=== PATIENT | female | born 1955 | race African-American/Black ===

== ENCOUNTER → 2016-09-01 | Outpatient (CLI) | payer MEDICARE, OTHER ==
[~2016-09-01] MED LIST: CARV6.25 PO; CEFD300C2 PO; CYANOCOBALAMIN (B-12) 1000 MCG/1 ML VIAL IM ONE; CYANOCOBALAMIN (B-12) 1000 MCG/1 ML VIAL ONE; DIG0125T PO; HYDR200T PO; HYDR200T36 PO; MAGN400C2 PO; NOR5T PO; OMEP20CA5 PO; POTA-167; RIVA20TA PO; TORS1TAB10 PO
[2016-09-01 12:05] VITALS: BP 116/70
[2016-09-01 16:52] LABS: Basophils # (auto) 0 uL; Basophils % (auto) 0.3 % (0.0-2.0); DEFINITIVE VIEW TRANSMISSION; Eosinophils # (auto) 0.1 uL; Eosinophils % (auto) 1.8 % (0.0-7.0); Hematocrit 25.8 % (36.0-46.0); Hemoglobin 8.1 g/dL (12.2-16.2); Lymphocytes # (auto) 0.6 uL; Lymphocytes % (auto) 17.7 % (10.0-50.0); Mean Corpuscular Hemoglobin 28.3 pg (28.0-32.0); Mean Corpuscular Hgb Conc. 31.3 g/dL (32.0-36.0); Mean Corpuscular Volume 90.5 fL (80.0-100.0); Mean Platelet Volume 8.9 fL (7.4-10.4); Monocytes # (auto) 0.5 uL; Monocytes % (auto) 16.2 % (0.0-12.0); Platelet Count (auto) 152 10^3/uL (140-450); Red Cell Distribution Width 16.3 % (11.6-16.0); White Blood Cell 3.1 10^3/uL (4.4-10.8)
[2016-09-01 17:08] LABS: Albumin 2.9 g/dL (3.4-5.0); BUN/Creatinine Ratio 27.5; Bilirubin, Total 0.2 mg/dL (0.2-1.0); Calcium 8.8 mg/dL (8.5-10.1); Magnesium 2.2 mg/dL (1.6-2.6); Potassium 4.1 mmol/L (3.5-5.1); Total Protein 7.6 g/dL (6.4-8.2)
== END | disposition home or self-care (01) ==
LOC: CHF HDHVI 11:12
PROVIDERS: ATTEND Internal Medicine Cardiovascular Disease
DX: E83.52 Hypercalcemia (principal); E78.00 Pure hypercholesterolemia, unspecified; I10 Essential (primary) hypertension; E83.40 Disorders of magnesium metabolism, unspecified
CPT/HCPCS: 36415; 80053; 80061; 83735; 83970; 84480; 85025; 96372; 96374; G0463; J1642

== ENCOUNTER → 2016-09-10 | Outpatient (CLI) | payer MEDICARE, OTHER ==
[~2016-09-10] MED LIST changes: -CYANOCOBALAMIN (B-12) 1000 MCG/1 ML VIAL IM ONE; -CYANOCOBALAMIN (B-12) 1000 MCG/1 ML VIAL ONE
== END | disposition home or self-care (01) ==
LOC: Rad HDHVI 09:05
PROVIDERS: ATTEND Internal Medicine Cardiovascular Disease
DX: I25.5 Ischemic cardiomyopathy (principal); I42.0 Dilated cardiomyopathy
CPT/HCPCS: 93306

== ENCOUNTER → 2016-09-15 | Outpatient (CLI) | payer MEDICARE, OTHER ==
[~2016-09-15] VITALS: Ht 30.5 cm; Wt 59.0 kg
[~2016-09-15] MED LIST changes: +CHOLESTYRAMINE 4 GM POWDER GT ONE; +CHOLESTYRAMINE 4 GM POWDER ONE
[2016-09-15 10:40] VITALS: BP 122/70
[2016-09-15 11:20] VITALS: BP 126/72
== END | disposition home or self-care (01) ==
LOC: Rad HDHVI 10:26
PROVIDERS: ATTEND Internal Medicine Cardiovascular Disease
DX: R00.2 Palpitations (principal); I11.0 Hypertensive heart disease with heart failure; I50.9 Heart failure, unspecified; I42.0 Dilated cardiomyopathy; I25.5 Ischemic cardiomyopathy; I25.10 Atherosclerotic heart disease of native coronary artery without angina pectoris; D64.9 Anemia, unspecified; E78.00 Pure hypercholesterolemia, unspecified
CPT/HCPCS: 71020; J1642; 93005; G0463

== ENCOUNTER 2016-09-17 08:19 | Day surgery (SDC) | payer MEDICARE, OTHER ==
[~2016-09-17] VITALS: Ht 30.5 cm; Wt 0.5 kg
[2016-09-17] VITALS (9 sets, daily range): BP systolic 124–146; BP diastolic 84–97
[~2016-09-17 08:19] MED LIST changes: -CHOLESTYRAMINE 4 GM POWDER GT ONE; -CHOLESTYRAMINE 4 GM POWDER ONE
[2016-09-17] MEDS ORDERED: FUROSEMIDE 40 MG/4 ML VIAL IV ONE (10:30)
[2016-09-17] MEDS ORDERED: FUROSEMIDE 40 MG/4 ML VIAL ONE (13:20)
== END 2016-09-17 14:36 | disposition home or self-care (01) ==
LOC: CATH 08:19
PROVIDERS: ATTEND Internal Medicine Cardiovascular Disease
DX: D64.9 Anemia, unspecified (principal); I27.2 Other secondary pulmonary hypertension; I50.9 Heart failure, unspecified; R06.01 Orthopnea; Q24.9 Congenital malformation of heart, unspecified
CPT/HCPCS: 86850; 86900; 86901; 86920; J1642

== ENCOUNTER → 2016-09-23 | Outpatient (CLI) | payer MEDICARE, OTHER ==
[2016-09-23 09:59] LABS: Basophils # (auto) 0 uL; Basophils % (auto) 0.3 % (0.0-2.0); Eosinophils # (auto) 0 uL; Eosinophils % (auto) 0.9 % (0.0-7.0); Hematocrit 34.1 % (36.0-46.0); Hemoglobin 10.5 g/dL (12.2-16.2); Lymphocytes # (auto) 0.5 uL; Lymphocytes % (auto) 15.5 % (10.0-50.0); Mean Corpuscular Hemoglobin 27.6 pg (28.0-32.0); Mean Corpuscular Hgb Conc. 30.8 g/dL (32.0-36.0); Mean Corpuscular Volume 89.6 fL (80.0-100.0); Mean Platelet Volume 8.7 fL (7.4-10.4); Monocytes # (auto) 0.4 uL; Monocytes % (auto) 10.4 % (0.0-12.0); Neutrophils # (auto) 2.6 uL; Neutrophils % (auto) 72.9 % (37.0-80.0); Platelet Count (auto) 126 10^3/uL (140-450); Red Cell Distribution Width 16.1 % (11.6-16.0); SUSPECT VIEW TRANSMISSION; White Blood Cell 3.5 10^3/uL (4.4-10.8)
== END | disposition home or self-care (01) ==
LOC: LAB 08:55
PROVIDERS: ATTEND Internal Medicine
DX: D61.818 Other pancytopenia (principal); C50.412 Malignant neoplasm of upper-outer quadrant of left female breast
CPT/HCPCS: 36415; 85025

== ENCOUNTER → 2016-09-29 | Outpatient (CLI) | payer MEDICARE, OTHER ==
[~2016-09-29] MED LIST changes: +CYANOCOBALAMIN (B-12) 1000 MCG/1 ML VIAL IM ONE; +CYANOCOBALAMIN (B-12) 1000 MCG/1 ML VIAL ONE; +FUROSEMIDE 20 MG/2 ML VIAL IV ONE; +FUROSEMIDE 20 MG/2 ML VIAL ONE; +FUROSEMIDE 40 MG/4 ML VIAL ONE; +POTASSIUM CHL 10 Meq TABLET PO ONE; +POTASSIUM CHL 20 Meq TABLET PO ONE
[2016-09-29 12:45] VITALS: BP 123/84
[2016-09-29 17:27] LABS: Basophils # (auto) 0 uL; Basophils % (auto) 0.4 % (0.0-2.0); Eosinophils # (auto) 0 uL; Eosinophils % (auto) 1.6 % (0.0-7.0); Hematocrit 32.6 % (36.0-46.0); Hemoglobin 10.1 g/dL (12.2-16.2); Lymphocytes # (auto) 0.5 uL; Lymphocytes % (auto) 15.3 % (10.0-50.0); Mean Corpuscular Hemoglobin 27.8 pg (28.0-32.0); Mean Corpuscular Hgb Conc. 31.1 g/dL (32.0-36.0); Mean Corpuscular Volume 89.3 fL (80.0-100.0); Mean Platelet Volume 9.2 fL (7.4-10.4); Monocytes # (auto) 0.4 uL; Monocytes % (auto) 11.9 % (0.0-12.0); Neutrophils # (auto) 2.1 uL; Neutrophils % (auto) 70.8 % (37.0-80.0); Platelet Count (auto) 148 10^3/uL (140-450); Red Cell Distribution Width 15.8 % (11.6-16.0)
[2016-09-29 17:31] LABS: Calcium 8.1 mg/dL (8.5-10.1); Potassium 3.7 mmol/L (3.5-5.1)
== END | disposition home or self-care (01) ==
LOC: CHF HDHVI 11:29
PROVIDERS: ATTEND Internal Medicine Cardiovascular Disease
DX: E11.9 Type 2 diabetes mellitus without complications (principal); I10 Essential (primary) hypertension; D64.9 Anemia, unspecified
CPT/HCPCS: 36415; 80048; 83036; 85025; 96367; 96372; G0463; J1642

== ENCOUNTER → 2016-10-02 | Outpatient (CLI) | payer MEDICARE, OTHER ==
[~2016-10-02] MED LIST changes: -CYANOCOBALAMIN (B-12) 1000 MCG/1 ML VIAL IM ONE; -CYANOCOBALAMIN (B-12) 1000 MCG/1 ML VIAL ONE; -FUROSEMIDE 20 MG/2 ML VIAL IV ONE; -FUROSEMIDE 20 MG/2 ML VIAL ONE; -FUROSEMIDE 40 MG/4 ML VIAL ONE; -POTASSIUM CHL 10 Meq TABLET PO ONE; -POTASSIUM CHL 20 Meq TABLET PO ONE
[2016-10-02 12:54] VITALS: BP 122/79
== END | disposition home or self-care (01) ==
LOC: CHF HDHVI 11:55
PROVIDERS: ATTEND Internal Medicine Cardiovascular Disease
DX: I50.30 Unspecified diastolic (congestive) heart failure (principal)
CPT/HCPCS: G0463

== ENCOUNTER → 2016-10-06 | Outpatient (CLI) | payer MEDICARE, OTHER ==
[~2016-10-06] MED LIST changes: +ALBUTEROL SULF 2.5 MG/0.5ML(0.5%) NEB SOLN NEB ONE; +ALBUTEROL SULF 2.5 MG/0.5ML(0.5%) NEB SOLN ONE; +CYANOCOBALAMIN (B-12) 1000 MCG/1 ML VIAL IM ONE; +CYANOCOBALAMIN (B-12) 1000 MCG/1 ML VIAL ONE
== END | disposition home or self-care (01) ==
LOC: CHF HDHVI 10:12
PROVIDERS: ATTEND Internal Medicine Cardiovascular Disease
DX: Z11.4 Encounter for screening for human immunodeficiency virus [HIV] (principal); K76.9 Liver disease, unspecified; R82.90 Unspecified abnormal findings in urine; Z94.1 Heart transplant status; D75.9 Disease of blood and blood-forming organs, unspecified
CPT/HCPCS: 36415; 86703; 86704; 86706; 86708; 86803; 86900; 86901; 87340; 94640; 96372; 96374; G0463; J1642

== ENCOUNTER → 2016-10-26 | Outpatient (CLI) | payer MEDICARE, OTHER ==
[~2016-10-26] MED LIST changes: -ALBUTEROL SULF 2.5 MG/0.5ML(0.5%) NEB SOLN NEB ONE; -ALBUTEROL SULF 2.5 MG/0.5ML(0.5%) NEB SOLN ONE; +FUROSEMIDE 100 MG/10ML VIAL IV ONE; +FUROSEMIDE 40 MG/4 ML VIAL ONE; +POTASSIUM CHL 20 Meq TABLET PO ONE
[2016-10-26 16:18] LABS: Basophils # (auto) 0 uL; Eosinophils # (auto) 0 uL; Eosinophils % (auto) 0.6 % (0.0-7.0); Hematocrit 32.2 % (36.0-46.0); Hemoglobin 10.5 g/dL (12.2-16.2); Lymphocytes # (auto) 0.5 uL; Lymphocytes % (auto) 17.3 % (10.0-50.0); Mean Corpuscular Hemoglobin 29.5 pg (28.0-32.0); Mean Corpuscular Hgb Conc. 32.5 g/dL (32.0-36.0); Mean Corpuscular Volume 90.5 fL (80.0-100.0); Mean Platelet Volume 9.6 fL (7.4-10.4); Monocytes # (auto) 0.3 uL; Monocytes % (auto) 13.4 % (0.0-12.0); Neutrophils # (auto) 1.8 uL; Neutrophils % (auto) 68.7 % (37.0-80.0); Platelet Count (auto) 122 10^3/uL (140-450); Red Cell Distribution Width 18.1 % (11.6-16.0); White Blood Cell 2.6 10^3/uL (4.4-10.8)
[2016-10-26 16:28] LABS: BUN/Creatinine Ratio 37.8; Calcium 8.3 mg/dL (8.5-10.1); Magnesium 1.7 mg/dL (1.6-2.6); Potassium 3.7 mmol/L (3.5-5.1)
[2016-10-26 17:56] LABS: B-Type Natriuretic Peptide 3902.93 pg/mL (0-100)
== END | disposition home or self-care (01) ==
LOC: CHF HDHVI 13:15
PROVIDERS: ATTEND Internal Medicine Cardiovascular Disease
DX: I10 Essential (primary) hypertension (principal); I50.9 Heart failure, unspecified; E83.40 Disorders of magnesium metabolism, unspecified; D64.9 Anemia, unspecified
CPT/HCPCS: 36415; 80048; 83735; 83880; 85025; 96372; 96374; G0463; J1642

== ENCOUNTER → 2016-10-27 | Outpatient (CLI) | payer MEDICARE, OTHER ==
[~2016-10-27] MED LIST changes: -CYANOCOBALAMIN (B-12) 1000 MCG/1 ML VIAL IM ONE; -CYANOCOBALAMIN (B-12) 1000 MCG/1 ML VIAL ONE; +DOBUTamine 1000MCG/ML 250 ML IV ONE; -FUROSEMIDE 100 MG/10ML VIAL IV ONE; -FUROSEMIDE 40 MG/4 ML VIAL ONE; -POTASSIUM CHL 20 Meq TABLET PO ONE
[2016-10-27 13:30] VITALS: BP 134/87
[2016-10-27 13:45] VITALS: BP 125/86
[2016-10-27 14:00] VITALS: BP 126/84
[2016-10-27 14:15] VITALS: BP 122/83
== END | disposition home or self-care (01) ==
LOC: CHF HDHVI 13:05
PROVIDERS: ATTEND Internal Medicine Cardiovascular Disease
DX: I11.0 Hypertensive heart disease with heart failure (principal); I50.9 Heart failure, unspecified; I25.5 Ischemic cardiomyopathy; D64.9 Anemia, unspecified; K76.9 Liver disease, unspecified
CPT/HCPCS: 96365; G0463; J1250; J1642

== ENCOUNTER → 2016-10-28 | Outpatient (CLI) | payer MEDICARE, OTHER ==
[~2016-10-28] VITALS: Ht 30.5 cm; Wt 66.3 kg
[2016-10-28] VITALS (9 sets, daily range): BP systolic 122–146; BP diastolic 72–88
[~2016-10-28] MED LIST changes: +FUROSEMIDE 40 MG/4 ML VIAL ONE; +POTASSIUM CHL 20 Meq TABLET PO ONE
== END | disposition home or self-care (01) ==
LOC: CHF HDHVI 11:56
PROVIDERS: ATTEND Internal Medicine Cardiovascular Disease
DX: I50.9 Heart failure, unspecified (principal); I11.0 Hypertensive heart disease with heart failure; I25.10 Atherosclerotic heart disease of native coronary artery without angina pectoris; E78.00 Pure hypercholesterolemia, unspecified; D64.9 Anemia, unspecified
CPT/HCPCS: 96365; 96366; 96375; G0463; J1250; J1642; J1940

== ENCOUNTER → 2016-10-30 | Outpatient (CLI) | payer MEDICARE, OTHER ==
[~2016-10-30] MED LIST changes: +BUMETANIDE (0.25MG/ML) 4 ML VIAL IV ONE; +BUMETANIDE (0.25MG/ML) 4 ML VIAL ONE; +CYANOCOBALAMIN (B-12) 1000 MCG/1 ML VIAL IM ONE; +CYANOCOBALAMIN (B-12) 1000 MCG/1 ML VIAL ONE; -FUROSEMIDE 40 MG/4 ML VIAL ONE; +POTASSIUM CHL 10 Meq TABLET PO ONE; -POTASSIUM CHL 20 Meq TABLET PO ONE
[2016-10-30 12:15] VITALS: BP 130/86
[2016-10-30 12:30] VITALS: BP 131/87
[2016-10-30 15:54] VITALS: BP 128/91
[2016-10-30 16:28] LABS: Potassium 3.6 mmol/L (3.5-5.1)
[2016-10-30 17:19] LABS: B-Type Natriuretic Peptide 3229.55 pg/mL (0-100); Temperature: 22.9 C (20.0-25.0)
== END | disposition home or self-care (01) ==
LOC: CHF HDHVI 11:52
PROVIDERS: ATTEND Internal Medicine Cardiovascular Disease
DX: I50.9 Heart failure, unspecified (principal); Z79.899 Other long term (current) drug therapy
CPT/HCPCS: 36415; 82565; 83880; 84132; 84520; 96365; 96366; 96372; 96375; G0463; J1642

== ENCOUNTER → 2016-11-02 | Outpatient (CLI) | payer MEDICARE, OTHER ==
[2016-11-02] VITALS (11 sets, daily range): BP systolic 110–127; BP diastolic 69–89
[~2016-11-02] MED LIST changes: +ALBUTEROL SULF 2.5 MG/0.5ML(0.5%) NEB SOLN NEB ONE; +ALBUTEROL SULF 2.5 MG/0.5ML(0.5%) NEB SOLN ONE; -BUMETANIDE (0.25MG/ML) 4 ML VIAL IV ONE; -BUMETANIDE (0.25MG/ML) 4 ML VIAL ONE; -CYANOCOBALAMIN (B-12) 1000 MCG/1 ML VIAL IM ONE; -CYANOCOBALAMIN (B-12) 1000 MCG/1 ML VIAL ONE; +FUROSEMIDE 40 MG/4 ML VIAL IV ONE; +FUROSEMIDE 40 MG/4 ML VIAL ONE; -POTASSIUM CHL 10 Meq TABLET PO ONE; +POTASSIUM CHL 20 Meq TABLET PO ONE
[2016-11-02 17:03] LABS: BUN/Creatinine Ratio 47.3; Calcium 8.2 mg/dL (8.5-10.1); Potassium 3.3 mmol/L (3.5-5.1)
[2016-11-02 17:05] LABS: Basophils # (auto) 0 uL; Basophils % (auto) 0.2 % (0.0-2.0); DEFINITIVE VIEW TRANSMISSION; Eosinophils # (auto) 0 uL; Lymphocytes # (auto) 0.3 uL; Lymphocytes % (auto) 9.9 % (10.0-50.0); Mean Corpuscular Hemoglobin 29.1 pg (28.0-32.0); Mean Corpuscular Hgb Conc. 32.2 g/dL (32.0-36.0); Mean Corpuscular Volume 90.5 fL (80.0-100.0); Mean Platelet Volume 9.3 fL (7.4-10.4); Monocytes # (auto) 0.3 uL; Neutrophils # (auto) 2.4 uL; Neutrophils % (auto) 78.9 % (37.0-80.0); Nucleated Red Blood Cells % 2.3 %; Platelet Count (auto) 128 10^3/uL (140-450); White Blood Cell 3.1 10^3/uL (4.4-10.8)
[2016-11-02 17:17] LABS: Red Cell Distribution Width 20.2 % (11.6-16.0)
[2016-11-02 19:11] LABS: Ovalocytes FEW; Tear Drop Cells FEW
[2016-11-02 19:12] LABS: Anisocytosis Slight; Platelet Estimate Decreased
== END | disposition home or self-care (01) ==
LOC: CHF HDHVI 11:50
PROVIDERS: ATTEND Internal Medicine Cardiovascular Disease
DX: I10 Essential (primary) hypertension (principal); D64.9 Anemia, unspecified
CPT/HCPCS: 36415; 80048; 85025; 94640; 96365; 96366; 96374; G0463; J1642

== ENCOUNTER → 2016-11-09 | Outpatient (CLI) | payer MEDICARE, OTHER ==
[2016-11-09] VITALS (9 sets, daily range): BP systolic 118–137; BP diastolic 70–88
[~2016-11-09] MED LIST changes: -ALBUTEROL SULF 2.5 MG/0.5ML(0.5%) NEB SOLN NEB ONE; -ALBUTEROL SULF 2.5 MG/0.5ML(0.5%) NEB SOLN ONE; +CYANOCOBALAMIN (B-12) 1000 MCG/1 ML VIAL IM ONE; +CYANOCOBALAMIN (B-12) 1000 MCG/1 ML VIAL ONE
== END | disposition home or self-care (01) ==
LOC: CHF HDHVI 12:26
PROVIDERS: ATTEND Internal Medicine Cardiovascular Disease
DX: I11.0 Hypertensive heart disease with heart failure (principal); I50.9 Heart failure, unspecified; I25.10 Atherosclerotic heart disease of native coronary artery without angina pectoris; D64.9 Anemia, unspecified; E78.00 Pure hypercholesterolemia, unspecified
CPT/HCPCS: 96365; 96366; 96372; 96375; G0463; J1250; J1642; J1940; J3420

== ENCOUNTER → 2016-11-11 | Outpatient (CLI) | payer MEDICARE, OTHER ==
[~2016-11-11] MED LIST changes: -CYANOCOBALAMIN (B-12) 1000 MCG/1 ML VIAL IM ONE; -CYANOCOBALAMIN (B-12) 1000 MCG/1 ML VIAL ONE; -FUROSEMIDE 40 MG/4 ML VIAL IV ONE
[2016-11-11 12:36] LABS: Basophils # (auto) 0 uL; Eosinophils # (auto) 0 uL; Eosinophils % (auto) 0.2 % (0.0-7.0); Hematocrit 31.4 % (36.0-46.0); Hemoglobin 10.2 g/dL (12.2-16.2); Lymphocytes # (auto) 0.5 uL; Lymphocytes % (auto) 16.4 % (10.0-50.0); Mean Corpuscular Hgb Conc. 32.4 g/dL (32.0-36.0); Mean Corpuscular Volume 89.4 fL (80.0-100.0); Mean Platelet Volume 9.9 fL (7.4-10.4); Monocytes # (auto) 0.4 uL; Monocytes % (auto) 13.9 % (0.0-12.0); Neutrophils # (auto) 2.2 uL; Neutrophils % (auto) 69.5 % (37.0-80.0); Platelet Count (auto) 122 10^3/uL (140-450); Red Cell Distribution Width 18.8 % (11.6-16.0); SUSPECT VIEW TRANSMISSION; White Blood Cell 3.2 10^3/uL (4.4-10.8)
[2016-11-11 13:59] LABS: B-Type Natriuretic Peptide 3661.34 pg/mL (0-100); Temperature: 22.5 C (20.0-25.0)
[2016-11-11 15:15] LABS: BUN/Creatinine Ratio 35.6; Calcium 8.5 mg/dL (8.5-10.1); Magnesium 1.7 mg/dL (1.6-2.6); Potassium 3.5 mmol/L (3.5-5.1)
== END | disposition home or self-care (01) ==
LOC: CHF HDHVI 10:48
PROVIDERS: ATTEND Internal Medicine Cardiovascular Disease
DX: I10 Essential (primary) hypertension (principal); I50.9 Heart failure, unspecified; E83.42 Hypomagnesemia; D64.9 Anemia, unspecified
CPT/HCPCS: 36415; 80048; 83735; 83880; 85025; J1642

== ENCOUNTER → 2016-11-13 | Outpatient (CLI) | payer MEDICARE, OTHER ==
[2016-11-13] VITALS (8 sets, daily range): BP systolic 116–141; BP diastolic 74–86
[~2016-11-13] MED LIST changes: +FUROSEMIDE 40 MG/4 ML VIAL IV ONE; +POTASSIUM CHL 10 Meq TABLET PO ONE
== END | disposition home or self-care (01) ==
LOC: CHF HDHVI 12:13
PROVIDERS: ATTEND Internal Medicine Cardiovascular Disease
DX: I11.0 Hypertensive heart disease with heart failure (principal); I50.9 Heart failure, unspecified; I25.10 Atherosclerotic heart disease of native coronary artery without angina pectoris; E78.00 Pure hypercholesterolemia, unspecified; D64.9 Anemia, unspecified; Z94.1 Heart transplant status
CPT/HCPCS: 96365; 96366; 96375; G0463; J1250; J1642; J1940; 96374

== ENCOUNTER → 2016-11-25 | Outpatient (CLI) | payer MEDICARE, OTHER ==
[2016-11-25] VITALS (9 sets, daily range): BP systolic 110–125; BP diastolic 64–76
[~2016-11-25] VITALS: Ht 165.1 cm; Wt 57.7 kg
[~2016-11-25] MED LIST changes: -CEFD300C2 PO; +CYANOCOBALAMIN (B-12) 1000 MCG/1 ML VIAL IM ONE; +CYANOCOBALAMIN (B-12) 1000 MCG/1 ML VIAL ONE; -DIG0125T PO; -FUROSEMIDE 40 MG/4 ML VIAL IV ONE; -FUROSEMIDE 40 MG/4 ML VIAL ONE; -HYDR200T PO; -MAGN400C2 PO; -POTASSIUM CHL 10 Meq TABLET PO ONE; -POTASSIUM CHL 20 Meq TABLET PO ONE
[2016-11-25 16:00] LABS: Basophils # (auto) 0 uL; DEFINITIVE VIEW TRANSMISSION; Eosinophils # (auto) 0 uL; Eosinophils % (auto) 0.1 % (0.0-7.0); Hematocrit 32.9 % (36.0-46.0); Hemoglobin 10.6 g/dL (12.2-16.2); Lymphocytes # (auto) 0.4 uL; Lymphocytes % (auto) 11.7 % (10.0-50.0); Mean Corpuscular Hemoglobin 29.1 pg (28.0-32.0); Mean Corpuscular Hgb Conc. 32.2 g/dL (32.0-36.0); Mean Corpuscular Volume 90.5 fL (80.0-100.0); Mean Platelet Volume 9.9 fL (7.4-10.4); Monocytes # (auto) 0.6 uL; Monocytes % (auto) 15.5 % (0.0-12.0); Neutrophils # (auto) 2.7 uL; Neutrophils % (auto) 72.7 % (37.0-80.0); Platelet Count (auto) 144 10^3/uL (140-450); Red Cell Distribution Width 19.3 % (11.6-16.0); White Blood Cell 3.8 10^3/uL (4.4-10.8)
[2016-11-25 16:30] LABS: BUN/Creatinine Ratio 32.7; Calcium 8.7 mg/dL (8.5-10.1); Magnesium 1.8 mg/dL (1.6-2.6); Potassium 3.8 mmol/L (3.5-5.1)
[2016-11-25 17:11] LABS: Temperature: 23.4 C (20.0-25.0)
== END | disposition home or self-care (01) ==
LOC: CHF HDHVI 11:24
PROVIDERS: ATTEND Internal Medicine Cardiovascular Disease
DX: I10 Essential (primary) hypertension (principal); I50.9 Heart failure, unspecified; E83.42 Hypomagnesemia; D64.9 Anemia, unspecified
CPT/HCPCS: 36415; 80048; 83735; 83880; 85025; 96365; 96366; 96372; G0463; J1642

== ENCOUNTER → 2016-11-27 | Outpatient (CLI) | payer MEDICARE, OTHER ==
[2016-11-27] VITALS (9 sets, daily range): BP systolic 112–131; BP diastolic 65–84
[~2016-11-27] MED LIST changes: -CYANOCOBALAMIN (B-12) 1000 MCG/1 ML VIAL IM ONE; -CYANOCOBALAMIN (B-12) 1000 MCG/1 ML VIAL ONE
== END | disposition home or self-care (01) ==
LOC: CHF HDHVI 11:36
PROVIDERS: ATTEND Internal Medicine Cardiovascular Disease
DX: I11.0 Hypertensive heart disease with heart failure (principal); I50.9 Heart failure, unspecified; I25.10 Atherosclerotic heart disease of native coronary artery without angina pectoris; D64.9 Anemia, unspecified; E78.00 Pure hypercholesterolemia, unspecified
CPT/HCPCS: 96365; 96366; G0463; J1250; J1642

== ENCOUNTER → 2016-11-30 | Outpatient (CLI) | payer MEDICARE, OTHER ==
[~2016-11-30] VITALS: Ht 30.5 cm; Wt 58.1 kg
[2016-11-30] VITALS (8 sets, daily range): BP systolic 116–137; BP diastolic 71–78
[~2016-11-30] MED LIST changes: +CYANOCOBALAMIN (B-12) 1000 MCG/1 ML VIAL IM ONE; +CYANOCOBALAMIN (B-12) 1000 MCG/1 ML VIAL ONE
== END ==
LOC: CHF HDHVI 11:49
PROVIDERS: ATTEND Internal Medicine Cardiovascular Disease
DX: I11.0 Hypertensive heart disease with heart failure (principal); I50.9 Heart failure, unspecified; I25.10 Atherosclerotic heart disease of native coronary artery without angina pectoris; D64.9 Anemia, unspecified; J44.9 Chronic obstructive pulmonary disease, unspecified; E78.00 Pure hypercholesterolemia, unspecified
CPT/HCPCS: 96365; 96366; 96372; G0463; J1250; J1642; J3420

== ENCOUNTER → 2016-12-04 | Outpatient (CLI) | payer MEDICARE, OTHER ==
[2016-12-04] VITALS (7 sets, daily range): BP systolic 116–126; BP diastolic 75–83
[~2016-12-04] MED LIST changes: -CYANOCOBALAMIN (B-12) 1000 MCG/1 ML VIAL IM ONE; -CYANOCOBALAMIN (B-12) 1000 MCG/1 ML VIAL ONE
[2016-12-04 16:24] LABS: Basophils # (auto) 0 uL; Eosinophils # (auto) 0 uL; Hematocrit 31.4 % (36.0-46.0); Lymphocytes # (auto) 0.5 uL; Lymphocytes % (auto) 15.3 % (10.0-50.0); Mean Corpuscular Hemoglobin 28.6 pg (28.0-32.0); Mean Corpuscular Hgb Conc. 31.8 g/dL (32.0-36.0); Mean Corpuscular Volume 89.9 fL (80.0-100.0); Mean Platelet Volume 13.9 fL (7.4-10.4); Monocytes # (auto) 0.5 uL; Monocytes % (auto) 16.5 % (0.0-12.0); Neutrophils # (auto) 2.2 uL; Neutrophils % (auto) 68.2 % (37.0-80.0); Platelet Count (auto) 174 10^3/uL (140-450); Red Cell Distribution Width 18.9 % (11.6-16.0); SUSPECT VIEW TRANSMISSION; White Blood Cell 3.3 10^3/uL (4.4-10.8)
[2016-12-04 16:39] LABS: BUN/Creatinine Ratio 39.9; Calcium 7.9 mg/dL (8.5-10.1); Magnesium 1.2 mg/dL (1.6-2.6); Potassium 3.9 mmol/L (3.5-5.1)
[2016-12-04 16:43] LABS: B-Type Natriuretic Peptide 1615.49 pg/mL (0-100); Temperature: 23.4 C (20.0-25.0)
== END | disposition home or self-care (01) ==
LOC: CHF HDHVI 11:59
PROVIDERS: ATTEND Internal Medicine Cardiovascular Disease
DX: I10 Essential (primary) hypertension (principal); I50.9 Heart failure, unspecified; D64.9 Anemia, unspecified; E83.42 Hypomagnesemia
CPT/HCPCS: 36415; 80048; 83735; 83880; 85025; 96365; 96366; G0463; J1642

== ENCOUNTER → 2016-12-09 | Outpatient (CLI) | payer MEDICARE, OTHER ==
[2016-12-09] VITALS (7 sets, daily range): BP systolic 112–125; BP diastolic 63–85
[~2016-12-09] MED LIST changes: +CYANOCOBALAMIN (B-12) 1000 MCG/1 ML VIAL IM ONE; +CYANOCOBALAMIN (B-12) 1000 MCG/1 ML VIAL ONE
[2016-12-09 16:38] LABS: BUN/Creatinine Ratio 44.8; Calcium 8.9 mg/dL (8.5-10.1); Magnesium 1.5 mg/dL (1.6-2.6); Potassium 3.8 mmol/L (3.5-5.1)
[2016-12-09 16:42] LABS: B-Type Natriuretic Peptide 1583.92 pg/mL (0-100); Temperature: 23.4 C (20.0-25.0)
== END | disposition home or self-care (01) ==
LOC: CHF HDHVI 11:31
PROVIDERS: ATTEND Internal Medicine Cardiovascular Disease
DX: I10 Essential (primary) hypertension (principal); I50.9 Heart failure, unspecified; E83.42 Hypomagnesemia
CPT/HCPCS: 36415; 80048; 83735; 83880; 96365; 96366; 96372; G0463; J1642

== ENCOUNTER → 2016-12-11 | Outpatient (CLI) | payer MEDICARE, OTHER ==
[2016-12-11] VITALS (8 sets, daily range): BP systolic 104–136; BP diastolic 65–85
[~2016-12-11] VITALS: Ht 30.5 cm; Wt 58.7 kg
[~2016-12-11] MED LIST changes: -CYANOCOBALAMIN (B-12) 1000 MCG/1 ML VIAL IM ONE; -CYANOCOBALAMIN (B-12) 1000 MCG/1 ML VIAL ONE
== END | disposition home or self-care (01) ==
LOC: CHF HDHVI 11:17
PROVIDERS: ATTEND Internal Medicine Cardiovascular Disease
DX: I11.0 Hypertensive heart disease with heart failure (principal); I50.9 Heart failure, unspecified; I25.10 Atherosclerotic heart disease of native coronary artery without angina pectoris; D64.9 Anemia, unspecified; E78.00 Pure hypercholesterolemia, unspecified
CPT/HCPCS: 96365; 96366; G0463; J1250; J1642; 96374

== ENCOUNTER → 2016-12-16 | Outpatient (CLI) | payer MEDICARE, OTHER ==
[2016-12-16] VITALS (8 sets, daily range): BP systolic 114–137; BP diastolic 77–91
[~2016-12-16] VITALS: Ht 30.5 cm; Wt 60.4 kg
[~2016-12-16] MED LIST changes: +CYANOCOBALAMIN (B-12) 1000 MCG/1 ML VIAL IM ONE; +CYANOCOBALAMIN (B-12) 1000 MCG/1 ML VIAL ONE
[2016-12-16 16:36] LABS: Calcium 8.1 mg/dL (8.5-10.1); Magnesium 1.5 mg/dL (1.6-2.6); Potassium 4.1 mmol/L (3.5-5.1)
[2016-12-16 16:59] LABS: B-Type Natriuretic Peptide 3241.58 pg/mL (0-100)
[2016-12-16 17:00] LABS: Temperature: 23.1 C (20.0-25.0)
[2016-12-16 17:19] LABS: DEFINITIVE VIEW TRANSMISSION; Hematocrit 29.6 % (36.0-46.0); Hemoglobin 9.5 g/dL (12.2-16.2); Mean Corpuscular Hemoglobin 29.3 pg (28.0-32.0); Mean Corpuscular Volume 91.4 fL (80.0-100.0); Mean Platelet Volume 14.1 fL (7.4-10.4); Platelet Count (auto) 136 10^3/uL (140-450); Red Cell Distribution Width 18.3 % (11.6-16.0); SUSPECT VIEW TRANSMISSION; White Blood Cell 2.9 10^3/uL (4.4-10.8)
[2016-12-16 17:44] LABS: Metamyelocytes % 0; Myelocytes % 0; Promyelocytes % 0; Reactive Lymphocytes 0
[2016-12-16 19:07] LABS: Platelet Estimate Decreased
[2016-12-16 19:08] LABS: Anisocytosis Slight
[2016-12-16 19:09] LABS: Ovalocytes OCCASIONAL; Tear Drop Cells OCCASIONAL
[2016-12-16 19:10] LABS: Giant Platelets Few
== END | disposition home or self-care (01) ==
LOC: CHF HDHVI 11:56
PROVIDERS: ATTEND Internal Medicine Cardiovascular Disease
DX: I10 Essential (primary) hypertension (principal); I50.9 Heart failure, unspecified; E83.42 Hypomagnesemia; D64.9 Anemia, unspecified
CPT/HCPCS: 36415; 80048; 83735; 83880; 85007; 85027; 96365; 96366; 96372; G0463; J1642

== ENCOUNTER → 2016-12-23 | Outpatient (CLI) | payer MEDICARE, OTHER ==
[2016-12-23] VITALS (9 sets, daily range): BP systolic 110–139; BP diastolic 55–93
[~2016-12-23] MED LIST changes: +FUROSEMIDE 40 MG/4 ML VIAL IV ONE; +FUROSEMIDE 40 MG/4 ML VIAL ONE; +MAGNESIUM OXIDE 400 MG TAB ONE; +MAGNESIUM OXIDE 400 MG TAB PO ONE; +POTASSIUM CHL 10 Meq TABLET PO ONE; +POTASSIUM CHL 20 Meq TABLET PO ONE
[2016-12-23 16:45] LABS: Basophils # (auto) 0 uL; Basophils % (auto) 0.7 % (0.0-2.0); DEFINITIVE VIEW TRANSMISSION; Eosinophils # (auto) 0 uL; Eosinophils % (auto) 0.4 % (0.0-7.0); Hematocrit 29.7 % (36.0-46.0); Hemoglobin 9.5 g/dL (12.2-16.2); Lymphocytes # (auto) 0.5 uL; Lymphocytes % (auto) 17.3 % (10.0-50.0); Mean Corpuscular Hemoglobin 29.2 pg (28.0-32.0); Mean Corpuscular Hgb Conc. 32.1 g/dL (32.0-36.0); Mean Corpuscular Volume 91.1 fL (80.0-100.0); Mean Platelet Volume 13.6 fL (7.4-10.4); Monocytes # (auto) 0.4 uL; Neutrophils % (auto) 67.6 % (37.0-80.0); Platelet Count (auto) 129 10^3/uL (140-450); Red Cell Distribution Width 19.4 % (11.6-16.0); SUSPECT VIEW TRANSMISSION
[2016-12-23 17:02] LABS: BUN/Creatinine Ratio 33.1; Calcium 8.2 mg/dL (8.5-10.1); Magnesium 1.3 mg/dL (1.6-2.6); Potassium 3.6 mmol/L (3.5-5.1)
[2016-12-23 17:18] LABS: B-Type Natriuretic Peptide 3364.32 pg/mL (0-100); Temperature: 23.4 C (20.0-25.0)
[2016-12-23 17:42] LABS: Anisocytosis Moderate; Macrocytosis Slight; Platelet Estimate Decreased
[2016-12-23 17:43] LABS: Ovalocytes FEW
== END | disposition home or self-care (01) ==
LOC: CHF HDHVI 10:56
PROVIDERS: ATTEND Internal Medicine Cardiovascular Disease
DX: I10 Essential (primary) hypertension (principal); I50.9 Heart failure, unspecified; E83.42 Hypomagnesemia; D64.9 Anemia, unspecified
CPT/HCPCS: 36415; 80048; 83735; 83880; 85025; 96365; 96366; 96372; 96375; G0463; J1642

== ENCOUNTER → 2016-12-25 | Outpatient (CLI) | payer MEDICARE, OTHER ==
[2016-12-25] VITALS (7 sets, daily range): BP systolic 115–136; BP diastolic 62–86
[~2016-12-25] MED LIST changes: +CHOLESTYRAMINE 4 GM POWDER GT ONE; +CHOLESTYRAMINE 4 GM POWDER ONE; -CYANOCOBALAMIN (B-12) 1000 MCG/1 ML VIAL IM ONE; -CYANOCOBALAMIN (B-12) 1000 MCG/1 ML VIAL ONE; +METOLAZONE 5 MG TAB ONE; +METOLAZONE 5 MG TAB PO ONE
== END | disposition home or self-care (01) ==
LOC: CHF HDHVI 12:25
PROVIDERS: ATTEND Internal Medicine Cardiovascular Disease
DX: I11.0 Hypertensive heart disease with heart failure (principal); I50.9 Heart failure, unspecified; I25.10 Atherosclerotic heart disease of native coronary artery without angina pectoris; D64.9 Anemia, unspecified; E78.00 Pure hypercholesterolemia, unspecified; Z94.1 Heart transplant status
CPT/HCPCS: 96365; 96366; 96375; G0463; J1250; J1642; J1940; 96374

== ENCOUNTER → 2016-12-28 | Outpatient (CLI) | payer MEDICARE, OTHER ==
[2016-12-28] VITALS (9 sets, daily range): BP systolic 109–127; BP diastolic 59–87
[~2016-12-28] MED LIST changes: -CHOLESTYRAMINE 4 GM POWDER GT ONE; -CHOLESTYRAMINE 4 GM POWDER ONE; -FUROSEMIDE 40 MG/4 ML VIAL IV ONE; -FUROSEMIDE 40 MG/4 ML VIAL ONE; -MAGNESIUM OXIDE 400 MG TAB ONE; -MAGNESIUM OXIDE 400 MG TAB PO ONE; -METOLAZONE 5 MG TAB ONE; -METOLAZONE 5 MG TAB PO ONE; -POTASSIUM CHL 10 Meq TABLET PO ONE; -POTASSIUM CHL 20 Meq TABLET PO ONE
[2016-12-28 16:33] LABS: Basophils # (auto) 0 uL; DEFINITIVE VIEW TRANSMISSION; Eosinophils # (auto) 0 uL; Eosinophils % (auto) 0.7 % (0.0-7.0); Hematocrit 33.4 % (36.0-46.0); Hemoglobin 10.6 g/dL (12.2-16.2); Lymphocytes # (auto) 0.6 uL; Mean Corpuscular Hemoglobin 29.6 pg (28.0-32.0); Mean Corpuscular Hgb Conc. 31.8 g/dL (32.0-36.0); Mean Corpuscular Volume 93.1 fL (80.0-100.0); Mean Platelet Volume 12.6 fL (7.4-10.4); Monocytes # (auto) 0.5 uL; Monocytes % (auto) 16.4 % (0.0-12.0); Neutrophils # (auto) 2.2 uL; Neutrophils % (auto) 65.9 % (37.0-80.0); Platelet Count (auto) 154 10^3/uL (140-450); SUSPECT VIEW TRANSMISSION; White Blood Cell 3.3 10^3/uL (4.4-10.8)
[2016-12-28 16:54] LABS: BUN/Creatinine Ratio 43.4; Calcium 8.9 mg/dL (8.5-10.1); Magnesium 1.7 mg/dL (1.6-2.6); Potassium 3.4 mmol/L (3.5-5.1)
[2016-12-28 17:00] LABS: B-Type Natriuretic Peptide 1761.98 pg/mL (0-100)
[2016-12-28 17:01] LABS: Temperature: 23.5 C (20.0-25.0)
== END | disposition home or self-care (01) ==
LOC: CHF HDHVI 11:31
PROVIDERS: ATTEND Internal Medicine Cardiovascular Disease
DX: I10 Essential (primary) hypertension (principal); I50.9 Heart failure, unspecified; E83.42 Hypomagnesemia; D64.9 Anemia, unspecified
CPT/HCPCS: 36415; 80048; 83735; 83880; 85025; J1642

== ENCOUNTER → 2016-12-30 | Outpatient (CLI) | payer MEDICARE, OTHER ==
[2016-12-30] VITALS (10 sets, daily range): BP systolic 107–131; BP diastolic 58–74
[~2016-12-30] MED LIST changes: +CYANOCOBALAMIN (B-12) 1000 MCG/1 ML VIAL IM ONE; +CYANOCOBALAMIN (B-12) 1000 MCG/1 ML VIAL ONE
== END | disposition home or self-care (01) ==
LOC: CHF HDHVI 11:51
PROVIDERS: ATTEND Internal Medicine Cardiovascular Disease
DX: I50.9 Heart failure, unspecified (principal); D64.9 Anemia, unspecified
CPT/HCPCS: 96365; 96366; 96372; G0463; J1250; J1642; J3420

== ENCOUNTER → 2017-01-01 | Outpatient (CLI) | payer MEDICARE, OTHER ==
[2017-01-01] VITALS (7 sets, daily range): BP systolic 106–133; BP diastolic 60–76
[~2017-01-01] MED LIST changes: -CYANOCOBALAMIN (B-12) 1000 MCG/1 ML VIAL IM ONE; -CYANOCOBALAMIN (B-12) 1000 MCG/1 ML VIAL ONE
== END | disposition home or self-care (01) ==
LOC: CHF HDHVI 11:00
PROVIDERS: ATTEND Internal Medicine Cardiovascular Disease
DX: I50.9 Heart failure, unspecified (principal)
CPT/HCPCS: 96365; 96366; G0463; J1250; J1642

== ENCOUNTER → 2017-01-04 | Outpatient (CLI) | payer MEDICARE, OTHER ==
[~2017-01-04] MED LIST changes: +CYANOCOBALAMIN (B-12) 1000 MCG/1 ML VIAL IM ONE; +CYANOCOBALAMIN (B-12) 1000 MCG/1 ML VIAL ONE; +HEPARIN 1,000 UNITS/ml 1ML VIAL IV ONE
[2017-01-04 12:00] VITALS: BP 125/77
[2017-01-04 12:15] VITALS: BP 126/86
[2017-01-04 12:30] VITALS: BP 137/83
[2017-01-04 12:45] VITALS: BP 136/83
[2017-01-04 16:47] LABS: Basophils # (auto) 0 uL; Basophils % (auto) 0.9 % (0.0-2.0); Eosinophils # (auto) 0 uL; Eosinophils % (auto) 0.4 % (0.0-7.0); Hematocrit 32.1 % (36.0-46.0); Hemoglobin 10.4 g/dL (12.2-16.2); Lymphocytes # (auto) 0.5 uL; Lymphocytes % (auto) 13.1 % (10.0-50.0); Mean Corpuscular Hemoglobin 30.5 pg (28.0-32.0); Mean Corpuscular Hgb Conc. 32.4 g/dL (32.0-36.0); Mean Platelet Volume 10.8 fL (7.4-10.4); Monocytes # (auto) 0.6 uL; Monocytes % (auto) 16.2 % (0.0-12.0); Neutrophils # (auto) 2.4 uL; Neutrophils % (auto) 69.4 % (37.0-80.0); Nucleated Red Blood Cells % 3.6 %; Platelet Count (auto) 161 10^3/uL (140-450); Red Cell Distribution Width 18.5 % (11.6-16.0); SUSPECT VIEW TRANSMISSION; White Blood Cell 3.5 10^3/uL (4.4-10.8)
[2017-01-04 16:48] LABS: BUN/Creatinine Ratio 38.4; Potassium 4.3 mmol/L (3.5-5.1)
[2017-01-04 16:50] LABS: Calcium 8.7 mg/dL (8.5-10.1)
[2017-01-04 17:05] LABS: B-Type Natriuretic Peptide 1176.3 pg/mL (0-100)
[2017-01-04 17:06] LABS: Temperature: 22.3 C (20.0-25.0)
== END | disposition home or self-care (01) ==
LOC: CHF HDHVI 11:53
PROVIDERS: ATTEND Internal Medicine Cardiovascular Disease
DX: I10 Essential (primary) hypertension (principal); I50.9 Heart failure, unspecified; D64.9 Anemia, unspecified
CPT/HCPCS: 36415; 80048; 83880; 85025; 96365; 96366; 96372; G0463; J1642

== ENCOUNTER → 2017-01-06 | Outpatient (CLI) | payer MEDICARE, OTHER ==
[2017-01-06] VITALS (7 sets, daily range): BP systolic 106–128; BP diastolic 59–74
[~2017-01-06] MED LIST changes: -CYANOCOBALAMIN (B-12) 1000 MCG/1 ML VIAL IM ONE; -CYANOCOBALAMIN (B-12) 1000 MCG/1 ML VIAL ONE; -HEPARIN 1,000 UNITS/ml 1ML VIAL IV ONE
[2017-01-06] MEDS: DOBUTamine 1000MCG/ML 250 ML IV SCH (12:00)
== END | disposition home or self-care (01) ==
LOC: CHF HDHVI 11:45
PROVIDERS: ATTEND Internal Medicine Cardiovascular Disease
DX: I50.9 Heart failure, unspecified (principal); I42.0 Dilated cardiomyopathy
CPT/HCPCS: 96365; 96366; G0463; J1250; J1642

== ENCOUNTER → 2017-01-11 | Outpatient (CLI) | payer MEDICARE, OTHER ==
[2017-01-11] VITALS (7 sets, daily range): BP systolic 100–130; BP diastolic 51–78
[~2017-01-11] MED LIST changes: +CYANOCOBALAMIN (B-12) 1000 MCG/1 ML VIAL IM ONE; +CYANOCOBALAMIN (B-12) 1000 MCG/1 ML VIAL ONE
[2017-01-11 16:29] LABS: Basophils # (auto) 0.1 uL; Basophils % (auto) 2.5 % (0.0-2.0); Eosinophils # (auto) 0 uL; Eosinophils % (auto) 1.1 % (0.0-7.0); Hematocrit 31.4 % (36.0-46.0); Hemoglobin 10.1 g/dL (12.2-16.2); Lymphocytes # (auto) 0.6 uL; Lymphocytes % (auto) 20.7 % (10.0-50.0); Mean Corpuscular Hemoglobin 30.4 pg (28.0-32.0); Mean Corpuscular Hgb Conc. 32.3 g/dL (32.0-36.0); Mean Corpuscular Volume 93.8 fL (80.0-100.0); Mean Platelet Volume 10.8 fL (7.4-10.4); Monocytes # (auto) 0.5 uL; Neutrophils # (auto) 1.8 uL; Neutrophils % (auto) 59.7 % (37.0-80.0); Platelet Count (auto) 178 10^3/uL (140-450); Red Cell Distribution Width 16.6 % (11.6-16.0); White Blood Cell 3.1 10^3/uL (4.4-10.8)
[2017-01-11 17:05] LABS: Potassium 3.9 mmol/L (3.5-5.1)
[2017-01-11 17:11] LABS: B-Type Natriuretic Peptide 1581.46 pg/mL (0-100); Temperature: 23.9 C (20.0-25.0)
== END | disposition home or self-care (01) ==
LOC: CHF HDHVI 11:23
PROVIDERS: ATTEND Internal Medicine Cardiovascular Disease
DX: R94.4 Abnormal results of kidney function studies (principal); I50.9 Heart failure, unspecified; D64.9 Anemia, unspecified
CPT/HCPCS: 36415; 82565; 83880; 84132; 84520; 85025; 96365; 96366; 96372; G0463; J1642

== ENCOUNTER → 2017-01-13 | Outpatient (CLI) | payer MEDICARE, OTHER ==
[~2017-01-13] VITALS: Ht 30.5 cm; Wt 59.2 kg
[~2017-01-13] MED LIST changes: -CYANOCOBALAMIN (B-12) 1000 MCG/1 ML VIAL IM ONE; -CYANOCOBALAMIN (B-12) 1000 MCG/1 ML VIAL ONE
[2017-01-13 13:50] VITALS: BP 135/75
[2017-01-13 14:00] VITALS: BP 117/75
== END | disposition home or self-care (01) ==
LOC: CHF HDHVI 13:29
PROVIDERS: ATTEND Internal Medicine Cardiovascular Disease
DX: I50.9 Heart failure, unspecified (principal); J44.9 Chronic obstructive pulmonary disease, unspecified
CPT/HCPCS: 96365; 96366; G0463; J1250; J1642

== ENCOUNTER → 2017-01-15 | Outpatient (CLI) | payer MEDICARE, OTHER ==
[2017-01-15 11:30] VITALS: BP 126/81
[2017-01-15 11:45] VITALS: BP 132/76
[2017-01-15 12:00] VITALS: BP 127/68
[2017-01-15 12:30] VITALS: BP 114/64
[2017-01-15 13:00] VITALS: BP 112/64
[2017-01-15 14:00] VITALS: BP 125/74
== END | disposition home or self-care (01) ==
LOC: CHF HDHVI 11:35
PROVIDERS: ATTEND Internal Medicine Cardiovascular Disease
DX: I50.9 Heart failure, unspecified (principal); D64.9 Anemia, unspecified; R53.83 Other fatigue; R52 Pain, unspecified
CPT/HCPCS: 96365; 96366; G0463; J1250; J1642

== ENCOUNTER → 2017-01-20 | Outpatient (CLI) | payer MEDICARE, OTHER ==
[~2017-01-20] VITALS: Ht 30.5 cm; Wt 58.1 kg
[2017-01-20] VITALS (8 sets, daily range): BP systolic 110–145; BP diastolic 65–82
[~2017-01-20] MED LIST changes: +CYANOCOBALAMIN (B-12) 1000 MCG/1 ML VIAL IM ONE; +CYANOCOBALAMIN (B-12) 1000 MCG/1 ML VIAL ONE
[2017-01-20 17:11] LABS: Basophils # (auto) 0 uL; Basophils % (auto) 0.1 % (0.0-2.0); Eosinophils # (auto) 0 uL; Hematocrit 31.2 % (36.0-46.0); Lymphocytes # (auto) 0.7 uL; Lymphocytes % (auto) 23.5 % (10.0-50.0); Mean Corpuscular Hemoglobin 30.2 pg (28.0-32.0); Mean Corpuscular Hgb Conc. 32.1 g/dL (32.0-36.0); Mean Corpuscular Volume 94.1 fL (80.0-100.0); Mean Platelet Volume 12.3 fL (7.4-10.4); Monocytes # (auto) 0.4 uL; Monocytes % (auto) 14.5 % (0.0-12.0); Neutrophils # (auto) 1.9 uL; Neutrophils % (auto) 60.9 % (37.0-80.0); Platelet Count (auto) 180 10^3/uL (140-450); SUSPECT VIEW TRANSMISSION; White Blood Cell 3.1 10^3/uL (4.4-10.8)
[2017-01-20 17:31] LABS: Calcium 8.6 mg/dL (8.5-10.1); Magnesium 1.5 mg/dL (1.6-2.6); Potassium 4.2 mmol/L (3.5-5.1)
[2017-01-20 17:34] LABS: BUN/Creatinine Ratio 25.7
== END | disposition home or self-care (01) ==
LOC: CHF HDHVI 11:28
PROVIDERS: ATTEND Internal Medicine Cardiovascular Disease
DX: I10 Essential (primary) hypertension (principal); E83.42 Hypomagnesemia; D64.9 Anemia, unspecified
CPT/HCPCS: 36415; 80048; 83735; 85025; 96365; 96367; 96372; G0463; J1642

== ENCOUNTER → 2017-01-22 | Outpatient (CLI) | payer MEDICARE, OTHER ==
[~2017-01-22] MED LIST changes: -CYANOCOBALAMIN (B-12) 1000 MCG/1 ML VIAL IM ONE; -CYANOCOBALAMIN (B-12) 1000 MCG/1 ML VIAL ONE; +HYDR-4663 PO; -NOR5T PO; -OMEP20CA5 PO; +OMEP20CA74 PO
[2017-01-22 11:15] VITALS: BP 124/82
[2017-01-22 11:30] VITALS: BP 132/83
[2017-01-22 11:45] VITALS: BP 133/86
[2017-01-22 12:00] VITALS: BP 133/84
[2017-01-22 12:30] VITALS: BP 133/85
[2017-01-22 13:00] VITALS: BP 126/86
== END | disposition home or self-care (01) ==
LOC: CHF HDHVI 10:42
PROVIDERS: ATTEND Internal Medicine Cardiovascular Disease
DX: I50.20 Unspecified systolic (congestive) heart failure (principal); I42.0 Dilated cardiomyopathy; E87.70 Fluid overload, unspecified
CPT/HCPCS: 96365; 96366; G0463; J1250; J1642

== ENCOUNTER → 2017-01-25 | Outpatient (CLI) | payer MEDICARE, OTHER ==
[~2017-01-25] VITALS: Ht 30.5 cm; Wt 58.5 kg
[~2017-01-25] MED LIST changes: +CYANOCOBALAMIN (B-12) 1000 MCG/1 ML VIAL IM ONE; +CYANOCOBALAMIN (B-12) 1000 MCG/1 ML VIAL ONE
[2017-01-25 14:20] VITALS: BP 118/83
[2017-01-25 16:31] LABS: Basophils # (auto) 0 uL; Basophils % (auto) 0.1 % (0.0-2.0); Eosinophils # (auto) 0 uL; Eosinophils % (auto) 1.1 % (0.0-7.0); Hematocrit 31.6 % (36.0-46.0); Hemoglobin 10.1 g/dL (12.2-16.2); Lymphocytes # (auto) 0.5 uL; Lymphocytes % (auto) 18.8 % (10.0-50.0); Mean Corpuscular Hgb Conc. 32.1 g/dL (32.0-36.0); Mean Corpuscular Volume 93.7 fL (80.0-100.0); Mean Platelet Volume 11.3 fL (7.4-10.4); Monocytes # (auto) 0.4 uL; Monocytes % (auto) 15.3 % (0.0-12.0); Neutrophils # (auto) 1.8 uL; Neutrophils % (auto) 64.7 % (37.0-80.0); Platelet Count (auto) 153 10^3/uL (140-450); Red Cell Distribution Width 16.4 % (11.6-16.0); SUSPECT VIEW TRANSMISSION; White Blood Cell 2.7 10^3/uL (4.4-10.8)
[2017-01-25 16:41] LABS: Potassium 3.7 mmol/L (3.5-5.1)
[2017-01-25 16:49] LABS: B-Type Natriuretic Peptide 2335.5 pg/mL (0-100); Temperature: 23.9 C (20.0-25.0)
== END | disposition home or self-care (01) ==
LOC: CHF HDHVI 11:04
PROVIDERS: ATTEND Internal Medicine Cardiovascular Disease
DX: E87.6 Hypokalemia (principal); I50.9 Heart failure, unspecified; D64.9 Anemia, unspecified; R94.4 Abnormal results of kidney function studies
CPT/HCPCS: 36415; 82565; 83880; 84132; 84520; 85025; 96365; 96366; 96372; G0463; J1642

== ENCOUNTER → 2017-01-29 | Outpatient (CLI) | payer MEDICARE, OTHER ==
[~2017-01-29] VITALS: Ht 30.5 cm; Wt 59.0 kg
[2017-01-29] VITALS (8 sets, daily range): BP systolic 120–140; BP diastolic 73–81
[~2017-01-29] MED LIST changes: -CYANOCOBALAMIN (B-12) 1000 MCG/1 ML VIAL IM ONE; -CYANOCOBALAMIN (B-12) 1000 MCG/1 ML VIAL ONE
== END | disposition home or self-care (01) ==
LOC: CHF HDHVI 12:03
PROVIDERS: ATTEND Internal Medicine Cardiovascular Disease
DX: I11.0 Hypertensive heart disease with heart failure (principal); I50.9 Heart failure, unspecified; I42.0 Dilated cardiomyopathy; R53.83 Other fatigue
CPT/HCPCS: 96365; 96366; G0463; J1250; J1642

== ENCOUNTER → 2017-02-01 | Outpatient (CLI) | payer MEDICARE, OTHER ==
[~2017-02-01] MED LIST changes: +CYANOCOBALAMIN (B-12) 1000 MCG/1 ML VIAL IM ONE; +CYANOCOBALAMIN (B-12) 1000 MCG/1 ML VIAL ONE
[2017-02-01 12:30] VITALS: BP 118/69
[2017-02-01 12:45] VITALS: BP 121/65
[2017-02-01 13:00] VITALS: BP 121/66
[2017-02-01 15:00] VITALS: BP 131/73
[2017-02-01 17:11] LABS: Basophils # (auto) 0 uL; Basophils % (auto) 0.9 % (0.0-2.0); Eosinophils # (auto) 0 uL; Hematocrit 31.8 % (36.0-46.0); Hemoglobin 10.3 g/dL (12.2-16.2); Lymphocytes # (auto) 0.5 uL; Lymphocytes % (auto) 18.3 % (10.0-50.0); Mean Corpuscular Hemoglobin 30.4 pg (28.0-32.0); Mean Corpuscular Hgb Conc. 32.4 g/dL (32.0-36.0); Mean Platelet Volume 12.3 fL (7.4-10.4); Monocytes # (auto) 0.5 uL; Monocytes % (auto) 17.8 % (0.0-12.0); Neutrophils # (auto) 1.6 uL; Nucleated Red Blood Cells % 2.2 %; Platelet Count (auto) 141 10^3/uL (140-450); Red Cell Distribution Width 15.9 % (11.6-16.0); SUSPECT VIEW TRANSMISSION; White Blood Cell 2.5 10^3/uL (4.4-10.8)
[2017-02-01 17:53] LABS: BUN/Creatinine Ratio 32.5; Bilirubin, Total 0.3 mg/dL (0.2-1.0); Calcium 8.3 mg/dL (8.5-10.1); Potassium 3.6 mmol/L (3.5-5.1); Total Protein 8.2 g/dL (6.4-8.2)
== END | disposition home or self-care (01) ==
LOC: CHF HDHVI 12:15
PROVIDERS: ATTEND Internal Medicine Cardiovascular Disease
DX: I10 Essential (primary) hypertension (principal); D64.9 Anemia, unspecified
CPT/HCPCS: 36415; 80053; 83615; 85025; 96365; 96366; 96372; G0463; J1642

== ENCOUNTER → 2017-02-08 | Outpatient (CLI) | payer MEDICARE, OTHER ==
[2017-02-08] VITALS (7 sets, daily range): BP systolic 127–143; BP diastolic 79–90
[2017-02-08 16:19] LABS: Basophils # (auto) 0 uL; Basophils % (auto) 0.1 % (0.0-2.0); CONDITION Y; Eosinophils # (auto) 0 uL; Eosinophils % (auto) 0.3 % (0.0-7.0); Hematocrit 30.4 % (36.0-46.0); Hemoglobin 9.8 g/dL (12.2-16.2); Lymphocytes # (auto) 0.6 uL; Lymphocytes % (auto) 18.5 % (10.0-50.0); Mean Corpuscular Hemoglobin 30.4 pg (28.0-32.0); Mean Corpuscular Hgb Conc. 32.3 g/dL (32.0-36.0); Mean Corpuscular Volume 94.1 fL (80.0-100.0); Mean Platelet Volume 12.1 fL (7.4-10.4); Monocytes # (auto) 0.4 uL; Monocytes % (auto) 13.9 % (0.0-12.0); Neutrophils % (auto) 67.2 % (37.0-80.0); Platelet Count (auto) 133 10^3/uL (140-450); Red Cell Distribution Width 16.6 % (11.6-16.0); SUSPECT SEE PRINTOUT
[2017-02-08 16:42] LABS: BUN/Creatinine Ratio 32.5; Calcium 8.1 mg/dL (8.5-10.1); Potassium 3.5 mmol/L (3.5-5.1)
[2017-02-08 16:47] LABS: B-Type Natriuretic Peptide 2765.64 pg/mL (0-100)
[2017-02-08 17:04] LABS: Temperature: 23.1 C (20.0-25.0)
== END | disposition home or self-care (01) ==
LOC: CHF HDHVI 11:48
PROVIDERS: ATTEND Internal Medicine Cardiovascular Disease
DX: I10 Essential (primary) hypertension (principal); I50.9 Heart failure, unspecified; D64.9 Anemia, unspecified
CPT/HCPCS: 36415; 80048; 83880; 85025; 96365; 96366; 96372; G0463; J1642

== ENCOUNTER → 2017-02-12 | Outpatient (CLI) | payer MEDICARE, OTHER ==
[2017-02-12] VITALS (7 sets, daily range): BP systolic 110–128; BP diastolic 65–83
[~2017-02-12] VITALS: Ht 1 cm; Wt 60.8 kg
[~2017-02-12] MED LIST changes: -CYANOCOBALAMIN (B-12) 1000 MCG/1 ML VIAL IM ONE; -CYANOCOBALAMIN (B-12) 1000 MCG/1 ML VIAL ONE; +FUROSEMIDE 40 MG/4 ML VIAL IV ONE; +FUROSEMIDE 40 MG/4 ML VIAL ONE; +POTASSIUM CHL 10 Meq TABLET PO ONE; +POTASSIUM CHL 20 Meq TABLET PO ONE
== END | disposition home or self-care (01) ==
LOC: CHF HDHVI 12:46
PROVIDERS: ATTEND Internal Medicine Cardiovascular Disease
DX: I50.9 Heart failure, unspecified (principal); D64.9 Anemia, unspecified; R53.83 Other fatigue; R05 Cough
CPT/HCPCS: 96365; 96366; 96375; G0463; J1250; J1642; J1940

== ENCOUNTER → 2017-02-15 | Outpatient (CLI) | payer MEDICARE, OTHER ==
[2017-02-15] VITALS (8 sets, daily range): BP systolic 115–131; BP diastolic 61–76
[~2017-02-15] MED LIST changes: +CYANOCOBALAMIN (B-12) 1000 MCG/1 ML VIAL IM ONE; +CYANOCOBALAMIN (B-12) 1000 MCG/1 ML VIAL ONE; -FUROSEMIDE 40 MG/4 ML VIAL IV ONE; -FUROSEMIDE 40 MG/4 ML VIAL ONE; -POTASSIUM CHL 10 Meq TABLET PO ONE; -POTASSIUM CHL 20 Meq TABLET PO ONE
[2017-02-15 16:41] LABS: Albumin 2.9 g/dL (3.4-5.0); BUN/Creatinine Ratio 34.1; Bilirubin, Total 0.4 mg/dL (0.2-1.0); Calcium 7.8 mg/dL (8.5-10.1); Potassium 3.3 mmol/L (3.5-5.1); Total Protein 8.2 g/dL (6.4-8.2)
[2017-02-15 17:32] LABS: Basophils # (auto) 0 uL; Basophils % (auto) 0.5 % (0.0-2.0); CONDITION Y; Eosinophils # (auto) 0 uL; Eosinophils % (auto) 0.1 % (0.0-7.0); Hematocrit 31.7 % (36.0-46.0); Hemoglobin 10.5 g/dL (12.2-16.2); Lymphocytes # (auto) 0.5 uL; Lymphocytes % (auto) 21.8 % (10.0-50.0); Mean Corpuscular Hemoglobin 31.4 pg (28.0-32.0); Mean Corpuscular Hgb Conc. 33.2 g/dL (32.0-36.0); Mean Corpuscular Volume 94.4 fL (80.0-100.0); Mean Platelet Volume 11.6 fL (7.4-10.4); Monocytes # (auto) 0.4 uL; Monocytes % (auto) 15.4 % (0.0-12.0); Neutrophils # (auto) 1.5 uL; Neutrophils % (auto) 62.2 % (37.0-80.0); Platelet Count (auto) 132 10^3/uL (140-450); SUSPECT SEE PRINTOUT; White Blood Cell 2.5 10^3/uL (4.4-10.8)
[2017-02-15 18:32] LABS: Giant Platelets Few; Platelet Estimate Decreased
== END | disposition home or self-care (01) ==
LOC: CHF HDHVI 12:42
PROVIDERS: ATTEND Internal Medicine Cardiovascular Disease
DX: I11.0 Hypertensive heart disease with heart failure (principal); I50.9 Heart failure, unspecified; D64.9 Anemia, unspecified; J44.9 Chronic obstructive pulmonary disease, unspecified
CPT/HCPCS: 36415; 80053; 83615; 85025; 96365; 96366; 96372; G0463; J1250; J1642; J3420

== ENCOUNTER → 2017-02-17 | Outpatient (CLI) | payer MEDICARE, OTHER ==
[~2017-02-17] MED LIST changes: -CYANOCOBALAMIN (B-12) 1000 MCG/1 ML VIAL IM ONE; -CYANOCOBALAMIN (B-12) 1000 MCG/1 ML VIAL ONE
[2017-02-17 15:24] VITALS: BP 126/79
== END | disposition home or self-care (01) ==
LOC: CHF HDHVI 13:27
PROVIDERS: ATTEND Internal Medicine Cardiovascular Disease
DX: I50.9 Heart failure, unspecified (principal); I42.0 Dilated cardiomyopathy; R53.83 Other fatigue
CPT/HCPCS: 96365; 96366; G0463; J1250; J1642

== ENCOUNTER → 2017-02-19 | Outpatient (CLI) | payer MEDICARE, OTHER ==
[2017-02-19] VITALS (8 sets, daily range): BP systolic 115–130; BP diastolic 70–80
[~2017-02-19] VITALS: Ht 30.5 cm; Wt 60.8 kg
[2017-02-19 16:51] LABS: Potassium 3.8 mmol/L (3.5-5.1)
== END | disposition home or self-care (01) ==
LOC: CHF HDHVI 11:44
PROVIDERS: ATTEND Internal Medicine Cardiovascular Disease
DX: E87.6 Hypokalemia (principal); R94.4 Abnormal results of kidney function studies
CPT/HCPCS: 36415; 82565; 84132; 84520; 96365; 96366; G0463; J1250; J1642

== ENCOUNTER → 2017-02-22 | Outpatient (CLI) | payer MEDICARE, OTHER ==
[2017-02-22] VITALS (9 sets, daily range): BP systolic 113–127; BP diastolic 70–85
[~2017-02-22] MED LIST changes: +CYANOCOBALAMIN (B-12) 1000 MCG/1 ML VIAL IM ONE; +CYANOCOBALAMIN (B-12) 1000 MCG/1 ML VIAL ONE; +POTASSIUM CHL 20 Meq TABLET PO ONE
[2017-02-22 17:12] LABS: BUN/Creatinine Ratio 40.5; Calcium 7.9 mg/dL (8.5-10.1); Potassium 3.4 mmol/L (3.5-5.1)
[2017-02-22 17:18] LABS: B-Type Natriuretic Peptide 2773.95 pg/mL (0-100)
[2017-02-22 17:21] LABS: Temperature: 22.3 C (20.0-25.0)
[2017-02-22 17:24] LABS: Basophils # (auto) 0 uL; Basophils % (auto) 0.1 % (0.0-2.0); CONDITION Y; Eosinophils # (auto) 0 uL; Eosinophils % (auto) 0.7 % (0.0-7.0); Hematocrit 31.2 % (36.0-46.0); Hemoglobin 10.2 g/dL (12.2-16.2); Lymphocytes # (auto) 0.4 uL; Lymphocytes % (auto) 14.6 % (10.0-50.0); Mean Corpuscular Hemoglobin 30.9 pg (28.0-32.0); Mean Corpuscular Hgb Conc. 32.7 g/dL (32.0-36.0); Mean Corpuscular Volume 94.6 fL (80.0-100.0); Mean Platelet Volume 10.6 fL (7.4-10.4); Monocytes # (auto) 0.4 uL; Monocytes % (auto) 13.3 % (0.0-12.0); Neutrophils % (auto) 71.3 % (37.0-80.0); Platelet Count (auto) 148 10^3/uL (140-450); Red Cell Distribution Width 16.7 % (11.6-16.0); SUSPECT SEE PRINTOUT; White Blood Cell 2.8 10^3/uL (4.4-10.8)
== END | disposition home or self-care (01) ==
LOC: CHF HDHVI 12:45
PROVIDERS: ATTEND Internal Medicine Cardiovascular Disease
DX: I11.0 Hypertensive heart disease with heart failure (principal); D64.9 Anemia, unspecified; I50.9 Heart failure, unspecified
CPT/HCPCS: 36415; 80048; 83880; 85025; 96365; 96366; 96372; G0463; J1250; J1642; J3420

== ENCOUNTER → 2017-02-24 | Outpatient (CLI) | payer MEDICARE, OTHER ==
[2017-02-24] VITALS (7 sets, daily range): BP systolic 110–121; BP diastolic 66–73
[~2017-02-24] MED LIST changes: -CYANOCOBALAMIN (B-12) 1000 MCG/1 ML VIAL IM ONE; -CYANOCOBALAMIN (B-12) 1000 MCG/1 ML VIAL ONE; -POTASSIUM CHL 20 Meq TABLET PO ONE
== END | disposition home or self-care (01) ==
LOC: CHF HDHVI 12:47
PROVIDERS: ATTEND Internal Medicine Cardiovascular Disease
DX: E87.6 Hypokalemia (principal); R94.4 Abnormal results of kidney function studies; I50.9 Heart failure, unspecified; E83.42 Hypomagnesemia
CPT/HCPCS: 96365; 96366; G0463; J1250; J1642

== ENCOUNTER → 2017-03-01 | Outpatient (CLI) | payer MEDICARE, OTHER ==
[2017-03-01] VITALS (8 sets, daily range): BP systolic 110–138; BP diastolic 60–80
[~2017-03-01] MED LIST changes: +CYANOCOBALAMIN (B-12) 1000 MCG/1 ML VIAL IM ONE; +CYANOCOBALAMIN (B-12) 1000 MCG/1 ML VIAL ONE
[2017-03-01 16:17] LABS: CONDITION Y; Hemoglobin 10.8 g/dL (12.2-16.2); Mean Corpuscular Hemoglobin 30.8 pg (28.0-32.0); Mean Corpuscular Hgb Conc. 32.5 g/dL (32.0-36.0); Mean Corpuscular Volume 94.6 fL (80.0-100.0); Mean Platelet Volume 10.6 fL (7.4-10.4); Platelet Count (auto) 145 10^3/uL (140-450); White Blood Cell 2.5 10^3/uL (4.4-10.8)
[2017-03-01 16:29] LABS: BUN/Creatinine Ratio 48.7; Calcium 8.5 mg/dL (8.5-10.1); Phosphorus 3.5 mg/dL (2.5-4.90); Potassium 3.6 mmol/L (3.5-5.1); Uric Acid 5.9 mg/dL (2.6-6.0)
[2017-03-01 16:30] LABS: Metamyelocytes % 0; Myelocytes % 0; Promyelocytes % 0; Reactive Lymphocytes 0
[2017-03-01 20:39] LABS: Ovalocytes FEW; Platelet Estimate Adequate
[2017-03-02 14:10] LABS: Urine Bilirubin Negative (Negative); Urine Blood Negative /uL (Negative); Urine Color Yellow (Yellow); Urine Glucose Normal (Normal); Urine Ketone Negative (Negative); Urine Nitrite Negative (Negative); Urine RBC <1 /hpf (0 - 4); Urine Urobilinogen Normal (Negative); Urine pH 6.5 (5.0-8.0)
== END | disposition home or self-care (01) ==
LOC: CHF HDHVI 12:49
PROVIDERS: ATTEND Internal Medicine Cardiovascular Disease
DX: I10 Essential (primary) hypertension (principal); I27.2 Other secondary pulmonary hypertension; D64.9 Anemia, unspecified
CPT/HCPCS: 36415; 80048; 80069; 81001; 82306; 82570; 83970; 84156; 84550; 85007; 85027; 96365; 96366; 96372; G0463; J1250; J1642; J3420

== ENCOUNTER → 2017-03-03 | Outpatient (CLI) | payer MEDICARE, OTHER ==
[~2017-03-03] VITALS: Ht 30.5 cm; Wt 58.5 kg
[~2017-03-03] MED LIST changes: -CYANOCOBALAMIN (B-12) 1000 MCG/1 ML VIAL IM ONE; -CYANOCOBALAMIN (B-12) 1000 MCG/1 ML VIAL ONE
[2017-03-03 12:30] VITALS: BP 123/70
[2017-03-03 12:45] VITALS: BP 128/70
[2017-03-03 13:00] VITALS: BP 129/71
[2017-03-03 13:30] VITALS: BP 114/59
[2017-03-03 14:00] VITALS: BP 119/59
[2017-03-03 15:46] VITALS: BP 120/69
== END | disposition home or self-care (01) ==
LOC: CHF HDHVI 12:19
PROVIDERS: ATTEND Internal Medicine Cardiovascular Disease
DX: I50.9 Heart failure, unspecified (principal)
CPT/HCPCS: 96365; 96366; G0463; J1250; J1642

== ENCOUNTER → 2017-03-08 | Outpatient (CLI) | payer MEDICARE, OTHER ==
[2017-03-08] VITALS (8 sets, daily range): BP systolic 100–119; BP diastolic 53–70
[~2017-03-08] MED LIST changes: +CYANOCOBALAMIN (B-12) 1000 MCG/1 ML VIAL IM ONE; +CYANOCOBALAMIN (B-12) 1000 MCG/1 ML VIAL ONE
[2017-03-08 16:19] LABS: CONDITION Y; Hematocrit 33.3 % (36.0-46.0); Hemoglobin 10.9 g/dL (12.2-16.2); Mean Corpuscular Hemoglobin 30.7 pg (28.0-32.0); Mean Corpuscular Hgb Conc. 32.8 g/dL (32.0-36.0); Mean Corpuscular Volume 93.4 fL (80.0-100.0); Mean Platelet Volume 11.5 fL (7.4-10.4); Platelet Count (auto) 139 10^3/uL (140-450); Red Cell Distribution Width 16.2 % (11.6-16.0); SUSPECT SEE PRINTOUT; White Blood Cell 2.5 10^3/uL (4.4-10.8)
[2017-03-08 16:25] LABS: Metamyelocytes % 0; Myelocytes % 0; Promyelocytes % 0; Reactive Lymphocytes 0
[2017-03-08 16:47] LABS: B-Type Natriuretic Peptide 622.64 pg/mL (0-100)
[2017-03-08 16:51] LABS: BUN/Creatinine Ratio 36.9; Calcium 8.8 mg/dL (8.5-10.1); Potassium 3.4 mmol/L (3.5-5.1); Temperature: 22.7 C (20.0-25.0)
[2017-03-08 17:29] LABS: Platelet Estimate Decreased
[2017-03-08 17:30] LABS: Large Platelets FEW
== END | disposition home or self-care (01) ==
LOC: CHF HDHVI 12:55
PROVIDERS: ATTEND Internal Medicine Cardiovascular Disease
DX: I11.0 Hypertensive heart disease with heart failure (principal); I50.9 Heart failure, unspecified; D64.9 Anemia, unspecified
CPT/HCPCS: 36415; 80048; 82306; 83880; 85007; 85027; 96365; 96366; 96372; G0463; J1250; J1642; J3420

== ENCOUNTER → 2017-03-10 | Outpatient (CLI) | payer MEDICARE, OTHER ==
[~2017-03-10] MED LIST changes: -CYANOCOBALAMIN (B-12) 1000 MCG/1 ML VIAL IM ONE; -CYANOCOBALAMIN (B-12) 1000 MCG/1 ML VIAL ONE
[2017-03-10 12:00] VITALS: BP 127/77
[2017-03-10 12:15] VITALS: BP 129/75
[2017-03-10 13:20] VITALS: BP 101/56
== END | disposition home or self-care (01) ==
LOC: CHF HDHVI 11:35
PROVIDERS: ATTEND Internal Medicine Cardiovascular Disease
DX: I50.9 Heart failure, unspecified (principal); N28.9 Disorder of kidney and ureter, unspecified; E87.70 Fluid overload, unspecified; I42.0 Dilated cardiomyopathy; D64.9 Anemia, unspecified; R53.83 Other fatigue
CPT/HCPCS: 96365; G0463; J1250; J1642

== ENCOUNTER → 2017-03-12 | Outpatient (CLI) | payer MEDICARE, OTHER ==
[2017-03-12] VITALS (9 sets, daily range): BP systolic 104–116; BP diastolic 53–66
== END | disposition home or self-care (01) ==
LOC: CHF HDHVI 13:06
PROVIDERS: ATTEND Internal Medicine Cardiovascular Disease
DX: I50.9 Heart failure, unspecified (principal); I25.10 Atherosclerotic heart disease of native coronary artery without angina pectoris; D64.9 Anemia, unspecified; R53.83 Other fatigue
CPT/HCPCS: 96365; 96366; G0463; J1250; J1642

== ENCOUNTER → 2017-03-15 | Outpatient (CLI) | payer MEDICARE, OTHER ==
[2017-03-15] VITALS (9 sets, daily range): BP systolic 110–142; BP diastolic 64–79
[~2017-03-15] MED LIST changes: +CYANOCOBALAMIN (B-12) 1000 MCG/1 ML VIAL IM ONE; +CYANOCOBALAMIN (B-12) 1000 MCG/1 ML VIAL ONE
[2017-03-15 17:19] LABS: Potassium 4.1 mmol/L (3.5-5.1)
== END | disposition home or self-care (01) ==
LOC: CHF HDHVI 12:11
PROVIDERS: ATTEND Internal Medicine Cardiovascular Disease
DX: E87.6 Hypokalemia (principal); R94.4 Abnormal results of kidney function studies
CPT/HCPCS: 36415; 82565; 84132; 84520; 96365; 96366; 96372; G0463; J1250; J1642; J3420

== ENCOUNTER → 2017-03-22 | Outpatient (CLI) | payer MEDICARE, OTHER ==
[2017-03-22 13:30] VITALS: BP 129/77
[2017-03-22 13:45] VITALS: BP 143/81
[2017-03-22 14:00] VITALS: BP 127/65
[2017-03-22 14:15] VITALS: BP 132/63
[2017-03-22 14:55] VITALS: BP 109/60
[2017-03-22 15:06] LABS: CONDITION Y; Hematocrit 32.5 % (36.0-46.0); Hemoglobin 10.8 g/dL (12.2-16.2); Mean Corpuscular Hemoglobin 31.5 pg (28.0-32.0); Mean Corpuscular Hgb Conc. 33.2 g/dL (32.0-36.0); Mean Corpuscular Volume 94.9 fL (80.0-100.0); Mean Platelet Volume 10.5 fL (7.4-10.4); Red Cell Distribution Width 15.6 % (11.6-16.0); SUSPECT SEE PRINTOUT; White Blood Cell 2.7 10^3/uL (4.4-10.8)
[2017-03-22 15:21] LABS: BUN/Creatinine Ratio 35.4; Calcium 8.1 mg/dL (8.5-10.1); Magnesium 1.2 mg/dL (1.6-2.6); Potassium 3.6 mmol/L (3.5-5.1)
[2017-03-22 15:25] LABS: B-Type Natriuretic Peptide 1138.87 pg/mL (0-100)
[2017-03-22 15:39] LABS: Platelet Count (auto) 127 10^3/uL (140-450)
[2017-03-22 15:40] LABS: Metamyelocytes % 0; Myelocytes % 0; Promyelocytes % 0; Reactive Lymphocytes 0
[2017-03-22 15:59] LABS: Temperature: 23.9 C (20.0-25.0)
[2017-03-22 17:51] LABS: Platelet Estimate Decreased
== END | disposition home or self-care (01) ==
LOC: CHF HDHVI 13:11
PROVIDERS: ATTEND Internal Medicine Cardiovascular Disease
DX: I10 Essential (primary) hypertension (principal); D64.9 Anemia, unspecified; I50.9 Heart failure, unspecified; E83.42 Hypomagnesemia
CPT/HCPCS: 36415; 80048; 83735; 83880; 85007; 85027; 96365; 96366; 96372; G0463; J1250; J1642; J3420

== ENCOUNTER → 2017-03-24 | Outpatient (CLI) | payer MEDICARE, OTHER ==
[~2017-03-24] MED LIST changes: -CYANOCOBALAMIN (B-12) 1000 MCG/1 ML VIAL IM ONE; -CYANOCOBALAMIN (B-12) 1000 MCG/1 ML VIAL ONE; +MAGNESIUM SULF SDV 50% 4MEQ/ML-2 ML VIAL IV ONE; +MAGNESIUM SULFATE 1GM/100ML 100 ML IV SCH
[2017-03-24 13:00] VITALS: BP 124/76
[2017-03-24 13:15] VITALS: BP 137/79
[2017-03-24 13:45] VITALS: BP 141/82
[2017-03-24 16:30] VITALS: BP 132/83
== END | disposition home or self-care (01) ==
LOC: CHF HDHVI 12:37
PROVIDERS: ATTEND Internal Medicine Cardiovascular Disease
DX: I50.9 Heart failure, unspecified (principal); D64.9 Anemia, unspecified; E83.42 Hypomagnesemia; R53.83 Other fatigue
CPT/HCPCS: 96365; 96366; 96368; G0463; J1250; J1642; J3475; 96367

== ENCOUNTER → 2017-03-26 | Outpatient (CLI) | payer MEDICARE, OTHER ==
[~2017-03-26] VITALS: Ht 30.5 cm; Wt 60.7 kg
[2017-03-26] VITALS (9 sets, daily range): BP systolic 112–131; BP diastolic 63–80
[~2017-03-26] MED LIST changes: -MAGNESIUM SULF SDV 50% 4MEQ/ML-2 ML VIAL IV ONE; -MAGNESIUM SULFATE 1GM/100ML 100 ML IV SCH
== END | disposition home or self-care (01) ==
LOC: CHF HDHVI 13:21
PROVIDERS: ATTEND Internal Medicine Cardiovascular Disease
DX: I11.0 Hypertensive heart disease with heart failure (principal); I50.9 Heart failure, unspecified; D64.9 Anemia, unspecified
CPT/HCPCS: 96365; 96366; G0463; J1250; J1642

== ENCOUNTER → 2017-03-29 | Outpatient (CLI) | payer MEDICARE, OTHER ==
[~2017-03-29] MED LIST changes: +CYANOCOBALAMIN (B-12) 1000 MCG/1 ML VIAL IM ONE; +CYANOCOBALAMIN (B-12) 1000 MCG/1 ML VIAL ONE
[2017-03-29 14:00] VITALS: BP 136/77
[2017-03-29 14:15] VITALS: BP 135/77
[2017-03-29 14:45] VITALS: BP 135/85
[2017-03-29 15:55] VITALS: BP 117/71
[2017-03-29 17:18] LABS: BUN/Creatinine Ratio 32.8; Calcium 7.9 mg/dL (8.5-10.1); Magnesium 1.5 mg/dL (1.6-2.6); Potassium 3.4 mmol/L (3.5-5.1)
== END | disposition home or self-care (01) ==
LOC: CHF HDHVI 13:09
PROVIDERS: ATTEND Internal Medicine Cardiovascular Disease
DX: I10 Essential (primary) hypertension (principal); E83.42 Hypomagnesemia; D51.9 Vitamin B12 deficiency anemia, unspecified
CPT/HCPCS: 36415; 80048; 82607; 83735; 96365; 96366; 96372; G0463; J1250; J1642; J3420

== ENCOUNTER → 2017-03-31 | Outpatient (CLI) | payer MEDICARE, OTHER ==
[~2017-03-31] VITALS: Ht 30.5 cm; Wt 59.0 kg
[2017-03-31] VITALS (8 sets, daily range): BP systolic 105–130; BP diastolic 53–74
[~2017-03-31] MED LIST changes: -CYANOCOBALAMIN (B-12) 1000 MCG/1 ML VIAL IM ONE; -CYANOCOBALAMIN (B-12) 1000 MCG/1 ML VIAL ONE; +MAGNESIUM SULF SDV 50% 4MEQ/ML-2 ML VIAL IV ONE; +MAGNESIUM SULFATE 1 GM/100 ML IV SCH
[2017-03-31] MEDS: SODIUM CHLORIDE 0.9% 250 ML IV SCH ×4 (12:00→15:15)
== END | disposition home or self-care (01) ==
LOC: CHF HDHVI 12:00
PROVIDERS: ATTEND Internal Medicine Cardiovascular Disease
DX: I50.9 Heart failure, unspecified (principal); D64.9 Anemia, unspecified; R53.83 Other fatigue; E83.42 Hypomagnesemia; E87.70 Fluid overload, unspecified
CPT/HCPCS: 96365; 96366; 96368; G0463; J1250; J1642; J3475; 96367

== ENCOUNTER → 2017-04-02 | Outpatient (CLI) | payer MEDICARE, OTHER ==
[2017-04-02] VITALS (9 sets, daily range): BP systolic 119–131; BP diastolic 68–79
[~2017-04-02] MED LIST changes: -MAGNESIUM SULFATE 1 GM/100 ML IV SCH
[2017-04-02] MEDS: MAGNESIUM SULFATE 1GM/100ML 100 ML IV SCH ×3 (11:35→13:00)
== END | disposition home or self-care (01) ==
LOC: CHF HDHVI 11:08
PROVIDERS: ATTEND Internal Medicine Cardiovascular Disease
DX: I50.9 Heart failure, unspecified (principal); E87.70 Fluid overload, unspecified; E83.42 Hypomagnesemia; D70.9 Neutropenia, unspecified
CPT/HCPCS: 96365; 96366; 96367; G0463; J1250; J1642; J3475

== ENCOUNTER → 2017-04-05 | Outpatient (CLI) | payer MEDICARE, OTHER ==
[~2017-04-05] VITALS: Ht 30.5 cm; Wt 59.0 kg
[2017-04-05] VITALS (9 sets, daily range): BP systolic 101–130; BP diastolic 50–79
[~2017-04-05] MED LIST changes: +CYANOCOBALAMIN (B-12) 1000 MCG/1 ML VIAL IM ONE; -MAGNESIUM SULF SDV 50% 4MEQ/ML-2 ML VIAL IV ONE
[2017-04-05 16:46] LABS: Basophils # (auto) 0 uL; Basophils % (auto) 0.2 % (0.0-2.0); CONDITION Y; Eosinophils # (auto) 0.1 uL; Eosinophils % (auto) 1.7 % (0.0-7.0); Hemoglobin 10.6 g/dL (12.2-16.2); Lymphocytes # (auto) 0.5 uL; Lymphocytes % (auto) 14.7 % (10.0-50.0); Mean Corpuscular Hgb Conc. 32.2 g/dL (32.0-36.0); Mean Corpuscular Volume 96.2 fL (80.0-100.0); Mean Platelet Volume 10.3 fL (7.4-10.4); Monocytes # (auto) 0.5 uL; Monocytes % (auto) 16.1 % (0.0-12.0); Neutrophils # (auto) 2.1 uL; Neutrophils % (auto) 67.3 % (37.0-80.0); Platelet Count (auto) 146 10^3/uL (140-450); Red Cell Distribution Width 15.8 % (11.6-16.0); White Blood Cell 3.1 10^3/uL (4.4-10.8)
[2017-04-05 17:05] LABS: B-Type Natriuretic Peptide 3339.04 pg/mL (0-100)
[2017-04-05 17:17] LABS: Temperature: 22.7 C (20.0-25.0)
[2017-04-05 17:31] LABS: Albumin 3.1 g/dL (3.4-5.0); BUN/Creatinine Ratio 32.3; Calcium 8.3 mg/dL (8.5-10.1); Potassium 3.8 mmol/L (3.5-5.1)
[2017-04-05 17:33] LABS: Bilirubin, Total 0.4 mg/dL (0.2-1.0); Total Protein 8.6 g/dL (6.4-8.2)
== END | disposition home or self-care (01) ==
LOC: CHF HDHVI 11:26
PROVIDERS: ATTEND Internal Medicine Cardiovascular Disease
DX: I11.0 Hypertensive heart disease with heart failure (principal); I50.9 Heart failure, unspecified; E83.42 Hypomagnesemia; D64.9 Anemia, unspecified
CPT/HCPCS: 36415; 80053; 82565; 83735; 83880; 85025; 96365; 96366; G0463; J1250; J1642

== ENCOUNTER → 2017-04-07 | Outpatient (CLI) | payer MEDICARE, OTHER ==
[~2017-04-07] VITALS: Ht 30.5 cm; Wt 58.7 kg
[2017-04-07] VITALS (9 sets, daily range): BP systolic 111–137; BP diastolic 71–82
[~2017-04-07] MED LIST changes: -CYANOCOBALAMIN (B-12) 1000 MCG/1 ML VIAL IM ONE; +CYANOCOBALAMIN (B-12) 1000 MCG/1 ML VIAL ONE; +FUROSEMIDE 40 MG/4 ML VIAL IV ONE; +FUROSEMIDE 40 MG/4 ML VIAL ONE; +POTASSIUM CHL 20 Meq TABLET PO ONE
== END | disposition home or self-care (01) ==
LOC: CHF HDHVI 14:22
PROVIDERS: ATTEND Internal Medicine Cardiovascular Disease
DX: I50.9 Heart failure, unspecified (principal); D64.9 Anemia, unspecified; I42.9 Cardiomyopathy, unspecified
CPT/HCPCS: 96365; 96366; 96375; G0463; J1250; J1642; J1940

== ENCOUNTER → 2017-04-09 | Outpatient (CLI) | payer MEDICARE, OTHER ==
[2017-04-09] VITALS (10 sets, daily range): BP systolic 101–118; BP diastolic 54–70
[~2017-04-09] MED LIST changes: -CYANOCOBALAMIN (B-12) 1000 MCG/1 ML VIAL ONE
== END | disposition home or self-care (01) ==
LOC: CHF HDHVI 11:28
PROVIDERS: ATTEND Internal Medicine Cardiovascular Disease
DX: I50.9 Heart failure, unspecified (principal); I42.9 Cardiomyopathy, unspecified; D64.9 Anemia, unspecified; R60.9 Edema, unspecified
CPT/HCPCS: 96365; 96366; 96375; G0463; J1250; J1642; J1940

== ENCOUNTER → 2017-04-12 | Outpatient (CLI) | payer MEDICARE, OTHER ==
[2017-04-12] VITALS (8 sets, daily range): BP systolic 114–128; BP diastolic 72–79
[~2017-04-12] MED LIST changes: +BACITRACIN TOP OINT 1 UD PKG TOP ONE; +FUROSEMIDE 20 MG/2 ML VIAL IV ONE; +FUROSEMIDE 20 MG/2 ML VIAL IV SCH; +FUROSEMIDE 20 MG/2 ML VIAL ONE; -FUROSEMIDE 40 MG/4 ML VIAL IV ONE; +POTASSIUM CHL 10 Meq TABLET PO ONE; -POTASSIUM CHL 20 Meq TABLET PO ONE
[2017-04-12 16:23] LABS: Magnesium 1.3 mg/dL (1.6-2.6); Potassium 3.9 mmol/L (3.5-5.1)
[2017-04-12 16:42] LABS: B-Type Natriuretic Peptide 1569.68 pg/mL (0-100)
[2017-04-12 16:46] LABS: Temperature: 23.5 C (20.0-25.0)
== END | disposition home or self-care (01) ==
LOC: CHF HDHVI 12:30
PROVIDERS: ATTEND Internal Medicine Cardiovascular Disease
DX: R94.4 Abnormal results of kidney function studies (principal); E87.6 Hypokalemia; I50.9 Heart failure, unspecified; E83.42 Hypomagnesemia
CPT/HCPCS: 36415; 82565; 83735; 83880; 84132; 84520; 93701; 94620; 96365; 96366; 96375; G0463; J1250; J1642; J1940

== ENCOUNTER → 2017-04-16 | Outpatient (CLI) | payer MEDICARE, OTHER ==
[~2017-04-16] MED LIST changes: -BACITRACIN TOP OINT 1 UD PKG TOP ONE; -FUROSEMIDE 20 MG/2 ML VIAL IV ONE; -FUROSEMIDE 20 MG/2 ML VIAL IV SCH; -FUROSEMIDE 20 MG/2 ML VIAL ONE; -FUROSEMIDE 40 MG/4 ML VIAL ONE; -POTASSIUM CHL 10 Meq TABLET PO ONE
[2017-04-16 15:30] VITALS: BP 117/73
[2017-04-16 17:24] LABS: Potassium 3.6 mmol/L (3.5-5.1)
== END | disposition home or self-care (01) ==
LOC: CHF HDHVI 11:58
PROVIDERS: ATTEND Internal Medicine Cardiovascular Disease
DX: E87.6 Hypokalemia (principal); R94.4 Abnormal results of kidney function studies
CPT/HCPCS: 36415; 82565; 84132; 84520; J1250; J1642

== ENCOUNTER → 2017-04-21 | Outpatient (CLI) | payer MEDICARE, OTHER ==
[2017-04-21] VITALS (7 sets, daily range): BP systolic 107–135; BP diastolic 55–78
[2017-04-21 16:30] LABS: Calcium 9.1 mg/dL (8.5-10.1); Magnesium 1.8 mg/dL (1.6-2.6)
[2017-04-21 16:35] LABS: CONDITION Y; Hematocrit 33.7 % (36.0-46.0); Hemoglobin 10.9 g/dL (12.2-16.2); Mean Corpuscular Hemoglobin 30.9 pg (28.0-32.0); Mean Corpuscular Hgb Conc. 32.3 g/dL (32.0-36.0); Mean Corpuscular Volume 95.5 fL (80.0-100.0); Mean Platelet Volume 11.4 fL (7.4-10.4); Platelet Count (auto) 156 10^3/uL (140-450); Red Cell Distribution Width 15.4 % (11.6-16.0); SUSPECT SEE PRINTOUT; White Blood Cell 3.1 10^3/uL (4.4-10.8)
[2017-04-21 16:41] LABS: Metamyelocytes % 0; Myelocytes % 0; Promyelocytes % 0; Reactive Lymphocytes 0
[2017-04-21 16:47] LABS: B-Type Natriuretic Peptide 1192.78 pg/mL (0-100)
[2017-04-21 16:58] LABS: Temperature: 23.3 C (20.0-25.0)
[2017-04-21 18:15] LABS: Anisocytosis Moderate; Platelet Estimate Adequate
== END | disposition home or self-care (01) ==
LOC: CHF HDHVI 11:49
PROVIDERS: ATTEND Internal Medicine Cardiovascular Disease
DX: I11.0 Hypertensive heart disease with heart failure (principal); I50.9 Heart failure, unspecified; E83.42 Hypomagnesemia; D64.9 Anemia, unspecified
CPT/HCPCS: 36415; 80048; 83735; 83880; 85007; 85027; 96365; 96366; G0463; J1250; J1642

== ENCOUNTER → 2017-04-23 | Outpatient (CLI) | payer MEDICARE, OTHER ==
[2017-04-23] VITALS (7 sets, daily range): BP systolic 106–137; BP diastolic 66–83
== END | disposition home or self-care (01) ==
LOC: CHF HDHVI 10:23
PROVIDERS: ATTEND Internal Medicine Cardiovascular Disease
DX: I50.9 Heart failure, unspecified (principal); D64.9 Anemia, unspecified; F41.9 Anxiety disorder, unspecified
CPT/HCPCS: 96365; 96366; G0463; J1250; J1642

== ENCOUNTER → 2017-04-28 | Outpatient (CLI) | payer MEDICARE, OTHER ==
[2017-04-28] VITALS (7 sets, daily range): BP systolic 106–118; BP diastolic 55–69
[2017-04-28 16:21] LABS: Basophils # (auto) 0 uL; Basophils % (auto) 0.1 % (0.0-2.0); CONDITION Y; Eosinophils # (auto) 0.1 uL; Eosinophils % (auto) 2.5 % (0.0-7.0); Hematocrit 33.7 % (36.0-46.0); Hemoglobin 10.7 g/dL (12.2-16.2); Lymphocytes # (auto) 0.4 uL; Lymphocytes % (auto) 12.3 % (10.0-50.0); Mean Corpuscular Hemoglobin 30.5 pg (28.0-32.0); Mean Corpuscular Hgb Conc. 31.8 g/dL (32.0-36.0); Mean Corpuscular Volume 95.8 fL (80.0-100.0); Mean Platelet Volume 11.5 fL (7.4-10.4); Monocytes # (auto) 0.4 uL; Monocytes % (auto) 13.5 % (0.0-12.0); Neutrophils # (auto) 2.1 uL; Neutrophils % (auto) 71.6 % (37.0-80.0); Platelet Count (auto) 142 10^3/uL (140-450); Red Cell Distribution Width 14.8 % (11.6-16.0); SUSPECT SEE PRINTOUT; White Blood Cell 2.9 10^3/uL (4.4-10.8)
[2017-04-28 16:32] LABS: BUN/Creatinine Ratio 38.8; Calcium 8.7 mg/dL (8.5-10.1); Magnesium 1.7 mg/dL (1.6-2.6)
[2017-04-28 16:47] LABS: B-Type Natriuretic Peptide 1567.98 pg/mL (0-100)
[2017-04-28 17:04] LABS: Temperature: 22.2 C (20.0-25.0)
== END | disposition home or self-care (01) ==
LOC: CHF HDHVI 11:17
PROVIDERS: ATTEND Internal Medicine Cardiovascular Disease
DX: I11.0 Hypertensive heart disease with heart failure (principal); I50.9 Heart failure, unspecified; D64.9 Anemia, unspecified; E83.42 Hypomagnesemia
CPT/HCPCS: 36415; 80048; 83735; 83880; 85025; 96365; 96366; G0463; J1250; J1642

== ENCOUNTER → 2017-04-30 | Outpatient (CLI) | payer MEDICARE, OTHER ==
[2017-04-30] VITALS (8 sets, daily range): BP systolic 114–146; BP diastolic 68–84
[~2017-04-30] VITALS: Ht 30.5 cm; Wt 57.6 kg
== END | disposition home or self-care (01) ==
LOC: CHF HDHVI 12:58
PROVIDERS: ATTEND Internal Medicine Cardiovascular Disease
DX: I50.9 Heart failure, unspecified (principal); E87.70 Fluid overload, unspecified
CPT/HCPCS: 96365; 96366; G0463; J1250; J1642

== ENCOUNTER → 2017-05-03 | Outpatient (CLI) | payer MEDICARE, OTHER ==
[2017-05-03] VITALS (7 sets, daily range): BP systolic 108–129; BP diastolic 64–77
[~2017-05-03] MED LIST changes: +KETOROLAC TROMETH 60MG/2ML VIAL IM ONE
[2017-05-03 16:39] LABS: BUN/Creatinine Ratio 28.8; Calcium 8.8 mg/dL (8.5-10.1); Potassium 3.7 mmol/L (3.5-5.1)
[2017-05-03 16:48] LABS: B-Type Natriuretic Peptide 892.89 pg/mL (0-100)
[2017-05-03 16:49] LABS: Temperature: 23.3 C (20.0-25.0)
== END | disposition home or self-care (01) ==
LOC: CHF HDHVI 11:44
PROVIDERS: ATTEND Internal Medicine Cardiovascular Disease
DX: I11.0 Hypertensive heart disease with heart failure (principal); I50.9 Heart failure, unspecified
CPT/HCPCS: 36415; 80048; 83880; 96365; 96366; 96372; G0463; J1250; J1642; J1885

== ENCOUNTER → 2017-05-07 | Outpatient (CLI) | payer MEDICARE, OTHER ==
[~2017-05-07] VITALS: Ht 30.5 cm; Wt 0.5 kg
[2017-05-07] VITALS (7 sets, daily range): BP systolic 128–146; BP diastolic 73–85
[~2017-05-07] MED LIST changes: -KETOROLAC TROMETH 60MG/2ML VIAL IM ONE
== END | disposition home or self-care (01) ==
LOC: CHF HDHVI 10:09
PROVIDERS: ATTEND Internal Medicine Cardiovascular Disease
DX: I50.9 Heart failure, unspecified (principal); D64.9 Anemia, unspecified; D70.9 Neutropenia, unspecified; I42.9 Cardiomyopathy, unspecified
CPT/HCPCS: 96365; 96366; G0463; J1250; J1642

== ENCOUNTER → 2017-05-10 | Outpatient (CLI) | payer MEDICARE, OTHER ==
[~2017-05-10] VITALS: Ht 30.5 cm; Wt 56.7 kg
[2017-05-10] VITALS (8 sets, daily range): BP systolic 108–129; BP diastolic 58–71
[2017-05-10 16:39] LABS: Hematocrit 31.8 % (36.0-46.0); Hemoglobin 10.5 g/dL (12.2-16.2); Mean Corpuscular Hemoglobin 31.8 pg (28.0-32.0); Mean Corpuscular Hgb Conc. 33.1 g/dL (32.0-36.0); Mean Corpuscular Volume 96.1 fL (80.0-100.0); Mean Platelet Volume 10.8 fL (6.9-10.8); Platelet Count (auto) 124 10^3/uL (140-450); Red Cell Distribution Width 14.7 % (11.8-14.3); White Blood Cell 2.8 10^3/uL (4.4-10.8)
[2017-05-10 16:42] LABS: Magnesium 1.4 mg/dL (1.6-2.6); Potassium 3.7 mmol/L (3.5-5.1)
[2017-05-10 16:43] LABS: Metamyelocytes % 0; Myelocytes % 0; Promyelocytes % 0; Reactive Lymphocytes 0
[2017-05-10 17:24] LABS: B-Type Natriuretic Peptide 803.97 pg/mL (0-100)
[2017-05-10 17:33] LABS: Temperature: 22.2 C (20.0-25.0)
[2017-05-10 19:26] LABS: Platelet Estimate Decreased
[2017-05-10 19:27] LABS: Ovalocytes FEW
== END | disposition home or self-care (01) ==
LOC: CHF HDHVI 11:11
PROVIDERS: ATTEND Internal Medicine Cardiovascular Disease
DX: E87.6 Hypokalemia (principal); R94.4 Abnormal results of kidney function studies; I50.9 Heart failure, unspecified; E83.42 Hypomagnesemia; D64.9 Anemia, unspecified; E55.9 Vitamin D deficiency, unspecified
CPT/HCPCS: 36415; 82306; 82565; 83735; 83880; 84132; 84520; 85007; 85027; 96365; 96366; G0463; J1250; J1642; 96374

== ENCOUNTER → 2017-05-12 | Outpatient (CLI) | payer MEDICARE, OTHER ==
[~2017-05-12] VITALS: Ht 160 cm; Wt 56.2 kg
[~2017-05-12] MED LIST changes: +MAGNESIUM OXIDE 400 MG TAB ONE; +MAGNESIUM OXIDE 400 MG TAB PO ONE; +MAGNESIUM SULF SDV 50% 4MEQ/ML-2 ML VIAL IV ONE
[2017-05-12] MEDS: MAGNESIUM SULFATE 1GM/100ML 100 ML IV SCH ×2 (12:00→13:00)
[2017-05-12 14:40] VITALS: BP 101/62
== END | disposition home or self-care (01) ==
LOC: CHF HDHVI 10:58
PROVIDERS: ATTEND Internal Medicine Cardiovascular Disease
DX: I13.10 Hypertensive heart and chronic kidney disease without heart failure, with stage 1 through stage 4 chronic kidney disease, or unspecified chronic kidney disease (principal); I50.9 Heart failure, unspecified; E78.5 Hyperlipidemia, unspecified; N18.9 Chronic kidney disease, unspecified; D64.9 Anemia, unspecified
CPT/HCPCS: 96365; 96366; 96367; G0463; J1250; J1642; J3475

== ENCOUNTER → 2017-05-17 | Outpatient (CLI) | payer MEDICARE, OTHER ==
[2017-05-17] VITALS (8 sets, daily range): BP systolic 108–137; BP diastolic 57–81
[~2017-05-17] MED LIST changes: -MAGNESIUM OXIDE 400 MG TAB ONE; -MAGNESIUM OXIDE 400 MG TAB PO ONE; -MAGNESIUM SULF SDV 50% 4MEQ/ML-2 ML VIAL IV ONE
[2017-05-17 16:53] LABS: Basophils # (auto) 0 uL; Eosinophils # (auto) 0.1 uL; Eosinophils % (auto) 4.1 % (0.0-7.0); Hematocrit 34.6 % (36.0-46.0); Hemoglobin 11.1 g/dL (12.2-16.2); Lymphocytes # (auto) 0.4 uL; Lymphocytes % (auto) 12.1 % (10.0-50.0); Mean Corpuscular Hemoglobin 30.9 pg (28.0-32.0); Mean Corpuscular Hgb Conc. 32.2 g/dL (32.0-36.0); Mean Corpuscular Volume 96.1 fL (80.0-100.0); Mean Platelet Volume 9.1 fL (6.9-10.8); Monocytes # (auto) 0.5 uL; Monocytes % (auto) 15.8 % (0.0-12.0); Neutrophils # (auto) 2.2 uL; Nucleated Red Blood Cells % 0.5 %; Platelet Count (auto) 128 10^3/uL (140-450); Red Cell Distribution Width 14.5 % (11.8-14.3); White Blood Cell 3.2 10^3/uL (4.4-10.8)
[2017-05-17 17:04] LABS: BUN/Creatinine Ratio 43.5; Potassium 3.7 mmol/L (3.5-5.1)
[2017-05-17 17:17] LABS: B-Type Natriuretic Peptide 900.47 pg/mL (0-100)
[2017-05-17 17:43] LABS: Temperature: 23.5 C (20.0-25.0)
== END | disposition home or self-care (01) ==
LOC: CHF HDHVI 11:38
PROVIDERS: ATTEND Internal Medicine Cardiovascular Disease
DX: I11.0 Hypertensive heart disease with heart failure (principal); I50.9 Heart failure, unspecified; D64.9 Anemia, unspecified
CPT/HCPCS: 36415; 80048; 83880; 85025; 96365; 96366; G0463; J1250; J1642

== ENCOUNTER → 2017-05-31 | Outpatient (CLI) | payer MEDICARE, OTHER ==
[~2017-05-31] VITALS: Ht 30.5 cm; Wt 58.1 kg
[~2017-05-31] MED LIST changes: -HYDR-4663 PO; +HYDR-4683 PO
[2017-05-31 16:48] LABS: Basophils # (auto) 0 uL; Basophils % (auto) 1.2 % (0.0-2.0); Eosinophils # (auto) 0.1 uL; Eosinophils % (auto) 4.9 % (0.0-7.0); Hematocrit 31.6 % (36.0-46.0); Hemoglobin 10.5 g/dL (12.2-16.2); Lymphocytes # (auto) 0.6 uL; Lymphocytes % (auto) 19.5 % (10.0-50.0); Mean Corpuscular Hemoglobin 32.1 pg (28.0-32.0); Mean Corpuscular Hgb Conc. 33.4 g/dL (32.0-36.0); Mean Corpuscular Volume 96.2 fL (80.0-100.0); Monocytes # (auto) 0.5 uL; Monocytes % (auto) 16.9 % (0.0-12.0); Neutrophils # (auto) 1.7 uL; Neutrophils % (auto) 57.5 % (37.0-80.0); Nucleated Red Blood Cells % 0.2 %; Platelet Count (auto) 101 10^3/uL (140-450); Red Cell Distribution Width 14.1 % (11.8-14.3)
[2017-05-31 16:57] LABS: Calcium 8.1 mg/dL (8.5-10.1); Potassium 3.9 mmol/L (3.5-5.1)
[2017-05-31 17:02] LABS: Urine Bilirubin Negative (Negative); Urine Blood Negative /uL (Negative); Urine Color Yellow (Yellow); Urine Glucose Normal (Normal); Urine Ketone Negative (Negative); Urine Nitrite Negative (Negative); Urine Urobilinogen Normal (Negative)
[2017-05-31 17:25] VITALS: BP 108/68
== END | disposition home or self-care (01) ==
LOC: CHF HDHVI 14:50
PROVIDERS: ATTEND Internal Medicine Cardiovascular Disease
DX: N18.3 Chronic kidney disease, stage 3 (moderate) (principal); D63.1 Anemia in chronic kidney disease; E21.3 Hyperparathyroidism, unspecified; R80.9 Proteinuria, unspecified; M10.9 Gout, unspecified; E55.9 Vitamin D deficiency, unspecified; E78.5 Hyperlipidemia, unspecified
CPT/HCPCS: 36415; 80048; 80069; 81003; 82306; 82570; 83970; 84156; 84550; 85025; 96365; 96366; G0463; J1250; J1642

== ENCOUNTER → 2017-06-07 | Outpatient (CLI) | payer MEDICARE, OTHER ==
[~2017-06-07] VITALS: Ht 1 cm; Wt 0.5 kg
[~2017-06-07] MED LIST changes: +CYANOCOBALAMIN (B-12) 1000 MCG/1 ML VIAL IM ONE; +CYANOCOBALAMIN (B-12) 1000 MCG/1 ML VIAL ONE
[2017-06-07 16:15] VITALS: BP 117/64
[2017-06-07 17:11] LABS: BUN/Creatinine Ratio 25.7; Basophils # (auto) 0 uL; Basophils % (auto) 1.1 % (0.0-2.0); Calcium 8.5 mg/dL (8.5-10.1); Eosinophils # (auto) 0.1 uL; Eosinophils % (auto) 3.3 % (0.0-7.0); Hematocrit 31.5 % (36.0-46.0); Hemoglobin 10.1 g/dL (12.2-16.2); Lymphocytes # (auto) 0.5 uL; Lymphocytes % (auto) 13.6 % (10.0-50.0); Mean Corpuscular Hgb Conc. 32.1 g/dL (32.0-36.0); Mean Corpuscular Volume 96.6 fL (80.0-100.0); Mean Platelet Volume 9.7 fL (6.9-10.8); Monocytes # (auto) 0.6 uL; Monocytes % (auto) 16.5 % (0.0-12.0); Neutrophils # (auto) 2.3 uL; Neutrophils % (auto) 65.5 % (37.0-80.0); Nucleated Red Blood Cells % 0.2 %; Platelet Count (auto) 110 10^3/uL (140-450); Potassium 3.8 mmol/L (3.5-5.1); Red Cell Distribution Width 14.2 % (11.8-14.3); White Blood Cell 3.6 10^3/uL (4.4-10.8)
[2017-06-07 17:19] LABS: B-Type Natriuretic Peptide 2368.93 pg/mL (0-100)
[2017-06-07 17:21] LABS: Temperature: 23.9 C (20.0-25.0)
== END | disposition home or self-care (01) ==
LOC: CHF HDHVI 12:46
PROVIDERS: ATTEND Internal Medicine Cardiovascular Disease
DX: I11.0 Hypertensive heart disease with heart failure (principal); I50.9 Heart failure, unspecified; D64.9 Anemia, unspecified
CPT/HCPCS: 36415; 80048; 83880; 85025; 96365; 96366; 96372; G0463; J1250; J1642; J3420

== ENCOUNTER → 2017-06-14 | Outpatient (CLI) | payer MEDICARE, OTHER ==
[~2017-06-14] MED LIST changes: -CYANOCOBALAMIN (B-12) 1000 MCG/1 ML VIAL IM ONE; -CYANOCOBALAMIN (B-12) 1000 MCG/1 ML VIAL ONE; +METOPROLOL TARTRATE 25 MG TAB ONE
[2017-06-14 15:45] VITALS: BP 119/65
[2017-06-14 16:49] LABS: Basophils # (auto) 0 uL; Basophils % (auto) 1.1 % (0.0-2.0); Eosinophils # (auto) 0.1 uL; Eosinophils % (auto) 3.3 % (0.0-7.0); Hematocrit 30.8 % (36.0-46.0); Hemoglobin 9.9 g/dL (12.2-16.2); Lymphocytes # (auto) 0.5 uL; Lymphocytes % (auto) 17.1 % (10.0-50.0); Mean Corpuscular Hemoglobin 31.6 pg (28.0-32.0); Mean Corpuscular Hgb Conc. 32.3 g/dL (32.0-36.0); Mean Corpuscular Volume 97.8 fL (80.0-100.0); Mean Platelet Volume 9.8 fL (6.9-10.8); Monocytes # (auto) 0.6 uL; Monocytes % (auto) 17.9 % (0.0-12.0); Neutrophils # (auto) 1.9 uL; Neutrophils % (auto) 60.6 % (37.0-80.0); Nucleated Red Blood Cells % 0.3 %; Platelet Count (auto) 119 10^3/uL (140-450); Red Cell Distribution Width 14.3 % (11.8-14.3); White Blood Cell 3.1 10^3/uL (4.4-10.8)
[2017-06-14 17:00] LABS: BUN/Creatinine Ratio 28.8; Magnesium 1.4 mg/dL (1.6-2.6); Potassium 3.9 mmol/L (3.5-5.1)
[2017-06-14 17:15] LABS: B-Type Natriuretic Peptide 1671.48 pg/mL (0-100)
== END | disposition home or self-care (01) ==
LOC: CHF HDHVI 12:21
PROVIDERS: ATTEND Internal Medicine Cardiovascular Disease
DX: I11.0 Hypertensive heart disease with heart failure (principal); I50.9 Heart failure, unspecified; D64.9 Anemia, unspecified; E83.42 Hypomagnesemia
CPT/HCPCS: 36415; 80048; 83735; 83880; 85025; 96365; 96366; G0463; J1250; J1642

== ENCOUNTER → 2017-06-28 | Outpatient (CLI) | payer MEDICARE, OTHER ==
[~2017-06-28] VITALS: Ht 30.5 cm; Wt 59.5 kg
[~2017-06-28] MED LIST changes: +CYANOCOBALAMIN (B-12) 1000 MCG/1 ML VIAL IM ONE; +CYANOCOBALAMIN (B-12) 1000 MCG/1 ML VIAL ONE; -METOPROLOL TARTRATE 25 MG TAB ONE
[2017-06-28 12:30] VITALS: BP 123/73
[2017-06-28 15:15] VITALS: BP 139/81
[2017-06-28 16:28] LABS: Basophils # (auto) 0.1 uL; Basophils % (auto) 1.9 % (0.0-2.0); Eosinophils # (auto) 0.2 uL; Eosinophils % (auto) 5.1 % (0.0-7.0); Hematocrit 30.4 % (36.0-46.0); Lymphocytes # (auto) 0.5 uL; Lymphocytes % (auto) 18.2 % (10.0-50.0); Mean Corpuscular Hemoglobin 31.9 pg (28.0-32.0); Mean Corpuscular Hgb Conc. 32.8 g/dL (32.0-36.0); Mean Corpuscular Volume 97.2 fL (80.0-100.0); Mean Platelet Volume 10.4 fL (6.9-10.8); Monocytes # (auto) 0.5 uL; Monocytes % (auto) 17.1 % (0.0-12.0); Neutrophils # (auto) 1.7 uL; Neutrophils % (auto) 57.7 % (37.0-80.0); Nucleated Red Blood Cells % 0.2 %; Platelet Count (auto) 121 10^3/uL (140-450); Red Cell Distribution Width 14.3 % (11.8-14.3)
[2017-06-28 16:40] LABS: BUN/Creatinine Ratio 24.6; Bilirubin, Total 0.3 mg/dL (0.2-1.0); Calcium 8.7 mg/dL (8.5-10.1); Magnesium 1.6 mg/dL (1.6-2.6); Total Protein 8.9 g/dL (6.4-8.2)
== END | disposition home or self-care (01) ==
LOC: CHF HDHVI 11:59
PROVIDERS: ATTEND Internal Medicine Cardiovascular Disease
DX: K29.00 Acute gastritis without bleeding (principal); E86.0 Dehydration; I10 Essential (primary) hypertension; R11.2 Nausea with vomiting, unspecified; C50.919 Malignant neoplasm of unspecified site of unspecified female breast; E83.42 Hypomagnesemia; D64.9 Anemia, unspecified
CPT/HCPCS: 36415; 80053; 83615; 83735; 85025; 96365; 96366; 96372; G0463; J1250; J1642; J3420

== ENCOUNTER → 2017-07-05 | Outpatient (CLI) | payer MEDICARE, OTHER ==
[~2017-07-05] VITALS: Ht 30.5 cm; Wt 0.5 kg
[~2017-07-05] MED LIST changes: -CYANOCOBALAMIN (B-12) 1000 MCG/1 ML VIAL IM ONE; -CYANOCOBALAMIN (B-12) 1000 MCG/1 ML VIAL ONE; +MAGNESIUM SULF SDV 50% 4MEQ/ML-2 ML VIAL IV ONE; +MAGNESIUM SULFATE 1GM/100ML 100 ML IV SCH
[2017-07-05] MEDS: SODIUM CHLORIDE 0.9% 100 ML IV SCH (13:15)
[2017-07-05 13:30] VITALS: BP 147/82
[2017-07-05 13:45] VITALS: BP 126/66
[2017-07-05 14:30] VITALS: BP 123/67
[2017-07-05 15:00] VITALS: BP 101/61
[2017-07-05 16:20] LABS: Basophils # (auto) 0.1 uL; Basophils % (auto) 1.7 % (0.0-2.0); Eosinophils # (auto) 0.1 uL; Eosinophils % (auto) 3.5 % (0.0-7.0); Hematocrit 32.1 % (36.0-46.0); Hemoglobin 10.4 g/dL (12.2-16.2); Lymphocytes # (auto) 0.6 uL; Lymphocytes % (auto) 19.6 % (10.0-50.0); Mean Corpuscular Hemoglobin 31.2 pg (28.0-32.0); Mean Corpuscular Hgb Conc. 32.3 g/dL (32.0-36.0); Mean Corpuscular Volume 96.5 fL (80.0-100.0); Mean Platelet Volume 9.7 fL (6.9-10.8); Monocytes # (auto) 0.5 uL; Monocytes % (auto) 16.6 % (0.0-12.0); Neutrophils # (auto) 1.9 uL; Neutrophils % (auto) 58.6 % (37.0-80.0); Nucleated Red Blood Cells % 0.5 %; Platelet Count (auto) 109 10^3/uL (140-450); Red Cell Distribution Width 14.3 % (11.8-14.3); White Blood Cell 3.3 10^3/uL (4.4-10.8)
[2017-07-05 16:30] VITALS: BP 119/65
[2017-07-05 16:36] LABS: BUN/Creatinine Ratio 24.8; Calcium 8.3 mg/dL (8.5-10.1); Magnesium 1.4 mg/dL (1.6-2.6); Potassium 3.8 mmol/L (3.5-5.1)
[2017-07-05 16:43] LABS: B-Type Natriuretic Peptide 1486.39 pg/mL (0-100)
[2017-07-05 17:16] LABS: Temperature: 22.7 C (20.0-25.0)
== END | disposition home or self-care (01) ==
LOC: CHF HDHVI 12:42
PROVIDERS: ATTEND Internal Medicine Cardiovascular Disease
DX: I11.0 Hypertensive heart disease with heart failure (principal); I50.9 Heart failure, unspecified; E83.42 Hypomagnesemia; D64.9 Anemia, unspecified; R53.83 Other fatigue
CPT/HCPCS: 36415; 80048; 83735; 83880; 85025; 96365; 96366; 96368; G0463; J1250; J1642; J3475; 96367

== ENCOUNTER → 2017-07-23 | Outpatient (CLI) | payer MEDICARE, OTHER ==
[~2017-07-23] MED LIST changes: +CYANOCOBALAMIN (B-12) 1000 MCG/1 ML VIAL IM ONE; +CYANOCOBALAMIN (B-12) 1000 MCG/1 ML VIAL ONE; -DOBUTamine 1000MCG/ML 250 ML IV ONE; +FUROSEMIDE 40 MG/4 ML VIAL IV ONE; +FUROSEMIDE 40 MG/4 ML VIAL ONE; -MAGNESIUM SULF SDV 50% 4MEQ/ML-2 ML VIAL IV ONE; -MAGNESIUM SULFATE 1GM/100ML 100 ML IV SCH
[2017-07-23 13:30] VITALS: BP 127/83
[2017-07-23 15:54] LABS: BUN/Creatinine Ratio 29.9; Calcium 8.4 mg/dL (8.5-10.1); Magnesium 1.5 mg/dL (1.6-2.6); Potassium 3.7 mmol/L (3.5-5.1)
[2017-07-23 16:06] LABS: Basophils # (auto) 0 uL; Basophils % (auto) 1.3 % (0.0-2.0); Eosinophils # (auto) 0 uL; Eosinophils % (auto) 1.8 % (0.0-7.0); Lymphocytes # (auto) 0.5 uL; Mean Corpuscular Hemoglobin 30.9 pg (28.0-32.0); Mean Corpuscular Hgb Conc. 31.1 g/dL (32.0-36.0); Mean Corpuscular Volume 99.4 fL (80.0-100.0); Mean Platelet Volume 9.5 fL (6.9-10.8); Monocytes # (auto) 0.4 uL; Neutrophils # (auto) 1.7 uL; Neutrophils % (auto) 62.9 % (37.0-80.0); Nucleated Red Blood Cells % 0.1 %; Platelet Count (auto) 96 10^3/uL (140-450); Red Cell Distribution Width 15.2 % (11.8-14.3); White Blood Cell 2.6 10^3/uL (4.4-10.8)
[2017-07-23 16:12] VITALS: BP 115/77
[2017-07-23 16:27] LABS: B-Type Natriuretic Peptide 2984.89 pg/mL (0-100)
[2017-07-23 16:29] LABS: Temperature: 23.5 C (20.0-25.0)
== END | disposition home or self-care (01) ==
LOC: CHF HDHVI 13:35
PROVIDERS: ATTEND Internal Medicine Cardiovascular Disease
DX: I11.0 Hypertensive heart disease with heart failure (principal); I50.9 Heart failure, unspecified; E83.42 Hypomagnesemia; D64.9 Anemia, unspecified; D51.9 Vitamin B12 deficiency anemia, unspecified
CPT/HCPCS: 36415; 80048; 82607; 83735; 83880; 85025; 96372; 96374; G0463; J1642; J1940; J3420

== ENCOUNTER → 2017-08-05 | Outpatient (CLI) | payer MEDICARE, OTHER ==
[~2017-08-05] VITALS: Ht 1 cm; Wt 62.6 kg
[~2017-08-05] MED LIST changes: -CYANOCOBALAMIN (B-12) 1000 MCG/1 ML VIAL IM ONE; -CYANOCOBALAMIN (B-12) 1000 MCG/1 ML VIAL ONE; +DOBUTamine 1000MCG/ML 250 ML IV ONE; -FUROSEMIDE 40 MG/4 ML VIAL IV ONE; +FUROSEMIDE INJECTION 100 MG in SODIUM CHL 0.9% 100 ML IV SCH; +MAGNESIUM SULF SDV 50% 4MEQ/ML-2 ML VIAL IV ONE; +MAGNESIUM SULFATE 1GM/100ML 100 ML IV SCH; +POTASSIUM CHL 10 Meq TABLET PO ONE; +POTASSIUM CHL 20 Meq TABLET PO ONE
[2017-08-05 16:30] LABS: BUN/Creatinine Ratio 27.4; Calcium 8.4 mg/dL (8.5-10.1); Magnesium 1.6 mg/dL (1.6-2.6); Potassium 3.8 mmol/L (3.5-5.1)
[2017-08-05 16:59] LABS: Hematocrit 29.1 % (36.0-46.0); Hemoglobin 9.5 g/dL (12.2-16.2); Mean Corpuscular Hemoglobin 31.8 pg (28.0-32.0); Mean Corpuscular Hgb Conc. 32.6 g/dL (32.0-36.0); Mean Corpuscular Volume 97.6 fL (80.0-100.0); Platelet Count (auto) 93 10^3/uL (140-450); Red Blood Cells 2.98 10^6/uL (4.0-5.20); Red Cell Distribution Width 15.1 % (11.8-14.3)
[2017-08-05 17:12] LABS: Band Neutrophils % (manual) 0; Basophils % (manual) 0 (0.0-2.0); Blast Cells 0; Metamyelocytes % 0; Myelocytes % 0; Promyelocytes % 0; Reactive Lymphocytes 0
[2017-08-05 19:14] LABS: Eosinophils % (manual) 1 (0-7); Lymphocytes % (manual) 25 (10.0-50.0); Monocytes % (manual) 15 (0-12)
[2017-08-06 12:48] VITALS: BP 124/62
== END | disposition home or self-care (01) ==
LOC: CHF HDHVI 13:22
PROVIDERS: ATTEND Internal Medicine Cardiovascular Disease
DX: I50.9 Heart failure, unspecified (principal); I10 Essential (primary) hypertension; D64.9 Anemia, unspecified; E83.42 Hypomagnesemia
CPT/HCPCS: 36415; 80048; 83735; 83880; 85007; 85027; 96365; 96366; 96375; G0463; J1250; J1642; J1940; J3475; 96368

== ENCOUNTER 2017-08-18 18:10 | Emergency (ER) | payer MEDICARE, OTHER ==
[~2017-08-18] VITALS: Ht 162.6 cm; Wt 61.7 kg
[~2017-08-18 18:10] MED LIST changes: -DOBUTamine 1000MCG/ML 250 ML IV ONE; -FUROSEMIDE 40 MG/4 ML VIAL ONE; -FUROSEMIDE INJECTION 100 MG in SODIUM CHL 0.9% 100 ML IV SCH; -MAGNESIUM SULF SDV 50% 4MEQ/ML-2 ML VIAL IV ONE; -MAGNESIUM SULFATE 1GM/100ML 100 ML IV SCH; -POTASSIUM CHL 10 Meq TABLET PO ONE; -POTASSIUM CHL 20 Meq TABLET PO ONE
[2017-08-18 22:05] LABS: Basophils # (auto) 0 uL; Basophils % (auto) 0.9 % (0.0-2.0); Eosinophils # (auto) 0.1 uL; Eosinophils % (auto) 2.8 % (0.0-7.0); Hematocrit 29.3 % (36.0-46.0); Hemoglobin 9.5 g/dL (12.2-16.2); Lymphocytes # (auto) 0.4 uL; Lymphocytes % (auto) 14.8 % (10.0-50.0); Mean Corpuscular Hemoglobin 31.2 pg (28.0-32.0); Mean Corpuscular Hgb Conc. 32.5 g/dL (32.0-36.0); Monocytes # (auto) 0.5 uL; Monocytes % (auto) 16.5 % (0.0-12.0); Neutrophils # (auto) 1.9 uL; Nucleated Red Blood Cells % 0.7 %; Platelet Count (auto) 108 10^3/uL (140-450); Red Blood Cells 3.05 10^6/uL (4.0-5.20); Red Cell Distribution Width 14.5 % (11.8-14.3)
[2017-08-18 22:17] LABS: Albumin 2.9 g/dL (3.4-5.0); BUN/Creatinine Ratio 31.4; Calcium 7.9 mg/dL (8.5-10.1); Potassium 3.6 mmol/L (3.5-5.1)
[2017-08-18 22:25] LABS: INR 1.24 (0.9-1.15); Partial Thromboplastin Time 30.8 sec (22.64-33.71); Prothrombin Time 13.6 sec (9.37-12.3)
[2017-08-18 22:34] LABS: Bilirubin, Total 0.2 mg/dL (0.2-1.0)
[2017-08-20 14:45] VITALS: BP 123/65
[2017-08-20 15:00] VITALS: BP 119/65
== END 2017-08-19 02:35 | disposition left against medical advice (07) ==
LOC: ER 18:10
DX: R04.0 Epistaxis (principal); Z53.21 Procedure and treatment not carried out due to patient leaving prior to being seen by health care provider
CPT/HCPCS: 36415; 80053; 85025; 85610; 85730

== ENCOUNTER → 2017-08-20 | Outpatient (CLI) | payer MEDICARE, OTHER ==
[~2017-08-20] MED LIST changes: +CYANOCOBALAMIN (B-12) 1000 MCG/1 ML VIAL IM ONE; +CYANOCOBALAMIN (B-12) 1000 MCG/1 ML VIAL ONE; +DOBUTamine 1000MCG/ML 250 ML IV ONE; +FUROSEMIDE 40 MG/4 ML VIAL IV ONE; +FUROSEMIDE 40 MG/4 ML VIAL ONE; +MAGNESIUM OXIDE 400 MG TAB ONE; +MAGNESIUM OXIDE 400 MG TAB PO ONE; +POTASSIUM CHL 20 Meq TABLET PO ONE
[2017-08-20 15:56] VITALS: BP 140/72
== END | disposition home or self-care (01) ==
LOC: CHF HDHVI 14:12
PROVIDERS: ATTEND Internal Medicine Cardiovascular Disease
DX: I50.9 Heart failure, unspecified (principal); D64.9 Anemia, unspecified; R53.83 Other fatigue
CPT/HCPCS: 94640; 96365; 96372; 96375; G0463; J1250; J1642; J1940; J3420

== ENCOUNTER → 2017-08-27 | Outpatient (CLI) | payer MEDICARE, OTHER ==
[~2017-08-27] MED LIST changes: -CYANOCOBALAMIN (B-12) 1000 MCG/1 ML VIAL IM ONE; -CYANOCOBALAMIN (B-12) 1000 MCG/1 ML VIAL ONE; -DOBUTamine 1000MCG/ML 250 ML IV ONE; -FUROSEMIDE 40 MG/4 ML VIAL IV ONE; -MAGNESIUM OXIDE 400 MG TAB PO ONE
[2017-08-27 14:00] VITALS: BP 139/78
[2017-08-27 16:12] LABS: Hematocrit 26.2 % (36.0-46.0); Hemoglobin 8.6 g/dL (12.2-16.2); Mean Corpuscular Hemoglobin 31.9 pg (28.0-32.0); Mean Corpuscular Hgb Conc. 32.7 g/dL (32.0-36.0); Mean Corpuscular Volume 97.7 fL (80.0-100.0); Platelet Count (auto) 107 10^3/uL (140-450); Red Blood Cells 2.68 10^6/uL (4.0-5.20); Red Cell Distribution Width 15.5 % (11.8-14.3); White Blood Cell 2.5 10^3/uL (4.4-10.8)
[2017-08-27 16:19] LABS: Urine Blood Negative /uL (Negative); Urine Specific Gravity 1.011 (1.001-1.035)
[2017-08-27 16:23] LABS: BUN/Creatinine Ratio 31.5; Bilirubin, Total 0.4 mg/dL (0.2-1.0); Calcium 7.9 mg/dL (8.5-10.1); Phosphorus 3.7 mg/dL (2.5-4.90); Potassium 3.8 mmol/L (3.5-5.1); Uric Acid 10.1 mg/dL (2.6-6.0)
[2017-08-27 16:25] LABS: Band Neutrophils % (manual) 0; Basophils % (manual) 0 (0.0-2.0); Blast Cells 0; Metamyelocytes % 0; Myelocytes % 0; Promyelocytes % 0; Reactive Lymphocytes 0
[2017-08-27 16:33] LABS: Creatinine, Urine 54 mg/dL (30.0-125.0); Protein, Urine 20.4 mg/dL (0.0-11.9)
[2017-08-27 17:05] LABS: Eosinophils % (manual) 1 (0-7); Lymphocytes % (manual) 30 (10.0-50.0); Monocytes % (manual) 12 (0-12)
== END | disposition home or self-care (01) ==
LOC: CHF HDHVI 13:03
PROVIDERS: ATTEND Internal Medicine Cardiovascular Disease
DX: I11.0 Hypertensive heart disease with heart failure (principal); I50.9 Heart failure, unspecified; D64.9 Anemia, unspecified; M10.9 Gout, unspecified; N39.0 Urinary tract infection, site not specified; C85.90 Non-Hodgkin lymphoma, unspecified, unspecified site; R53.83 Other fatigue; E55.9 Vitamin D deficiency, unspecified
CPT/HCPCS: 36415; 80053; 80069; 81003; 82306; 82570; 83615; 83970; 84156; 84550; 85007; 85027; 96374; G0463; J1642; J1940

== ENCOUNTER → 2017-08-30 | Outpatient (CLI) | payer MEDICARE, OTHER ==
[~2017-08-30] VITALS: Ht 1 cm; Wt 62.6 kg
[~2017-08-30] MED LIST changes: +DOBUTamine 1000MCG/ML 250 ML IV ONE; -FUROSEMIDE 40 MG/4 ML VIAL ONE; -MAGNESIUM OXIDE 400 MG TAB ONE; +MAGNESIUM SULF SDV 50% 4MEQ/ML-2 ML VIAL IV ONE; +MAGNESIUM SULFATE 1GM/100ML 100 ML IV SCH; -POTASSIUM CHL 20 Meq TABLET PO ONE
[2017-08-30 12:40] VITALS: BP 116/60
[2017-08-30 13:15] VITALS: BP 122/50
[2017-08-30 13:30] VITALS: BP 123/58
[2017-08-30 14:00] VITALS: BP 115/55
[2017-08-30 16:10] VITALS: BP 126/67
[2017-08-30 16:37] LABS: Magnesium 1.4 mg/dL (1.6-2.6); Potassium 3.2 mmol/L (3.5-5.1)
[2017-08-30 17:16] VITALS: BP 126/67
== END | disposition home or self-care (01) ==
LOC: CHF HDHVI 12:11
PROVIDERS: ATTEND Internal Medicine Cardiovascular Disease
DX: I50.9 Heart failure, unspecified (principal); E87.5 Hyperkalemia; R94.4 Abnormal results of kidney function studies; E83.42 Hypomagnesemia; D64.9 Anemia, unspecified
CPT/HCPCS: 36415; 82565; 83735; 83880; 84132; 84520; 85014; 96365; 96366; 96367; G0463; J1250; J1642; J3475

== ENCOUNTER → 2017-09-03 | Outpatient (CLI) | payer MEDICARE, OTHER ==
[~2017-09-03] MED LIST changes: -MAGNESIUM SULF SDV 50% 4MEQ/ML-2 ML VIAL IV ONE; -MAGNESIUM SULFATE 1GM/100ML 100 ML IV SCH; +MAGNESIUM SULFATE 1GM/100ML 200 ML IV ONE; +POTASSIUM CHL 10 Meq TABLET PO ONE; +POTASSIUM CHL 20 Meq TABLET PO ONE
[2017-09-03 12:30] VITALS: BP 123/70
[2017-09-03] MEDS: MAGNESIUM SULFATE 1GM/100ML 100 ML IV SCH ×2 (12:50→13:30)
[2017-09-03 13:00] VITALS: BP 137/74
[2017-09-03 13:15] VITALS: BP 130/75
[2017-09-03 13:30] VITALS: BP 134/65
[2017-09-03 14:00] VITALS: BP 124/72
[2017-09-03 15:20] VITALS: BP 124/75
[2017-09-03 16:29] LABS: Magnesium 1.8 mg/dL (1.6-2.6); Potassium 3.6 mmol/L (3.5-5.1)
== END | disposition home or self-care (01) ==
LOC: CHF HDHVI 11:57
PROVIDERS: ATTEND Internal Medicine Cardiovascular Disease
DX: E83.42 Hypomagnesemia (principal); E87.5 Hyperkalemia
CPT/HCPCS: 36415; 83735; 84132; 96365; 96366; 96367; G0463; J1250; J1642; J3475; 96368

== ENCOUNTER → 2017-09-08 | Outpatient (CLI) | payer MEDICARE, OTHER ==
[~2017-09-08] MED LIST changes: +CYANOCOBALAMIN (B-12) 1000 MCG/1 ML VIAL ONE; +MAGNESIUM SULF SDV 50% 4MEQ/ML-2 ML VIAL IV ONE; -MAGNESIUM SULFATE 1GM/100ML 200 ML IV ONE; -POTASSIUM CHL 10 Meq TABLET PO ONE; -POTASSIUM CHL 20 Meq TABLET PO ONE
[2017-09-08 16:45] LABS: BUN/Creatinine Ratio 32.1; Calcium 8.2 mg/dL (8.5-10.1); Magnesium 1.7 mg/dL (1.6-2.6); Potassium 3.5 mmol/L (3.5-5.1)
[2017-09-08 16:52] LABS: Basophils # (auto) 0 uL; Basophils % (auto) 1.9 % (0.0-2.0); Eosinophils # (auto) 0.1 uL; Eosinophils % (auto) 2.8 % (0.0-7.0); Hematocrit 28.6 % (36.0-46.0); Hemoglobin 9.2 g/dL (12.2-16.2); Lymphocytes # (auto) 0.3 uL; Lymphocytes % (auto) 11.1 % (10.0-50.0); Mean Corpuscular Hemoglobin 31.5 pg (28.0-32.0); Mean Corpuscular Volume 98.4 fL (80.0-100.0); Monocytes # (auto) 0.4 uL; Monocytes % (auto) 17.7 % (0.0-12.0); Neutrophils # (auto) 1.6 uL; Neutrophils % (auto) 66.5 % (37.0-80.0); Nucleated Red Blood Cells % 0.5 %; Platelet Count (auto) 147 10^3/uL (140-450); Red Blood Cells 2.91 10^6/uL (4.0-5.20); Red Cell Distribution Width 15.3 % (11.8-14.3); White Blood Cell 2.4 10^3/uL (4.4-10.8)
[2017-09-08 17:55] LABS: % Iron Saturation 28.2 % (15-50)
[2017-09-09 09:46] VITALS: BP 113/63
== END | disposition home or self-care (01) ==
LOC: CHF HDHVI 11:08
PROVIDERS: ATTEND Internal Medicine Cardiovascular Disease
DX: I11.0 Hypertensive heart disease with heart failure (principal); I50.9 Heart failure, unspecified; E83.42 Hypomagnesemia; D64.9 Anemia, unspecified; I27.21 Secondary pulmonary arterial hypertension; R53.83 Other fatigue
CPT/HCPCS: 36415; 80048; 83540; 83550; 83735; 83880; 85025; 96365; 96366; 96367; 96372; G0463; J1250; J1642; J3420; J3475

== ENCOUNTER → 2017-09-24 | Outpatient (CLI) | payer MEDICARE, OTHER ==
[~2017-09-24] MED LIST changes: +CYANOCOBALAMIN (B-12) 1000 MCG/1 ML VIAL IM ONE; -DOBUTamine 1000MCG/ML 250 ML IV ONE; +FUROSEMIDE 40 MG/4 ML VIAL IV ONE; +FUROSEMIDE 40 MG/4 ML VIAL ONE; -MAGNESIUM SULF SDV 50% 4MEQ/ML-2 ML VIAL IV ONE; +POTASSIUM CHL 10 Meq TABLET PO ONE; +POTASSIUM CHL 20 Meq TABLET PO ONE
[2017-09-24 15:15] VITALS: BP 127/80
[2017-09-24 17:09] LABS: BUN/Creatinine Ratio 35.5; Calcium 8.2 mg/dL (8.5-10.1); Magnesium 1.4 mg/dL (1.6-2.6); Potassium 3.5 mmol/L (3.5-5.1)
[2017-09-25 06:33] LABS: Basophils # (auto) 0 uL; Basophils % (auto) 0.8 % (0.0-2.0); Eosinophils # (auto) 0.1 uL; Eosinophils % (auto) 2.8 % (0.0-7.0); Hemoglobin 11.4 g/dL (12.2-16.2); Lymphocytes # (auto) 0.5 uL; Lymphocytes % (auto) 16.9 % (10.0-50.0); Monocytes # (auto) 0.4 uL; Monocytes % (auto) 13.6 % (0.0-12.0); Neutrophils # (auto) 1.8 uL; Neutrophils % (auto) 65.9 % (37.0-80.0); Red Blood Cells 3.69 10^6/uL (4.0-5.20); White Blood Cell 2.7 10^3/uL (4.4-10.8)
[2017-09-25 06:34] LABS: Hematocrit 36.7 % (36.0-46.0); Mean Corpuscular Hemoglobin 30.9 pg (28.0-32.0); Mean Corpuscular Hgb Conc. 31.1 g/dL (32.0-36.0); Mean Corpuscular Volume 99.4 fL (80.0-100.0); Platelet Count (auto) 139 10^3/uL (140-450); Red Cell Distribution Width 17.3 % (11.8-14.3)
== END | disposition home or self-care (01) ==
LOC: CHF HDHVI 13:04
PROVIDERS: ATTEND Internal Medicine Cardiovascular Disease
DX: I11.0 Hypertensive heart disease with heart failure (principal); I50.9 Heart failure, unspecified; E83.42 Hypomagnesemia; D64.9 Anemia, unspecified; I25.10 Atherosclerotic heart disease of native coronary artery without angina pectoris
CPT/HCPCS: 36415; 80048; 83735; 83880; 85025; 96372; 96374; G0463; J1642; J1940; J3420; 96375

== ENCOUNTER → 2017-09-27 | Outpatient (CLI) | payer MEDICARE, OTHER ==
[~2017-09-27] MED LIST changes: -CYANOCOBALAMIN (B-12) 1000 MCG/1 ML VIAL IM ONE; -CYANOCOBALAMIN (B-12) 1000 MCG/1 ML VIAL ONE; +DOBUTamine 1000MCG/ML 250 ML IV ONE; -FUROSEMIDE 40 MG/4 ML VIAL IV ONE; -FUROSEMIDE 40 MG/4 ML VIAL ONE; +MAGNESIUM SULF SDV 50% 4MEQ/ML-2 ML VIAL IV ONE; -POTASSIUM CHL 10 Meq TABLET PO ONE; -POTASSIUM CHL 20 Meq TABLET PO ONE
[2017-09-27 14:00] VITALS: BP 116/64
[2017-09-27 14:15] VITALS: BP 126/70
[2017-09-27 14:30] VITALS: BP 120/70
[2017-09-27 15:00] VITALS: BP 125/73
[2017-09-27 16:50] VITALS: BP 121/71
== END | disposition home or self-care (01) ==
LOC: CHF HDHVI 13:53
PROVIDERS: ATTEND Internal Medicine Cardiovascular Disease
DX: I50.9 Heart failure, unspecified (principal); D64.9 Anemia, unspecified
CPT/HCPCS: 96365; 96366; G0463; J1250; J1642

== ENCOUNTER → 2017-09-29 | Outpatient (CLI) | payer MEDICARE, OTHER ==
[~2017-09-29] MED LIST changes: +MAGNESIUM SULFATE 1 GM/100 ML IV SCH; +POTASSIUM CHL 10 Meq TABLET PO ONE; +POTASSIUM CHL 20 Meq TABLET PO SCH
[2017-09-29 11:30] VITALS: BP 109/63
[2017-09-29 11:45] VITALS: BP 115/70
[2017-09-29 12:00] VITALS: BP 123/72
[2017-09-29 12:40] LABS: BUN/Creatinine Ratio 35.7; Calcium 8.7 mg/dL (8.5-10.1); Magnesium 1.4 mg/dL (1.6-2.6); Potassium 3.4 mmol/L (3.5-5.1)
[2017-09-29 13:00] VITALS: BP 116/71
[2017-09-29 13:30] VITALS: BP 116/70
[2017-09-29 14:00] VITALS: BP 117/78
== END | disposition home or self-care (01) ==
LOC: CHF HDHVI 10:58
PROVIDERS: ATTEND Internal Medicine Cardiovascular Disease
DX: I50.9 Heart failure, unspecified (principal); E83.42 Hypomagnesemia; I10 Essential (primary) hypertension
CPT/HCPCS: 36415; 80048; 83735; 83880; 96365; 96366; 96368; G0463; J1250; J1642; J3475; 96367

== ENCOUNTER → 2017-10-01 | Outpatient (CLI) | payer MEDICARE, OTHER ==
[~2017-10-01] MED LIST changes: -MAGNESIUM SULF SDV 50% 4MEQ/ML-2 ML VIAL IV ONE; -MAGNESIUM SULFATE 1 GM/100 ML IV SCH; +MAGNESIUM SULFATE 1GM/100ML 100 ML IV ONE; -POTASSIUM CHL 10 Meq TABLET PO ONE; -POTASSIUM CHL 20 Meq TABLET PO SCH
[2017-10-01 14:40] VITALS: BP 128/72
== END | disposition home or self-care (01) ==
LOC: CHF HDHVI 11:27
PROVIDERS: ATTEND Internal Medicine Cardiovascular Disease
DX: I50.9 Heart failure, unspecified (principal); E83.42 Hypomagnesemia; D64.9 Anemia, unspecified; R53.1 Weakness
CPT/HCPCS: 96365; 96366; 96368; G0463; J1250; J1642; J3475; 96367

== ENCOUNTER → 2017-10-06 | Outpatient (CLI) | payer MEDICARE, OTHER ==
[2017-10-06] VITALS (7 sets, daily range): BP systolic 119–137; BP diastolic 66–78
[~2017-10-06] VITALS: Ht 30.5 cm; Wt 60.0 kg
[~2017-10-06] MED LIST changes: -MAGNESIUM SULFATE 1GM/100ML 100 ML IV ONE
[2017-10-06 17:17] LABS: Albumin 2.9 g/dL (3.4-5.0); BUN/Creatinine Ratio 35.3; Bilirubin, Total 0.4 mg/dL (0.2-1.0); Calcium 8.9 mg/dL (8.5-10.1); Potassium 3.7 mmol/L (3.5-5.1); Total Protein 8.5 g/dL (6.4-8.2)
[2017-10-06 17:40] LABS: Basophils # (auto) 0 uL; Basophils % (auto) 1.3 % (0.0-2.0); Eosinophils # (auto) 0 uL; Eosinophils % (auto) 1.7 % (0.0-7.0); Hematocrit 32.7 % (36.0-46.0); Hemoglobin 10.4 g/dL (12.2-16.2); Lymphocytes # (auto) 0.4 uL; Lymphocytes % (auto) 17.3 % (10.0-50.0); Mean Corpuscular Hemoglobin 31.1 pg (28.0-32.0); Mean Corpuscular Hgb Conc. 31.7 g/dL (32.0-36.0); Mean Corpuscular Volume 98.1 fL (80.0-100.0); Monocytes # (auto) 0.4 uL; Monocytes % (auto) 16.2 % (0.0-12.0); Neutrophils # (auto) 1.5 uL; Neutrophils % (auto) 63.5 % (37.0-80.0); Nucleated Red Blood Cells % 0.4 %; Platelet Count (auto) 122 10^3/uL (140-450); Red Blood Cells 3.34 10^6/uL (4.0-5.20); White Blood Cell 2.3 10^3/uL (4.4-10.8)
== END | disposition home or self-care (01) ==
LOC: CHF HDHVI 12:52
PROVIDERS: ATTEND Internal Medicine Cardiovascular Disease
DX: I11.0 Hypertensive heart disease with heart failure (principal); I50.9 Heart failure, unspecified; R74.0 Nonspecific elevation of levels of transaminase and lactic acid dehydrogenase [LDH]; D64.9 Anemia, unspecified; E87.70 Fluid overload, unspecified
CPT/HCPCS: 36415; 80053; 83615; 85025; 96365; 96366; G0463; J1250; J1642

== ENCOUNTER → 2017-10-12 | Outpatient (CLI) | payer MEDICARE, OTHER ==
[2017-10-12] VITALS (8 sets, daily range): BP systolic 115–155; BP diastolic 61–87
[~2017-10-12] VITALS: Ht 30.5 cm; Wt 60.0 kg
[~2017-10-12] MED LIST changes: +MAGNESIUM SULF SDV 50% 4MEQ/ML-2 ML VIAL IV ONE; +MAGNESIUM SULFATE 1GM/100ML 100 ML IV ONE
[2017-10-12 16:33] LABS: Basophils # (auto) 0.1 uL; Basophils % (auto) 3.8 % (0.0-2.0); Eosinophils # (auto) 0 uL; Hematocrit 32.2 % (36.0-46.0); Hemoglobin 10.1 g/dL (12.2-16.2); Lymphocytes # (auto) 0.3 uL; Lymphocytes % (auto) 13.6 % (10.0-50.0); Mean Corpuscular Hemoglobin 30.6 pg (28.0-32.0); Mean Corpuscular Hgb Conc. 31.2 g/dL (32.0-36.0); Mean Corpuscular Volume 98.1 fL (80.0-100.0); Monocytes # (auto) 0.3 uL; Monocytes % (auto) 14.1 % (0.0-12.0); Neutrophils # (auto) 1.5 uL; Neutrophils % (auto) 66.5 % (37.0-80.0); Nucleated Red Blood Cells % 0.1 %; Platelet Count (auto) 121 10^3/uL (140-450); Red Blood Cells 3.28 10^6/uL (4.0-5.20); Red Cell Distribution Width 16.3 % (11.8-14.3); White Blood Cell 2.2 10^3/uL (4.4-10.8)
[2017-10-12 16:36] LABS: BUN/Creatinine Ratio 35.6; Calcium 8.4 mg/dL (8.5-10.1); Magnesium 1.4 mg/dL (1.6-2.6); Potassium 3.5 mmol/L (3.5-5.1)
== END | disposition home or self-care (01) ==
LOC: CHF HDHVI 12:35
PROVIDERS: ATTEND Internal Medicine Cardiovascular Disease
DX: I50.9 Heart failure, unspecified (principal); E83.40 Disorders of magnesium metabolism, unspecified; D64.9 Anemia, unspecified; I10 Essential (primary) hypertension
CPT/HCPCS: 36415; 80048; 83735; 83880; 85025; 96365; 96366; 96368; G0463; J1250; J1642; J3475

== ENCOUNTER → 2017-10-14 | Outpatient (CLI) | payer MEDICARE, OTHER ==
[~2017-10-14] VITALS: Ht 30.5 cm; Wt 61.8 kg
[~2017-10-14] MED LIST changes: +MAGNESIUM SULFATE 1GM/100ML 100 ML IV SCH
[2017-10-14 16:00] VITALS: BP 140/80
== END | disposition home or self-care (01) ==
LOC: CHF HDHVI 11:55
PROVIDERS: ATTEND Internal Medicine Cardiovascular Disease
DX: E83.42 Hypomagnesemia (principal); I50.9 Heart failure, unspecified; I27.21 Secondary pulmonary arterial hypertension; R53.83 Other fatigue; D64.9 Anemia, unspecified
CPT/HCPCS: 36415; 83735; 93701; 94618; 96365; 96366; 96367; G0463; J1250; J1642; J3475; 96368

== ENCOUNTER → 2017-10-15 | Outpatient (CLI) | payer MEDICARE, OTHER ==
[~2017-10-15] MED LIST changes: +CYANOCOBALAMIN (B-12) 1000 MCG/1 ML VIAL IM ONE; +CYANOCOBALAMIN (B-12) 1000 MCG/1 ML VIAL ONE; -DOBUTamine 1000MCG/ML 250 ML IV ONE; +FUROSEMIDE 40 MG/4 ML VIAL IV ONE; +FUROSEMIDE 40 MG/4 ML VIAL ONE; -MAGNESIUM SULF SDV 50% 4MEQ/ML-2 ML VIAL IV ONE; -MAGNESIUM SULFATE 1GM/100ML 100 ML IV ONE; -MAGNESIUM SULFATE 1GM/100ML 100 ML IV SCH; +POTASSIUM CHL 20 Meq TABLET PO ONE
[2017-10-15 11:40] VITALS: BP 138/85
[2017-10-15] MEDS: POTASSIUM CHL 20 Meq TABLET PO SCH ×2 (12:15→12:25)
[2017-10-15 12:57] VITALS: BP 128/69
== END | disposition home or self-care (01) ==
LOC: CHF HDHVI 12:42
PROVIDERS: ATTEND Internal Medicine Cardiovascular Disease
DX: I50.9 Heart failure, unspecified (principal); D64.9 Anemia, unspecified; R53.83 Other fatigue; R60.0 Localized edema
CPT/HCPCS: 96372; 96374; G0463; J1642; J1940; J3420

== ENCOUNTER → 2017-10-18 | Outpatient (CLI) | payer MEDICARE, OTHER ==
[~2017-10-18] MED LIST changes: -CYANOCOBALAMIN (B-12) 1000 MCG/1 ML VIAL IM ONE; -CYANOCOBALAMIN (B-12) 1000 MCG/1 ML VIAL ONE; +DOBUTamine 1000MCG/ML 250 ML IV ONE; -FUROSEMIDE 40 MG/4 ML VIAL IV ONE; +FUROSEMIDE 40 MG/4 ML VIAL IV SCH
[2017-10-18 12:45] VITALS: BP 113/62
[2017-10-18 13:30] VITALS: BP 107/64
[2017-10-18 14:00] VITALS: BP 107/68
[2017-10-18 14:30] VITALS: BP 117/71
[2017-10-18 15:00] VITALS: BP 126/57
[2017-10-18 15:40] VITALS: BP 120/56
[2017-10-18 16:29] LABS: Basophils # (auto) 0 uL; Basophils % (auto) 1.2 % (0.0-2.0); Eosinophils # (auto) 0.1 uL; Eosinophils % (auto) 2.8 % (0.0-7.0); Hematocrit 32.6 % (36.0-46.0); Hemoglobin 10.7 g/dL (12.2-16.2); Lymphocytes # (auto) 0.4 uL; Lymphocytes % (auto) 19.4 % (10.0-50.0); Mean Corpuscular Hemoglobin 31.5 pg (28.0-32.0); Mean Corpuscular Hgb Conc. 32.8 g/dL (32.0-36.0); Mean Corpuscular Volume 96.3 fL (80.0-100.0); Monocytes # (auto) 0.4 uL; Neutrophils # (auto) 1.3 uL; Neutrophils % (auto) 58.3 % (37.0-80.0); Nucleated Red Blood Cells % 1.5 %; Platelet Count (auto) 143 10^3/uL (140-450); Red Blood Cells 3.39 10^6/uL (4.0-5.20); Red Cell Distribution Width 16.1 % (11.8-14.3); White Blood Cell 2.2 10^3/uL (4.4-10.8)
[2017-10-18 16:32] LABS: BUN/Creatinine Ratio 36.4; Calcium 8.6 mg/dL (8.5-10.1); Magnesium 1.6 mg/dL (1.6-2.6); Monocytes % (auto) 18.3 % (0.0-12.0); Potassium 3.4 mmol/L (3.5-5.1)
== END | disposition home or self-care (01) ==
LOC: CHF HDHVI 12:11
PROVIDERS: ATTEND Internal Medicine Cardiovascular Disease
DX: I11.0 Hypertensive heart disease with heart failure (principal); I50.9 Heart failure, unspecified; D64.9 Anemia, unspecified; E83.40 Disorders of magnesium metabolism, unspecified; E87.70 Fluid overload, unspecified; M79.89 Other specified soft tissue disorders
CPT/HCPCS: 36415; 80048; 83735; 83880; 85025; 96365; 96366; 96375; G0463; J1250; J1642; J1940

== ENCOUNTER → 2017-10-20 | Outpatient (CLI) | payer MEDICARE, OTHER ==
[~2017-10-20] VITALS: Ht 30.5 cm; Wt 59.4 kg
[~2017-10-20] MED LIST changes: +CYANOCOBALAMIN (B-12) 1000 MCG/1 ML VIAL IM ONE; +CYANOCOBALAMIN (B-12) 1000 MCG/1 ML VIAL ONE; -FUROSEMIDE 40 MG/4 ML VIAL IV SCH; -FUROSEMIDE 40 MG/4 ML VIAL ONE; +MAGNESIUM SULF SDV 50% 4MEQ/ML-2 ML VIAL IV ONE; +MAGNESIUM SULFATE 1GM/100ML 100 ML IV ONE; +MAGNESIUM SULFATE 1GM/100ML 100 ML IV SCH
[2017-10-20 16:05] VITALS: BP 98/62
== END | disposition home or self-care (01) ==
LOC: CHF HDHVI 13:05
PROVIDERS: ATTEND Internal Medicine Cardiovascular Disease
DX: I11.0 Hypertensive heart disease with heart failure (principal); I50.23 Acute on chronic systolic (congestive) heart failure; E87.70 Fluid overload, unspecified; D64.9 Anemia, unspecified; R53.83 Other fatigue; D70.9 Neutropenia, unspecified
CPT/HCPCS: 82962; 96365; 96366; 96372; G0463; J1250; J1642; J3420; J3475

== ENCOUNTER → 2017-10-22 | Outpatient (CLI) | payer MEDICARE, OTHER ==
[~2017-10-22] MED LIST changes: -CYANOCOBALAMIN (B-12) 1000 MCG/1 ML VIAL IM ONE; -CYANOCOBALAMIN (B-12) 1000 MCG/1 ML VIAL ONE; -DOBUTamine 1000MCG/ML 250 ML IV ONE; +FUROSEMIDE 40 MG/4 ML VIAL IV ONE; +FUROSEMIDE 40 MG/4 ML VIAL ONE; -MAGNESIUM SULF SDV 50% 4MEQ/ML-2 ML VIAL IV ONE; -MAGNESIUM SULFATE 1GM/100ML 100 ML IV ONE; -MAGNESIUM SULFATE 1GM/100ML 100 ML IV SCH
[2017-10-22 11:40] VITALS: BP 127/83
[2017-10-22 13:00] VITALS: BP 126/79
== END | disposition home or self-care (01) ==
LOC: CHF HDHVI 09:53
PROVIDERS: ATTEND Internal Medicine Cardiovascular Disease
DX: D64.9 Anemia, unspecified (principal); I25.10 Atherosclerotic heart disease of native coronary artery without angina pectoris; R53.83 Other fatigue; E87.70 Fluid overload, unspecified; F32.9 Major depressive disorder, single episode, unspecified
CPT/HCPCS: 96374; G0463; J1642; J1940

== ENCOUNTER → 2017-10-25 | Outpatient (CLI) | payer MEDICARE, OTHER ==
[~2017-10-25] MED LIST changes: +DOBUTamine 1000MCG/ML 250 ML IV ONE; -FUROSEMIDE 40 MG/4 ML VIAL IV ONE; -FUROSEMIDE 40 MG/4 ML VIAL ONE; +FUROSEMIDE INJECTION 10 ML ONE; +MAGNESIUM SULF SDV 50% 4MEQ/ML-2 ML VIAL IV ONE; +MAGNESIUM SULFATE 1GM/100ML 100 ML IV ONE; +MAGNESIUM SULFATE 1GM/100ML 100 ML IV SCH
[2017-10-25 16:13] LABS: Basophils # (auto) 0 uL; Basophils % (auto) 1.8 % (0.0-2.0); Eosinophils # (auto) 0 uL; Eosinophils % (auto) 1.2 % (0.0-7.0); Hematocrit 32.9 % (36.0-46.0); Hemoglobin 10.4 g/dL (12.2-16.2); Lymphocytes # (auto) 0.4 uL; Mean Corpuscular Hemoglobin 30.4 pg (28.0-32.0); Mean Corpuscular Hgb Conc. 31.6 g/dL (32.0-36.0); Mean Corpuscular Volume 96.2 fL (80.0-100.0); Monocytes # (auto) 0.3 uL; Monocytes % (auto) 12.5 % (0.0-12.0); Neutrophils # (auto) 1.4 uL; Neutrophils % (auto) 66.5 % (37.0-80.0); Nucleated Red Blood Cells % 0.7 %; Red Blood Cells 3.42 10^6/uL (4.0-5.20); Red Cell Distribution Width 16.2 % (11.8-14.3); White Blood Cell 2.1 10^3/uL (4.4-10.8)
[2017-10-25 16:30] VITALS: BP 125/75
[2017-10-25 16:42] LABS: Albumin 3.1 g/dL (3.4-5.0); BUN/Creatinine Ratio 37.1; Bilirubin, Total 0.4 mg/dL (0.2-1.0); Magnesium 1.9 mg/dL (1.6-2.6); Potassium 3.6 mmol/L (3.5-5.1); Total Protein 8.9 g/dL (6.4-8.2)
[2017-10-25 17:02] LABS: Platelet Count (auto) 112 10^3/uL (140-450)
== END | disposition home or self-care (01) ==
LOC: CHF HDHVI 12:44
PROVIDERS: ATTEND Internal Medicine Cardiovascular Disease
DX: I11.0 Hypertensive heart disease with heart failure (principal); I50.9 Heart failure, unspecified; D64.9 Anemia, unspecified; I25.10 Atherosclerotic heart disease of native coronary artery without angina pectoris; E83.42 Hypomagnesemia
CPT/HCPCS: 36415; 80053; 83735; 83880; 85025; 96365; 96366; 96367; G0463; J1250; J1642; J1940; J3475; 96368

== ENCOUNTER → 2017-10-28 | Outpatient (CLI) | payer MEDICARE, OTHER ==
[~2017-10-28] MED LIST changes: -FUROSEMIDE INJECTION 10 ML ONE; -MAGNESIUM SULF SDV 50% 4MEQ/ML-2 ML VIAL IV ONE; -MAGNESIUM SULFATE 1GM/100ML 100 ML IV ONE; -MAGNESIUM SULFATE 1GM/100ML 100 ML IV SCH
[2017-10-28 16:15] LABS: BUN/Creatinine Ratio 34.8; Calcium 8.4 mg/dL (8.5-10.1); Potassium 3.4 mmol/L (3.5-5.1)
[2017-10-28 16:19] LABS: Basophils # (auto) 0.1 uL; Basophils % (auto) 2.5 % (0.0-2.0); Eosinophils # (auto) 0 uL; Eosinophils % (auto) 2.1 % (0.0-7.0); Hematocrit 31.7 % (36.0-46.0); Hemoglobin 10.3 g/dL (12.2-16.2); Lymphocytes # (auto) 0.4 uL; Mean Corpuscular Hemoglobin 31.2 pg (28.0-32.0); Mean Corpuscular Hgb Conc. 32.6 g/dL (32.0-36.0); Mean Corpuscular Volume 95.8 fL (80.0-100.0); Monocytes # (auto) 0.3 uL; Neutrophils # (auto) 1.4 uL; Neutrophils % (auto) 62.4 % (37.0-80.0); Nucleated Red Blood Cells % 0.8 %; Platelet Count (auto) 106 10^3/uL (140-450); Red Blood Cells 3.31 10^6/uL (4.0-5.20); Red Cell Distribution Width 16.1 % (11.8-14.3); White Blood Cell 2.2 10^3/uL (4.4-10.8)
[2017-10-28 16:40] VITALS: BP 106/71
== END | disposition home or self-care (01) ==
LOC: CHF HDHVI 13:08
PROVIDERS: ATTEND Internal Medicine Cardiovascular Disease
DX: I11.0 Hypertensive heart disease with heart failure (principal); I50.9 Heart failure, unspecified; R89.9 Unspecified abnormal finding in specimens from other organs, systems and tissues; D64.9 Anemia, unspecified; R70.0 Elevated erythrocyte sedimentation rate; I25.10 Atherosclerotic heart disease of native coronary artery without angina pectoris; E87.6 Hypokalemia
CPT/HCPCS: 36415; 80048; 82962; 83880; 85025; 85652; 87205; 96365; 96366; G0463; J1250; J1642

== ENCOUNTER → 2017-11-01 | Outpatient (CLI) | payer MEDICARE, OTHER ==
[2017-11-01 11:15] VITALS: BP 114/67
[2017-11-01 11:30] VITALS: BP 112/72
[2017-11-01 13:00] VITALS: BP 112/72
[2017-11-01 13:30] VITALS: BP 117/70
[2017-11-01 15:00] VITALS: BP 111/65
[2017-11-01 16:12] LABS: Potassium 3.7 mmol/L (3.5-5.1)
[2017-11-01 16:13] LABS: BUN/Creatinine Ratio 31.3; Calcium 8.3 mg/dL (8.5-10.1); Magnesium 1.6 mg/dL (1.6-2.6); Uric Acid 10.4 mg/dL (2.6-6.0)
[2017-11-01 16:15] VITALS: BP 105/62
[2017-11-01 16:30] LABS: Basophils # (auto) 0 uL; Basophils % (auto) 1.1 % (0.0-2.0); Eosinophils # (auto) 0 uL; Eosinophils % (auto) 1.7 % (0.0-7.0); Hematocrit 33.5 % (36.0-46.0); Hemoglobin 10.7 g/dL (12.2-16.2); Lymphocytes # (auto) 0.4 uL; Lymphocytes % (auto) 17.7 % (10.0-50.0); Mean Corpuscular Hemoglobin 30.7 pg (28.0-32.0); Mean Corpuscular Volume 95.9 fL (80.0-100.0); Monocytes # (auto) 0.4 uL; Monocytes % (auto) 15.8 % (0.0-12.0); Neutrophils # (auto) 1.4 uL; Neutrophils % (auto) 63.7 % (37.0-80.0); Platelet Count (auto) 113 10^3/uL (140-450); Red Blood Cells 3.49 10^6/uL (4.0-5.20); Red Cell Distribution Width 16.4 % (11.8-14.3); White Blood Cell 2.3 10^3/uL (4.4-10.8)
== END | disposition home or self-care (01) ==
LOC: CHF HDHVI 12:54
PROVIDERS: ATTEND Internal Medicine Cardiovascular Disease
DX: I11.0 Hypertensive heart disease with heart failure (principal); I50.9 Heart failure, unspecified; E83.40 Disorders of magnesium metabolism, unspecified; M10.9 Gout, unspecified; R70.0 Elevated erythrocyte sedimentation rate; D64.9 Anemia, unspecified
CPT/HCPCS: 36415; 80048; 83735; 83880; 84550; 85025; 85652; 96365; 96366; G0463; J1250; J1642

== ENCOUNTER → 2017-11-04 | Outpatient (CLI) | payer MEDICARE, OTHER ==
[~2017-11-04] MED LIST changes: +BACITRACIN TOP OINT 1 UD PKG TOP ONE; +MAGNESIUM SULF SDV 50% 4MEQ/ML-2 ML VIAL IV ONE; +MAGNESIUM SULFATE 1GM/100ML 100 ML IV SCH; -POTASSIUM CHL 20 Meq TABLET PO ONE
[2017-11-04 13:15] VITALS: BP 128/82
[2017-11-04 13:30] VITALS: BP 129/73
[2017-11-04 13:45] VITALS: BP 123/67
[2017-11-04 16:15] VITALS: BP 135/85
== END | disposition home or self-care (01) ==
LOC: CHF HDHVI 12:30
PROVIDERS: ATTEND Internal Medicine Cardiovascular Disease
DX: I11.0 Hypertensive heart disease with heart failure (principal); I50.23 Acute on chronic systolic (congestive) heart failure; E83.42 Hypomagnesemia; R53.83 Other fatigue; F32.9 Major depressive disorder, single episode, unspecified
CPT/HCPCS: 96365; 96366; 96367; G0463; J1250; J1642; J3475; 96368

== ENCOUNTER → 2017-11-08 | Outpatient (CLI) | payer MEDICARE, OTHER ==
[~2017-11-08] MED LIST changes: -BACITRACIN TOP OINT 1 UD PKG TOP ONE; +MAGNESIUM SULFATE 1GM/100ML 100 ML IV ONE
[2017-11-08 13:20] VITALS: BP 109/57
[2017-11-08 13:35] VITALS: BP 106/56
[2017-11-08 14:00] VITALS: BP 107/60
[2017-11-08 14:30] VITALS: BP 118/62
[2017-11-08 15:00] VITALS: BP 122/64
[2017-11-08 16:00] VITALS: BP 127/74
[2017-11-08 16:19] LABS: Basophils # (auto) 0 uL; Basophils % (auto) 2.3 % (0.0-2.0); Eosinophils # (auto) 0 uL; Eosinophils % (auto) 1.1 % (0.0-7.0); Hematocrit 32.5 % (36.0-46.0); Hemoglobin 10.5 g/dL (12.2-16.2); Lymphocytes # (auto) 0.4 uL; Lymphocytes % (auto) 19.9 % (10.0-50.0); Mean Corpuscular Hemoglobin 30.7 pg (28.0-32.0); Mean Corpuscular Hgb Conc. 32.3 g/dL (32.0-36.0); Mean Corpuscular Volume 95.1 fL (80.0-100.0); Monocytes # (auto) 0.4 uL; Neutrophils # (auto) 1.2 uL; Neutrophils % (auto) 58.5 % (37.0-80.0); Nucleated Red Blood Cells % 0.3 %; Platelet Count (auto) 122 10^3/uL (140-450); Red Blood Cells 3.42 10^6/uL (4.0-5.20); Red Cell Distribution Width 15.8 % (11.8-14.3)
[2017-11-08 16:34] LABS: BUN/Creatinine Ratio 38.2; Calcium 8.8 mg/dL (8.5-10.1); Magnesium 2.1 mg/dL (1.6-2.6); Monocytes % (auto) 18.2 % (0.0-12.0); Potassium 3.9 mmol/L (3.5-5.1)
== END | disposition home or self-care (01) ==
LOC: CHF HDHVI 12:49
PROVIDERS: ATTEND Internal Medicine Cardiovascular Disease
DX: I50.9 Heart failure, unspecified (principal); I10 Essential (primary) hypertension; D64.9 Anemia, unspecified; E83.40 Disorders of magnesium metabolism, unspecified
CPT/HCPCS: 36415; 80048; 83735; 83880; 85025; 96365; 96366; 96367; G0463; J1250; J1642; J3475; 96368

== ENCOUNTER → 2017-11-10 | Outpatient (CLI) | payer MEDICARE, OTHER ==
[~2017-11-10] VITALS: Ht 165.1 cm; Wt 58.8 kg
[~2017-11-10] MED LIST changes: -MAGNESIUM SULF SDV 50% 4MEQ/ML-2 ML VIAL IV ONE; -MAGNESIUM SULFATE 1GM/100ML 100 ML IV ONE; -MAGNESIUM SULFATE 1GM/100ML 100 ML IV SCH
[2017-11-10 13:45] VITALS: BP 118/79
[2017-11-10 14:00] VITALS: BP 106/68
[2017-11-10 14:15] VITALS: BP 113/65
[2017-11-10 15:00] VITALS: BP 121/80
[2017-11-10 15:30] VITALS: BP 119/80
[2017-11-10 16:46] VITALS: BP 114/73
== END | disposition home or self-care (01) ==
LOC: CHF HDHVI 13:21
PROVIDERS: ATTEND Internal Medicine Cardiovascular Disease
DX: I50.9 Heart failure, unspecified (principal); D70.9 Neutropenia, unspecified; D64.9 Anemia, unspecified
CPT/HCPCS: 96365; 96366; G0463; J1250; J1642

== ENCOUNTER → 2017-11-16 | Outpatient (CLI) | payer MEDICARE, OTHER ==
[2017-11-16] VITALS (7 sets, daily range): BP systolic 114–121; BP diastolic 63–74
[~2017-11-16] MED LIST changes: +DOBUTamine 1000MCG/ML 0 ML IV ONE; +MAGNESIUM SULF SDV 50% 4MEQ/ML-2 ML VIAL IV ONE; +MAGNESIUM SULFATE 1GM/100ML 100 ML IV ONE; +MAGNESIUM SULFATE 1GM/100ML 100 ML IV SCH
[2017-11-16 16:08] LABS: BUN/Creatinine Ratio 33.6; Calcium 8.4 mg/dL (8.5-10.1); Magnesium 1.4 mg/dL (1.6-2.6); Potassium 3.8 mmol/L (3.5-5.1)
[2017-11-16 16:46] LABS: Hematocrit 33.6 % (36.0-46.0); Hemoglobin 10.6 g/dL (12.2-16.2); Mean Corpuscular Hemoglobin 30.4 pg (28.0-32.0); Mean Corpuscular Hgb Conc. 31.5 g/dL (32.0-36.0); Mean Corpuscular Volume 96.4 fL (80.0-100.0); Platelet Count (auto) 103 10^3/uL (140-450); Red Blood Cells 3.48 10^6/uL (4.0-5.20); Red Cell Distribution Width 16.3 % (11.8-14.3); White Blood Cell 2.3 10^3/uL (4.4-10.8)
[2017-11-16 17:34] LABS: Band Neutrophils % (manual) 0; Basophils % (manual) 0 (0.0-2.0); Blast Cells 0; Eosinophils % (manual) 0 (0-7); Metamyelocytes % 0; Myelocytes % 0; Promyelocytes % 0; Reactive Lymphocytes 0
[2017-11-16 20:35] LABS: Lymphocytes % (manual) 20 (10.0-50.0); Monocytes % (manual) 10 (0-12)
== END | disposition home or self-care (01) ==
LOC: CHF HDHVI 13:05
PROVIDERS: ATTEND Internal Medicine Cardiovascular Disease
DX: I11.0 Hypertensive heart disease with heart failure (principal); I50.23 Acute on chronic systolic (congestive) heart failure; D64.9 Anemia, unspecified; I27.20 Pulmonary hypertension, unspecified; E78.5 Hyperlipidemia, unspecified; F32.9 Major depressive disorder, single episode, unspecified; I25.10 Atherosclerotic heart disease of native coronary artery without angina pectoris; D70.9 Neutropenia, unspecified; Z85.3 Personal history of malignant neoplasm of breast
CPT/HCPCS: 36415; 80048; 83735; 83880; 85007; 85027; 93701; 96365; 96366; 96368; G0463; J1250; J1642; J3475; 96367

== ENCOUNTER → 2017-11-18 | Outpatient (CLI) | payer MEDICARE, OTHER ==
[~2017-11-18] MED LIST changes: +CYANOCOBALAMIN (B-12) 1000 MCG/1 ML VIAL IM ONE; +CYANOCOBALAMIN (B-12) 1000 MCG/1 ML VIAL ONE; -DOBUTamine 1000MCG/ML 0 ML IV ONE; +POTASSIUM CHL 20 Meq TABLET PO ONE
[2017-11-18 10:30] VITALS: BP 132/61
[2017-11-18 10:45] VITALS: BP 136/67
[2017-11-18 11:15] VITALS: BP 132/70
[2017-11-18 12:15] VITALS: BP 135/78
[2017-11-18 12:30] VITALS: BP 112/62
[2017-11-18 14:11] VITALS: BP 115/67
== END | disposition home or self-care (01) ==
LOC: CHF HDHVI 10:10
PROVIDERS: ATTEND Internal Medicine Cardiovascular Disease
DX: I11.0 Hypertensive heart disease with heart failure (principal); I50.23 Acute on chronic systolic (congestive) heart failure; E87.70 Fluid overload, unspecified; E83.42 Hypomagnesemia; R53.83 Other fatigue; D64.9 Anemia, unspecified; E78.5 Hyperlipidemia, unspecified; F32.9 Major depressive disorder, single episode, unspecified; I25.10 Atherosclerotic heart disease of native coronary artery without angina pectoris; Z85.3 Personal history of malignant neoplasm of breast
CPT/HCPCS: 96365; 96366; 96368; 96372; G0463; J1250; J1642; J3420; J3475; 96367

== ENCOUNTER → 2017-11-23 | Outpatient (CLI) | payer MEDICARE, OTHER ==
[2017-11-23] VITALS (8 sets, daily range): BP systolic 117–142; BP diastolic 70–83
[~2017-11-23] VITALS: Ht 30.5 cm; Wt 59.9 kg
[~2017-11-23] MED LIST changes: -CYANOCOBALAMIN (B-12) 1000 MCG/1 ML VIAL IM ONE; -CYANOCOBALAMIN (B-12) 1000 MCG/1 ML VIAL ONE; -POTASSIUM CHL 20 Meq TABLET PO ONE
[2017-11-23 12:08] LABS: Basophils # (auto) 0 uL; Basophils % (auto) 1.7 % (0.0-2.0); Eosinophils # (auto) 0 uL; Eosinophils % (auto) 0.6 % (0.0-7.0); Hematocrit 32.6 % (36.0-46.0); Hemoglobin 10.4 g/dL (12.2-16.2); Lymphocytes # (auto) 0.4 uL; Lymphocytes % (auto) 20.8 % (10.0-50.0); Mean Corpuscular Hemoglobin 30.1 pg (28.0-32.0); Mean Corpuscular Hgb Conc. 31.9 g/dL (32.0-36.0); Mean Corpuscular Volume 94.5 fL (80.0-100.0); Monocytes # (auto) 0.3 uL; Monocytes % (auto) 15.4 % (0.0-12.0); Neutrophils # (auto) 1.2 uL; Neutrophils % (auto) 61.5 % (37.0-80.0); Nucleated Red Blood Cells % 0.2 %; Platelet Count (auto) 98 10^3/uL (140-450); Red Blood Cells 3.44 10^6/uL (4.0-5.20); Red Cell Distribution Width 16.3 % (11.8-14.3)
[2017-11-23 12:18] LABS: BUN/Creatinine Ratio 28.8; Calcium 8.5 mg/dL (8.5-10.1); Magnesium 1.6 mg/dL (1.6-2.6); Potassium 4.1 mmol/L (3.5-5.1)
== END | disposition home or self-care (01) ==
LOC: CHF HDHVI 09:51
PROVIDERS: ATTEND Internal Medicine Cardiovascular Disease
DX: I50.23 Acute on chronic systolic (congestive) heart failure (principal); D64.9 Anemia, unspecified; N28.9 Disorder of kidney and ureter, unspecified
CPT/HCPCS: 36415; 80048; 83735; 83880; 85025; 96365; 96366; 96367; G0463; J1250; J1642; J3475; 96368

== ENCOUNTER → 2017-11-25 | Outpatient (CLI) | payer MEDICARE, OTHER ==
[2017-11-25] VITALS (7 sets, daily range): BP systolic 121–151; BP diastolic 70–93
[~2017-11-25] MED LIST changes: -MAGNESIUM SULFATE 1GM/100ML 100 ML IV SCH
[2017-11-25] MEDS: MAGNESIUM SULFATE 1GM/100ML 100 ML IV SCH ×2 (13:55→14:55)
== END | disposition home or self-care (01) ==
LOC: CHF HDHVI 13:44
PROVIDERS: ATTEND Internal Medicine Cardiovascular Disease
DX: D64.9 Anemia, unspecified (principal); N28.9 Disorder of kidney and ureter, unspecified; E83.42 Hypomagnesemia; F32.9 Major depressive disorder, single episode, unspecified; R53.83 Other fatigue; I11.0 Hypertensive heart disease with heart failure; I50.23 Acute on chronic systolic (congestive) heart failure; I25.10 Atherosclerotic heart disease of native coronary artery without angina pectoris; D70.9 Neutropenia, unspecified; Z85.3 Personal history of malignant neoplasm of breast
CPT/HCPCS: 96365; 96366; 96368; G0463; J1250; J1642; J3475; 96367

== ENCOUNTER → 2017-11-29 | Outpatient (CLI) | payer MEDICARE, OTHER ==
[~2017-11-29] MED LIST changes: -MAGNESIUM SULF SDV 50% 4MEQ/ML-2 ML VIAL IV ONE; -MAGNESIUM SULFATE 1GM/100ML 100 ML IV ONE
[2017-11-29 13:00] VITALS: BP 133/76
[2017-11-29 13:15] VITALS: BP 125/63
[2017-11-29 13:30] VITALS: BP 122/68
[2017-11-29 13:45] VITALS: BP 117/70
[2017-11-29 14:15] VITALS: BP 118/69
[2017-11-29 16:11] VITALS: BP 116/70
[2017-11-29 16:20] LABS: BUN/Creatinine Ratio 35.6; Calcium 8.1 mg/dL (8.5-10.1); Magnesium 1.6 mg/dL (1.6-2.6); Potassium 3.2 mmol/L (3.5-5.1); Uric Acid 6.7 mg/dL (2.6-6.0)
[2017-11-29 16:30] LABS: Basophils # (auto) 0.1 uL; Basophils % (auto) 3.8 % (0.0-2.0); Eosinophils # (auto) 0 uL; Eosinophils % (auto) 0.4 % (0.0-7.0); Hematocrit 33.1 % (36.0-46.0); Hemoglobin 10.7 g/dL (12.2-16.2); Lymphocytes # (auto) 0.3 uL; Lymphocytes % (auto) 13.2 % (10.0-50.0); Mean Corpuscular Hemoglobin 30.3 pg (28.0-32.0); Mean Corpuscular Hgb Conc. 32.4 g/dL (32.0-36.0); Mean Corpuscular Volume 93.4 fL (80.0-100.0); Monocytes # (auto) 0.4 uL; Monocytes % (auto) 16.8 % (0.0-12.0); Neutrophils # (auto) 1.7 uL; Neutrophils % (auto) 65.8 % (37.0-80.0); Nucleated Red Blood Cells % 0.2 %; Platelet Count (auto) 112 10^3/uL (140-450); Red Blood Cells 3.55 10^6/uL (4.0-5.20); Red Cell Distribution Width 16.1 % (11.8-14.3); White Blood Cell 2.6 10^3/uL (4.4-10.8)
== END | disposition home or self-care (01) ==
LOC: CHF HDHVI 12:32
PROVIDERS: ATTEND Internal Medicine Cardiovascular Disease
DX: I50.23 Acute on chronic systolic (congestive) heart failure (principal); D64.9 Anemia, unspecified; M10.9 Gout, unspecified; I25.10 Atherosclerotic heart disease of native coronary artery without angina pectoris; I11.0 Hypertensive heart disease with heart failure
CPT/HCPCS: 36415; 80048; 83735; 83880; 84550; 85025; 96365; 96366; G0463; J1250; J1642

== ENCOUNTER → 2017-12-01 | Outpatient (CLI) | payer MEDICARE, OTHER ==
[~2017-12-01] VITALS: Ht 30.5 cm; Wt 0.5 kg
[~2017-12-01] MED LIST changes: +MAGNESIUM SULFATE 1GM/100ML 100 ML IV ONE; +MAGNESIUM SULFATE 1GM/100ML 100 ML IV SCH; +POTASSIUM CHL 10 Meq TABLET PO ONE; +POTASSIUM CHL 20 Meq TABLET PO ONE
[2017-12-01 13:45] VITALS: BP 113/62
[2017-12-01 14:00] VITALS: BP 111/60
[2017-12-01 14:15] VITALS: BP 115/65
[2017-12-01 16:32] VITALS: BP 123/77
== END | disposition home or self-care (01) ==
LOC: CHF HDHVI 13:33
PROVIDERS: ATTEND Internal Medicine Cardiovascular Disease
DX: I11.0 Hypertensive heart disease with heart failure (principal); I50.23 Acute on chronic systolic (congestive) heart failure; D70.9 Neutropenia, unspecified; I25.10 Atherosclerotic heart disease of native coronary artery without angina pectoris; E83.42 Hypomagnesemia
CPT/HCPCS: 96365; 96366; 96368; G0463; J1250; J1642; J3475; 96367

== ENCOUNTER → 2017-12-07 | Outpatient (CLI) | payer MEDICARE, OTHER ==
[~2017-12-07] MED LIST changes: +CYANOCOBALAMIN (B-12) 1000 MCG/1 ML VIAL IM ONE; +CYANOCOBALAMIN (B-12) 1000 MCG/1 ML VIAL ONE; -DOBUTamine 1000MCG/ML 250 ML IV ONE; +FUROSEMIDE 40 MG/4 ML VIAL IV ONE; +FUROSEMIDE 40 MG/4 ML VIAL ONE; +KETOROLAC TROMETH 60MG/2ML VIAL IM ONE; -MAGNESIUM SULFATE 1GM/100ML 100 ML IV ONE; -MAGNESIUM SULFATE 1GM/100ML 100 ML IV SCH; -POTASSIUM CHL 10 Meq TABLET PO ONE
[2017-12-07 13:55] VITALS: BP 134/73
[2017-12-07 15:30] VITALS: BP 114/75
[2017-12-07 15:56] LABS: Basophils # (auto) 0 uL; Basophils % (auto) 0.6 % (0.0-2.0); Eosinophils # (auto) 0 uL; Eosinophils % (auto) 0.4 % (0.0-7.0); Hematocrit 31.5 % (36.0-46.0); Hemoglobin 10.1 g/dL (12.2-16.2); Lymphocytes # (auto) 0.3 uL; Lymphocytes % (auto) 12.1 % (10.0-50.0); Mean Corpuscular Hemoglobin 30.3 pg (28.0-32.0); Mean Corpuscular Hgb Conc. 32.1 g/dL (32.0-36.0); Mean Corpuscular Volume 94.5 fL (80.0-100.0); Monocytes # (auto) 0.5 uL; Monocytes % (auto) 17.9 % (0.0-12.0); Neutrophils # (auto) 1.7 uL; Nucleated Red Blood Cells % 0.3 %; Platelet Count (auto) 107 10^3/uL (140-450); Red Blood Cells 3.34 10^6/uL (4.0-5.20); Red Cell Distribution Width 16.1 % (11.8-14.3); White Blood Cell 2.5 10^3/uL (4.4-10.8)
[2017-12-07 16:01] LABS: BUN/Creatinine Ratio 49.2; Calcium 8.7 mg/dL (8.5-10.1); Magnesium 1.5 mg/dL (1.6-2.6); Potassium 3.6 mmol/L (3.5-5.1)
== END | disposition home or self-care (01) ==
LOC: CHF HDHVI 14:06
PROVIDERS: ATTEND Internal Medicine Cardiovascular Disease
DX: I11.0 Hypertensive heart disease with heart failure (principal); I50.23 Acute on chronic systolic (congestive) heart failure; D64.9 Anemia, unspecified; R53.83 Other fatigue; F32.9 Major depressive disorder, single episode, unspecified; M25.542 Pain in joints of left hand; M62.838 Other muscle spasm
CPT/HCPCS: 36415; 80048; 83735; 83880; 85025; 96372; 96374; G0463; J1642; J1885; J1940; J3420

== ENCOUNTER → 2017-12-10 | Outpatient (CLI) | payer MEDICARE, OTHER ==
[~2017-12-10] MED LIST changes: -CYANOCOBALAMIN (B-12) 1000 MCG/1 ML VIAL IM ONE; -CYANOCOBALAMIN (B-12) 1000 MCG/1 ML VIAL ONE; +DOBUTamine 1000MCG/ML 250 ML IV ONE; -FUROSEMIDE 40 MG/4 ML VIAL IV ONE; -FUROSEMIDE 40 MG/4 ML VIAL ONE; -KETOROLAC TROMETH 60MG/2ML VIAL IM ONE; +MAGNESIUM SULF SDV 50% 4MEQ/ML-2 ML VIAL IV ONE; +ONDANSETRON HCL 4 MG/2 ML VIAL IV ONE; +ONDANSETRON HCL 4 MG/2 ML VIAL ONE
[2017-12-10 10:20] VITALS: BP 144/85
[2017-12-10] MEDS: MAGNESIUM SULFATE 1GM/100ML 100 ML IV SCH ×4 (10:20→12:30)
[2017-12-10 10:50] VITALS: BP 149/84
[2017-12-10 12:00] VITALS: BP 104/80
[2017-12-10 12:06] LABS: Hematocrit 30.9 % (36.0-46.0); Hemoglobin 9.7 g/dL (12.2-16.2); Mean Corpuscular Hemoglobin 29.7 pg (28.0-32.0); Mean Corpuscular Hgb Conc. 31.5 g/dL (32.0-36.0); Mean Corpuscular Volume 94.1 fL (80.0-100.0); Platelet Count (auto) 108 10^3/uL (140-450); Red Blood Cells 3.28 10^6/uL (4.0-5.20); Red Cell Distribution Width 16.7 % (11.8-14.3); White Blood Cell 2.1 10^3/uL (4.4-10.8)
[2017-12-10 12:11] LABS: Band Neutrophils % (manual) 0; Basophils % (manual) 0 (0.0-2.0); Blast Cells 0; Eosinophils % (manual) 0 (0-7); Metamyelocytes % 0; Myelocytes % 0; Promyelocytes % 0; Reactive Lymphocytes 0
[2017-12-10 12:31] LABS: BUN/Creatinine Ratio 37.3; Calcium 8.6 mg/dL (8.5-10.1); Magnesium 1.6 mg/dL (1.6-2.6); Potassium 3.6 mmol/L (3.5-5.1)
[2017-12-10 13:00] VITALS: BP 113/70
[2017-12-10 13:12] LABS: Lymphocytes % (manual) 20 (10.0-50.0); Monocytes % (manual) 18 (0-12)
[2017-12-10 13:30] VITALS: BP 121/74
[2017-12-10 13:35] VITALS: BP 128/80
== END | disposition home or self-care (01) ==
LOC: CHF HDHVI 09:49
PROVIDERS: ATTEND Internal Medicine Cardiovascular Disease
DX: I13.0 Hypertensive heart and chronic kidney disease with heart failure and stage 1 through stage 4 chronic kidney disease, or unspecified chronic kidney disease (principal); E11.22 Type 2 diabetes mellitus with diabetic chronic kidney disease; N18.3 Chronic kidney disease, stage 3 (moderate); I50.23 Acute on chronic systolic (congestive) heart failure; D63.1 Anemia in chronic kidney disease; D64.9 Anemia, unspecified; E83.42 Hypomagnesemia; I25.10 Atherosclerotic heart disease of native coronary artery without angina pectoris; J44.9 Chronic obstructive pulmonary disease, unspecified; E78.5 Hyperlipidemia, unspecified; F32.9 Major depressive disorder, single episode, unspecified; D69.6 Thrombocytopenia, unspecified; F41.9 Anxiety disorder, unspecified; R11.0 Nausea; R53.1 Weakness; Z94.1 Heart transplant status; Z79.01 Long term (current) use of anticoagulants; Z79.899 Other long term (current) drug therapy; Z85.3 Personal history of malignant neoplasm of breast
CPT/HCPCS: 36415; 80048; 83735; 83880; 85007; 85027; 96365; 96366; 96368; 96375; G0463; J1250; J1642; J2405; J3475; 96367

== ENCOUNTER → 2017-12-16 | Outpatient (CLI) | payer MEDICARE, OTHER ==
[2017-12-16] VITALS (8 sets, daily range): BP systolic 111–142; BP diastolic 64–78
[~2017-12-16] MED LIST changes: -MAGNESIUM SULF SDV 50% 4MEQ/ML-2 ML VIAL IV ONE; +MAGNESIUM SULFATE 1GM/100ML 300 ML IV ONE; -ONDANSETRON HCL 4 MG/2 ML VIAL IV ONE; -ONDANSETRON HCL 4 MG/2 ML VIAL ONE; -POTASSIUM CHL 20 Meq TABLET PO ONE
[2017-12-16] MEDS: MAGNESIUM SULFATE 1GM/100ML 100 ML IV SCH ×3 (10:45→12:30)
== END | disposition home or self-care (01) ==
LOC: CHF HDHVI 10:39
PROVIDERS: ATTEND Internal Medicine Cardiovascular Disease
DX: I11.0 Hypertensive heart disease with heart failure (principal); I50.23 Acute on chronic systolic (congestive) heart failure; I25.10 Atherosclerotic heart disease of native coronary artery without angina pectoris; J44.9 Chronic obstructive pulmonary disease, unspecified; D64.9 Anemia, unspecified; E78.5 Hyperlipidemia, unspecified; F32.9 Major depressive disorder, single episode, unspecified; D70.9 Neutropenia, unspecified; Z85.3 Personal history of malignant neoplasm of breast
CPT/HCPCS: 96365; 96366; 96368; G0463; J1250; J1642; J3475; 96367

== ENCOUNTER → 2017-12-20 | Outpatient (CLI) | payer MEDICARE, OTHER ==
[~2017-12-20] VITALS: Ht 30.5 cm; Wt 0.5 kg
[~2017-12-20] MED LIST changes: -DOBUTamine 1000MCG/ML 250 ML IV ONE; +MAGNESIUM SULFATE 1GM/100ML 0 ML IV ONE
[2017-12-20] MEDS: MAGNESIUM SULFATE 1GM/100ML 100 ML IV SCH ×3 (10:25→12:30)
[2017-12-20 12:13] LABS: Urine Blood Negative /uL (Negative); Urine Specific Gravity 1.014 (1.001-1.035)
[2017-12-20 12:22] LABS: Creatinine, Urine 119 mg/dL (30.0-125.0); Protein, Urine 54.4 mg/dL (0.0-11.9)
[2017-12-20 12:24] LABS: Hematocrit 31.6 % (36.0-46.0); Hemoglobin 10.1 g/dL (12.2-16.2); Mean Corpuscular Volume 93.9 fL (80.0-100.0); Platelet Count (auto) 106 10^3/uL (140-450); Red Blood Cells 3.37 10^6/uL (4.0-5.20); Red Cell Distribution Width 16.3 % (11.8-14.3); White Blood Cell 2.3 10^3/uL (4.4-10.8)
[2017-12-20 12:32] LABS: Albumin 3.1 g/dL (3.4-5.0); BUN/Creatinine Ratio 25.6; Band Neutrophils % (manual) 0; Basophils % (manual) 0 (0.0-2.0); Bilirubin, Direct 0.2 mg/dL (0-0.2); Bilirubin, Total 0.5 mg/dL (0.2-1.0); Blast Cells 0; Calcium 8.7 mg/dL (8.5-10.1); Metamyelocytes % 0; Myelocytes % 0; Phosphorus 3.6 mg/dL (2.5-4.90); Potassium 3.8 mmol/L (3.5-5.1); Promyelocytes % 0; Reactive Lymphocytes 0; Total Protein 8.8 g/dL (6.4-8.2)
[2017-12-20 13:45] VITALS: BP 127/72
[2017-12-20 15:06] LABS: Eosinophils % (manual) 1 (0-7); Lymphocytes % (manual) 19 (10.0-50.0); Monocytes % (manual) 18 (0-12)
== END | disposition home or self-care (01) ==
LOC: CHF HDHVI 10:00
PROVIDERS: ATTEND Internal Medicine Cardiovascular Disease
DX: I13.0 Hypertensive heart and chronic kidney disease with heart failure and stage 1 through stage 4 chronic kidney disease, or unspecified chronic kidney disease (principal); I50.23 Acute on chronic systolic (congestive) heart failure; N18.3 Chronic kidney disease, stage 3 (moderate); E78.5 Hyperlipidemia, unspecified; M10.9 Gout, unspecified; N39.0 Urinary tract infection, site not specified; E21.4 Other specified disorders of parathyroid gland; J44.9 Chronic obstructive pulmonary disease, unspecified; F32.9 Major depressive disorder, single episode, unspecified; E55.9 Vitamin D deficiency, unspecified; D70.9 Neutropenia, unspecified; Z85.3 Personal history of malignant neoplasm of breast
CPT/HCPCS: 36415; 80048; 80061; 80069; 80076; 81003; 82306; 82570; 83880; 83970; 84156; 84550; 85007; 85027; 96365; 96366; 96368; G0463; J1642; J3475; 96367

== ENCOUNTER → 2017-12-22 | Outpatient (CLI) | payer MEDICARE, OTHER ==
[~2017-12-22] MED LIST changes: -MAGNESIUM SULFATE 1GM/100ML 0 ML IV ONE; +MAGNESIUM SULFATE 1GM/100ML 200 ML IV ONE; -MAGNESIUM SULFATE 1GM/100ML 300 ML IV ONE
[2017-12-22] MEDS: MAGNESIUM SULFATE 1GM/100ML 100 ML IV SCH ×3 (11:20→13:10)
[2017-12-22 14:45] VITALS: BP 133/71
== END | disposition home or self-care (01) ==
LOC: CHF HDHVI 10:41
PROVIDERS: ATTEND Internal Medicine Cardiovascular Disease
DX: I11.0 Hypertensive heart disease with heart failure (principal); I50.23 Acute on chronic systolic (congestive) heart failure; J44.9 Chronic obstructive pulmonary disease, unspecified; I25.10 Atherosclerotic heart disease of native coronary artery without angina pectoris; D64.9 Anemia, unspecified; E83.42 Hypomagnesemia; E78.5 Hyperlipidemia, unspecified; F32.9 Major depressive disorder, single episode, unspecified; D70.9 Neutropenia, unspecified
CPT/HCPCS: 96365; 96366; 96368; G0463; J1642; J3475; 96367

== ENCOUNTER → 2017-12-27 | Outpatient (CLI) | payer MEDICARE, OTHER ==
[2017-12-27] VITALS (7 sets, daily range): BP systolic 114–168; BP diastolic 65–81
[~2017-12-27] MED LIST changes: -MAGNESIUM SULFATE 1GM/100ML 200 ML IV ONE; +MAGNESIUM SULFATE 1GM/100ML 300 ML IV ONE
[2017-12-27] MEDS: MAGNESIUM SULFATE 1GM/100ML 100 ML IV SCH ×3 (10:54→13:00)
[2017-12-27 15:59] LABS: Hematocrit 31.6 % (36.0-46.0); Hemoglobin 10.1 g/dL (12.2-16.2); Mean Corpuscular Hemoglobin 29.9 pg (28.0-32.0); Mean Corpuscular Hgb Conc. 31.9 g/dL (32.0-36.0); Mean Corpuscular Volume 93.9 fL (80.0-100.0); Platelet Count (auto) 130 10^3/uL (140-450); Red Blood Cells 3.36 10^6/uL (4.0-5.20); Red Cell Distribution Width 16.5 % (11.8-14.3); White Blood Cell 2.5 10^3/uL (4.4-10.8)
[2017-12-27 16:13] LABS: Albumin 2.9 g/dL (3.4-5.0); BUN/Creatinine Ratio 33.3; Bilirubin, Total 0.4 mg/dL (0.2-1.0); Calcium 8.5 mg/dL (8.5-10.1); Potassium 3.3 mmol/L (3.5-5.1); Total Protein 8.7 g/dL (6.4-8.2)
[2017-12-27 16:19] LABS: Band Neutrophils % (manual) 0; Basophils % (manual) 0 (0.0-2.0); Blast Cells 0; Metamyelocytes % 0; Myelocytes % 0; Promyelocytes % 0; Reactive Lymphocytes 0
[2017-12-27 17:00] LABS: Eosinophils % (manual) 1 (0-7); Lymphocytes % (manual) 24 (10.0-50.0); Monocytes % (manual) 11 (0-12)
== END | disposition home or self-care (01) ==
LOC: CHF HDHVI 11:02
PROVIDERS: ATTEND Internal Medicine Cardiovascular Disease
DX: I11.0 Hypertensive heart disease with heart failure (principal); I50.23 Acute on chronic systolic (congestive) heart failure; F32.9 Major depressive disorder, single episode, unspecified; D64.9 Anemia, unspecified; R53.83 Other fatigue; I25.10 Atherosclerotic heart disease of native coronary artery without angina pectoris; J44.9 Chronic obstructive pulmonary disease, unspecified; E78.5 Hyperlipidemia, unspecified; D70.9 Neutropenia, unspecified; Z85.3 Personal history of malignant neoplasm of breast
CPT/HCPCS: 36415; 80053; 83615; 85007; 85027; 86300; 96365; 96366; 96368; G0463; J3475; 96367

== ENCOUNTER → 2017-12-30 | Outpatient (CLI) | payer MEDICARE, OTHER ==
[~2017-12-30] VITALS: Ht 30.5 cm; Wt 58.7 kg
[~2017-12-30] MED LIST changes: +DOBUTamine 1000MCG/ML 250 ML IV ONE; +MAGNESIUM SULFATE 1GM/100ML 100 ML IV ONE; +MAGNESIUM SULFATE 1GM/100ML 100 ML IV SCH; -MAGNESIUM SULFATE 1GM/100ML 300 ML IV ONE; +POTASSIUM CHL 10 Meq TABLET PO ONE; +POTASSIUM CHL 20 Meq TABLET PO ONE
[2017-12-30 14:20] VITALS: BP 110/68
== END | disposition home or self-care (01) ==
LOC: CHF HDHVI 11:17
PROVIDERS: ATTEND Internal Medicine Cardiovascular Disease
DX: I13.0 Hypertensive heart and chronic kidney disease with heart failure and stage 1 through stage 4 chronic kidney disease, or unspecified chronic kidney disease (principal); E11.22 Type 2 diabetes mellitus with diabetic chronic kidney disease; N18.3 Chronic kidney disease, stage 3 (moderate); I50.23 Acute on chronic systolic (congestive) heart failure; I25.10 Atherosclerotic heart disease of native coronary artery without angina pectoris; E83.42 Hypomagnesemia; D63.1 Anemia in chronic kidney disease; J44.9 Chronic obstructive pulmonary disease, unspecified; E78.5 Hyperlipidemia, unspecified; D69.6 Thrombocytopenia, unspecified; F32.9 Major depressive disorder, single episode, unspecified; I48.91 Unspecified atrial fibrillation; Z79.01 Long term (current) use of anticoagulants; Z79.899 Other long term (current) drug therapy; Z85.3 Personal history of malignant neoplasm of breast; Z85.72 Personal history of non-Hodgkin lymphomas; Z95.810 Presence of automatic (implantable) cardiac defibrillator; Z94.1 Heart transplant status
CPT/HCPCS: 96365; 96366; 96368; G0463; J1642; J3475; 96367

== ENCOUNTER → 2018-01-03 | Outpatient (CLI) | payer MEDICARE, OTHER ==
[2018-01-03] VITALS (9 sets, daily range): BP systolic 102–148; BP diastolic 54–96
[~2018-01-03] MED LIST changes: -MAGNESIUM SULFATE 1GM/100ML 100 ML IV ONE; +MAGNESIUM SULFATE 1GM/100ML 300 ML IV ONE; +ONDANSETRON HCL 4 MG/2 ML VIAL IV ONE; +ONDANSETRON HCL 4 MG/2 ML VIAL ONE; -POTASSIUM CHL 10 Meq TABLET PO ONE; -POTASSIUM CHL 20 Meq TABLET PO ONE
[2018-01-03 16:03] LABS: BUN/Creatinine Ratio 35.4; Calcium 8.8 mg/dL (8.5-10.1); Magnesium 2.1 mg/dL (1.6-2.6); Potassium 3.9 mmol/L (3.5-5.1)
[2018-01-03 16:30] LABS: Hematocrit 30.1 % (36.0-46.0); Hemoglobin 9.6 g/dL (12.2-16.2); Mean Corpuscular Hemoglobin 29.9 pg (28.0-32.0); Mean Corpuscular Hgb Conc. 31.8 g/dL (32.0-36.0); Mean Corpuscular Volume 93.9 fL (80.0-100.0); Platelet Count (auto) 116 10^3/uL (140-450); Red Blood Cells 3.21 10^6/uL (4.0-5.20); Red Cell Distribution Width 16.9 % (11.8-14.3)
[2018-01-03 16:42] LABS: Band Neutrophils % (manual) 0; Basophils % (manual) 0 (0.0-2.0); Blast Cells 0; Eosinophils % (manual) 0 (0-7); Metamyelocytes % 0; Myelocytes % 0; Promyelocytes % 0; Reactive Lymphocytes 0
[2018-01-03 17:13] LABS: Lymphocytes % (manual) 27 (10.0-50.0); Monocytes % (manual) 9 (0-12)
== END | disposition home or self-care (01) ==
LOC: CHF HDHVI 12:56
PROVIDERS: ATTEND Internal Medicine Cardiovascular Disease
DX: I13.0 Hypertensive heart and chronic kidney disease with heart failure and stage 1 through stage 4 chronic kidney disease, or unspecified chronic kidney disease (principal); E11.22 Type 2 diabetes mellitus with diabetic chronic kidney disease; N18.3 Chronic kidney disease, stage 3 (moderate); I50.23 Acute on chronic systolic (congestive) heart failure; D63.1 Anemia in chronic kidney disease; R11.0 Nausea; J44.9 Chronic obstructive pulmonary disease, unspecified; E78.5 Hyperlipidemia, unspecified; E03.9 Hypothyroidism, unspecified; E83.42 Hypomagnesemia; F32.9 Major depressive disorder, single episode, unspecified; I48.91 Unspecified atrial fibrillation; I25.10 Atherosclerotic heart disease of native coronary artery without angina pectoris; Z79.01 Long term (current) use of anticoagulants; Z79.899 Other long term (current) drug therapy; Z85.3 Personal history of malignant neoplasm of breast; Z95.810 Presence of automatic (implantable) cardiac defibrillator
CPT/HCPCS: 36415; 80048; 83735; 83880; 85007; 85027; 96365; 96366; 96368; 96375; G0463; J1642; J2405; J3475; 96367

== ENCOUNTER → 2018-01-05 | Outpatient (CLI) | payer MEDICARE, OTHER ==
[~2018-01-05] MED LIST changes: -DOBUTamine 1000MCG/ML 250 ML IV ONE; -MAGNESIUM SULFATE 1GM/100ML 100 ML IV SCH; -ONDANSETRON HCL 4 MG/2 ML VIAL IV ONE; -ONDANSETRON HCL 4 MG/2 ML VIAL ONE; +POTASSIUM CHL 10 Meq TABLET PO ONE; +POTASSIUM CHL 20 Meq TABLET PO SCH
[2018-01-05] MEDS: MAGNESIUM SULFATE 1GM/100ML 100 ML IV SCH ×2 (10:30→12:00)
[2018-01-05 13:46] VITALS: BP 134/73
== END | disposition home or self-care (01) ==
LOC: CHF HDHVI 10:09
PROVIDERS: ATTEND Internal Medicine Cardiovascular Disease
DX: I13.0 Hypertensive heart and chronic kidney disease with heart failure and stage 1 through stage 4 chronic kidney disease, or unspecified chronic kidney disease (principal); E11.22 Type 2 diabetes mellitus with diabetic chronic kidney disease; N18.3 Chronic kidney disease, stage 3 (moderate); I50.23 Acute on chronic systolic (congestive) heart failure; D64.9 Anemia, unspecified; R53.83 Other fatigue; I25.10 Atherosclerotic heart disease of native coronary artery without angina pectoris; J44.9 Chronic obstructive pulmonary disease, unspecified; E78.5 Hyperlipidemia, unspecified; F32.9 Major depressive disorder, single episode, unspecified; D70.9 Neutropenia, unspecified; D63.1 Anemia in chronic kidney disease; F41.9 Anxiety disorder, unspecified; C50.912 Malignant neoplasm of unspecified site of left female breast; D69.6 Thrombocytopenia, unspecified; Z94.1 Heart transplant status; Z79.01 Long term (current) use of anticoagulants; Z79.899 Other long term (current) drug therapy; Z95.810 Presence of automatic (implantable) cardiac defibrillator; Z85.72 Personal history of non-Hodgkin lymphomas
CPT/HCPCS: 96365; 96366; 96368; G0463; J1642; J3475

== ENCOUNTER → 2018-01-11 | Outpatient (CLI) | payer MEDICARE, OTHER ==
[2018-01-11] VITALS (7 sets, daily range): BP systolic 107–127; BP diastolic 65–76
[~2018-01-11] MED LIST changes: -POTASSIUM CHL 10 Meq TABLET PO ONE; -POTASSIUM CHL 20 Meq TABLET PO SCH
[2018-01-11] MEDS: MAGNESIUM SULFATE 1GM/100ML 100 ML IV SCH (15:53)
[2018-01-11 15:59] LABS: Hematocrit 29.6 % (36.0-46.0); Hemoglobin 9.5 g/dL (12.2-16.2); Magnesium 1.5 mg/dL (1.6-2.6); Mean Corpuscular Volume 93.8 fL (80.0-100.0); Platelet Count (auto) 108 10^3/uL (140-450); Potassium 3.7 mmol/L (3.5-5.1); Red Blood Cells 3.16 10^6/uL (4.0-5.20); Red Cell Distribution Width 16.9 % (11.8-14.3)
[2018-01-11 16:04] LABS: Band Neutrophils % (manual) 0; Basophils % (manual) 0 (0.0-2.0); Blast Cells 0; Metamyelocytes % 0; Myelocytes % 0; Promyelocytes % 0; Reactive Lymphocytes 0
[2018-01-11 18:50] LABS: Eosinophils % (manual) 3 (0-7); Lymphocytes % (manual) 16 (10.0-50.0); Monocytes % (manual) 7 (0-12)
== END | disposition home or self-care (01) ==
LOC: CHF HDHVI 12:26
PROVIDERS: ATTEND Internal Medicine Cardiovascular Disease
DX: I13.0 Hypertensive heart and chronic kidney disease with heart failure and stage 1 through stage 4 chronic kidney disease, or unspecified chronic kidney disease (principal); E11.22 Type 2 diabetes mellitus with diabetic chronic kidney disease; N18.3 Chronic kidney disease, stage 3 (moderate); I50.23 Acute on chronic systolic (congestive) heart failure; D63.1 Anemia in chronic kidney disease; E83.42 Hypomagnesemia; I25.10 Atherosclerotic heart disease of native coronary artery without angina pectoris; J44.9 Chronic obstructive pulmonary disease, unspecified; E78.5 Hyperlipidemia, unspecified; E03.9 Hypothyroidism, unspecified; F32.9 Major depressive disorder, single episode, unspecified; Z79.01 Long term (current) use of anticoagulants; Z79.899 Other long term (current) drug therapy; Z85.3 Personal history of malignant neoplasm of breast; Z85.72 Personal history of non-Hodgkin lymphomas; Z95.810 Presence of automatic (implantable) cardiac defibrillator; Z94.1 Heart transplant status
CPT/HCPCS: 36415; 82565; 83735; 83880; 84132; 84520; 85007; 85027; 96365; 96366; 96368; G0463; J1642; J3475; 96367

== ENCOUNTER → 2018-01-13 | Outpatient (CLI) | payer MEDICARE, OTHER ==
[2018-01-13] VITALS (7 sets, daily range): BP systolic 105–129; BP diastolic 46–77
[~2018-01-13] MED LIST changes: +MAGNESIUM SULFATE 1GM/100ML 100 ML IV SCH
== END | disposition home or self-care (01) ==
LOC: CHF HDHVI 12:09
PROVIDERS: ATTEND Internal Medicine Cardiovascular Disease
DX: I13.0 Hypertensive heart and chronic kidney disease with heart failure and stage 1 through stage 4 chronic kidney disease, or unspecified chronic kidney disease (principal); I50.23 Acute on chronic systolic (congestive) heart failure; N18.3 Chronic kidney disease, stage 3 (moderate); D64.9 Anemia, unspecified; R53.83 Other fatigue; D63.1 Anemia in chronic kidney disease; I48.91 Unspecified atrial fibrillation; J44.9 Chronic obstructive pulmonary disease, unspecified; E03.9 Hypothyroidism, unspecified; E78.5 Hyperlipidemia, unspecified; E11.22 Type 2 diabetes mellitus with diabetic chronic kidney disease; D69.6 Thrombocytopenia, unspecified; Z79.899 Other long term (current) drug therapy; Z95.810 Presence of automatic (implantable) cardiac defibrillator; Z79.01 Long term (current) use of anticoagulants
CPT/HCPCS: 96365; 96366; 96368; G0463; J1642; J3475; 96367

== ENCOUNTER → 2018-01-24 | Outpatient (CLI) | payer MEDICARE, OTHER ==
[~2018-01-24] VITALS: Ht 1 cm; Wt 57.2 kg
[~2018-01-24] MED LIST changes: +DOBUTamine 1000MCG/ML 250 ML IV ONE
[2018-01-24 15:10] VITALS: BP 104/68
[2018-01-24 16:19] LABS: BUN/Creatinine Ratio 34.5; Calcium 8.5 mg/dL (8.5-10.1); Magnesium 1.5 mg/dL (1.6-2.6); Potassium 3.5 mmol/L (3.5-5.1)
[2018-01-24 16:52] LABS: Hematocrit 31.1 % (36.0-46.0); Hemoglobin 9.9 g/dL (12.2-16.2); Mean Corpuscular Hemoglobin 29.6 pg (28.0-32.0); Mean Corpuscular Hgb Conc. 31.8 g/dL (32.0-36.0); Mean Corpuscular Volume 93.1 fL (80.0-100.0); Platelet Count (auto) 109 10^3/uL (140-450); Red Blood Cells 3.34 10^6/uL (4.0-5.20); Red Cell Distribution Width 17.4 % (11.8-14.3); White Blood Cell 2.1 10^3/uL (4.4-10.8)
[2018-01-24 16:59] LABS: Band Neutrophils % (manual) 0; Basophils % (manual) 0 (0.0-2.0); Metamyelocytes % 0; Myelocytes % 0; Promyelocytes % 0
[2018-01-24 17:00] LABS: Blast Cells 0; Reactive Lymphocytes 0
[2018-01-24 17:28] LABS: Eosinophils % (manual) 1 (0-7); Lymphocytes % (manual) 25 (10.0-50.0); Monocytes % (manual) 6 (0-12)
== END | disposition home or self-care (01) ==
LOC: CHF HDHVI 11:55
PROVIDERS: ATTEND Internal Medicine Cardiovascular Disease
DX: I13.0 Hypertensive heart and chronic kidney disease with heart failure and stage 1 through stage 4 chronic kidney disease, or unspecified chronic kidney disease (principal); I50.23 Acute on chronic systolic (congestive) heart failure; E11.22 Type 2 diabetes mellitus with diabetic chronic kidney disease; N18.3 Chronic kidney disease, stage 3 (moderate); D63.1 Anemia in chronic kidney disease; J44.9 Chronic obstructive pulmonary disease, unspecified; E78.5 Hyperlipidemia, unspecified; E83.42 Hypomagnesemia; E03.9 Hypothyroidism, unspecified; F32.9 Major depressive disorder, single episode, unspecified; I25.10 Atherosclerotic heart disease of native coronary artery without angina pectoris; Z79.01 Long term (current) use of anticoagulants; Z79.899 Other long term (current) drug therapy; Z85.3 Personal history of malignant neoplasm of breast; Z85.72 Personal history of non-Hodgkin lymphomas; Z95.810 Presence of automatic (implantable) cardiac defibrillator
CPT/HCPCS: 36415; 80048; 83735; 83880; 85007; 85027; 96365; 96366; 96368; G0463; J1250; J1642; J3475; 96367

== ENCOUNTER → 2018-01-26 | Outpatient (CLI) | payer MEDICARE, OTHER ==
[~2018-01-26] VITALS: Ht 30.5 cm; Wt 57.6 kg
[2018-01-26] VITALS (8 sets, daily range): BP systolic 101–135; BP diastolic 65–81
[~2018-01-26] MED LIST changes: +DOBUTamine 1000MCG/ML 0 ML IV ONE; +MAGNESIUM SULFATE 1GM/100ML 0 ML IV ONE; -MAGNESIUM SULFATE 1GM/100ML 100 ML IV SCH; +MAGNESIUM SULFATE 1GM/100ML 200 ML IV ONE; -MAGNESIUM SULFATE 1GM/100ML 300 ML IV ONE; +POTASSIUM CHL 20 Meq TABLET PO ONE
[2018-01-26] MEDS: MAGNESIUM SULFATE 1GM/100ML 100 ML IV SCH ×2 (11:00→11:50)
== END | disposition home or self-care (01) ==
LOC: CHF HDHVI 10:36
PROVIDERS: ATTEND Internal Medicine Cardiovascular Disease
DX: I13.0 Hypertensive heart and chronic kidney disease with heart failure and stage 1 through stage 4 chronic kidney disease, or unspecified chronic kidney disease (principal); E11.22 Type 2 diabetes mellitus with diabetic chronic kidney disease; N18.3 Chronic kidney disease, stage 3 (moderate); I50.23 Acute on chronic systolic (congestive) heart failure; I25.10 Atherosclerotic heart disease of native coronary artery without angina pectoris; E78.5 Hyperlipidemia, unspecified; D69.6 Thrombocytopenia, unspecified; D63.1 Anemia in chronic kidney disease; J44.9 Chronic obstructive pulmonary disease, unspecified; Z95.810 Presence of automatic (implantable) cardiac defibrillator; Z79.01 Long term (current) use of anticoagulants
CPT/HCPCS: 96365; 96366; 96368; G0463; J1250; J1642; J3475; 96367

== ENCOUNTER → 2018-01-28 | Outpatient (CLI) | payer MEDICARE, OTHER ==
[~2018-01-28] VITALS: Ht 30.5 cm; Wt 59.0 kg
[~2018-01-28] MED LIST changes: -DOBUTamine 1000MCG/ML 0 ML IV ONE; -MAGNESIUM SULFATE 1GM/100ML 0 ML IV ONE; +MAGNESIUM SULFATE 1GM/100ML 100 ML IV ONE; -POTASSIUM CHL 20 Meq TABLET PO ONE
[2018-01-28 15:00] VITALS: BP 122/62
== END | disposition home or self-care (01) ==
LOC: CHF HDHVI 10:34
PROVIDERS: ATTEND Internal Medicine Cardiovascular Disease
DX: I13.0 Hypertensive heart and chronic kidney disease with heart failure and stage 1 through stage 4 chronic kidney disease, or unspecified chronic kidney disease (principal); I50.23 Acute on chronic systolic (congestive) heart failure; E11.22 Type 2 diabetes mellitus with diabetic chronic kidney disease; N18.3 Chronic kidney disease, stage 3 (moderate); E83.42 Hypomagnesemia; I25.10 Atherosclerotic heart disease of native coronary artery without angina pectoris; D63.1 Anemia in chronic kidney disease; J44.9 Chronic obstructive pulmonary disease, unspecified; D69.6 Thrombocytopenia, unspecified; F32.9 Major depressive disorder, single episode, unspecified; E78.5 Hyperlipidemia, unspecified; Z79.01 Long term (current) use of anticoagulants; Z79.899 Other long term (current) drug therapy; Z85.72 Personal history of non-Hodgkin lymphomas; Z94.1 Heart transplant status; Z95.810 Presence of automatic (implantable) cardiac defibrillator
CPT/HCPCS: 96365; 96366; 96368; G0463; J1250; J1642; J3475; 96367

== ENCOUNTER → 2018-01-31 | Outpatient (CLI) | payer MEDICARE, OTHER ==
[~2018-01-31] MED LIST changes: -MAGNESIUM SULFATE 1GM/100ML 100 ML IV ONE; +MAGNESIUM SULFATE 1GM/100ML 100 ML IV SCH; -MAGNESIUM SULFATE 1GM/100ML 200 ML IV ONE; +MAGNESIUM SULFATE 1GM/100ML 300 ML IV ONE
[2018-01-31 12:35] VITALS: BP 122/70
[2018-01-31 13:00] VITALS: BP 126/67
[2018-01-31 14:00] VITALS: BP 104/56
[2018-01-31 14:30] VITALS: BP 103/57
[2018-01-31 16:04] LABS: Hemoglobin 9.8 g/dL (12.2-16.2); Mean Corpuscular Hemoglobin 29.5 pg (28.0-32.0); Mean Corpuscular Hgb Conc. 31.5 g/dL (32.0-36.0); Mean Corpuscular Volume 93.4 fL (80.0-100.0); Platelet Count (auto) 107 10^3/uL (140-450); Red Blood Cells 3.31 10^6/uL (4.0-5.20); White Blood Cell 2.3 10^3/uL (4.4-10.8)
[2018-01-31 16:10] VITALS: BP 109/60
[2018-01-31 16:12] LABS: BUN/Creatinine Ratio 40.7; Calcium 8.6 mg/dL (8.5-10.1); Magnesium 1.7 mg/dL (1.6-2.6); Potassium 3.3 mmol/L (3.5-5.1)
[2018-01-31 16:14] LABS: Band Neutrophils % (manual) 0; Basophils % (manual) 0 (0.0-2.0); Blast Cells 0; Eosinophils % (manual) 0 (0-7); Metamyelocytes % 0; Myelocytes % 0; Promyelocytes % 0; Reactive Lymphocytes 0
[2018-01-31 16:45] LABS: Lymphocytes % (manual) 15 (10.0-50.0); Monocytes % (manual) 9 (0-12)
== END | disposition home or self-care (01) ==
LOC: CHF HDHVI 12:40
PROVIDERS: ATTEND Internal Medicine Cardiovascular Disease
DX: I13.0 Hypertensive heart and chronic kidney disease with heart failure and stage 1 through stage 4 chronic kidney disease, or unspecified chronic kidney disease (principal); I50.23 Acute on chronic systolic (congestive) heart failure; E11.22 Type 2 diabetes mellitus with diabetic chronic kidney disease; N18.3 Chronic kidney disease, stage 3 (moderate); D63.1 Anemia in chronic kidney disease; R53.83 Other fatigue; I25.10 Atherosclerotic heart disease of native coronary artery without angina pectoris; D69.6 Thrombocytopenia, unspecified; I48.91 Unspecified atrial fibrillation; J44.9 Chronic obstructive pulmonary disease, unspecified; E83.42 Hypomagnesemia; E78.5 Hyperlipidemia, unspecified; F32.9 Major depressive disorder, single episode, unspecified; Z79.01 Long term (current) use of anticoagulants; Z79.899 Other long term (current) drug therapy; Z85.72 Personal history of non-Hodgkin lymphomas; Z95.810 Presence of automatic (implantable) cardiac defibrillator; Z94.1 Heart transplant status
CPT/HCPCS: 36415; 80048; 83735; 83880; 85007; 85027; 96365; 96366; 96368; G0463; J1250; J1642; J3475; 96367

== ENCOUNTER → 2018-02-02 | Outpatient (CLI) | payer MEDICARE, OTHER ==
[2018-02-02] VITALS (8 sets, daily range): BP systolic 111–129; BP diastolic 59–79
[~2018-02-02] MED LIST changes: -MAGNESIUM SULFATE 1GM/100ML 100 ML IV SCH; +ONDANSETRON HCL 4 MG/2 ML VIAL ONE; +POTASSIUM CHL 20 Meq TABLET PO ONE
[2018-02-02] MEDS: MAGNESIUM SULFATE 1GM/100ML 100 ML IV SCH ×3 (10:45→12:40)
== END | disposition home or self-care (01) ==
LOC: CHF HDHVI 10:27
PROVIDERS: ATTEND Internal Medicine Cardiovascular Disease
DX: I13.0 Hypertensive heart and chronic kidney disease with heart failure and stage 1 through stage 4 chronic kidney disease, or unspecified chronic kidney disease (principal); I50.23 Acute on chronic systolic (congestive) heart failure; E11.22 Type 2 diabetes mellitus with diabetic chronic kidney disease; N18.3 Chronic kidney disease, stage 3 (moderate); I48.91 Unspecified atrial fibrillation; I25.10 Atherosclerotic heart disease of native coronary artery without angina pectoris; D63.1 Anemia in chronic kidney disease; J44.9 Chronic obstructive pulmonary disease, unspecified; E78.5 Hyperlipidemia, unspecified; E83.42 Hypomagnesemia; F32.9 Major depressive disorder, single episode, unspecified; D69.6 Thrombocytopenia, unspecified; E03.9 Hypothyroidism, unspecified; Z94.1 Heart transplant status; Z79.01 Long term (current) use of anticoagulants; Z79.899 Other long term (current) drug therapy; Z95.810 Presence of automatic (implantable) cardiac defibrillator; Z85.72 Personal history of non-Hodgkin lymphomas
CPT/HCPCS: 96365; 96366; 96368; G0463; J1250; J1642; J3475; 96367

== ENCOUNTER → 2018-02-04 | Outpatient (CLI) | payer MEDICARE, OTHER ==
[~2018-02-04] MED LIST changes: +ONDANSETRON HCL 4 MG/2 ML VIAL IV ONE; +POTASSIUM CHL 10 Meq TABLET PO ONE; -POTASSIUM CHL 20 Meq TABLET PO ONE
[2018-02-04] MEDS: MAGNESIUM SULFATE 1GM/100ML 100 ML IV SCH ×3 (09:30→11:57)
[2018-02-04 10:00] VITALS: BP 127/70
[2018-02-04 10:30] VITALS: BP 110/61
[2018-02-04 11:00] VITALS: BP 119/74
[2018-02-04 11:30] VITALS: BP 121/78
[2018-02-04 12:00] VITALS: BP 136/85
[2018-02-04 14:30] VITALS: BP 104/85
== END | disposition home or self-care (01) ==
LOC: CHF HDHVI 09:19
PROVIDERS: ATTEND Internal Medicine Cardiovascular Disease
DX: I13.0 Hypertensive heart and chronic kidney disease with heart failure and stage 1 through stage 4 chronic kidney disease, or unspecified chronic kidney disease (principal); E11.22 Type 2 diabetes mellitus with diabetic chronic kidney disease; N18.3 Chronic kidney disease, stage 3 (moderate); I50.23 Acute on chronic systolic (congestive) heart failure; E83.42 Hypomagnesemia; D63.1 Anemia in chronic kidney disease; J44.9 Chronic obstructive pulmonary disease, unspecified; E78.5 Hyperlipidemia, unspecified; E03.9 Hypothyroidism, unspecified; F32.9 Major depressive disorder, single episode, unspecified; F41.9 Anxiety disorder, unspecified; I48.91 Unspecified atrial fibrillation; Z85.3 Personal history of malignant neoplasm of breast; Z85.72 Personal history of non-Hodgkin lymphomas; Z95.0 Presence of cardiac pacemaker
CPT/HCPCS: 96365; 96366; 96368; 96375; G0463; J1250; J1642; J2405; J3475; 96367

== ENCOUNTER → 2018-02-21 | Outpatient (CLI) | payer MEDICARE, OTHER ==
[~2018-02-21] VITALS: Ht 30.5 cm; Wt 0.5 kg
[2018-02-21] VITALS (10 sets, daily range): BP systolic 114–136; BP diastolic 61–81
[~2018-02-21] MED LIST changes: +CARV12.544 PO; -DOBUTamine 1000MCG/ML 250 ML IV ONE; +MAGNESIUM SULFATE 1GM/100ML 200 ML IV ONE; -MAGNESIUM SULFATE 1GM/100ML 300 ML IV ONE; +MILRINONE 20MG/100ML 100 ML IV ONE; +MILRINONE 20MG/100ML 100 ML IV SCH; -POTASSIUM CHL 10 Meq TABLET PO ONE
[2018-02-21] MEDS: MAGNESIUM SULFATE 1GM/100ML 100 ML IV SCH ×2 (10:10→11:30)
[2018-02-21 13:04] LABS: Hematocrit 30.9 % (36.0-46.0); Hemoglobin 9.7 g/dL (12.2-16.2); Mean Corpuscular Hemoglobin 29.4 pg (28.0-32.0); Mean Corpuscular Hgb Conc. 31.4 g/dL (32.0-36.0); Mean Corpuscular Volume 93.5 fL (80.0-100.0); Platelet Count (auto) 106 10^3/uL (140-450); Red Blood Cells 3.31 10^6/uL (4.0-5.20); Red Cell Distribution Width 17.3 % (11.8-14.3); White Blood Cell 2.3 10^3/uL (4.4-10.8)
[2018-02-21 13:09] LABS: Calcium 8.7 mg/dL (8.5-10.1); Potassium 3.7 mmol/L (3.5-5.1)
[2018-02-21 13:12] LABS: Band Neutrophils % (manual) 0; Basophils % (manual) 0 (0.0-2.0); Blast Cells 0; Metamyelocytes % 0; Myelocytes % 0; Promyelocytes % 0; Reactive Lymphocytes 0
[2018-02-21 13:35] LABS: Eosinophils % (manual) 2 (0-7); Lymphocytes % (manual) 14 (10.0-50.0); Monocytes % (manual) 12 (0-12)
== END | disposition home or self-care (01) ==
LOC: CHF HDHVI 09:59
PROVIDERS: ATTEND Internal Medicine Cardiovascular Disease
DX: I13.0 Hypertensive heart and chronic kidney disease with heart failure and stage 1 through stage 4 chronic kidney disease, or unspecified chronic kidney disease (principal); E11.22 Type 2 diabetes mellitus with diabetic chronic kidney disease; N18.3 Chronic kidney disease, stage 3 (moderate); I50.23 Acute on chronic systolic (congestive) heart failure; D63.1 Anemia in chronic kidney disease; M32.9 Systemic lupus erythematosus, unspecified; I25.10 Atherosclerotic heart disease of native coronary artery without angina pectoris; I25.2 Old myocardial infarction; I48.91 Unspecified atrial fibrillation; D69.6 Thrombocytopenia, unspecified; E78.5 Hyperlipidemia, unspecified; E03.9 Hypothyroidism, unspecified; F32.9 Major depressive disorder, single episode, unspecified; F41.9 Anxiety disorder, unspecified; Z79.01 Long term (current) use of anticoagulants; Z68.24 Body mass index [BMI] 24.0-24.9, adult; Z87.891 Personal history of nicotine dependence; Z95.1 Presence of aortocoronary bypass graft; Z95.810 Presence of automatic (implantable) cardiac defibrillator
CPT/HCPCS: 36415; 80048; 83880; 85007; 85027; 96365; 96366; 96368; 96375; G0463; J1642; J2260; J2405; J3475; 96367; 96374

== ENCOUNTER → 2018-03-09 | Outpatient (CLI) | payer MEDICARE, OTHER ==
[~2018-03-09] VITALS: Ht 30.5 cm; Wt 57.9 kg
[2018-03-09] VITALS (11 sets, daily range): BP systolic 117–142; BP diastolic 65–93
[~2018-03-09] MED LIST changes: +CYANOCOBALAMIN (B-12) 1000 MCG/1 ML VIAL ONE; +KETOROLAC TROMETH 30 MG/ML 1ML VIAL IV ONE; +KETOROLAC TROMETH 60MG/2ML VIAL IM ONE; +MAGNESIUM SULFATE 1GM/100ML 100 ML IV ONE; -MAGNESIUM SULFATE 1GM/100ML 200 ML IV ONE; -ONDANSETRON HCL 4 MG/2 ML VIAL IV ONE; -ONDANSETRON HCL 4 MG/2 ML VIAL ONE
== END | disposition home or self-care (01) ==
LOC: CHF HDHVI 10:48
PROVIDERS: ATTEND Internal Medicine Cardiovascular Disease
DX: E83.42 Hypomagnesemia (principal); M25.561 Pain in right knee; M25.562 Pain in left knee; I13.0 Hypertensive heart and chronic kidney disease with heart failure and stage 1 through stage 4 chronic kidney disease, or unspecified chronic kidney disease; N18.3 Chronic kidney disease, stage 3 (moderate); I50.23 Acute on chronic systolic (congestive) heart failure; D63.1 Anemia in chronic kidney disease; J44.9 Chronic obstructive pulmonary disease, unspecified; E78.5 Hyperlipidemia, unspecified; E03.9 Hypothyroidism, unspecified; F41.9 Anxiety disorder, unspecified; I25.10 Atherosclerotic heart disease of native coronary artery without angina pectoris; F32.9 Major depressive disorder, single episode, unspecified; I48.91 Unspecified atrial fibrillation; Z95.0 Presence of cardiac pacemaker; Z85.72 Personal history of non-Hodgkin lymphomas
CPT/HCPCS: 73562; 96365; 96366; 96368; 96372; 96375; G0463; J1642; J1885; J2260; J3420; J3475; 96367

== ENCOUNTER → 2018-03-21 | Outpatient (CLI) | payer MEDICARE, OTHER ==
[~2018-03-21] MED LIST changes: -CARV6.25 PO; -CYANOCOBALAMIN (B-12) 1000 MCG/1 ML VIAL ONE; -KETOROLAC TROMETH 30 MG/ML 1ML VIAL IV ONE; -KETOROLAC TROMETH 60MG/2ML VIAL IM ONE; -MAGNESIUM SULFATE 1GM/100ML 100 ML IV ONE; +MAGNESIUM SULFATE 1GM/100ML 300 ML IV ONE
[2018-03-21] MEDS: MAGNESIUM SULFATE 1GM/100ML 100 ML IV SCH ×2 (12:20→13:15)
[2018-03-21 16:01] VITALS: BP 112/53
[2018-03-21 16:11] LABS: Hematocrit 30.1 % (36.0-46.0); Hemoglobin 9.8 g/dL (12.2-16.2); Mean Corpuscular Hemoglobin 30.5 pg (28.0-32.0); Mean Corpuscular Hgb Conc. 32.7 g/dL (32.0-36.0); Mean Corpuscular Volume 93.2 fL (80.0-100.0); Red Blood Cells 3.22 10^6/uL (4.0-5.20); Red Cell Distribution Width 17.2 % (11.8-14.3); White Blood Cell 2.2 10^3/uL (4.4-10.8)
[2018-03-21 16:21] LABS: % Iron Saturation 20.4 % (15-50)
[2018-03-21 16:22] LABS: Albumin 2.9 g/dL (3.4-5.0); BUN/Creatinine Ratio 34.9; Bilirubin, Total 0.4 mg/dL (0.2-1.0); Total Protein 8.4 g/dL (6.4-8.2)
[2018-03-21 16:26] LABS: Band Neutrophils % (manual) 0; Basophils % (manual) 0 (0.0-2.0); Blast Cells 0; Metamyelocytes % 0; Myelocytes % 0; Platelet Count (auto) 92 10^3/uL (140-450); Promyelocytes % 0; Reactive Lymphocytes 0
[2018-03-21 17:14] LABS: Eosinophils % (manual) 1 (0-7); Lymphocytes % (manual) 22 (10.0-50.0); Monocytes % (manual) 20 (0-12)
== END | disposition home or self-care (01) ==
LOC: CHF HDHVI 11:33
PROVIDERS: ATTEND Internal Medicine Cardiovascular Disease
DX: I13.0 Hypertensive heart and chronic kidney disease with heart failure and stage 1 through stage 4 chronic kidney disease, or unspecified chronic kidney disease (principal); E11.22 Type 2 diabetes mellitus with diabetic chronic kidney disease; N18.3 Chronic kidney disease, stage 3 (moderate); I50.40 Unspecified combined systolic (congestive) and diastolic (congestive) heart failure; D63.1 Anemia in chronic kidney disease; R70.0 Elevated erythrocyte sedimentation rate; R74.0 Nonspecific elevation of levels of transaminase and lactic acid dehydrogenase [LDH]; E61.1 Iron deficiency; R53.83 Other fatigue; M32.9 Systemic lupus erythematosus, unspecified; I25.10 Atherosclerotic heart disease of native coronary artery without angina pectoris; J44.9 Chronic obstructive pulmonary disease, unspecified; E78.5 Hyperlipidemia, unspecified; E03.9 Hypothyroidism, unspecified; I48.91 Unspecified atrial fibrillation; J45.909 Unspecified asthma, uncomplicated; I25.2 Old myocardial infarction; D69.6 Thrombocytopenia, unspecified; F32.9 Major depressive disorder, single episode, unspecified; F41.9 Anxiety disorder, unspecified; Z79.01 Long term (current) use of anticoagulants; Z87.891 Personal history of nicotine dependence; Z95.1 Presence of aortocoronary bypass graft; Z68.24 Body mass index [BMI] 24.0-24.9, adult; Z95.810 Presence of automatic (implantable) cardiac defibrillator
CPT/HCPCS: 36415; 80053; 83540; 83550; 83615; 83880; 85007; 85027; 85652; 96365; 96366; 96367; G0463; J1642; J2260; J3475; 96368

== ENCOUNTER → 2018-03-23 | Outpatient (CLI) | payer MEDICARE, OTHER ==
[2018-03-23] VITALS (11 sets, daily range): BP systolic 103–131; BP diastolic 56–78
[~2018-03-23] MED LIST changes: +MAGNESIUM SULFATE 1GM/100ML 200 ML IV ONE; -MAGNESIUM SULFATE 1GM/100ML 300 ML IV ONE; +POTASSIUM CHL 20 Meq TABLET PO ONE
[2018-03-23] MEDS: MAGNESIUM SULFATE 1GM/100ML 100 ML IV SCH ×2 (11:28→12:20)
== END | disposition home or self-care (01) ==
LOC: CHF HDHVI 11:26
PROVIDERS: ATTEND Internal Medicine Cardiovascular Disease
DX: I13.0 Hypertensive heart and chronic kidney disease with heart failure and stage 1 through stage 4 chronic kidney disease, or unspecified chronic kidney disease (principal); E11.22 Type 2 diabetes mellitus with diabetic chronic kidney disease; N18.3 Chronic kidney disease, stage 3 (moderate); I50.23 Acute on chronic systolic (congestive) heart failure; D63.1 Anemia in chronic kidney disease; M32.9 Systemic lupus erythematosus, unspecified; I25.10 Atherosclerotic heart disease of native coronary artery without angina pectoris; I25.2 Old myocardial infarction; D69.6 Thrombocytopenia, unspecified; J45.909 Unspecified asthma, uncomplicated; I42.0 Dilated cardiomyopathy; E78.5 Hyperlipidemia, unspecified; E03.9 Hypothyroidism, unspecified; F32.9 Major depressive disorder, single episode, unspecified; F41.9 Anxiety disorder, unspecified; Z79.01 Long term (current) use of anticoagulants; Z68.24 Body mass index [BMI] 24.0-24.9, adult; Z87.891 Personal history of nicotine dependence; Z95.1 Presence of aortocoronary bypass graft; Z95.810 Presence of automatic (implantable) cardiac defibrillator
CPT/HCPCS: 96365; 96366; 96368; G0463; J1642; J2260; J3475; 96367

== ENCOUNTER → 2018-03-28 | Outpatient (CLI) | payer MEDICARE, OTHER ==
[2018-03-28] VITALS (8 sets, daily range): BP systolic 114–136; BP diastolic 57–78
[~2018-03-28] MED LIST changes: +FEBU40TA PO; +MAGNESIUM SULFATE 1GM/100ML 100 ML IV SCH; -MAGNESIUM SULFATE 1GM/100ML 200 ML IV ONE; +MAGNESIUM SULFATE 1GM/100ML 300 ML IV ONE; -POTASSIUM CHL 20 Meq TABLET PO ONE
[2018-03-28 16:06] LABS: Hemoglobin 9.5 g/dL (12.2-16.2); Mean Corpuscular Hemoglobin 30.8 pg (28.0-32.0); Mean Corpuscular Hgb Conc. 32.8 g/dL (32.0-36.0); Platelet Count (auto) 111 10^3/uL (140-450); Red Blood Cells 3.08 10^6/uL (4.0-5.20); Red Cell Distribution Width 16.7 % (11.8-14.3)
[2018-03-28 16:24] LABS: BUN/Creatinine Ratio 29.3; Magnesium 1.7 mg/dL (1.6-2.6); Potassium 3.4 mmol/L (3.5-5.1)
[2018-03-28 16:33] LABS: Band Neutrophils % (manual) 0; Basophils % (manual) 0 (0.0-2.0); Metamyelocytes % 0; Myelocytes % 0
[2018-03-28 16:34] LABS: Blast Cells 0; Promyelocytes % 0; Reactive Lymphocytes 0
[2018-03-28 18:40] LABS: Eosinophils % (manual) 2 (0-7); Lymphocytes % (manual) 22 (10.0-50.0); Monocytes % (manual) 17 (0-12)
== END | disposition home or self-care (01) ==
LOC: CHF HDHVI 11:21
PROVIDERS: ATTEND Internal Medicine Cardiovascular Disease
DX: I13.0 Hypertensive heart and chronic kidney disease with heart failure and stage 1 through stage 4 chronic kidney disease, or unspecified chronic kidney disease (principal); E11.22 Type 2 diabetes mellitus with diabetic chronic kidney disease; N18.3 Chronic kidney disease, stage 3 (moderate); I50.40 Unspecified combined systolic (congestive) and diastolic (congestive) heart failure; D63.1 Anemia in chronic kidney disease; E83.40 Disorders of magnesium metabolism, unspecified; D51.9 Vitamin B12 deficiency anemia, unspecified; R53.83 Other fatigue; I25.10 Atherosclerotic heart disease of native coronary artery without angina pectoris; E78.5 Hyperlipidemia, unspecified; E03.9 Hypothyroidism, unspecified; Z79.01 Long term (current) use of anticoagulants; F32.9 Major depressive disorder, single episode, unspecified; I48.91 Unspecified atrial fibrillation; F41.9 Anxiety disorder, unspecified; D69.6 Thrombocytopenia, unspecified; I25.2 Old myocardial infarction; Z85.3 Personal history of malignant neoplasm of breast; Z95.1 Presence of aortocoronary bypass graft; Z87.891 Personal history of nicotine dependence
CPT/HCPCS: 36415; 80048; 83735; 83880; 85007; 85027; 96365; 96366; 96368; G0463; J1642; J2260; J3475; 96367

== ENCOUNTER → 2018-03-30 | Outpatient (CLI) | payer MEDICARE, OTHER ==
[2018-03-30] VITALS (9 sets, daily range): BP systolic 109–142; BP diastolic 67–83
[~2018-03-30] VITALS: Ht 165.1 cm; Wt 56.7 kg
[~2018-03-30] MED LIST changes: -FEBU40TA PO; +POTASSIUM CHL 20 Meq TABLET PO ONE
[2018-03-30] MEDS: MAGNESIUM SULFATE 1GM/100ML 100 ML IV SCH ×3 (10:23→13:30)
== END | disposition home or self-care (01) ==
LOC: CHF HDHVI 10:11
PROVIDERS: ATTEND Internal Medicine Cardiovascular Disease
DX: E83.42 Hypomagnesemia (principal); D64.9 Anemia, unspecified; J44.9 Chronic obstructive pulmonary disease, unspecified; I13.0 Hypertensive heart and chronic kidney disease with heart failure and stage 1 through stage 4 chronic kidney disease, or unspecified chronic kidney disease; E11.22 Type 2 diabetes mellitus with diabetic chronic kidney disease; I50.40 Unspecified combined systolic (congestive) and diastolic (congestive) heart failure; D63.1 Anemia in chronic kidney disease; N18.3 Chronic kidney disease, stage 3 (moderate); I48.91 Unspecified atrial fibrillation; I25.10 Atherosclerotic heart disease of native coronary artery without angina pectoris; E78.5 Hyperlipidemia, unspecified; E03.9 Hypothyroidism, unspecified; I25.2 Old myocardial infarction; D51.9 Vitamin B12 deficiency anemia, unspecified; D69.6 Thrombocytopenia, unspecified; Z79.01 Long term (current) use of anticoagulants; Z87.891 Personal history of nicotine dependence
CPT/HCPCS: 96365; 96366; 96368; G0463; J1642; J2260; J3475; 96367

== ENCOUNTER → 2018-04-01 | Outpatient (CLI) | payer MEDICARE, OTHER ==
[2018-04-01] VITALS (11 sets, daily range): BP systolic 121–138; BP diastolic 64–86
[~2018-04-01] MED LIST changes: +FEBU40TA PO; -MAGNESIUM SULFATE 1GM/100ML 100 ML IV SCH; -POTASSIUM CHL 20 Meq TABLET PO ONE
[2018-04-01] MEDS: MAGNESIUM SULFATE 1GM/100ML 100 ML IV SCH ×3 (09:55→11:58)
== END | disposition home or self-care (01) ==
LOC: CHF HDHVI 09:40
PROVIDERS: ATTEND Internal Medicine Cardiovascular Disease
DX: I13.0 Hypertensive heart and chronic kidney disease with heart failure and stage 1 through stage 4 chronic kidney disease, or unspecified chronic kidney disease (principal); I50.23 Acute on chronic systolic (congestive) heart failure; N18.3 Chronic kidney disease, stage 3 (moderate); J44.9 Chronic obstructive pulmonary disease, unspecified; D63.1 Anemia in chronic kidney disease; E11.22 Type 2 diabetes mellitus with diabetic chronic kidney disease; E78.5 Hyperlipidemia, unspecified; E03.9 Hypothyroidism, unspecified; I25.2 Old myocardial infarction; I25.10 Atherosclerotic heart disease of native coronary artery without angina pectoris; F32.9 Major depressive disorder, single episode, unspecified; I48.91 Unspecified atrial fibrillation; F41.9 Anxiety disorder, unspecified; D69.6 Thrombocytopenia, unspecified; Z68.24 Body mass index [BMI] 24.0-24.9, adult; Z87.891 Personal history of nicotine dependence; Z95.810 Presence of automatic (implantable) cardiac defibrillator; Z95.1 Presence of aortocoronary bypass graft; Z79.01 Long term (current) use of anticoagulants
CPT/HCPCS: 96365; 96366; 96368; G0463; J1642; J2260; J3475; 96367

== ENCOUNTER → 2018-04-04 | Outpatient (CLI) | payer MEDICARE, OTHER ==
[2018-04-04] VITALS (12 sets, daily range): BP systolic 132–144; BP diastolic 74–94
[~2018-04-04] MED LIST changes: -FEBU40TA PO; +MAGNESIUM SULFATE 1GM/100ML 100 ML IV SCH
[2018-04-04 12:10] LABS: Hematocrit 30.8 % (36.0-46.0); Mean Corpuscular Hemoglobin 30.4 pg (28.0-32.0); Mean Corpuscular Hgb Conc. 32.7 g/dL (32.0-36.0); Mean Corpuscular Volume 93.2 fL (80.0-100.0); Platelet Count (auto) 138 10^3/uL (140-450); Red Cell Distribution Width 16.7 % (11.8-14.3); White Blood Cell 2.8 10^3/uL (4.4-10.8)
[2018-04-04 12:14] LABS: Band Neutrophils % (manual) 0; Basophils % (manual) 0 (0.0-2.0); Blast Cells 0; Eosinophils % (manual) 0 (0-7); Metamyelocytes % 0; Myelocytes % 0; Promyelocytes % 0; Reactive Lymphocytes 0
[2018-04-04 12:19] LABS: BUN/Creatinine Ratio 37.4; Calcium 8.7 mg/dL (8.5-10.1); Potassium 4.1 mmol/L (3.5-5.1)
[2018-04-04 13:54] LABS: Lymphocytes % (manual) 10 (10.0-50.0); Monocytes % (manual) 8 (0-12)
== END | disposition home or self-care (01) ==
LOC: CHF HDHVI 10:14
PROVIDERS: ATTEND Internal Medicine Cardiovascular Disease
DX: I13.0 Hypertensive heart and chronic kidney disease with heart failure and stage 1 through stage 4 chronic kidney disease, or unspecified chronic kidney disease (principal); E11.22 Type 2 diabetes mellitus with diabetic chronic kidney disease; N18.3 Chronic kidney disease, stage 3 (moderate); I50.40 Unspecified combined systolic (congestive) and diastolic (congestive) heart failure; D63.1 Anemia in chronic kidney disease; J44.9 Chronic obstructive pulmonary disease, unspecified; E78.5 Hyperlipidemia, unspecified; E03.9 Hypothyroidism, unspecified; I25.2 Old myocardial infarction; I48.91 Unspecified atrial fibrillation; I25.10 Atherosclerotic heart disease of native coronary artery without angina pectoris; D69.6 Thrombocytopenia, unspecified; Z95.810 Presence of automatic (implantable) cardiac defibrillator; Z87.891 Personal history of nicotine dependence; Z79.01 Long term (current) use of anticoagulants; Z79.899 Other long term (current) drug therapy
CPT/HCPCS: 36415; 80048; 83880; 85007; 85027; 96365; 96366; 96368; G0463; J1642; J2260; J3475; 96367

== ENCOUNTER → 2018-04-06 | Outpatient (CLI) | payer MEDICARE, OTHER ==
[2018-04-06] VITALS (10 sets, daily range): BP systolic 111–133; BP diastolic 59–75
[~2018-04-06] VITALS: Ht 165.1 cm; Wt 54.6 kg
[~2018-04-06] MED LIST changes: +CYANOCOBALAMIN (B-12) 1000 MCG/1 ML VIAL IM ONE; +CYANOCOBALAMIN (B-12) 1000 MCG/1 ML VIAL ONE
== END | disposition home or self-care (01) ==
LOC: CHF HDHVI 10:48
PROVIDERS: ATTEND Internal Medicine Cardiovascular Disease
DX: I13.0 Hypertensive heart and chronic kidney disease with heart failure and stage 1 through stage 4 chronic kidney disease, or unspecified chronic kidney disease (principal); E11.22 Type 2 diabetes mellitus with diabetic chronic kidney disease; N18.3 Chronic kidney disease, stage 3 (moderate); I25.10 Atherosclerotic heart disease of native coronary artery without angina pectoris; D51.9 Vitamin B12 deficiency anemia, unspecified; J44.9 Chronic obstructive pulmonary disease, unspecified; I50.23 Acute on chronic systolic (congestive) heart failure; D63.1 Anemia in chronic kidney disease; I48.91 Unspecified atrial fibrillation; I25.2 Old myocardial infarction; E78.5 Hyperlipidemia, unspecified; E03.9 Hypothyroidism, unspecified; F41.9 Anxiety disorder, unspecified; F32.9 Major depressive disorder, single episode, unspecified; D69.6 Thrombocytopenia, unspecified; E46 Unspecified protein-calorie malnutrition; Z79.01 Long term (current) use of anticoagulants; Z79.899 Other long term (current) drug therapy; Z87.891 Personal history of nicotine dependence; Z95.810 Presence of automatic (implantable) cardiac defibrillator; Z68.24 Body mass index [BMI] 24.0-24.9, adult; Z95.1 Presence of aortocoronary bypass graft
CPT/HCPCS: 96365; 96366; 96368; 96372; G0463; J1642; J2260; J3420; J3475; 96367

== ENCOUNTER → 2018-04-08 | Outpatient (CLI) | payer MEDICARE, OTHER ==
[2018-04-08] VITALS (9 sets, daily range): BP systolic 114–136; BP diastolic 64–75
[~2018-04-08] MED LIST changes: -CYANOCOBALAMIN (B-12) 1000 MCG/1 ML VIAL IM ONE; -CYANOCOBALAMIN (B-12) 1000 MCG/1 ML VIAL ONE
[2018-04-08] MEDS: MAGNESIUM SULFATE 1GM/100ML 100 ML IV SCH ×3 (09:35→12:12)
== END | disposition home or self-care (01) ==
LOC: CHF HDHVI 09:57
PROVIDERS: ATTEND Internal Medicine Cardiovascular Disease
DX: I13.0 Hypertensive heart and chronic kidney disease with heart failure and stage 1 through stage 4 chronic kidney disease, or unspecified chronic kidney disease (principal); E11.22 Type 2 diabetes mellitus with diabetic chronic kidney disease; N18.3 Chronic kidney disease, stage 3 (moderate); I50.23 Acute on chronic systolic (congestive) heart failure; D63.1 Anemia in chronic kidney disease; E83.42 Hypomagnesemia; R53.83 Other fatigue; I25.10 Atherosclerotic heart disease of native coronary artery without angina pectoris; J44.9 Chronic obstructive pulmonary disease, unspecified; I25.2 Old myocardial infarction; D69.6 Thrombocytopenia, unspecified; I48.91 Unspecified atrial fibrillation; E78.5 Hyperlipidemia, unspecified; E03.9 Hypothyroidism, unspecified; F32.9 Major depressive disorder, single episode, unspecified; F41.9 Anxiety disorder, unspecified; E46 Unspecified protein-calorie malnutrition; Z79.01 Long term (current) use of anticoagulants; Z79.899 Other long term (current) drug therapy; Z87.891 Personal history of nicotine dependence; Z95.810 Presence of automatic (implantable) cardiac defibrillator; Z68.24 Body mass index [BMI] 24.0-24.9, adult; Z95.1 Presence of aortocoronary bypass graft
CPT/HCPCS: 96365; 96366; 96368; G0463; J1642; J2260; J3475; 96367

== ENCOUNTER → 2018-04-11 | Outpatient (CLI) | payer MEDICARE, OTHER ==
[2018-04-11] VITALS (10 sets, daily range): BP systolic 108–125; BP diastolic 53–75
[2018-04-11 12:42] LABS: Hematocrit 31.5 % (36.0-46.0); Hemoglobin 10.2 g/dL (12.2-16.2); Mean Corpuscular Hemoglobin 30.5 pg (28.0-32.0); Mean Corpuscular Hgb Conc. 32.5 g/dL (32.0-36.0); Mean Corpuscular Volume 93.7 fL (80.0-100.0); Platelet Count (auto) 120 10^3/uL (140-450); Red Blood Cells 3.36 10^6/uL (4.0-5.20); White Blood Cell 2.4 10^3/uL (4.4-10.8)
[2018-04-11 12:58] LABS: Basophils % (manual) 0 (0.0-2.0); Blast Cells 0; Metamyelocytes % 0; Myelocytes % 0; Promyelocytes % 0; Reactive Lymphocytes 0
[2018-04-11 13:07] LABS: Albumin 2.8 g/dL (3.4-5.0); Bilirubin, Total 0.6 mg/dL (0.2-1.0); Calcium 8.6 mg/dL (8.5-10.1); Potassium 3.8 mmol/L (3.5-5.1); Total Protein 8.8 g/dL (6.4-8.2)
[2018-04-11 13:55] LABS: Band Neutrophils % (manual) 2; Eosinophils % (manual) 1 (0-7); Lymphocytes % (manual) 24 (10.0-50.0); Monocytes % (manual) 25 (0-12)
== END | disposition home or self-care (01) ==
LOC: CHF HDHVI 09:00
PROVIDERS: ATTEND Internal Medicine Cardiovascular Disease
DX: I13.0 Hypertensive heart and chronic kidney disease with heart failure and stage 1 through stage 4 chronic kidney disease, or unspecified chronic kidney disease (principal); E11.22 Type 2 diabetes mellitus with diabetic chronic kidney disease; N18.3 Chronic kidney disease, stage 3 (moderate); I50.23 Acute on chronic systolic (congestive) heart failure; D63.1 Anemia in chronic kidney disease; I48.91 Unspecified atrial fibrillation; I25.10 Atherosclerotic heart disease of native coronary artery without angina pectoris; R74.0 Nonspecific elevation of levels of transaminase and lactic acid dehydrogenase [LDH]; J44.9 Chronic obstructive pulmonary disease, unspecified; D69.6 Thrombocytopenia, unspecified; I25.2 Old myocardial infarction; E78.5 Hyperlipidemia, unspecified; E03.9 Hypothyroidism, unspecified; F32.9 Major depressive disorder, single episode, unspecified; E43 Unspecified severe protein-calorie malnutrition; Z85.3 Personal history of malignant neoplasm of breast; Z79.01 Long term (current) use of anticoagulants; Z87.891 Personal history of nicotine dependence; Z79.899 Other long term (current) drug therapy; Z95.810 Presence of automatic (implantable) cardiac defibrillator; Z95.1 Presence of aortocoronary bypass graft; Z68.24 Body mass index [BMI] 24.0-24.9, adult
CPT/HCPCS: 36415; 80053; 83615; 83880; 85007; 85027; 86300; 96365; 96366; 96368; G0463; J1642; J2260; J3475; 96367

== ENCOUNTER → 2018-04-13 | Outpatient (CLI) | payer MEDICARE, OTHER ==
[~2018-04-13] VITALS: Ht 30.5 cm; Wt 54.9 kg
[2018-04-13] VITALS (8 sets, daily range): BP systolic 104–127; BP diastolic 52–72
== END | disposition home or self-care (01) ==
LOC: CHF HDHVI 09:31
PROVIDERS: ATTEND Internal Medicine Cardiovascular Disease
DX: I13.0 Hypertensive heart and chronic kidney disease with heart failure and stage 1 through stage 4 chronic kidney disease, or unspecified chronic kidney disease (principal); E11.22 Type 2 diabetes mellitus with diabetic chronic kidney disease; N18.3 Chronic kidney disease, stage 3 (moderate); I50.23 Acute on chronic systolic (congestive) heart failure; D63.1 Anemia in chronic kidney disease; E83.40 Disorders of magnesium metabolism, unspecified; I25.10 Atherosclerotic heart disease of native coronary artery without angina pectoris; J44.9 Chronic obstructive pulmonary disease, unspecified; E78.5 Hyperlipidemia, unspecified; E03.9 Hypothyroidism, unspecified; D69.6 Thrombocytopenia, unspecified; F41.9 Anxiety disorder, unspecified; E43 Unspecified severe protein-calorie malnutrition; I25.2 Old myocardial infarction; I48.91 Unspecified atrial fibrillation; Z79.01 Long term (current) use of anticoagulants; Z95.810 Presence of automatic (implantable) cardiac defibrillator; Z79.899 Other long term (current) drug therapy; Z87.891 Personal history of nicotine dependence; Z68.24 Body mass index [BMI] 24.0-24.9, adult; Z87.01 Personal history of pneumonia (recurrent)
CPT/HCPCS: 83880; 96365; 96366; 96368; G0463; J1642; J2260; J3475; 96367

== ENCOUNTER → 2018-04-15 | Outpatient (CLI) | payer MEDICARE, OTHER ==
[2018-04-15] VITALS (9 sets, daily range): BP systolic 101–144; BP diastolic 56–84
[~2018-04-15] MED LIST changes: -MAGNESIUM SULFATE 1GM/100ML 100 ML IV SCH
[2018-04-15] MEDS: MAGNESIUM SULFATE 1GM/100ML 100 ML IV SCH ×3 (10:20→12:30)
== END | disposition home or self-care (01) ==
LOC: CHF HDHVI 09:40
PROVIDERS: ATTEND Internal Medicine Cardiovascular Disease
DX: I13.0 Hypertensive heart and chronic kidney disease with heart failure and stage 1 through stage 4 chronic kidney disease, or unspecified chronic kidney disease (principal); E11.22 Type 2 diabetes mellitus with diabetic chronic kidney disease; N18.3 Chronic kidney disease, stage 3 (moderate); I50.40 Unspecified combined systolic (congestive) and diastolic (congestive) heart failure; D63.1 Anemia in chronic kidney disease; M32.9 Systemic lupus erythematosus, unspecified; R53.83 Other fatigue; I25.10 Atherosclerotic heart disease of native coronary artery without angina pectoris; D69.6 Thrombocytopenia, unspecified; I25.2 Old myocardial infarction; I48.91 Unspecified atrial fibrillation; E78.5 Hyperlipidemia, unspecified; E03.9 Hypothyroidism, unspecified; F41.9 Anxiety disorder, unspecified; F32.9 Major depressive disorder, single episode, unspecified; Z79.01 Long term (current) use of anticoagulants; Z79.899 Other long term (current) drug therapy; Z87.891 Personal history of nicotine dependence; Z95.810 Presence of automatic (implantable) cardiac defibrillator
CPT/HCPCS: 96365; 96366; 96368; G0463; J1642; J2260; J3475

== ENCOUNTER → 2018-04-18 | Outpatient (CLI) | payer MEDICARE, OTHER ==
[2018-04-18] MEDS: MAGNESIUM SULFATE 1GM/100ML 100 ML IV SCH ×3 (10:05→12:10)
[2018-04-18 10:15] VITALS: BP 121/71
[2018-04-18 10:30] VITALS: BP 124/70
[2018-04-18 12:23] LABS: Hematocrit 30.1 % (36.0-46.0); Hemoglobin 9.7 g/dL (12.2-16.2); Mean Corpuscular Hemoglobin 29.5 pg (28.0-32.0); Mean Corpuscular Hgb Conc. 32.1 g/dL (32.0-36.0); Mean Corpuscular Volume 91.9 fL (80.0-100.0); Platelet Count (auto) 134 10^3/uL (140-450); Red Blood Cells 3.27 10^6/uL (4.0-5.20); Red Cell Distribution Width 16.5 % (11.8-14.3)
[2018-04-18 12:30] LABS: Band Neutrophils % (manual) 0; Basophils % (manual) 0 (0.0-2.0); Blast Cells 0; Eosinophils % (manual) 0 (0-7); Metamyelocytes % 0; Myelocytes % 0; Promyelocytes % 0; Reactive Lymphocytes 0
[2018-04-18 12:48] LABS: BUN/Creatinine Ratio 28.3; Calcium 8.7 mg/dL (8.5-10.1); Magnesium 2.1 mg/dL (1.6-2.6); Potassium 4.3 mmol/L (3.5-5.1)
[2018-04-18 13:15] LABS: Lymphocytes % (manual) 24 (10.0-50.0); Monocytes % (manual) 14 (0-12)
[2018-04-18 14:30] VITALS: BP 138/79
== END | disposition home or self-care (01) ==
LOC: CHF HDHVI 10:07
PROVIDERS: ATTEND Internal Medicine Cardiovascular Disease
DX: I13.0 Hypertensive heart and chronic kidney disease with heart failure and stage 1 through stage 4 chronic kidney disease, or unspecified chronic kidney disease (principal); E11.22 Type 2 diabetes mellitus with diabetic chronic kidney disease; N18.3 Chronic kidney disease, stage 3 (moderate); I50.40 Unspecified combined systolic (congestive) and diastolic (congestive) heart failure; D63.1 Anemia in chronic kidney disease; E83.40 Disorders of magnesium metabolism, unspecified; E78.5 Hyperlipidemia, unspecified; D64.9 Anemia, unspecified; E03.9 Hypothyroidism, unspecified; I48.91 Unspecified atrial fibrillation; M32.9 Systemic lupus erythematosus, unspecified; I25.2 Old myocardial infarction; F41.9 Anxiety disorder, unspecified; E43 Unspecified severe protein-calorie malnutrition; J44.9 Chronic obstructive pulmonary disease, unspecified; D69.6 Thrombocytopenia, unspecified; F32.9 Major depressive disorder, single episode, unspecified; Z95.810 Presence of automatic (implantable) cardiac defibrillator; Z95.1 Presence of aortocoronary bypass graft; Z79.01 Long term (current) use of anticoagulants; Z79.899 Other long term (current) drug therapy; Z87.891 Personal history of nicotine dependence; Z68.24 Body mass index [BMI] 24.0-24.9, adult; Z87.01 Personal history of pneumonia (recurrent)
CPT/HCPCS: 36415; 80048; 83735; 83880; 85007; 85027; 96365; 96366; 96368; G0463; J1642; J2260; J3475

== ENCOUNTER → 2018-04-20 | Outpatient (CLI) | payer MEDICARE, OTHER ==
[2018-04-20] VITALS (10 sets, daily range): BP systolic 106–138; BP diastolic 59–78
[~2018-04-20] VITALS: Ht 30.5 cm; Wt 54.4 kg
[2018-04-20] MEDS: MAGNESIUM SULFATE 1GM/100ML 100 ML IV SCH ×3 (10:30→12:40)
== END | disposition home or self-care (01) ==
LOC: CHF HDHVI 08:59
PROVIDERS: ATTEND Internal Medicine Cardiovascular Disease
DX: E83.42 Hypomagnesemia (principal); I13.0 Hypertensive heart and chronic kidney disease with heart failure and stage 1 through stage 4 chronic kidney disease, or unspecified chronic kidney disease; E11.22 Type 2 diabetes mellitus with diabetic chronic kidney disease; N18.3 Chronic kidney disease, stage 3 (moderate); I50.40 Unspecified combined systolic (congestive) and diastolic (congestive) heart failure; I25.10 Atherosclerotic heart disease of native coronary artery without angina pectoris; J44.9 Chronic obstructive pulmonary disease, unspecified; I48.91 Unspecified atrial fibrillation; E78.5 Hyperlipidemia, unspecified; E03.9 Hypothyroidism, unspecified; D69.6 Thrombocytopenia, unspecified; I25.2 Old myocardial infarction; M32.9 Systemic lupus erythematosus, unspecified; F41.9 Anxiety disorder, unspecified; F32.9 Major depressive disorder, single episode, unspecified; Z68.24 Body mass index [BMI] 24.0-24.9, adult; Z79.899 Other long term (current) drug therapy; Z87.891 Personal history of nicotine dependence; Z95.1 Presence of aortocoronary bypass graft; Z79.01 Long term (current) use of anticoagulants; Z95.810 Presence of automatic (implantable) cardiac defibrillator
CPT/HCPCS: 96365; 96366; 96368; G0463; J1642; J2260; J3475; 96367

== ENCOUNTER → 2018-04-22 | Outpatient (CLI) | payer MEDICARE, OTHER ==
[~2018-04-22] MED LIST changes: +FEBU40TA PO; +MAGNESIUM SULFATE 1GM/100ML 100 ML IV ONE; +MAGNESIUM SULFATE 1GM/100ML 200 ML IV ONE; -MAGNESIUM SULFATE 1GM/100ML 300 ML IV ONE
[2018-04-22] MEDS: MAGNESIUM SULFATE 1GM/100ML 100 ML IV SCH ×3 (09:30→12:30)
[2018-04-22 10:46] LABS: Potassium 3.9 mmol/L (3.5-5.1)
[2018-04-22 14:00] VITALS: BP 152/66
== END | disposition home or self-care (01) ==
LOC: CHF HDHVI 09:30
PROVIDERS: ATTEND Internal Medicine Cardiovascular Disease
DX: I13.0 Hypertensive heart and chronic kidney disease with heart failure and stage 1 through stage 4 chronic kidney disease, or unspecified chronic kidney disease (principal); E11.22 Type 2 diabetes mellitus with diabetic chronic kidney disease; N18.3 Chronic kidney disease, stage 3 (moderate); I50.40 Unspecified combined systolic (congestive) and diastolic (congestive) heart failure; I25.10 Atherosclerotic heart disease of native coronary artery without angina pectoris; D63.1 Anemia in chronic kidney disease; M32.9 Systemic lupus erythematosus, unspecified; E87.6 Hypokalemia; R94.4 Abnormal results of kidney function studies; J44.9 Chronic obstructive pulmonary disease, unspecified; E78.5 Hyperlipidemia, unspecified; E03.9 Hypothyroidism, unspecified; F32.9 Major depressive disorder, single episode, unspecified; I25.2 Old myocardial infarction; I48.91 Unspecified atrial fibrillation; F41.9 Anxiety disorder, unspecified; D69.6 Thrombocytopenia, unspecified; Z85.3 Personal history of malignant neoplasm of breast; Z95.1 Presence of aortocoronary bypass graft; Z87.891 Personal history of nicotine dependence; Z79.01 Long term (current) use of anticoagulants; Z95.810 Presence of automatic (implantable) cardiac defibrillator
CPT/HCPCS: 36415; 82565; 83880; 84132; 84520; 96365; 96366; 96368; G0463; J1642; J2260; J3475; 96367

== ENCOUNTER → 2018-04-27 | Outpatient (CLI) | payer MEDICARE, OTHER ==
[~2018-04-27] MED LIST changes: -MAGNESIUM SULFATE 1GM/100ML 100 ML IV ONE; -MAGNESIUM SULFATE 1GM/100ML 200 ML IV ONE; +MAGNESIUM SULFATE 1GM/100ML 300 ML IV ONE
[2018-04-27 10:15] VITALS: BP 128/78
[2018-04-27 10:30] VITALS: BP 121/72
[2018-04-27] MEDS: MAGNESIUM SULFATE 1GM/100ML 100 ML IV SCH ×3 (10:30→12:15)
[2018-04-27 10:45] VITALS: BP 117/69
[2018-04-27 11:00] VITALS: BP 131/70
[2018-04-27 11:30] VITALS: BP 127/71
[2018-04-27 12:35] LABS: Basophils # (auto) 0 uL; Basophils % (auto) 1.1 % (0.0-2.0); Eosinophils # (auto) 0 uL; Eosinophils % (auto) 1.4 % (0.0-7.0); Hematocrit 30.2 % (36.0-46.0); Hemoglobin 9.6 g/dL (12.2-16.2); Lymphocytes # (auto) 0.3 uL; Lymphocytes % (auto) 15.5 % (10.0-50.0); Mean Corpuscular Hemoglobin 29.7 pg (28.0-32.0); Mean Corpuscular Hgb Conc. 31.9 g/dL (32.0-36.0); Mean Corpuscular Volume 93.2 fL (80.0-100.0); Monocytes # (auto) 0.4 uL; Monocytes % (auto) 17.8 % (0.0-12.0); Neutrophils # (auto) 1.4 uL; Neutrophils % (auto) 64.2 % (37.0-80.0); Nucleated Red Blood Cells % 0.6 %; Platelet Count (auto) 135 10^3/uL (140-450); Red Blood Cells 3.24 10^6/uL (4.0-5.20); Red Cell Distribution Width 17.3 % (11.8-14.3); White Blood Cell 2.2 10^3/uL (4.4-10.8)
[2018-04-27 12:56] LABS: BUN/Creatinine Ratio 25.1; Calcium 8.7 mg/dL (8.5-10.1); Magnesium 1.9 mg/dL (1.6-2.6); Potassium 3.9 mmol/L (3.5-5.1)
[2018-04-27 14:53] VITALS: BP 131/73
== END | disposition home or self-care (01) ==
LOC: CHF HDHVI 10:00
PROVIDERS: ATTEND Internal Medicine Cardiovascular Disease
DX: E83.40 Disorders of magnesium metabolism, unspecified (principal); I48.91 Unspecified atrial fibrillation; D51.9 Vitamin B12 deficiency anemia, unspecified; E55.9 Vitamin D deficiency, unspecified; I13.0 Hypertensive heart and chronic kidney disease with heart failure and stage 1 through stage 4 chronic kidney disease, or unspecified chronic kidney disease; E11.22 Type 2 diabetes mellitus with diabetic chronic kidney disease; N18.3 Chronic kidney disease, stage 3 (moderate); I50.40 Unspecified combined systolic (congestive) and diastolic (congestive) heart failure; D63.1 Anemia in chronic kidney disease; E78.5 Hyperlipidemia, unspecified; E03.9 Hypothyroidism, unspecified; I25.2 Old myocardial infarction; F32.9 Major depressive disorder, single episode, unspecified; F41.9 Anxiety disorder, unspecified; D69.6 Thrombocytopenia, unspecified; Z95.810 Presence of automatic (implantable) cardiac defibrillator; Z95.1 Presence of aortocoronary bypass graft; Z79.01 Long term (current) use of anticoagulants; Z79.899 Other long term (current) drug therapy; Z87.891 Personal history of nicotine dependence
CPT/HCPCS: 36415; 80048; 82306; 82607; 83735; 83880; 85025; 96365; 96366; 96368; G0463; J1642; J2260; J3475; 96367

== ENCOUNTER → 2018-04-29 | Outpatient (CLI) | payer MEDICARE, OTHER ==
[~2018-04-29] MED LIST changes: +MAGNESIUM SULFATE 1GM/100ML 100 ML IV SCH
[2018-04-29 14:30] VITALS: BP 130/69
== END | disposition home or self-care (01) ==
LOC: CHF HDHVI 09:43
PROVIDERS: ATTEND Internal Medicine Cardiovascular Disease
DX: I13.0 Hypertensive heart and chronic kidney disease with heart failure and stage 1 through stage 4 chronic kidney disease, or unspecified chronic kidney disease (principal); E11.22 Type 2 diabetes mellitus with diabetic chronic kidney disease; N18.3 Chronic kidney disease, stage 3 (moderate); I50.40 Unspecified combined systolic (congestive) and diastolic (congestive) heart failure; I48.91 Unspecified atrial fibrillation; D63.1 Anemia in chronic kidney disease; M32.9 Systemic lupus erythematosus, unspecified; I25.10 Atherosclerotic heart disease of native coronary artery without angina pectoris; E78.5 Hyperlipidemia, unspecified; E03.9 Hypothyroidism, unspecified; F32.9 Major depressive disorder, single episode, unspecified; I25.2 Old myocardial infarction; F41.9 Anxiety disorder, unspecified; D69.6 Thrombocytopenia, unspecified; Z95.1 Presence of aortocoronary bypass graft; Z79.01 Long term (current) use of anticoagulants; Z95.810 Presence of automatic (implantable) cardiac defibrillator; Z79.899 Other long term (current) drug therapy
CPT/HCPCS: 96365; 96366; 96368; G0463; J1642; J2260; J3475; 96367

== ENCOUNTER → 2018-05-02 | Outpatient (CLI) | payer MEDICARE, OTHER ==
[~2018-05-02] VITALS: Ht 30.5 cm; Wt 55.9 kg
[2018-05-02 13:01] LABS: Hematocrit 30.2 % (36.0-46.0); Hemoglobin 9.8 g/dL (12.2-16.2); Mean Corpuscular Hemoglobin 30.4 pg (28.0-32.0); Mean Corpuscular Hgb Conc. 32.5 g/dL (32.0-36.0); Mean Corpuscular Volume 93.5 fL (80.0-100.0); Platelet Count (auto) 108 10^3/uL (140-450); Red Blood Cells 3.23 10^6/uL (4.0-5.20); Red Cell Distribution Width 17.5 % (11.8-14.3); White Blood Cell 2.5 10^3/uL (4.4-10.8)
[2018-05-02 13:20] LABS: Calcium 8.5 mg/dL (8.5-10.1); Potassium 3.9 mmol/L (3.5-5.1)
[2018-05-02 13:24] LABS: BUN/Creatinine Ratio 31.4; Magnesium 1.6 mg/dL (1.6-2.6)
[2018-05-02 13:26] LABS: Bilirubin, Total 0.3 mg/dL (0.2-1.0); Total Protein 8.3 g/dL (6.4-8.2)
[2018-05-02 13:28] LABS: Band Neutrophils % (manual) 0; Basophils % (manual) 0 (0.0-2.0); Blast Cells 0; Metamyelocytes % 0; Myelocytes % 0; Promyelocytes % 0; Reactive Lymphocytes 0
[2018-05-02 14:01] LABS: Eosinophils % (manual) 1 (0-7); Lymphocytes % (manual) 19 (10.0-50.0); Monocytes % (manual) 10 (0-12)
[2018-05-02 14:50] VITALS: BP 134/82
== END | disposition home or self-care (01) ==
LOC: CHF HDHVI 09:42
PROVIDERS: ATTEND Internal Medicine Cardiovascular Disease
DX: I25.10 Atherosclerotic heart disease of native coronary artery without angina pectoris (principal); I13.0 Hypertensive heart and chronic kidney disease with heart failure and stage 1 through stage 4 chronic kidney disease, or unspecified chronic kidney disease; E11.22 Type 2 diabetes mellitus with diabetic chronic kidney disease; N18.3 Chronic kidney disease, stage 3 (moderate); I50.40 Unspecified combined systolic (congestive) and diastolic (congestive) heart failure; D63.1 Anemia in chronic kidney disease; M32.9 Systemic lupus erythematosus, unspecified; E78.5 Hyperlipidemia, unspecified; I48.91 Unspecified atrial fibrillation; F41.9 Anxiety disorder, unspecified; D69.6 Thrombocytopenia, unspecified; E03.9 Hypothyroidism, unspecified; Z79.01 Long term (current) use of anticoagulants; Z79.899 Other long term (current) drug therapy; Z87.891 Personal history of nicotine dependence; Z95.810 Presence of automatic (implantable) cardiac defibrillator
CPT/HCPCS: 36415; 80053; 83735; 83880; 85007; 85027; 96365; 96366; 96368; G0463; J1642; J2260; J3475

== ENCOUNTER → 2018-05-04 | Outpatient (CLI) | payer MEDICARE, OTHER ==
[~2018-05-04] VITALS: Ht 30.5 cm; Wt 0.5 kg
[2018-05-04] VITALS (10 sets, daily range): BP systolic 109–133; BP diastolic 64–81
[~2018-05-04] MED LIST changes: +MAGNESIUM SULFATE 1GM/100ML 100 ML IV ONE; -MAGNESIUM SULFATE 1GM/100ML 100 ML IV SCH; +MAGNESIUM SULFATE 1GM/100ML 200 ML IV ONE; -MAGNESIUM SULFATE 1GM/100ML 300 ML IV ONE
[2018-05-04] MEDS: MAGNESIUM SULFATE 1GM/100ML 100 ML IV SCH ×3 (10:25→12:45)
== END | disposition home or self-care (01) ==
LOC: CHF HDHVI 09:43
PROVIDERS: ATTEND Internal Medicine Cardiovascular Disease
DX: E11.22 Type 2 diabetes mellitus with diabetic chronic kidney disease (principal); I13.0 Hypertensive heart and chronic kidney disease with heart failure and stage 1 through stage 4 chronic kidney disease, or unspecified chronic kidney disease; N18.3 Chronic kidney disease, stage 3 (moderate); I50.40 Unspecified combined systolic (congestive) and diastolic (congestive) heart failure; I48.91 Unspecified atrial fibrillation; D63.1 Anemia in chronic kidney disease; I25.10 Atherosclerotic heart disease of native coronary artery without angina pectoris; J44.9 Chronic obstructive pulmonary disease, unspecified; E78.5 Hyperlipidemia, unspecified; E03.9 Hypothyroidism, unspecified; F32.9 Major depressive disorder, single episode, unspecified; I25.2 Old myocardial infarction; F41.9 Anxiety disorder, unspecified; D69.6 Thrombocytopenia, unspecified; Z95.810 Presence of automatic (implantable) cardiac defibrillator; Z87.891 Personal history of nicotine dependence; Z95.1 Presence of aortocoronary bypass graft
CPT/HCPCS: 96365; 96366; 96368; G0463; J1642; J2260; J3475; 96367

== ENCOUNTER → 2018-05-09 | Outpatient (CLI) | payer MEDICARE, OTHER ==
[~2018-05-09] MED LIST changes: -MAGNESIUM SULFATE 1GM/100ML 100 ML IV ONE; +MAGNESIUM SULFATE 1GM/100ML 100 ML IV SCH; -MAGNESIUM SULFATE 1GM/100ML 200 ML IV ONE; +MAGNESIUM SULFATE 1GM/100ML 300 ML IV ONE
[2018-05-09 11:15] VITALS: BP 120/69
[2018-05-09 11:30] VITALS: BP 115/66
[2018-05-09 12:31] LABS: Basophils # (auto) 0 uL; Basophils % (auto) 1.6 % (0.0-2.0); Eosinophils # (auto) 0 uL; Hemoglobin 9.7 g/dL (12.2-16.2); Lymphocytes # (auto) 0.3 uL; Lymphocytes % (auto) 13.1 % (10.0-50.0); Mean Corpuscular Hemoglobin 30.2 pg (28.0-32.0); Mean Corpuscular Hgb Conc. 32.3 g/dL (32.0-36.0); Mean Corpuscular Volume 93.4 fL (80.0-100.0); Monocytes # (auto) 0.4 uL; Monocytes % (auto) 15.9 % (0.0-12.0); Neutrophils # (auto) 1.5 uL; Neutrophils % (auto) 67.4 % (37.0-80.0); Nucleated Red Blood Cells % 0.2 %; Platelet Count (auto) 95 10^3/uL (140-450); Red Blood Cells 3.21 10^6/uL (4.0-5.20); Red Cell Distribution Width 17.9 % (11.8-14.3); White Blood Cell 2.3 10^3/uL (4.4-10.8)
[2018-05-09 12:41] LABS: BUN/Creatinine Ratio 27.4; Calcium 8.6 mg/dL (8.5-10.1); Magnesium 1.6 mg/dL (1.6-2.6); Potassium 4.1 mmol/L (3.5-5.1)
[2018-05-09 15:30] VITALS: BP 137/83
== END | disposition home or self-care (01) ==
LOC: CHF HDHVI 11:06
PROVIDERS: ATTEND Internal Medicine Cardiovascular Disease
DX: I13.0 Hypertensive heart and chronic kidney disease with heart failure and stage 1 through stage 4 chronic kidney disease, or unspecified chronic kidney disease (principal); E11.22 Type 2 diabetes mellitus with diabetic chronic kidney disease; N18.3 Chronic kidney disease, stage 3 (moderate); I50.40 Unspecified combined systolic (congestive) and diastolic (congestive) heart failure; E83.40 Disorders of magnesium metabolism, unspecified; D63.1 Anemia in chronic kidney disease; I25.10 Atherosclerotic heart disease of native coronary artery without angina pectoris; J44.9 Chronic obstructive pulmonary disease, unspecified; E78.5 Hyperlipidemia, unspecified; E03.9 Hypothyroidism, unspecified; I25.2 Old myocardial infarction; F41.9 Anxiety disorder, unspecified; I48.91 Unspecified atrial fibrillation; D69.6 Thrombocytopenia, unspecified; Z95.810 Presence of automatic (implantable) cardiac defibrillator; Z87.891 Personal history of nicotine dependence; Z79.899 Other long term (current) drug therapy
CPT/HCPCS: 36415; 80048; 83735; 83880; 85025; 96365; 96366; 96368; G0463; J1642; J2260; J3475

== ENCOUNTER → 2018-05-11 | Outpatient (CLI) | payer MEDICARE, OTHER ==
[2018-05-11] VITALS (12 sets, daily range): BP systolic 116–137; BP diastolic 66–78
[~2018-05-11] MED LIST changes: -MAGNESIUM SULFATE 1GM/100ML 100 ML IV SCH
[2018-05-11] MEDS: MAGNESIUM SULFATE 1GM/100ML 100 ML IV SCH ×3 (10:30→12:50)
== END | disposition home or self-care (01) ==
LOC: CHF HDHVI 10:50
PROVIDERS: ATTEND Internal Medicine Cardiovascular Disease
DX: I13.0 Hypertensive heart and chronic kidney disease with heart failure and stage 1 through stage 4 chronic kidney disease, or unspecified chronic kidney disease (principal); E11.22 Type 2 diabetes mellitus with diabetic chronic kidney disease; N18.3 Chronic kidney disease, stage 3 (moderate); I50.40 Unspecified combined systolic (congestive) and diastolic (congestive) heart failure; E78.5 Hyperlipidemia, unspecified; E03.9 Hypothyroidism, unspecified; F32.9 Major depressive disorder, single episode, unspecified; D63.1 Anemia in chronic kidney disease; I25.10 Atherosclerotic heart disease of native coronary artery without angina pectoris; J44.9 Chronic obstructive pulmonary disease, unspecified; I25.2 Old myocardial infarction; F41.9 Anxiety disorder, unspecified; D69.6 Thrombocytopenia, unspecified; I48.91 Unspecified atrial fibrillation; Z95.1 Presence of aortocoronary bypass graft; Z87.891 Personal history of nicotine dependence; Z79.899 Other long term (current) drug therapy
CPT/HCPCS: 96365; 96366; 96368; G0463; J1642; J2260; J3475

== ENCOUNTER → 2018-05-13 | Outpatient (CLI) | payer MEDICARE, OTHER ==
[2018-05-13] VITALS (7 sets, daily range): BP systolic 116–133; BP diastolic 56–75
[2018-05-13] MEDS: MAGNESIUM SULFATE 1GM/100ML 100 ML IV SCH ×3 (10:23→12:34)
== END | disposition home or self-care (01) ==
LOC: CHF HDHVI 10:30
PROVIDERS: ATTEND Internal Medicine Cardiovascular Disease
DX: I13.0 Hypertensive heart and chronic kidney disease with heart failure and stage 1 through stage 4 chronic kidney disease, or unspecified chronic kidney disease (principal); E11.22 Type 2 diabetes mellitus with diabetic chronic kidney disease; I50.40 Unspecified combined systolic (congestive) and diastolic (congestive) heart failure; N18.3 Chronic kidney disease, stage 3 (moderate); I48.91 Unspecified atrial fibrillation; M32.9 Systemic lupus erythematosus, unspecified; Z95.810 Presence of automatic (implantable) cardiac defibrillator; D63.1 Anemia in chronic kidney disease; I25.10 Atherosclerotic heart disease of native coronary artery without angina pectoris; J44.9 Chronic obstructive pulmonary disease, unspecified; F41.9 Anxiety disorder, unspecified; D69.6 Thrombocytopenia, unspecified; Z95.1 Presence of aortocoronary bypass graft; Z87.891 Personal history of nicotine dependence
CPT/HCPCS: 96365; 96366; 96368; G0463; J1642; J2260; J3475

== ENCOUNTER → 2018-05-16 | Outpatient (CLI) | payer MEDICARE, OTHER ==
[2018-05-16] VITALS (10 sets, daily range): BP systolic 107–125; BP diastolic 55–62
[~2018-05-16] MED LIST changes: +LISINOPRIL 10 MG TAB ONE; +MAGNESIUM SULFATE 1GM/100ML 100 ML IV SCH
[2018-05-16 13:13] LABS: Hematocrit 32.7 % (36.0-46.0); Hemoglobin 10.3 g/dL (12.2-16.2); Mean Corpuscular Hemoglobin 29.4 pg (28.0-32.0); Mean Corpuscular Hgb Conc. 31.3 g/dL (32.0-36.0); Mean Corpuscular Volume 93.7 fL (80.0-100.0); Platelet Count (auto) 114 10^3/uL (140-450); Red Blood Cells 3.49 10^6/uL (4.0-5.20); Red Cell Distribution Width 17.9 % (11.8-14.3); White Blood Cell 2.2 10^3/uL (4.4-10.8)
[2018-05-16 13:30] LABS: Band Neutrophils % (manual) 0; Basophils % (manual) 0 (0.0-2.0); Blast Cells 0; Eosinophils % (manual) 0 (0-7); Metamyelocytes % 0; Myelocytes % 0; Promyelocytes % 0
[2018-05-16 13:42] LABS: BUN/Creatinine Ratio 37.3; Calcium 8.7 mg/dL (8.5-10.1); Potassium 3.6 mmol/L (3.5-5.1)
[2018-05-16 15:12] LABS: Lymphocytes % (manual) 12 (10.0-50.0); Monocytes % (manual) 20 (0-12); Reactive Lymphocytes 1
== END | disposition home or self-care (01) ==
LOC: CHF HDHVI 10:48
PROVIDERS: ATTEND Internal Medicine Cardiovascular Disease
DX: I13.0 Hypertensive heart and chronic kidney disease with heart failure and stage 1 through stage 4 chronic kidney disease, or unspecified chronic kidney disease (principal); E11.22 Type 2 diabetes mellitus with diabetic chronic kidney disease; N18.3 Chronic kidney disease, stage 3 (moderate); I50.40 Unspecified combined systolic (congestive) and diastolic (congestive) heart failure; E83.110 Hereditary hemochromatosis; D63.1 Anemia in chronic kidney disease; E83.42 Hypomagnesemia; J44.9 Chronic obstructive pulmonary disease, unspecified; I25.10 Atherosclerotic heart disease of native coronary artery without angina pectoris; E78.5 Hyperlipidemia, unspecified; E03.9 Hypothyroidism, unspecified; F32.9 Major depressive disorder, single episode, unspecified; I48.91 Unspecified atrial fibrillation; F41.9 Anxiety disorder, unspecified; Z79.899 Other long term (current) drug therapy; Z87.891 Personal history of nicotine dependence; Z95.810 Presence of automatic (implantable) cardiac defibrillator; Z85.3 Personal history of malignant neoplasm of breast
CPT/HCPCS: 36415; 80048; 83735; 83880; 85007; 85027; 96365; 96366; 96368; G0463; J1642; J2260; J3475

== ENCOUNTER → 2018-05-18 | Outpatient (CLI) | payer MEDICARE, OTHER ==
[2018-05-18] VITALS (10 sets, daily range): BP systolic 117–134; BP diastolic 65–81
[~2018-05-18] MED LIST changes: +CYANOCOBALAMIN (B-12) 1000 MCG/1 ML VIAL IM ONE; +CYANOCOBALAMIN (B-12) 1000 MCG/1 ML VIAL ONE; -LISINOPRIL 10 MG TAB ONE; -MAGNESIUM SULFATE 1GM/100ML 100 ML IV SCH; -MILRINONE 20MG/100ML 100 ML IV SCH
[2018-05-18] MEDS: MAGNESIUM SULFATE 1GM/100ML 100 ML IV SCH ×3 (10:35→13:15)
[2018-05-18] MEDS: MILRINONE 20MG/100ML 100 ML IV SCH (17:18)
[2018-05-19] MEDS: MILRINONE 20MG/100ML 100 ML IV SCH (09:31)
== END | disposition home or self-care (01) ==
LOC: CHF HDHVI 10:35
PROVIDERS: ATTEND Internal Medicine Cardiovascular Disease
DX: I25.10 Atherosclerotic heart disease of native coronary artery without angina pectoris (principal); I13.0 Hypertensive heart and chronic kidney disease with heart failure and stage 1 through stage 4 chronic kidney disease, or unspecified chronic kidney disease; E11.22 Type 2 diabetes mellitus with diabetic chronic kidney disease; N18.3 Chronic kidney disease, stage 3 (moderate); I50.40 Unspecified combined systolic (congestive) and diastolic (congestive) heart failure; M32.9 Systemic lupus erythematosus, unspecified; D63.1 Anemia in chronic kidney disease; F32.9 Major depressive disorder, single episode, unspecified; I48.91 Unspecified atrial fibrillation; I25.2 Old myocardial infarction; J44.9 Chronic obstructive pulmonary disease, unspecified; E03.9 Hypothyroidism, unspecified; E78.5 Hyperlipidemia, unspecified; F41.9 Anxiety disorder, unspecified; Z95.810 Presence of automatic (implantable) cardiac defibrillator; Z79.899 Other long term (current) drug therapy; Z87.891 Personal history of nicotine dependence; Z79.01 Long term (current) use of anticoagulants
CPT/HCPCS: 96365; 96366; 96368; 96372; G0463; J1642; J2260; J3420; J3475

== ENCOUNTER → 2018-05-20 | Outpatient (CLI) | payer MEDICARE, OTHER ==
[~2018-05-20] MED LIST changes: -CYANOCOBALAMIN (B-12) 1000 MCG/1 ML VIAL IM ONE; -CYANOCOBALAMIN (B-12) 1000 MCG/1 ML VIAL ONE; +KETOROLAC TROMETH 30 MG/ML 1ML VIAL IV ONE; +KETOROLAC TROMETH 60MG/2ML VIAL IM ONE; +MAGNESIUM SULFATE 1GM/100ML 0 ML IV ONE; -MAGNESIUM SULFATE 1GM/100ML 300 ML IV ONE; +MILRINONE 20MG/100ML 0 ML IV ONE; -MILRINONE 20MG/100ML 100 ML IV ONE; +POTASSIUM CHL 10 Meq TABLET PO ONE
[2018-05-20 10:10] VITALS: BP 147/89
[2018-05-20 11:00] VITALS: BP 127/86
== END | disposition home or self-care (01) ==
LOC: CHF HDHVI 10:44
PROVIDERS: ATTEND Internal Medicine Cardiovascular Disease
DX: R07.89 Other chest pain (principal); M25.512 Pain in left shoulder; I13.0 Hypertensive heart and chronic kidney disease with heart failure and stage 1 through stage 4 chronic kidney disease, or unspecified chronic kidney disease; E11.22 Type 2 diabetes mellitus with diabetic chronic kidney disease; N18.3 Chronic kidney disease, stage 3 (moderate); I50.40 Unspecified combined systolic (congestive) and diastolic (congestive) heart failure; I25.10 Atherosclerotic heart disease of native coronary artery without angina pectoris; D63.1 Anemia in chronic kidney disease; F32.9 Major depressive disorder, single episode, unspecified; E78.5 Hyperlipidemia, unspecified; E03.9 Hypothyroidism, unspecified; Z87.891 Personal history of nicotine dependence; Z95.810 Presence of automatic (implantable) cardiac defibrillator
CPT/HCPCS: 93005; 96374; G0463; J1642; J1885; 96523

== ENCOUNTER → 2018-05-20 | Outpatient (CLI) | payer MEDICARE, OTHER ==
[~2018-05-20] MED LIST changes: -FEBU40TA PO; -KETOROLAC TROMETH 30 MG/ML 1ML VIAL IV ONE; -KETOROLAC TROMETH 60MG/2ML VIAL IM ONE; -MAGNESIUM SULFATE 1GM/100ML 0 ML IV ONE; -MILRINONE 20MG/100ML 0 ML IV ONE; -POTASSIUM CHL 10 Meq TABLET PO ONE
== END | disposition home or self-care (01) ==
LOC: XYW 11:26
PROVIDERS: ATTEND Internal Medicine Cardiovascular Disease
DX: I51.7 Cardiomegaly (principal)
CPT/HCPCS: 71046; 78582; A9540; A9558

== ENCOUNTER → 2018-05-23 | Outpatient (CLI) | payer MEDICARE, OTHER ==
[2018-05-23] VITALS (12 sets, daily range): BP systolic 120–136; BP diastolic 43–86
[~2018-05-23] MED LIST changes: +FEBU40TA PO; +MAGNESIUM SULFATE 1GM/100ML 100 ML IV SCH; +MAGNESIUM SULFATE 1GM/100ML 300 ML IV ONE; +MILRINONE 20MG/100ML 100 ML IV ONE; +MILRINONE 4 MG in SODIUM CHL 0.9% 50 ML IV ONE; +ONDANSETRON HCL 4 MG/2 ML VIAL ONE
[2018-05-23 12:07] LABS: Hematocrit 30.2 % (36.0-46.0); Hemoglobin 9.5 g/dL (12.2-16.2); Mean Corpuscular Hemoglobin 29.7 pg (28.0-32.0); Mean Corpuscular Hgb Conc. 31.5 g/dL (32.0-36.0); Mean Corpuscular Volume 94.1 fL (80.0-100.0); Platelet Count (auto) 100 10^3/uL (140-450); Red Blood Cells 3.21 10^6/uL (4.0-5.20); Red Cell Distribution Width 17.8 % (11.8-14.3); White Blood Cell 2.2 10^3/uL (4.4-10.8)
[2018-05-23 12:21] LABS: Band Neutrophils % (manual) 0; Blast Cells 0; Metamyelocytes % 0; Myelocytes % 0; Promyelocytes % 0; Reactive Lymphocytes 0
[2018-05-23 12:31] LABS: BUN/Creatinine Ratio 32.3; Bilirubin, Total 0.5 mg/dL (0.2-1.0); Calcium 8.6 mg/dL (8.5-10.1); Magnesium 1.6 mg/dL (1.6-2.6); Potassium 3.9 mmol/L (3.5-5.1); Total Protein 8.3 g/dL (6.4-8.2)
[2018-05-23 13:34] LABS: Basophils % (manual) 1 (0.0-2.0); Eosinophils % (manual) 1 (0-7); Lymphocytes % (manual) 20 (10.0-50.0); Monocytes % (manual) 12 (0-12)
== END | disposition home or self-care (01) ==
LOC: CHF HDHVI 10:10
PROVIDERS: ATTEND Internal Medicine Cardiovascular Disease
DX: E83.42 Hypomagnesemia (principal); I25.10 Atherosclerotic heart disease of native coronary artery without angina pectoris; R11.0 Nausea; I13.0 Hypertensive heart and chronic kidney disease with heart failure and stage 1 through stage 4 chronic kidney disease, or unspecified chronic kidney disease; E11.22 Type 2 diabetes mellitus with diabetic chronic kidney disease; N18.3 Chronic kidney disease, stage 3 (moderate); I50.40 Unspecified combined systolic (congestive) and diastolic (congestive) heart failure; D63.1 Anemia in chronic kidney disease; D51.9 Vitamin B12 deficiency anemia, unspecified; Z87.891 Personal history of nicotine dependence; Z95.810 Presence of automatic (implantable) cardiac defibrillator
CPT/HCPCS: 36415; 80053; 82607; 83735; 83880; 85007; 85027; 85610; 96365; 96366; 96368; 96375; G0463; J1642; J2260; J2405; J3475

== ENCOUNTER → 2018-05-27 | Outpatient (CLI) | payer MEDICARE, OTHER ==
[2018-05-27] VITALS (10 sets, daily range): BP systolic 131–142; BP diastolic 80–88
[~2018-05-27] MED LIST changes: +KETOROLAC TROMETH 60MG/2ML VIAL IM ONE; -MAGNESIUM SULFATE 1GM/100ML 100 ML IV SCH; +MAGNESIUM SULFATE 1GM/100ML 200 ML IV ONE; +MILRINONE 20MG/100ML 100 ML IV SCH; -MILRINONE 4 MG in SODIUM CHL 0.9% 50 ML IV ONE; -ONDANSETRON HCL 4 MG/2 ML VIAL ONE
[2018-05-27] MEDS: MAGNESIUM SULFATE 1GM/100ML 100 ML IV SCH ×3 (10:30→12:30)
[2018-05-27 12:47] LABS: Hematocrit 29.2 % (36.0-46.0); Hemoglobin 9.6 g/dL (12.2-16.2); Mean Corpuscular Hgb Conc. 32.8 g/dL (32.0-36.0); Mean Corpuscular Volume 94.5 fL (80.0-100.0); Platelet Count (auto) 99 10^3/uL (140-450); Red Blood Cells 3.09 10^6/uL (4.0-5.20); Red Cell Distribution Width 17.6 % (11.8-14.3); White Blood Cell 2.3 10^3/uL (4.4-10.8)
[2018-05-27 13:00] LABS: Band Neutrophils % (manual) 0; Basophils % (manual) 0 (0.0-2.0); Blast Cells 0; Metamyelocytes % 0; Myelocytes % 0; Promyelocytes % 0; Reactive Lymphocytes 0
[2018-05-27 17:15] LABS: Eosinophils % (manual) 1 (0-7); Lymphocytes % (manual) 23 (10.0-50.0); Monocytes % (manual) 6 (0-12)
[2018-05-27 17:25] LABS: Calcium 8.1 mg/dL (8.5-10.1); Magnesium 1.6 mg/dL (1.6-2.6)
== END | disposition home or self-care (01) ==
LOC: CHF HDHVI 10:29
PROVIDERS: ATTEND Internal Medicine Cardiovascular Disease
DX: E11.22 Type 2 diabetes mellitus with diabetic chronic kidney disease (principal); I13.0 Hypertensive heart and chronic kidney disease with heart failure and stage 1 through stage 4 chronic kidney disease, or unspecified chronic kidney disease; N18.3 Chronic kidney disease, stage 3 (moderate); I50.40 Unspecified combined systolic (congestive) and diastolic (congestive) heart failure; D63.1 Anemia in chronic kidney disease; E83.40 Disorders of magnesium metabolism, unspecified; J44.9 Chronic obstructive pulmonary disease, unspecified; I25.2 Old myocardial infarction; E11.51 Type 2 diabetes mellitus with diabetic peripheral angiopathy without gangrene; I25.10 Atherosclerotic heart disease of native coronary artery without angina pectoris; F32.9 Major depressive disorder, single episode, unspecified; E78.5 Hyperlipidemia, unspecified; E03.9 Hypothyroidism, unspecified; I48.91 Unspecified atrial fibrillation; F41.9 Anxiety disorder, unspecified; Z87.891 Personal history of nicotine dependence; Z95.1 Presence of aortocoronary bypass graft; Z79.899 Other long term (current) drug therapy; Z85.3 Personal history of malignant neoplasm of breast
CPT/HCPCS: 36415; 80048; 83735; 83880; 85007; 85027; 96365; 96366; 96368; 96372; G0463; J1642; J1885; J2260; J3475

== ENCOUNTER → 2018-05-30 | Outpatient (CLI) | payer MEDICARE, OTHER ==
[2018-05-30] VITALS (10 sets, daily range): BP systolic 125–157; BP diastolic 81–97
[~2018-05-30] MED LIST changes: -KETOROLAC TROMETH 60MG/2ML VIAL IM ONE; -MAGNESIUM SULFATE 1GM/100ML 200 ML IV ONE; -MILRINONE 20MG/100ML 100 ML IV SCH
[2018-05-30] MEDS: MAGNESIUM SULFATE 1GM/100ML 100 ML IV SCH ×3 (12:23→14:00)
[2018-05-30] MEDS: MILRINONE 20MG/100ML 100 ML IV SCH ×2 (14:30→17:06)
== END | disposition home or self-care (01) ==
LOC: CHF HDHVI 11:01
PROVIDERS: ATTEND Internal Medicine Cardiovascular Disease
DX: E11.22 Type 2 diabetes mellitus with diabetic chronic kidney disease (principal); I13.0 Hypertensive heart and chronic kidney disease with heart failure and stage 1 through stage 4 chronic kidney disease, or unspecified chronic kidney disease; N18.3 Chronic kidney disease, stage 3 (moderate); I50.40 Unspecified combined systolic (congestive) and diastolic (congestive) heart failure; D63.1 Anemia in chronic kidney disease; I25.10 Atherosclerotic heart disease of native coronary artery without angina pectoris; J44.9 Chronic obstructive pulmonary disease, unspecified; E78.5 Hyperlipidemia, unspecified; E03.9 Hypothyroidism, unspecified; F32.9 Major depressive disorder, single episode, unspecified; I48.91 Unspecified atrial fibrillation; R06.00 Dyspnea, unspecified; F41.9 Anxiety disorder, unspecified; D69.6 Thrombocytopenia, unspecified; I25.2 Old myocardial infarction; Z85.3 Personal history of malignant neoplasm of breast; Z87.891 Personal history of nicotine dependence; Z95.1 Presence of aortocoronary bypass graft; Z95.810 Presence of automatic (implantable) cardiac defibrillator
CPT/HCPCS: 96365; 96366; 96368; G0463; J1642; J2260; J3475

== ENCOUNTER → 2018-06-01 | Outpatient (CLI) | payer MEDICARE, OTHER ==
[~2018-06-01] VITALS: Ht 30.5 cm; Wt 0.5 kg
[2018-06-01] VITALS (12 sets, daily range): BP systolic 125–141; BP diastolic 66–88
[~2018-06-01] MED LIST changes: +CEFTRIAXONE SODIUM 2 GM in D5W 5% 50 ML IV ONE; +MAGNESIUM SULFATE 1GM/100ML 100 ML IV SCH; +MILRINONE 20MG/100ML 100 ML IV SCH; +POTASSIUM CHL 10 Meq TABLET PO ONE; +cefTRIAXone 1GM/10ml IVPUSH 10 ML IV ONE
== END | disposition home or self-care (01) ==
LOC: CHF HDHVI 10:45
PROVIDERS: ATTEND Internal Medicine Cardiovascular Disease
DX: I50.40 Unspecified combined systolic (congestive) and diastolic (congestive) heart failure (principal); I13.0 Hypertensive heart and chronic kidney disease with heart failure and stage 1 through stage 4 chronic kidney disease, or unspecified chronic kidney disease; E11.22 Type 2 diabetes mellitus with diabetic chronic kidney disease; N18.3 Chronic kidney disease, stage 3 (moderate); I25.10 Atherosclerotic heart disease of native coronary artery without angina pectoris; M32.9 Systemic lupus erythematosus, unspecified; I48.91 Unspecified atrial fibrillation; D63.1 Anemia in chronic kidney disease; J44.9 Chronic obstructive pulmonary disease, unspecified; I25.2 Old myocardial infarction; E43 Unspecified severe protein-calorie malnutrition; E78.5 Hyperlipidemia, unspecified; E03.9 Hypothyroidism, unspecified; F32.9 Major depressive disorder, single episode, unspecified; F41.9 Anxiety disorder, unspecified; Z85.3 Personal history of malignant neoplasm of breast; Z95.810 Presence of automatic (implantable) cardiac defibrillator; Z95.1 Presence of aortocoronary bypass graft; Z79.01 Long term (current) use of anticoagulants; Z87.891 Personal history of nicotine dependence
CPT/HCPCS: 96365; 96366; 96368; 96375; G0463; J0696; J1642; J2260; J3475; J7060

== ENCOUNTER → 2018-06-06 | Outpatient (CLI) | payer MEDICARE, OTHER ==
[2018-06-06] VITALS (11 sets, daily range): BP systolic 116–129; BP diastolic 63–79
[~2018-06-06] VITALS: Ht 30.5 cm; Wt 62.1 kg
[~2018-06-06] MED LIST changes: -CEFTRIAXONE SODIUM 2 GM in D5W 5% 50 ML IV ONE; +FUROSEMIDE 40 MG/4 ML VIAL IV ONE; +FUROSEMIDE 40 MG/4 ML VIAL ONE; +KETOROLAC TROMETH 30 MG/ML 1ML VIAL IV ONE; +KETOROLAC TROMETH 60MG/2ML VIAL IM ONE; +POTASSIUM CHL 20 Meq TABLET PO ONE; -cefTRIAXone 1GM/10ml IVPUSH 10 ML IV ONE
[2018-06-06 12:34] LABS: BUN/Creatinine Ratio 39.2; Calcium 8.7 mg/dL (8.5-10.1); Potassium 3.9 mmol/L (3.5-5.1)
[2018-06-06 12:42] LABS: Basophils # (auto) 0 uL; Basophils % (auto) 0.6 % (0.0-2.0); Eosinophils # (auto) 0 uL; Eosinophils % (auto) 0.9 % (0.0-7.0); Hematocrit 31.2 % (36.0-46.0); Hemoglobin 10.4 g/dL (12.2-16.2); Lymphocytes # (auto) 0.3 uL; Lymphocytes % (auto) 9.3 % (10.0-50.0); Mean Corpuscular Hemoglobin 32.1 pg (28.0-32.0); Mean Corpuscular Hgb Conc. 33.4 g/dL (32.0-36.0); Monocytes # (auto) 0.4 uL; Monocytes % (auto) 12.1 % (0.0-12.0); Neutrophils # (auto) 2.5 uL; Neutrophils % (auto) 77.1 % (37.0-80.0); Nucleated Red Blood Cells % 1.2 %; Platelet Count (auto) 132 10^3/uL (140-450); Red Blood Cells 3.25 10^6/uL (4.0-5.20); Red Cell Distribution Width 18.2 % (11.8-14.3); White Blood Cell 3.3 10^3/uL (4.4-10.8)
== END | disposition home or self-care (01) ==
LOC: CHF HDHVI 09:43
PROVIDERS: ATTEND Internal Medicine Cardiovascular Disease
DX: I13.0 Hypertensive heart and chronic kidney disease with heart failure and stage 1 through stage 4 chronic kidney disease, or unspecified chronic kidney disease (principal); I50.43 Acute on chronic combined systolic (congestive) and diastolic (congestive) heart failure; N18.3 Chronic kidney disease, stage 3 (moderate); D51.3 Other dietary vitamin B12 deficiency anemia; E83.40 Disorders of magnesium metabolism, unspecified; E11.22 Type 2 diabetes mellitus with diabetic chronic kidney disease; D63.1 Anemia in chronic kidney disease; E11.51 Type 2 diabetes mellitus with diabetic peripheral angiopathy without gangrene; E87.6 Hypokalemia; I51.7 Cardiomegaly; J44.9 Chronic obstructive pulmonary disease, unspecified; I25.2 Old myocardial infarction; I73.9 Peripheral vascular disease, unspecified; R79.1 Abnormal coagulation profile; I25.10 Atherosclerotic heart disease of native coronary artery without angina pectoris; E03.9 Hypothyroidism, unspecified; E78.5 Hyperlipidemia, unspecified; F32.9 Major depressive disorder, single episode, unspecified; E83.110 Hereditary hemochromatosis; M32.9 Systemic lupus erythematosus, unspecified; E55.9 Vitamin D deficiency, unspecified; Z87.891 Personal history of nicotine dependence; Z85.3 Personal history of malignant neoplasm of breast; Z90.12 Acquired absence of left breast and nipple; Z95.1 Presence of aortocoronary bypass graft
CPT/HCPCS: 36415; 71046; 80048; 83735; 83880; 85025; 96365; 96366; 96368; 96375; G0463; J1642; J1885; J1940; J2260; J3475

== ENCOUNTER → 2018-06-08 | Outpatient (CLI) | payer MEDICARE, OTHER ==
[~2018-06-08] MED LIST changes: -FUROSEMIDE 40 MG/4 ML VIAL IV ONE; -FUROSEMIDE 40 MG/4 ML VIAL ONE; -KETOROLAC TROMETH 30 MG/ML 1ML VIAL IV ONE; -KETOROLAC TROMETH 60MG/2ML VIAL IM ONE; -MAGNESIUM SULFATE 1GM/100ML 100 ML IV SCH; -MAGNESIUM SULFATE 1GM/100ML 300 ML IV ONE; -MILRINONE 20MG/100ML 100 ML IV ONE; -MILRINONE 20MG/100ML 100 ML IV SCH; -POTASSIUM CHL 10 Meq TABLET PO ONE; -POTASSIUM CHL 20 Meq TABLET PO ONE
== END | disposition home or self-care (01) ==
LOC: XYW 15:12
PROVIDERS: ATTEND Internal Medicine Cardiovascular Disease
DX: M79.604 Pain in right leg (principal)
CPT/HCPCS: 93971

== ENCOUNTER → 2018-06-08 | Outpatient (CLI) | payer MEDICARE, OTHER ==
[~2018-06-08] MED LIST changes: +MAGNESIUM SULFATE 1GM/100ML 100 ML IV SCH; +MAGNESIUM SULFATE 1GM/100ML 300 ML IV ONE; +MILRINONE 20MG/100ML 100 ML IV ONE; +MILRINONE 20MG/100ML 100 ML IV SCH; +POTASSIUM CHL 10 Meq TABLET PO ONE
[2018-06-08 14:50] VITALS: BP 139/87
== END | disposition home or self-care (01) ==
LOC: CHF HDHVI 09:32
PROVIDERS: ATTEND Internal Medicine Cardiovascular Disease
DX: I13.0 Hypertensive heart and chronic kidney disease with heart failure and stage 1 through stage 4 chronic kidney disease, or unspecified chronic kidney disease (principal); I50.43 Acute on chronic combined systolic (congestive) and diastolic (congestive) heart failure; E11.22 Type 2 diabetes mellitus with diabetic chronic kidney disease; N18.3 Chronic kidney disease, stage 3 (moderate); D63.8 Anemia in other chronic diseases classified elsewhere; J44.9 Chronic obstructive pulmonary disease, unspecified; E83.42 Hypomagnesemia; E83.40 Disorders of magnesium metabolism, unspecified; I25.10 Atherosclerotic heart disease of native coronary artery without angina pectoris; R94.4 Abnormal results of kidney function studies; E87.6 Hypokalemia; F41.9 Anxiety disorder, unspecified; E87.70 Fluid overload, unspecified; E83.110 Hereditary hemochromatosis; E78.5 Hyperlipidemia, unspecified; E03.9 Hypothyroidism, unspecified; F32.9 Major depressive disorder, single episode, unspecified; I25.2 Old myocardial infarction; M32.9 Systemic lupus erythematosus, unspecified; E11.51 Type 2 diabetes mellitus with diabetic peripheral angiopathy without gangrene; I48.91 Unspecified atrial fibrillation; E43 Unspecified severe protein-calorie malnutrition; I73.9 Peripheral vascular disease, unspecified; R79.1 Abnormal coagulation profile; E55.9 Vitamin D deficiency, unspecified; I51.7 Cardiomegaly; Z79.899 Other long term (current) drug therapy; Z85.3 Personal history of malignant neoplasm of breast; Z87.891 Personal history of nicotine dependence; Z95.1 Presence of aortocoronary bypass graft; Z95.810 Presence of automatic (implantable) cardiac defibrillator; Z90.12 Acquired absence of left breast and nipple
CPT/HCPCS: 96365; 96366; 96368; G0463; J1642; J2260; J3475

== ENCOUNTER → 2018-06-10 | Outpatient (CLI) | payer MEDICARE, OTHER ==
[~2018-06-10] MED LIST changes: +FUROSEMIDE 20 MG/2 ML VIAL IV ONE; +FUROSEMIDE 20 MG/2 ML VIAL ONE; +FUROSEMIDE 40 MG/4 ML VIAL ONE; +MAGNESIUM SULFATE 1GM/100ML 100 ML IV ONE; -MAGNESIUM SULFATE 1GM/100ML 100 ML IV SCH; -MAGNESIUM SULFATE 1GM/100ML 300 ML IV ONE; -MILRINONE 20MG/100ML 100 ML IV SCH; -POTASSIUM CHL 10 Meq TABLET PO ONE
[2018-06-10 10:30] VITALS: BP 138/91
[2018-06-10] MEDS: MAGNESIUM SULFATE 1GM/100ML 100 ML IV SCH ×3 (10:30→12:50)
[2018-06-10 10:45] VITALS: BP 145/91
[2018-06-10 11:00] VITALS: BP 142/82
[2018-06-10 11:15] VITALS: BP 142/83
[2018-06-10 11:30] VITALS: BP 141/88
[2018-06-10 12:06] LABS: Hematocrit 31.6 % (36.0-46.0); Hemoglobin 10.1 g/dL (12.2-16.2); Mean Corpuscular Hgb Conc. 32.1 g/dL (32.0-36.0); Mean Corpuscular Volume 96.7 fL (80.0-100.0); Platelet Count (auto) 115 10^3/uL (140-450); Red Blood Cells 3.27 10^6/uL (4.0-5.20); Red Cell Distribution Width 18.8 % (11.8-14.3); White Blood Cell 2.4 10^3/uL (4.4-10.8)
[2018-06-10 12:10] LABS: Band Neutrophils % (manual) 0
[2018-06-10 12:11] LABS: Basophils % (manual) 0 (0.0-2.0); Blast Cells 0; Metamyelocytes % 0; Myelocytes % 0; Promyelocytes % 0; Reactive Lymphocytes 0
[2018-06-10 12:23] LABS: Eosinophils % (manual) 1 (0-7); Lymphocytes % (manual) 12 (10.0-50.0); Monocytes % (manual) 13 (0-12)
[2018-06-10 13:07] LABS: Calcium 8.3 mg/dL (8.5-10.1); Potassium 3.9 mmol/L (3.5-5.1)
[2018-06-10 13:18] LABS: Albumin 2.8 g/dL (3.4-5.0); BUN/Creatinine Ratio 39.1; Bilirubin, Total 0.5 mg/dL (0.2-1.0)
[2018-06-10 15:00] VITALS: BP 132/85
== END | disposition home or self-care (01) ==
LOC: CHF HDHVI 10:12
PROVIDERS: ATTEND Internal Medicine Cardiovascular Disease
DX: I13.0 Hypertensive heart and chronic kidney disease with heart failure and stage 1 through stage 4 chronic kidney disease, or unspecified chronic kidney disease (principal); I50.43 Acute on chronic combined systolic (congestive) and diastolic (congestive) heart failure; E11.22 Type 2 diabetes mellitus with diabetic chronic kidney disease; N18.3 Chronic kidney disease, stage 3 (moderate); D63.1 Anemia in chronic kidney disease; E11.51 Type 2 diabetes mellitus with diabetic peripheral angiopathy without gangrene; E83.42 Hypomagnesemia; R60.9 Edema, unspecified; J44.9 Chronic obstructive pulmonary disease, unspecified; F41.9 Anxiety disorder, unspecified; F32.9 Major depressive disorder, single episode, unspecified; E83.110 Hereditary hemochromatosis; I25.10 Atherosclerotic heart disease of native coronary artery without angina pectoris; E78.5 Hyperlipidemia, unspecified; I25.2 Old myocardial infarction; E03.9 Hypothyroidism, unspecified; M32.9 Systemic lupus erythematosus, unspecified; D51.3 Other dietary vitamin B12 deficiency anemia; E43 Unspecified severe protein-calorie malnutrition; I73.9 Peripheral vascular disease, unspecified; R79.1 Abnormal coagulation profile; I51.7 Cardiomegaly; E83.40 Disorders of magnesium metabolism, unspecified; E55.9 Vitamin D deficiency, unspecified; Z94.1 Heart transplant status; Z95.1 Presence of aortocoronary bypass graft; Z87.891 Personal history of nicotine dependence; Z95.810 Presence of automatic (implantable) cardiac defibrillator; Z79.01 Long term (current) use of anticoagulants; Z79.899 Other long term (current) drug therapy; Z85.3 Personal history of malignant neoplasm of breast
CPT/HCPCS: 36415; 80053; 83880; 85007; 85027; 96365; 96366; 96368; 96375; G0463; J1642; J1940; J2260; J3475

== ENCOUNTER → 2018-06-13 | Outpatient (CLI) | payer MEDICARE, OTHER ==
[2018-06-13] VITALS (10 sets, daily range): BP systolic 120–148; BP diastolic 71–87
[~2018-06-13] MED LIST changes: +BUMETANIDE (0.25MG/ML) 4 ML VIAL IV ONE; +BUMETANIDE INJECTION 10 ML ONE; -FUROSEMIDE 20 MG/2 ML VIAL IV ONE; -FUROSEMIDE 20 MG/2 ML VIAL ONE; -FUROSEMIDE 40 MG/4 ML VIAL ONE; +MAGNESIUM SULFATE 1GM/100ML 200 ML IV ONE; +MILRINONE 20MG/100ML 100 ML IV SCH; +POTASSIUM CHL 10 Meq TABLET PO ONE; +POTASSIUM CHL 20 Meq TABLET PO ONE
[2018-06-13] MEDS: MAGNESIUM SULFATE 1GM/100ML 100 ML IV SCH ×3 (11:15→13:00)
== END | disposition home or self-care (01) ==
LOC: CHF HDHVI 10:45
PROVIDERS: ATTEND Internal Medicine Cardiovascular Disease
DX: I13.0 Hypertensive heart and chronic kidney disease with heart failure and stage 1 through stage 4 chronic kidney disease, or unspecified chronic kidney disease (principal); I50.43 Acute on chronic combined systolic (congestive) and diastolic (congestive) heart failure; N18.3 Chronic kidney disease, stage 3 (moderate); D63.1 Anemia in chronic kidney disease; I48.91 Unspecified atrial fibrillation; I25.10 Atherosclerotic heart disease of native coronary artery without angina pectoris; E11.51 Type 2 diabetes mellitus with diabetic peripheral angiopathy without gangrene; D51.3 Other dietary vitamin B12 deficiency anemia; E03.9 Hypothyroidism, unspecified; E78.5 Hyperlipidemia, unspecified; F32.9 Major depressive disorder, single episode, unspecified; E83.40 Disorders of magnesium metabolism, unspecified; J44.9 Chronic obstructive pulmonary disease, unspecified; E87.70 Fluid overload, unspecified; E83.110 Hereditary hemochromatosis; I25.2 Old myocardial infarction; M32.9 Systemic lupus erythematosus, unspecified; E43 Unspecified severe protein-calorie malnutrition; I73.9 Peripheral vascular disease, unspecified; E55.9 Vitamin D deficiency, unspecified; R06.00 Dyspnea, unspecified; Z79.01 Long term (current) use of anticoagulants; Z88.8 Allergy status to other drugs, medicaments and biological substances; Z95.1 Presence of aortocoronary bypass graft; Z85.3 Personal history of malignant neoplasm of breast; Z95.810 Presence of automatic (implantable) cardiac defibrillator; Z87.891 Personal history of nicotine dependence; Z90.12 Acquired absence of left breast and nipple
CPT/HCPCS: 96365; 96366; 96368; 96375; G0463; J1642; J2260; J3475

== ENCOUNTER 2018-06-16 09:07 | Day surgery (SDC) | payer MEDICARE, OTHER ==
[~2018-06-16] VITALS: Ht 162.6 cm; Wt 62.6 kg
[~2018-06-16 09:07] MED LIST changes: -BUMETANIDE (0.25MG/ML) 4 ML VIAL IV ONE; -BUMETANIDE INJECTION 10 ML ONE; -MAGNESIUM SULFATE 1GM/100ML 100 ML IV ONE; -MAGNESIUM SULFATE 1GM/100ML 200 ML IV ONE; -MILRINONE 20MG/100ML 100 ML IV ONE; -MILRINONE 20MG/100ML 100 ML IV SCH; -POTASSIUM CHL 10 Meq TABLET PO ONE; -POTASSIUM CHL 20 Meq TABLET PO ONE
[2018-06-16] MEDS ORDERED: LIDOCAINE 2%HCL (LOCAL ANESTH.) INJ 20ML MDV ONE (09:58)
[2018-06-16] MEDS ORDERED: IODIXANOL 320MG/ML 100ML BTL IV ONE (09:59)
[2018-06-16] MEDS ORDERED: SODIUM CHL 0.9% 0 ML ONE (10:05)
[2018-06-16] MEDS ORDERED: ANGIOMAX 250 MG VIAL IV ONE (10:05)
[2018-06-16] MEDS ORDERED: MIDAZOLAM HCL 1MG/1ML-2 ML VIAL ONE (10:05)
[2018-06-16] MEDS ORDERED: fentaNYL CITRATE 100 MCG/2 ML VL ONE (10:05)
== END 2018-06-16 13:15 | disposition home or self-care (01) ==
LOC: CATH 09:07
PROVIDERS: ATTEND Internal Medicine Cardiovascular Disease
DX: I27.20 Pulmonary hypertension, unspecified (principal); J44.9 Chronic obstructive pulmonary disease, unspecified; I25.2 Old myocardial infarction; I73.9 Peripheral vascular disease, unspecified; I13.0 Hypertensive heart and chronic kidney disease with heart failure and stage 1 through stage 4 chronic kidney disease, or unspecified chronic kidney disease; N18.3 Chronic kidney disease, stage 3 (moderate); Z91.02 Food additives allergy status; Z88.8 Allergy status to other drugs, medicaments and biological substances; Z85.3 Personal history of malignant neoplasm of breast; Z90.12 Acquired absence of left breast and nipple; Z83.3 Family history of diabetes mellitus; Z80.0 Family history of malignant neoplasm of digestive organs; Z82.49 Family history of ischemic heart disease and other diseases of the circulatory system; Z79.899 Other long term (current) drug therapy
CPT/HCPCS: 93460; A6257; C1760; C1894; J1644; J2250; J3010; J7030; Q9967; 99152; 99153

== ENCOUNTER → 2018-06-17 | Outpatient (CLI) | payer MEDICARE, OTHER ==
[~2018-06-17] VITALS: Ht 30.5 cm; Wt 64.4 kg
[~2018-06-17] MED LIST changes: +FUROSEMIDE INJECTION 10 ML ONE; +FUROSEMIDE INJECTION 100 MG in D5W 5% 90 ML IV SCH; +KETOROLAC TROMETH 30 MG/ML 1ML VIAL IV ONE; +KETOROLAC TROMETH 60MG/2ML VIAL IM ONE; +MAGNESIUM SULFATE 1GM/100ML 300 ML IV ONE; +MILRINONE 20MG/100ML 0 ML IV ONE; +ONDANSETRON HCL 4 MG/2 ML VIAL IV ONE; +ONDANSETRON HCL 4 MG/2 ML VIAL ONE; +POTASSIUM CHL 10 Meq TABLET PO ONE; +POTASSIUM CHL 20 Meq TABLET PO ONE
[2018-06-17] MEDS: MAGNESIUM SULFATE 1GM/100ML 100 ML IV SCH ×2 (10:30→12:20)
[2018-06-17 11:10] VITALS: BP 131/80
[2018-06-17 11:30] VITALS: BP 128/79
[2018-06-17 12:15] VITALS: BP 115/73
[2018-06-17 12:45] VITALS: BP 116/63
[2018-06-17 13:45] VITALS: BP 121/76
== END | disposition home or self-care (01) ==
LOC: CHF HDHVI 10:31
PROVIDERS: ATTEND Internal Medicine Cardiovascular Disease
DX: I13.0 Hypertensive heart and chronic kidney disease with heart failure and stage 1 through stage 4 chronic kidney disease, or unspecified chronic kidney disease (principal); E11.22 Type 2 diabetes mellitus with diabetic chronic kidney disease; E11.51 Type 2 diabetes mellitus with diabetic peripheral angiopathy without gangrene; N18.3 Chronic kidney disease, stage 3 (moderate); I50.42 Chronic combined systolic (congestive) and diastolic (congestive) heart failure; J44.9 Chronic obstructive pulmonary disease, unspecified; I48.91 Unspecified atrial fibrillation; I25.10 Atherosclerotic heart disease of native coronary artery without angina pectoris; I25.2 Old myocardial infarction; M32.9 Systemic lupus erythematosus, unspecified; I27.20 Pulmonary hypertension, unspecified; E03.9 Hypothyroidism, unspecified; E83.110 Hereditary hemochromatosis; E43 Unspecified severe protein-calorie malnutrition; D69.6 Thrombocytopenia, unspecified; E78.5 Hyperlipidemia, unspecified; E87.70 Fluid overload, unspecified; D63.1 Anemia in chronic kidney disease; F32.9 Major depressive disorder, single episode, unspecified; F41.9 Anxiety disorder, unspecified; Z94.1 Heart transplant status; Z85.3 Personal history of malignant neoplasm of breast; Z90.12 Acquired absence of left breast and nipple; Z95.1 Presence of aortocoronary bypass graft; Z95.810 Presence of automatic (implantable) cardiac defibrillator; Z79.01 Long term (current) use of anticoagulants; Z87.891 Personal history of nicotine dependence
CPT/HCPCS: 96365; 96366; 96368; 96372; 96375; G0463; J1642; J1885; J1940; J2405; J3475

== ENCOUNTER → 2018-06-20 | Outpatient (CLI) | payer MEDICARE, OTHER ==
[2018-06-20] VITALS (9 sets, daily range): BP systolic 130–144; BP diastolic 66–81
[~2018-06-20] VITALS: Ht 30.5 cm; Wt 64.5 kg
[~2018-06-20] MED LIST changes: +FUROSEMIDE 100 MG/10ML VIAL IV ONE; +FUROSEMIDE 40 MG/4 ML VIAL ONE; -FUROSEMIDE INJECTION 100 MG in D5W 5% 90 ML IV SCH; -KETOROLAC TROMETH 30 MG/ML 1ML VIAL IV ONE; +METOLAZONE 5 MG TAB ONE; +METOLAZONE 5 MG TAB PO ONE; -MILRINONE 20MG/100ML 0 ML IV ONE; +MILRINONE 20MG/100ML 100 ML IV ONE; -ONDANSETRON HCL 4 MG/2 ML VIAL IV ONE; -ONDANSETRON HCL 4 MG/2 ML VIAL ONE; +SODIUM CHLORIDE 0.9% 120 ML IV ONE
[2018-06-20] MEDS: MAGNESIUM SULFATE 1GM/100ML 100 ML IV SCH ×3 (11:50→13:50)
== END | disposition home or self-care (01) ==
LOC: CHF HDHVI 09:39
PROVIDERS: ATTEND Internal Medicine Cardiovascular Disease
DX: I13.0 Hypertensive heart and chronic kidney disease with heart failure and stage 1 through stage 4 chronic kidney disease, or unspecified chronic kidney disease (principal); I50.43 Acute on chronic combined systolic (congestive) and diastolic (congestive) heart failure; E11.22 Type 2 diabetes mellitus with diabetic chronic kidney disease; N18.3 Chronic kidney disease, stage 3 (moderate); D63.8 Anemia in other chronic diseases classified elsewhere; R94.4 Abnormal results of kidney function studies; E87.6 Hypokalemia; E83.40 Disorders of magnesium metabolism, unspecified; M10.9 Gout, unspecified; E83.110 Hereditary hemochromatosis; F41.9 Anxiety disorder, unspecified; I25.10 Atherosclerotic heart disease of native coronary artery without angina pectoris; E78.5 Hyperlipidemia, unspecified; E03.9 Hypothyroidism, unspecified; J44.9 Chronic obstructive pulmonary disease, unspecified; I25.2 Old myocardial infarction; E11.51 Type 2 diabetes mellitus with diabetic peripheral angiopathy without gangrene; I48.91 Unspecified atrial fibrillation; D51.9 Vitamin B12 deficiency anemia, unspecified; F32.9 Major depressive disorder, single episode, unspecified; Z91.09 Other allergy status, other than to drugs and biological substances; Z95.1 Presence of aortocoronary bypass graft; Z87.891 Personal history of nicotine dependence; Z95.810 Presence of automatic (implantable) cardiac defibrillator; Z79.899 Other long term (current) drug therapy; Z79.01 Long term (current) use of anticoagulants; Z87.440 Personal history of urinary (tract) infections; Z85.3 Personal history of malignant neoplasm of breast; Z90.12 Acquired absence of left breast and nipple; Z94.1 Heart transplant status
CPT/HCPCS: 36415; 82565; 83880; 84132; 84520; 96365; 96366; 96368; 96372; G0463; J1642; J1885; J1940; J2260; J3475

== ENCOUNTER → 2018-06-22 | Outpatient (CLI) | payer MEDICARE, OTHER ==
[~2018-06-22] VITALS: Ht 30.5 cm; Wt 62.2 kg
[~2018-06-22] MED LIST changes: +FUROSEMIDE 20 MG/2 ML VIAL ONE; -FUROSEMIDE 40 MG/4 ML VIAL ONE; +KETOROLAC TROMETH 30 MG/ML 1ML VIAL IV ONE; +MILRINONE 20MG/100ML 100 ML IV SCH; -SODIUM CHLORIDE 0.9% 120 ML IV ONE
[2018-06-22 11:40] VITALS: BP 133/76
[2018-06-22] MEDS: MAGNESIUM SULFATE 1GM/100ML 100 ML IV SCH ×3 (11:40→13:30)
[2018-06-22 12:00] VITALS: BP 107/74
[2018-06-22 12:29] LABS: 24 Hr. Total Protein, Urine 89.7 mg/24 Hr (<149.1); Protein, Urine 5.2 mg/dL (0.0-11.9)
[2018-06-22 12:30] VITALS: BP 124/70
[2018-06-22 12:43] LABS: Potassium 3.6 mmol/L (3.5-5.1)
[2018-06-22 13:45] VITALS: BP 134/73
[2018-06-22 14:15] VITALS: BP_SYST 137; BP_SYST 139; BP_DIAS 80
[2018-06-22 16:15] VITALS: BP 118/59
[2018-06-23 10:18] LABS: Hepatitis B Surface Antibody Positive
[2018-06-23 10:57] LABS: Hepatitis A Total Antibody Negative
[2018-06-23 12:25] LABS: Hepatitis B Core Total AB Negative; Hepatitis B Surface Antigen Negative (Negative); Hepatitis C Antibody Negative (Negative)
== END | disposition home or self-care (01) ==
LOC: CHF HDHVI 10:28
PROVIDERS: ATTEND Internal Medicine Cardiovascular Disease
DX: I13.0 Hypertensive heart and chronic kidney disease with heart failure and stage 1 through stage 4 chronic kidney disease, or unspecified chronic kidney disease (principal); E11.22 Type 2 diabetes mellitus with diabetic chronic kidney disease; N18.3 Chronic kidney disease, stage 3 (moderate); I50.43 Acute on chronic combined systolic (congestive) and diastolic (congestive) heart failure; D63.8 Anemia in other chronic diseases classified elsewhere; R94.4 Abnormal results of kidney function studies; E87.6 Hypokalemia; N39.0 Urinary tract infection, site not specified; I48.91 Unspecified atrial fibrillation; I25.10 Atherosclerotic heart disease of native coronary artery without angina pectoris; I25.2 Old myocardial infarction; J44.9 Chronic obstructive pulmonary disease, unspecified; E83.110 Hereditary hemochromatosis; E78.5 Hyperlipidemia, unspecified; E03.9 Hypothyroidism, unspecified; F32.9 Major depressive disorder, single episode, unspecified; E11.51 Type 2 diabetes mellitus with diabetic peripheral angiopathy without gangrene; D51.9 Vitamin B12 deficiency anemia, unspecified; I73.9 Peripheral vascular disease, unspecified; F41.9 Anxiety disorder, unspecified; Z87.891 Personal history of nicotine dependence; Z90.12 Acquired absence of left breast and nipple; Z91.09 Other allergy status, other than to drugs and biological substances; Z85.3 Personal history of malignant neoplasm of breast; Z95.1 Presence of aortocoronary bypass graft; Z79.01 Long term (current) use of anticoagulants; Z79.899 Other long term (current) drug therapy; Z95.810 Presence of automatic (implantable) cardiac defibrillator; Z94.1 Heart transplant status
CPT/HCPCS: 36415; 82565; 83880; 84132; 84156; 84520; 86703; 86704; 86706; 86708; 86803; 86850; 86900; 86901; 87340; 96365; 96366; 96368; 96372; 96375; 96376; G0463; J1642; J1885; J1940; J2260; J3475

== ENCOUNTER → 2018-06-24 | Outpatient (CLI) | payer MEDICARE, OTHER ==
[2018-06-24] VITALS (9 sets, daily range): BP systolic 125–138; BP diastolic 64–83
[~2018-06-24] MED LIST changes: -FUROSEMIDE 100 MG/10ML VIAL IV ONE; +FUROSEMIDE 40 MG/4 ML VIAL IV ONE; +FUROSEMIDE 40 MG/4 ML VIAL ONE; -FUROSEMIDE INJECTION 10 ML ONE
[2018-06-24] MEDS: MAGNESIUM SULFATE 1GM/100ML 100 ML IV SCH ×3 (10:00→12:30)
[2018-06-24 12:00] LABS: Hematocrit 28.8 % (36.0-46.0); Hemoglobin 9.2 g/dL (12.2-16.2); Mean Corpuscular Hemoglobin 30.2 pg (28.0-32.0); Mean Corpuscular Hgb Conc. 32.1 g/dL (32.0-36.0); Mean Corpuscular Volume 94.3 fL (80.0-100.0); Platelet Count (auto) 147 10^3/uL (140-450); Red Blood Cells 3.06 10^6/uL (4.0-5.20); Red Cell Distribution Width 17.8 % (11.8-14.3); White Blood Cell 3.1 10^3/uL (4.4-10.8)
[2018-06-24 12:06] LABS: Band Neutrophils % (manual) 0; Basophils % (manual) 0 (0.0-2.0); Blast Cells 0; Calcium 8.7 mg/dL (8.5-10.1); Magnesium 2.4 mg/dL (1.6-2.6); Metamyelocytes % 0; Myelocytes % 0; Potassium 3.4 mmol/L (3.5-5.1); Promyelocytes % 0; Reactive Lymphocytes 0
[2018-06-24 12:08] LABS: BUN/Creatinine Ratio 40.1
[2018-06-24 12:20] LABS: Eosinophils % (manual) 2 (0-7); Lymphocytes % (manual) 5 (10.0-50.0); Monocytes % (manual) 10 (0-12)
== END | disposition home or self-care (01) ==
LOC: CHF HDHVI 09:53
PROVIDERS: ATTEND Internal Medicine Cardiovascular Disease
DX: I13.0 Hypertensive heart and chronic kidney disease with heart failure and stage 1 through stage 4 chronic kidney disease, or unspecified chronic kidney disease (principal); I50.43 Acute on chronic combined systolic (congestive) and diastolic (congestive) heart failure; E11.22 Type 2 diabetes mellitus with diabetic chronic kidney disease; N18.3 Chronic kidney disease, stage 3 (moderate); D63.8 Anemia in other chronic diseases classified elsewhere; E83.40 Disorders of magnesium metabolism, unspecified; N39.0 Urinary tract infection, site not specified; E87.6 Hypokalemia; J44.9 Chronic obstructive pulmonary disease, unspecified; I25.10 Atherosclerotic heart disease of native coronary artery without angina pectoris; M10.9 Gout, unspecified; I42.9 Cardiomyopathy, unspecified; E83.110 Hereditary hemochromatosis; E78.5 Hyperlipidemia, unspecified; E03.9 Hypothyroidism, unspecified; I73.9 Peripheral vascular disease, unspecified; E11.51 Type 2 diabetes mellitus with diabetic peripheral angiopathy without gangrene; I25.2 Old myocardial infarction; D51.9 Vitamin B12 deficiency anemia, unspecified; Z88.8 Allergy status to other drugs, medicaments and biological substances; Z79.899 Other long term (current) drug therapy; Z79.01 Long term (current) use of anticoagulants; Z85.3 Personal history of malignant neoplasm of breast; Z94.1 Heart transplant status; Z90.12 Acquired absence of left breast and nipple; Z87.891 Personal history of nicotine dependence
CPT/HCPCS: 36415; 80048; 83735; 83880; 85007; 85027; 93701; 96365; 96366; 96368; 96375; G0463; J1642; J1885; J1940; J2260; J3475

== ENCOUNTER → 2018-06-27 | Outpatient (CLI) | payer MEDICARE, OTHER ==
[2018-06-27] VITALS (8 sets, daily range): BP systolic 123–140; BP diastolic 70–86
[~2018-06-27] MED LIST changes: +FUROSEMIDE 100 MG/10ML VIAL IV ONE; -FUROSEMIDE 40 MG/4 ML VIAL IV ONE; -FUROSEMIDE 40 MG/4 ML VIAL ONE; +FUROSEMIDE INJECTION 10 ML ONE; -KETOROLAC TROMETH 30 MG/ML 1ML VIAL IV ONE; -KETOROLAC TROMETH 60MG/2ML VIAL IM ONE; -MILRINONE 20MG/100ML 100 ML IV SCH; +SODIUM CHLORIDE 0.9% 100 ML IV ONE
[2018-06-27] MEDS: MAGNESIUM SULFATE 1GM/100ML 100 ML IV SCH ×3 (10:30→12:00)
[2018-06-27 11:06] LABS: Hematocrit 28.1 % (36.0-46.0); Hemoglobin 8.8 g/dL (12.2-16.2); Mean Corpuscular Hgb Conc. 31.5 g/dL (32.0-36.0); Mean Corpuscular Volume 95.3 fL (80.0-100.0); Platelet Count (auto) 154 10^3/uL (140-450); Red Blood Cells 2.94 10^6/uL (4.0-5.20); Red Cell Distribution Width 17.8 % (11.8-14.3); White Blood Cell 2.2 10^3/uL (4.4-10.8)
[2018-06-27 11:17] LABS: BUN/Creatinine Ratio 37.4; Band Neutrophils % (manual) 0; Basophils % (manual) 0 (0.0-2.0); Blast Cells 0; Calcium 8.7 mg/dL (8.5-10.1); Metamyelocytes % 0; Myelocytes % 0; Potassium 4.2 mmol/L (3.5-5.1); Promyelocytes % 0; Reactive Lymphocytes 0
[2018-06-27 12:19] LABS: Eosinophils % (manual) 1 (0-7); Lymphocytes % (manual) 11 (10.0-50.0); Monocytes % (manual) 16 (0-12)
== END | disposition home or self-care (01) ==
LOC: CHF HDHVI 10:19
PROVIDERS: ATTEND Internal Medicine Cardiovascular Disease
DX: I13.0 Hypertensive heart and chronic kidney disease with heart failure and stage 1 through stage 4 chronic kidney disease, or unspecified chronic kidney disease (principal); I50.42 Chronic combined systolic (congestive) and diastolic (congestive) heart failure; E11.22 Type 2 diabetes mellitus with diabetic chronic kidney disease; N18.3 Chronic kidney disease, stage 3 (moderate); D63.1 Anemia in chronic kidney disease; E83.40 Disorders of magnesium metabolism, unspecified; I42.9 Cardiomyopathy, unspecified; R94.4 Abnormal results of kidney function studies; I48.91 Unspecified atrial fibrillation; M10.9 Gout, unspecified; N39.0 Urinary tract infection, site not specified; F31.9 Bipolar disorder, unspecified; F41.9 Anxiety disorder, unspecified; I25.10 Atherosclerotic heart disease of native coronary artery without angina pectoris; E83.110 Hereditary hemochromatosis; J44.9 Chronic obstructive pulmonary disease, unspecified; E78.5 Hyperlipidemia, unspecified; E03.9 Hypothyroidism, unspecified; I73.9 Peripheral vascular disease, unspecified; E11.51 Type 2 diabetes mellitus with diabetic peripheral angiopathy without gangrene; Z91.09 Other allergy status, other than to drugs and biological substances; Z95.1 Presence of aortocoronary bypass graft; Z87.891 Personal history of nicotine dependence; Z95.810 Presence of automatic (implantable) cardiac defibrillator; Z79.899 Other long term (current) drug therapy; Z79.01 Long term (current) use of anticoagulants; Z87.440 Personal history of urinary (tract) infections; Z85.3 Personal history of malignant neoplasm of breast; Z90.12 Acquired absence of left breast and nipple; Z94.1 Heart transplant status
CPT/HCPCS: 36415; 80048; 83880; 85007; 85027; 96365; 96366; 96368; G0463; J1642; J1940; J2260; J3475

== ENCOUNTER → 2018-06-29 | Outpatient (CLI) | payer MEDICARE, OTHER ==
[2018-06-29] VITALS (7 sets, daily range): BP systolic 109–131; BP diastolic 61–87
[~2018-06-29] MED LIST changes: -FUROSEMIDE 100 MG/10ML VIAL IV ONE; -FUROSEMIDE 20 MG/2 ML VIAL ONE; -FUROSEMIDE INJECTION 10 ML ONE; -METOLAZONE 5 MG TAB ONE; -METOLAZONE 5 MG TAB PO ONE; +MILRINONE 20MG/100ML 100 ML IV SCH; -SODIUM CHLORIDE 0.9% 100 ML IV ONE
[2018-06-29] MEDS: MAGNESIUM SULFATE 1GM/100ML 100 ML IV SCH ×2 (11:30→12:30)
[2018-06-29 12:18] LABS: Magnesium 2.2 mg/dL (1.6-2.6); Potassium 3.7 mmol/L (3.5-5.1)
== END | disposition home or self-care (01) ==
LOC: CHF HDHVI 11:02
PROVIDERS: ATTEND Internal Medicine Cardiovascular Disease
DX: I13.0 Hypertensive heart and chronic kidney disease with heart failure and stage 1 through stage 4 chronic kidney disease, or unspecified chronic kidney disease (principal); E11.22 Type 2 diabetes mellitus with diabetic chronic kidney disease; N18.3 Chronic kidney disease, stage 3 (moderate); I50.43 Acute on chronic combined systolic (congestive) and diastolic (congestive) heart failure; D63.8 Anemia in other chronic diseases classified elsewhere; E83.40 Disorders of magnesium metabolism, unspecified; R94.4 Abnormal results of kidney function studies; E87.6 Hypokalemia; N39.0 Urinary tract infection, site not specified; M10.9 Gout, unspecified; I25.10 Atherosclerotic heart disease of native coronary artery without angina pectoris; I42.9 Cardiomyopathy, unspecified; E83.110 Hereditary hemochromatosis; E78.5 Hyperlipidemia, unspecified; E03.9 Hypothyroidism, unspecified; E11.51 Type 2 diabetes mellitus with diabetic peripheral angiopathy without gangrene; I73.9 Peripheral vascular disease, unspecified; F32.9 Major depressive disorder, single episode, unspecified; I25.2 Old myocardial infarction; D51.9 Vitamin B12 deficiency anemia, unspecified; Z88.8 Allergy status to other drugs, medicaments and biological substances; Z79.899 Other long term (current) drug therapy; Z79.01 Long term (current) use of anticoagulants; Z85.3 Personal history of malignant neoplasm of breast; Z95.1 Presence of aortocoronary bypass graft; Z94.1 Heart transplant status
CPT/HCPCS: 36415; 82565; 83735; 83880; 84132; 84520; 96365; 96366; 96368; G0463; J1642; J2260; J3475

== ENCOUNTER → 2018-07-01 | Outpatient (CLI) | payer MEDICARE, OTHER ==
[~2018-07-01] MED LIST changes: -MILRINONE 20MG/100ML 100 ML IV SCH
[2018-07-01] MEDS: MAGNESIUM SULFATE 1GM/100ML 100 ML IV SCH ×3 (11:00→12:50)
[2018-07-01 11:55] VITALS: BP 137/80
[2018-07-01 12:40] LABS: Potassium 3.8 mmol/L (3.5-5.1)
[2018-07-01 14:50] VITALS: BP 126/77
== END | disposition home or self-care (01) ==
LOC: CHF HDHVI 10:34
PROVIDERS: ATTEND Internal Medicine Cardiovascular Disease
DX: E87.6 Hypokalemia (principal); R94.4 Abnormal results of kidney function studies; I50.23 Acute on chronic systolic (congestive) heart failure
CPT/HCPCS: 36415; 82565; 83880; 84132; 84520; 96365; 96366; 96368; G0463; J1642; J2260; J3475

== ENCOUNTER → 2018-07-11 | Outpatient (CLI) | payer MEDICARE, OTHER ==
[~2018-07-11] VITALS: Ht 30.5 cm; Wt 58.5 kg
[~2018-07-11] MED LIST changes: +ALBUTEROL SULF 2.5 MG/0.5ML(0.5%) NEB SOLN ONE; -CARV12.544 PO; +MAGNESIUM SULFATE 1GM/100ML 0 ML IV ONE; +MAGNESIUM SULFATE 1GM/100ML 100 ML IV ONE; -MAGNESIUM SULFATE 1GM/100ML 300 ML IV ONE; +MILRINONE 20MG/100ML 0 ML IV ONE; -MILRINONE 20MG/100ML 100 ML IV ONE; -POTASSIUM CHL 20 Meq TABLET PO ONE; +ceFAZolin 1GM/50ML 50 ML IV ONE
[2018-07-11 13:30] VITALS: BP 114/60
[2018-07-11 16:13] LABS: BUN/Creatinine Ratio 36.9; Calcium 8.3 mg/dL (8.5-10.1); Magnesium 1.7 mg/dL (1.6-2.6); Potassium 3.8 mmol/L (3.5-5.1)
[2018-07-11 16:26] LABS: Basophils # (auto) 0 uL; Eosinophils # (auto) 0 uL; Hemoglobin 8.1 g/dL (12.2-16.2); Lymphocytes # (auto) 0.2 uL; Monocytes # (auto) 0.3 uL; Nucleated Red Blood Cells % 0.5 %
[2018-07-11 16:29] LABS: Basophils % (auto) 0.7 % (0.0-2.0); Hematocrit 25.2 % (36.0-46.0); Lymphocytes % (auto) 8.2 % (10.0-50.0); Mean Corpuscular Hemoglobin 30.7 pg (28.0-32.0); Mean Corpuscular Hgb Conc. 32.3 g/dL (32.0-36.0); Mean Corpuscular Volume 95.1 fL (80.0-100.0); Neutrophils # (auto) 1.8 uL; Neutrophils % (auto) 76.1 % (37.0-80.0); Platelet Count (auto) 125 10^3/uL (140-450); Red Blood Cells 2.65 10^6/uL (4.0-5.20); Red Cell Distribution Width 18.8 % (11.8-14.3); White Blood Cell 2.3 10^3/uL (4.4-10.8)
== END | disposition home or self-care (01) ==
LOC: CHF HDHVI 11:36
PROVIDERS: ATTEND Internal Medicine Cardiovascular Disease
DX: E83.40 Disorders of magnesium metabolism, unspecified (principal); D64.9 Anemia, unspecified; I13.0 Hypertensive heart and chronic kidney disease with heart failure and stage 1 through stage 4 chronic kidney disease, or unspecified chronic kidney disease; E11.22 Type 2 diabetes mellitus with diabetic chronic kidney disease; I50.42 Chronic combined systolic (congestive) and diastolic (congestive) heart failure; N18.3 Chronic kidney disease, stage 3 (moderate); I25.2 Old myocardial infarction; J44.9 Chronic obstructive pulmonary disease, unspecified; I42.9 Cardiomyopathy, unspecified; I27.21 Secondary pulmonary arterial hypertension; I48.91 Unspecified atrial fibrillation; M10.9 Gout, unspecified; L93.0 Discoid lupus erythematosus; E78.5 Hyperlipidemia, unspecified; E78.00 Pure hypercholesterolemia, unspecified; G89.29 Other chronic pain; F31.9 Bipolar disorder, unspecified; F41.9 Anxiety disorder, unspecified; E03.9 Hypothyroidism, unspecified; Z95.810 Presence of automatic (implantable) cardiac defibrillator; Z85.72 Personal history of non-Hodgkin lymphomas; Z79.01 Long term (current) use of anticoagulants; Z85.3 Personal history of malignant neoplasm of breast; Z87.01 Personal history of pneumonia (recurrent); Z79.899 Other long term (current) drug therapy; Z87.891 Personal history of nicotine dependence
CPT/HCPCS: 36415; 80048; 83735; 83880; 85025; 96365; 96367; G0463; J0690; J1642; J3475

== ENCOUNTER → 2018-07-13 | Outpatient (CLI) | payer MEDICARE, OTHER ==
[~2018-07-13] VITALS: Ht 30.5 cm; Wt 57.6 kg
[2018-07-13] VITALS (10 sets, daily range): BP systolic 102–136; BP diastolic 61–72
[~2018-07-13] MED LIST changes: -ALBUTEROL SULF 2.5 MG/0.5ML(0.5%) NEB SOLN ONE; -MAGNESIUM SULFATE 1GM/100ML 0 ML IV ONE; -MAGNESIUM SULFATE 1GM/100ML 100 ML IV ONE; +MAGNESIUM SULFATE 1GM/100ML 300 ML IV ONE; -MILRINONE 20MG/100ML 0 ML IV ONE; +MILRINONE 20MG/100ML 100 ML IV ONE; +MILRINONE 20MG/100ML 100 ML IV SCH; +POTASSIUM CHL 20 Meq TABLET PO ONE; -ceFAZolin 1GM/50ML 50 ML IV ONE
[2018-07-13] MEDS: MAGNESIUM SULFATE 1GM/100ML 100 ML IV SCH ×3 (11:15→13:15)
== END | disposition home or self-care (01) ==
LOC: CHF HDHVI 10:40
PROVIDERS: ATTEND Internal Medicine Cardiovascular Disease
DX: I13.0 Hypertensive heart and chronic kidney disease with heart failure and stage 1 through stage 4 chronic kidney disease, or unspecified chronic kidney disease (principal); I50.43 Acute on chronic combined systolic (congestive) and diastolic (congestive) heart failure; N18.3 Chronic kidney disease, stage 3 (moderate); D64.9 Anemia, unspecified; N39.0 Urinary tract infection, site not specified; E83.40 Disorders of magnesium metabolism, unspecified; R53.83 Other fatigue; E86.0 Dehydration; R53.1 Weakness; E11.51 Type 2 diabetes mellitus with diabetic peripheral angiopathy without gangrene; J44.9 Chronic obstructive pulmonary disease, unspecified; I25.2 Old myocardial infarction; I27.20 Pulmonary hypertension, unspecified; E03.9 Hypothyroidism, unspecified; M10.9 Gout, unspecified; I42.9 Cardiomyopathy, unspecified; G89.29 Other chronic pain; E78.5 Hyperlipidemia, unspecified; L93.0 Discoid lupus erythematosus; I48.91 Unspecified atrial fibrillation; I73.9 Peripheral vascular disease, unspecified; F32.9 Major depressive disorder, single episode, unspecified; F41.9 Anxiety disorder, unspecified; Z79.899 Other long term (current) drug therapy; Z85.72 Personal history of non-Hodgkin lymphomas; Z85.3 Personal history of malignant neoplasm of breast; Z94.1 Heart transplant status; Z87.891 Personal history of nicotine dependence; Z95.1 Presence of aortocoronary bypass graft; Z87.01 Personal history of pneumonia (recurrent); Z79.01 Long term (current) use of anticoagulants; Z95.810 Presence of automatic (implantable) cardiac defibrillator; Z87.440 Personal history of urinary (tract) infections
CPT/HCPCS: 96365; 96366; 96368; G0463; J1642; J2260; J3475

== ENCOUNTER → 2018-07-18 | Outpatient (CLI) | payer MEDICARE, OTHER ==
[2018-07-18] VITALS (7 sets, daily range): BP systolic 103–115; BP diastolic 57–67
[~2018-07-18] MED LIST changes: -POTASSIUM CHL 10 Meq TABLET PO ONE; -POTASSIUM CHL 20 Meq TABLET PO ONE
[2018-07-18] MEDS: MAGNESIUM SULFATE 1GM/100ML 100 ML IV SCH ×3 (11:08→13:43)
[2018-07-18 16:10] LABS: Hemoglobin 8.4 g/dL (12.2-16.2); Mean Corpuscular Hemoglobin 30.8 pg (28.0-32.0); Mean Corpuscular Hgb Conc. 32.3 g/dL (32.0-36.0); Mean Corpuscular Volume 95.2 fL (80.0-100.0); Red Cell Distribution Width 18.4 % (11.8-14.3)
[2018-07-18 16:11] LABS: BUN/Creatinine Ratio 44.9; Calcium 8.6 mg/dL (8.5-10.1); Potassium 3.8 mmol/L (3.5-5.1)
[2018-07-18 16:12] LABS: Platelet Count (auto) 143 10^3/uL (140-450); Red Blood Cells 2.73 10^6/uL (4.0-5.20)
[2018-07-18 16:24] LABS: White Blood Cell 1.9 10^3/uL (4.4-10.8)
[2018-07-18 16:28] LABS: Band Neutrophils % (manual) 0; Basophils % (manual) 0 (0.0-2.0); Blast Cells 0; Metamyelocytes % 0; Myelocytes % 0; Promyelocytes % 0; Reactive Lymphocytes 0
[2018-07-18 17:42] LABS: Eosinophils % (manual) 1 (0-7); Lymphocytes % (manual) 6 (10.0-50.0); Monocytes % (manual) 16 (0-12)
== END | disposition home or self-care (01) ==
LOC: CHF HDHVI 10:44
PROVIDERS: ATTEND Internal Medicine Cardiovascular Disease
DX: I13.0 Hypertensive heart and chronic kidney disease with heart failure and stage 1 through stage 4 chronic kidney disease, or unspecified chronic kidney disease (principal); E11.22 Type 2 diabetes mellitus with diabetic chronic kidney disease; I50.23 Acute on chronic systolic (congestive) heart failure; N18.3 Chronic kidney disease, stage 3 (moderate); D64.9 Anemia, unspecified; L93.0 Discoid lupus erythematosus; E83.40 Disorders of magnesium metabolism, unspecified; J44.9 Chronic obstructive pulmonary disease, unspecified; I08.2 Rheumatic disorders of both aortic and tricuspid valves; I27.21 Secondary pulmonary arterial hypertension; I42.9 Cardiomyopathy, unspecified; E11.51 Type 2 diabetes mellitus with diabetic peripheral angiopathy without gangrene; M10.9 Gout, unspecified; I25.10 Atherosclerotic heart disease of native coronary artery without angina pectoris; I25.2 Old myocardial infarction; I73.9 Peripheral vascular disease, unspecified; E78.5 Hyperlipidemia, unspecified; E78.00 Pure hypercholesterolemia, unspecified; G89.29 Other chronic pain; E03.9 Hypothyroidism, unspecified; F32.9 Major depressive disorder, single episode, unspecified; I48.91 Unspecified atrial fibrillation; E43 Unspecified severe protein-calorie malnutrition; F41.9 Anxiety disorder, unspecified; Z91.09 Other allergy status, other than to drugs and biological substances; Z94.1 Heart transplant status; Z87.891 Personal history of nicotine dependence; Z85.72 Personal history of non-Hodgkin lymphomas; Z95.5 Presence of coronary angioplasty implant and graft; Z87.01 Personal history of pneumonia (recurrent); Z87.440 Personal history of urinary (tract) infections; Z79.01 Long term (current) use of anticoagulants; Z79.899 Other long term (current) drug therapy; Z85.3 Personal history of malignant neoplasm of breast
CPT/HCPCS: 36415; 80048; 83880; 85007; 85027; 96365; 96366; 96368; G0463; J1642; J2260; J3475

== ENCOUNTER 2018-07-19 07:08 | Day surgery (SDC) | payer MEDICARE, OTHER ==
[2018-07-19] VITALS (8 sets, daily range): BP systolic 103–119; BP diastolic 69–85
[~2018-07-19 07:08] MED LIST changes: -MAGNESIUM SULFATE 1GM/100ML 300 ML IV ONE; -MILRINONE 20MG/100ML 100 ML IV ONE; -MILRINONE 20MG/100ML 100 ML IV SCH
== END 2018-07-19 13:55 | disposition home or self-care (01) ==
LOC: CATH 07:08
PROVIDERS: ATTEND Internal Medicine Cardiovascular Disease
DX: D64.9 Anemia, unspecified (principal); I50.9 Heart failure, unspecified; Q24.9 Congenital malformation of heart, unspecified; J44.9 Chronic obstructive pulmonary disease, unspecified; Z90.12 Acquired absence of left breast and nipple; Z91.02 Food additives allergy status; Z88.8 Allergy status to other drugs, medicaments and biological substances; Z85.3 Personal history of malignant neoplasm of breast; Z83.3 Family history of diabetes mellitus; Z82.49 Family history of ischemic heart disease and other diseases of the circulatory system; Z80.9 Family history of malignant neoplasm, unspecified
CPT/HCPCS: 36430; 86850; 86900; 86901; 86920; A6257; J1642; J7040; P9016

== ENCOUNTER → 2018-07-20 | Outpatient (CLI) | payer MEDICARE, OTHER ==
[2018-07-20] VITALS (12 sets, daily range): BP systolic 102–124; BP diastolic 47–77
[~2018-07-20] MED LIST changes: +MAGNESIUM SULFATE 1GM/100ML 300 ML IV ONE; +MILRINONE 20MG/100ML 100 ML IV ONE; +ONDANSETRON HCL 4 MG/2 ML VIAL IV ONE; +ONDANSETRON HCL 4 MG/2 ML VIAL ONE
[2018-07-20] MEDS: MAGNESIUM SULFATE 1GM/100ML 100 ML IV SCH ×3 (11:28→13:13)
[2018-07-20 16:10] LABS: BUN/Creatinine Ratio 45.1; Basophils # (auto) 0 uL; Basophils % (auto) 1.2 % (0.0-2.0); Calcium 8.6 mg/dL (8.5-10.1); Eosinophils # (auto) 0 uL; Hematocrit 33.1 % (36.0-46.0); Hemoglobin 10.7 g/dL (12.2-16.2); Lymphocytes # (auto) 0.2 uL; Lymphocytes % (auto) 8.2 % (10.0-50.0); Magnesium 2.4 mg/dL (1.6-2.6); Mean Corpuscular Hemoglobin 30.1 pg (28.0-32.0); Mean Corpuscular Hgb Conc. 32.4 g/dL (32.0-36.0); Mean Corpuscular Volume 93.1 fL (80.0-100.0); Monocytes # (auto) 0.3 uL; Monocytes % (auto) 11.2 % (0.0-12.0); Neutrophils # (auto) 2.1 uL; Neutrophils % (auto) 78.4 % (37.0-80.0); Nucleated Red Blood Cells % 0.6 %; Platelet Count (auto) 116 10^3/uL (140-450); Potassium 4.1 mmol/L (3.5-5.1); Red Blood Cells 3.56 10^6/uL (4.0-5.20); Red Cell Distribution Width 19.8 % (11.8-14.3); White Blood Cell 2.7 10^3/uL (4.4-10.8)
== END | disposition home or self-care (01) ==
LOC: CHF HDHVI 11:10
PROVIDERS: ATTEND Internal Medicine Cardiovascular Disease
DX: E83.42 Hypomagnesemia (principal); D64.9 Anemia, unspecified; R11.0 Nausea; I13.0 Hypertensive heart and chronic kidney disease with heart failure and stage 1 through stage 4 chronic kidney disease, or unspecified chronic kidney disease; I50.42 Chronic combined systolic (congestive) and diastolic (congestive) heart failure; E11.22 Type 2 diabetes mellitus with diabetic chronic kidney disease; N18.3 Chronic kidney disease, stage 3 (moderate); I25.2 Old myocardial infarction; I27.21 Secondary pulmonary arterial hypertension; J44.9 Chronic obstructive pulmonary disease, unspecified; F31.9 Bipolar disorder, unspecified; F41.9 Anxiety disorder, unspecified; E78.5 Hyperlipidemia, unspecified; E03.9 Hypothyroidism, unspecified; G89.29 Other chronic pain; E78.00 Pure hypercholesterolemia, unspecified; M10.9 Gout, unspecified; Z87.891 Personal history of nicotine dependence; Z95.1 Presence of aortocoronary bypass graft; Z79.899 Other long term (current) drug therapy; Z85.3 Personal history of malignant neoplasm of breast; Z79.01 Long term (current) use of anticoagulants
CPT/HCPCS: 36415; 80048; 83735; 83880; 85025; 96365; 96366; 96368; 96375; G0463; J1642; J2260; J2405; J3475

== ENCOUNTER → 2018-07-22 | Outpatient (CLI) | payer MEDICARE, OTHER ==
[2018-07-22] VITALS (9 sets, daily range): BP systolic 117–134; BP diastolic 65–82
[~2018-07-22] MED LIST changes: +CARV12.544 PO; +MILRINONE 20MG/100ML 100 ML IV SCH; -ONDANSETRON HCL 4 MG/2 ML VIAL IV ONE; -ONDANSETRON HCL 4 MG/2 ML VIAL ONE; +POTASSIUM CHL 10 Meq TABLET PO ONE; +POTASSIUM CHL 20 Meq TABLET PO ONE
[2018-07-22] MEDS: MAGNESIUM SULFATE 1GM/100ML 100 ML IV SCH ×3 (11:00→13:20)
== END | disposition home or self-care (01) ==
LOC: CHF HDHVI 10:47
PROVIDERS: ATTEND Internal Medicine Cardiovascular Disease
DX: I13.0 Hypertensive heart and chronic kidney disease with heart failure and stage 1 through stage 4 chronic kidney disease, or unspecified chronic kidney disease (principal); I50.42 Chronic combined systolic (congestive) and diastolic (congestive) heart failure; E11.22 Type 2 diabetes mellitus with diabetic chronic kidney disease; E11.51 Type 2 diabetes mellitus with diabetic peripheral angiopathy without gangrene; N18.3 Chronic kidney disease, stage 3 (moderate); I48.91 Unspecified atrial fibrillation; M32.9 Systemic lupus erythematosus, unspecified; I25.2 Old myocardial infarction; I25.10 Atherosclerotic heart disease of native coronary artery without angina pectoris; I27.21 Secondary pulmonary arterial hypertension; J44.9 Chronic obstructive pulmonary disease, unspecified; E43 Unspecified severe protein-calorie malnutrition; E03.9 Hypothyroidism, unspecified; E78.5 Hyperlipidemia, unspecified; G89.29 Other chronic pain; F31.9 Bipolar disorder, unspecified; F41.9 Anxiety disorder, unspecified; Z94.1 Heart transplant status; Z85.3 Personal history of malignant neoplasm of breast; Z85.72 Personal history of non-Hodgkin lymphomas; Z90.12 Acquired absence of left breast and nipple; Z79.01 Long term (current) use of anticoagulants; Z95.1 Presence of aortocoronary bypass graft; Z95.810 Presence of automatic (implantable) cardiac defibrillator; Z87.891 Personal history of nicotine dependence
CPT/HCPCS: 96365; 96366; 96368; G0463; J1642; J2260; J3475

== ENCOUNTER → 2018-07-27 | Outpatient (CLI) | payer MEDICARE, OTHER ==
[2018-07-27] VITALS (9 sets, daily range): BP systolic 119–133; BP diastolic 71–83
[~2018-07-27] VITALS: Ht 30.5 cm; Wt 61.6 kg
[~2018-07-27] MED LIST changes: -CARV12.544 PO; +FUROSEMIDE 20 MG/2 ML VIAL IV ONE; +FUROSEMIDE 20 MG/2 ML VIAL ONE; +FUROSEMIDE 40 MG/4 ML VIAL ONE; -MILRINONE 20MG/100ML 100 ML IV SCH; +ONDANSETRON HCL 4 MG/2 ML VIAL IV ONE; +ONDANSETRON HCL 4 MG/2 ML VIAL ONE; -POTASSIUM CHL 20 Meq TABLET PO ONE
[2018-07-27] MEDS: MAGNESIUM SULFATE 1GM/100ML 100 ML IV SCH ×3 (11:00→13:00)
[2018-07-27 12:03] LABS: Hematocrit 34.7 % (36.0-46.0); Hemoglobin 11.2 g/dL (12.2-16.2); Mean Corpuscular Hemoglobin 30.5 pg (28.0-32.0); Mean Corpuscular Hgb Conc. 32.4 g/dL (32.0-36.0); Mean Corpuscular Volume 94.1 fL (80.0-100.0); Platelet Count (auto) 107 10^3/uL (140-450); Red Blood Cells 3.68 10^6/uL (4.0-5.20); Red Cell Distribution Width 18.5 % (11.8-14.3); White Blood Cell 2.5 10^3/uL (4.4-10.8)
[2018-07-27 12:07] LABS: Band Neutrophils % (manual) 0; Blast Cells 0; Metamyelocytes % 0; Myelocytes % 0; Promyelocytes % 0; Reactive Lymphocytes 0
[2018-07-27 12:08] LABS: Albumin 2.9 g/dL (3.4-5.0); Calcium 8.7 mg/dL (8.5-10.1); Potassium 4.1 mmol/L (3.5-5.1)
[2018-07-27 12:12] LABS: BUN/Creatinine Ratio 30.3; Bilirubin, Total 0.6 mg/dL (0.2-1.0); Total Protein 7.8 g/dL (6.4-8.2)
[2018-07-27 13:38] LABS: Basophils % (manual) 1 (0.0-2.0); Eosinophils % (manual) 1 (0-7); Lymphocytes % (manual) 10 (10.0-50.0); Monocytes % (manual) 12 (0-12)
== END | disposition home or self-care (01) ==
LOC: CHF HDHVI 10:44
PROVIDERS: ATTEND Internal Medicine Cardiovascular Disease
DX: I13.0 Hypertensive heart and chronic kidney disease with heart failure and stage 1 through stage 4 chronic kidney disease, or unspecified chronic kidney disease (principal); E11.22 Type 2 diabetes mellitus with diabetic chronic kidney disease; I50.42 Chronic combined systolic (congestive) and diastolic (congestive) heart failure; N18.3 Chronic kidney disease, stage 3 (moderate); D63.1 Anemia in chronic kidney disease; E11.52 Type 2 diabetes mellitus with diabetic peripheral angiopathy with gangrene; E03.9 Hypothyroidism, unspecified; G89.29 Other chronic pain; I25.2 Old myocardial infarction; I48.91 Unspecified atrial fibrillation; I27.21 Secondary pulmonary arterial hypertension; E78.5 Hyperlipidemia, unspecified; F32.9 Major depressive disorder, single episode, unspecified; F41.9 Anxiety disorder, unspecified; Z79.01 Long term (current) use of anticoagulants; Z87.891 Personal history of nicotine dependence; Z95.5 Presence of coronary angioplasty implant and graft
CPT/HCPCS: 36415; 80053; 83880; 85007; 85027; 93005; 96365; 96366; 96368; 96375; G0463; J1642; J1940; J2260; J2405; J3475

== ENCOUNTER → 2018-07-29 | Outpatient (CLI) | payer MEDICARE, OTHER ==
[~2018-07-29] MED LIST changes: +MAGNESIUM SULFATE 1GM/100ML 200 ML IV ONE; -MAGNESIUM SULFATE 1GM/100ML 300 ML IV ONE; -MILRINONE 20MG/100ML 100 ML IV ONE; -ONDANSETRON HCL 4 MG/2 ML VIAL IV ONE; -ONDANSETRON HCL 4 MG/2 ML VIAL ONE; +POTASSIUM CHL 20 Meq TABLET PO ONE
[2018-07-29] MEDS: MAGNESIUM SULFATE 1GM/100ML 100 ML IV SCH ×2 (10:40→11:20)
[2018-07-29 12:15] VITALS: BP 120/75
== END | disposition home or self-care (01) ==
LOC: CHF HDHVI 10:25
PROVIDERS: ATTEND Internal Medicine Cardiovascular Disease
DX: I13.0 Hypertensive heart and chronic kidney disease with heart failure and stage 1 through stage 4 chronic kidney disease, or unspecified chronic kidney disease (principal); I50.42 Chronic combined systolic (congestive) and diastolic (congestive) heart failure; E11.22 Type 2 diabetes mellitus with diabetic chronic kidney disease; N18.3 Chronic kidney disease, stage 3 (moderate); E83.42 Hypomagnesemia; E11.51 Type 2 diabetes mellitus with diabetic peripheral angiopathy without gangrene; I25.10 Atherosclerotic heart disease of native coronary artery without angina pectoris; I25.2 Old myocardial infarction; J44.9 Chronic obstructive pulmonary disease, unspecified; I42.9 Cardiomyopathy, unspecified; I27.21 Secondary pulmonary arterial hypertension; M32.9 Systemic lupus erythematosus, unspecified; E03.9 Hypothyroidism, unspecified; E78.5 Hyperlipidemia, unspecified; E43 Unspecified severe protein-calorie malnutrition; F31.9 Bipolar disorder, unspecified; R53.1 Weakness; Z94.1 Heart transplant status; Z85.3 Personal history of malignant neoplasm of breast; Z85.72 Personal history of non-Hodgkin lymphomas; Z90.12 Acquired absence of left breast and nipple; Z95.1 Presence of aortocoronary bypass graft; Z79.01 Long term (current) use of anticoagulants; Z87.891 Personal history of nicotine dependence
CPT/HCPCS: 96365; 96375; G0463; J1642; J1940; J3475; 96366

== ENCOUNTER → 2018-08-01 | Outpatient (CLI) | payer MEDICARE, OTHER ==
[2018-08-01] VITALS (12 sets, daily range): BP systolic 106–127; BP diastolic 54–73
[~2018-08-01] MED LIST changes: -FUROSEMIDE 20 MG/2 ML VIAL IV ONE; -FUROSEMIDE 20 MG/2 ML VIAL ONE; -FUROSEMIDE 40 MG/4 ML VIAL ONE; -MAGNESIUM SULFATE 1GM/100ML 200 ML IV ONE; +MAGNESIUM SULFATE 1GM/100ML 300 ML IV ONE; +MILRINONE 20MG/100ML 100 ML IV ONE; -POTASSIUM CHL 20 Meq TABLET PO ONE
[2018-08-01] MEDS: MAGNESIUM SULFATE 1GM/100ML 100 ML IV SCH ×3 (11:00→12:30)
[2018-08-01 16:18] LABS: Calcium 8.8 mg/dL (8.5-10.1); Potassium 3.4 mmol/L (3.5-5.1)
[2018-08-01 16:23] LABS: BUN/Creatinine Ratio 38.2
[2018-08-01 17:23] LABS: Hematocrit 35.1 % (36.0-46.0); Hemoglobin 11.4 g/dL (12.2-16.2); Mean Corpuscular Hemoglobin 30.3 pg (28.0-32.0); Mean Corpuscular Hgb Conc. 32.4 g/dL (32.0-36.0); Mean Corpuscular Volume 93.4 fL (80.0-100.0); Platelet Count (auto) 119 10^3/uL (140-450); Red Blood Cells 3.76 10^6/uL (4.0-5.20); White Blood Cell 3.2 10^3/uL (4.4-10.8)
[2018-08-01 17:30] LABS: Band Neutrophils % (manual) 0; Basophils % (manual) 0 (0.0-2.0); Blast Cells 0; Eosinophils % (manual) 0 (0-7); Metamyelocytes % 0; Myelocytes % 0; Promyelocytes % 0; Reactive Lymphocytes 0
[2018-08-01 18:50] LABS: Lymphocytes % (manual) 12 (10.0-50.0); Monocytes % (manual) 9 (0-12)
== END | disposition home or self-care (01) ==
LOC: CHF HDHVI 11:12
PROVIDERS: ATTEND Internal Medicine Cardiovascular Disease
DX: E83.42 Hypomagnesemia (principal); I13.0 Hypertensive heart and chronic kidney disease with heart failure and stage 1 through stage 4 chronic kidney disease, or unspecified chronic kidney disease; E11.22 Type 2 diabetes mellitus with diabetic chronic kidney disease; N18.3 Chronic kidney disease, stage 3 (moderate); I50.42 Chronic combined systolic (congestive) and diastolic (congestive) heart failure; D63.1 Anemia in chronic kidney disease; R74.0 Nonspecific elevation of levels of transaminase and lactic acid dehydrogenase [LDH]; I25.10 Atherosclerotic heart disease of native coronary artery without angina pectoris; I48.91 Unspecified atrial fibrillation; I25.2 Old myocardial infarction; I42.9 Cardiomyopathy, unspecified; J44.9 Chronic obstructive pulmonary disease, unspecified; E78.5 Hyperlipidemia, unspecified; E03.9 Hypothyroidism, unspecified; G89.29 Other chronic pain; E78.00 Pure hypercholesterolemia, unspecified; F41.9 Anxiety disorder, unspecified; F31.9 Bipolar disorder, unspecified; M10.9 Gout, unspecified; Z79.899 Other long term (current) drug therapy; Z85.3 Personal history of malignant neoplasm of breast; Z87.891 Personal history of nicotine dependence; Z95.1 Presence of aortocoronary bypass graft; Z79.01 Long term (current) use of anticoagulants; Z87.01 Personal history of pneumonia (recurrent); Z95.810 Presence of automatic (implantable) cardiac defibrillator
CPT/HCPCS: 36415; 80048; 83615; 83880; 85007; 85027; 96365; 96366; 96368; G0463; J1642; J2260; J3475

== ENCOUNTER → 2018-08-03 | Outpatient (CLI) | payer MEDICARE, OTHER ==
[2018-08-03] VITALS (10 sets, daily range): BP systolic 114–130; BP diastolic 68–75
[~2018-08-03] VITALS: Ht 30.5 cm; Wt 0.5 kg
[~2018-08-03] MED LIST changes: +ALUM & MAG HYDROX-SIMETH LIQ(MAALOX) 30 ML ONE; +ALUM & MAG HYDROX-SIMETH LIQ(MAALOX) 30 ML PO ONE; +DONNATAL 5ml ORAL Elix (BELLADONNA ALK-PHENOBARB) ONE; +DONNATAL 5ml ORAL Elix (BELLADONNA ALK-PHENOBARB) PO ONE; +LIDOCAINE VISCOUS 2% 15ML UD ONE; +LIDOCAINE VISCOUS 2% 15ML UD PO ONE; +MAGNESIUM SULFATE 1GM/100ML 100 ML IV SCH; +MILRINONE 20MG/100ML 100 ML IV SCH; +POTASSIUM CHL 20 Meq TABLET PO ONE
== END | disposition home or self-care (01) ==
LOC: CHF HDHVI 10:05
PROVIDERS: ATTEND Internal Medicine Cardiovascular Disease
DX: J44.9 Chronic obstructive pulmonary disease, unspecified (principal); I27.21 Secondary pulmonary arterial hypertension; B37.9 Candidiasis, unspecified; E83.42 Hypomagnesemia; I25.10 Atherosclerotic heart disease of native coronary artery without angina pectoris; I13.0 Hypertensive heart and chronic kidney disease with heart failure and stage 1 through stage 4 chronic kidney disease, or unspecified chronic kidney disease; E11.22 Type 2 diabetes mellitus with diabetic chronic kidney disease; E11.52 Type 2 diabetes mellitus with diabetic peripheral angiopathy with gangrene; I96 Gangrene, not elsewhere classified; N18.3 Chronic kidney disease, stage 3 (moderate); I50.42 Chronic combined systolic (congestive) and diastolic (congestive) heart failure; F31.9 Bipolar disorder, unspecified; E78.5 Hyperlipidemia, unspecified; E03.9 Hypothyroidism, unspecified; E46 Unspecified protein-calorie malnutrition; D70.9 Neutropenia, unspecified; D63.1 Anemia in chronic kidney disease; D69.6 Thrombocytopenia, unspecified; I25.2 Old myocardial infarction; F41.9 Anxiety disorder, unspecified; E78.00 Pure hypercholesterolemia, unspecified; G89.29 Other chronic pain; I48.91 Unspecified atrial fibrillation; Z79.01 Long term (current) use of anticoagulants; Z85.3 Personal history of malignant neoplasm of breast; Z87.891 Personal history of nicotine dependence; Z85.72 Personal history of non-Hodgkin lymphomas; Z95.1 Presence of aortocoronary bypass graft; Z95.810 Presence of automatic (implantable) cardiac defibrillator; Z94.1 Heart transplant status; Z79.899 Other long term (current) drug therapy; Z87.01 Personal history of pneumonia (recurrent); Z87.440 Personal history of urinary (tract) infections; Z98.61 Coronary angioplasty status; Z90.12 Acquired absence of left breast and nipple
CPT/HCPCS: 96365; 96366; 96368; G0463; J1642; J2260; J3475

== ENCOUNTER → 2018-08-08 | Outpatient (CLI) | payer MEDICARE, OTHER ==
[2018-08-08] VITALS (11 sets, daily range): BP systolic 126–145; BP diastolic 69–92
[~2018-08-08] MED LIST changes: -ALUM & MAG HYDROX-SIMETH LIQ(MAALOX) 30 ML ONE; -ALUM & MAG HYDROX-SIMETH LIQ(MAALOX) 30 ML PO ONE; -DONNATAL 5ml ORAL Elix (BELLADONNA ALK-PHENOBARB) ONE; -DONNATAL 5ml ORAL Elix (BELLADONNA ALK-PHENOBARB) PO ONE; +KETOROLAC TROMETH 60MG/2ML VIAL IM ONE; -LIDOCAINE VISCOUS 2% 15ML UD ONE; -LIDOCAINE VISCOUS 2% 15ML UD PO ONE; -MAGNESIUM SULFATE 1GM/100ML 100 ML IV SCH; -MILRINONE 20MG/100ML 100 ML IV SCH; +ONDANSETRON HCL 4 MG/2 ML VIAL IM ONE; +ONDANSETRON HCL 4 MG/2 ML VIAL ONE
[2018-08-08] MEDS: MAGNESIUM SULFATE 1GM/100ML 100 ML IV SCH ×3 (10:20→12:25)
[2018-08-08 12:25] LABS: Calcium 8.5 mg/dL (8.5-10.1); Potassium 3.8 mmol/L (3.5-5.1)
[2018-08-08 12:28] LABS: BUN/Creatinine Ratio 32.1; Hematocrit 34.2 % (36.0-46.0); Hemoglobin 10.8 g/dL (12.2-16.2); Mean Corpuscular Hemoglobin 29.7 pg (28.0-32.0); Mean Corpuscular Hgb Conc. 31.5 g/dL (32.0-36.0); Mean Corpuscular Volume 94.2 fL (80.0-100.0); Platelet Count (auto) 98 10^3/uL (140-450); Red Blood Cells 3.63 10^6/uL (4.0-5.20); Red Cell Distribution Width 18.1 % (11.8-14.3); White Blood Cell 2.8 10^3/uL (4.4-10.8)
[2018-08-08 12:39] LABS: Band Neutrophils % (manual) 0; Basophils % (manual) 0 (0.0-2.0); Blast Cells 0; Eosinophils % (manual) 0 (0-7); Metamyelocytes % 0; Myelocytes % 0; Promyelocytes % 0; Reactive Lymphocytes 0
[2018-08-08] MEDS: MILRINONE 20MG/100ML 100 ML IV SCH ×2 (12:56→15:19)
[2018-08-08] MEDS: SODIUM CHLORIDE 0.9% 250 ML IV SCH ×3 (13:30→15:00)
[2018-08-08 13:49] LABS: Lymphocytes % (manual) 11 (10.0-50.0); Monocytes % (manual) 11 (0-12)
== END | disposition home or self-care (01) ==
LOC: CHF HDHVI 10:18
PROVIDERS: ATTEND Internal Medicine Cardiovascular Disease
DX: I13.0 Hypertensive heart and chronic kidney disease with heart failure and stage 1 through stage 4 chronic kidney disease, or unspecified chronic kidney disease (principal); I50.42 Chronic combined systolic (congestive) and diastolic (congestive) heart failure; N18.3 Chronic kidney disease, stage 3 (moderate); I25.10 Atherosclerotic heart disease of native coronary artery without angina pectoris; J44.9 Chronic obstructive pulmonary disease, unspecified; D64.9 Anemia, unspecified; E83.42 Hypomagnesemia; I42.9 Cardiomyopathy, unspecified; E11.51 Type 2 diabetes mellitus with diabetic peripheral angiopathy without gangrene; E78.00 Pure hypercholesterolemia, unspecified; K21.9 Gastro-esophageal reflux disease without esophagitis; I48.91 Unspecified atrial fibrillation; F31.9 Bipolar disorder, unspecified; E78.5 Hyperlipidemia, unspecified; E03.9 Hypothyroidism, unspecified; G89.29 Other chronic pain; I25.2 Old myocardial infarction; F41.9 Anxiety disorder, unspecified; M10.9 Gout, unspecified; Z79.899 Other long term (current) drug therapy; Z87.891 Personal history of nicotine dependence; Z95.1 Presence of aortocoronary bypass graft; Z79.01 Long term (current) use of anticoagulants; Z95.5 Presence of coronary angioplasty implant and graft; Z86.79 Personal history of other diseases of the circulatory system; Z95.810 Presence of automatic (implantable) cardiac defibrillator; Z85.3 Personal history of malignant neoplasm of breast
CPT/HCPCS: 36415; 80048; 83880; 85007; 85027; 96365; 96366; 96367; 96368; 96372; 96375; G0463; J1642; J1885; J2260; J2405; J3475; J7050

== ENCOUNTER → 2018-08-10 | Outpatient (CLI) | payer MEDICARE, OTHER ==
[2018-08-10] VITALS (10 sets, daily range): BP systolic 121–139; BP diastolic 75–89
[~2018-08-10] MED LIST changes: -KETOROLAC TROMETH 60MG/2ML VIAL IM ONE; +MILRINONE 20MG/100ML 100 ML IV SCH; -ONDANSETRON HCL 4 MG/2 ML VIAL IM ONE; -ONDANSETRON HCL 4 MG/2 ML VIAL ONE; -POTASSIUM CHL 10 Meq TABLET PO ONE; -POTASSIUM CHL 20 Meq TABLET PO ONE
[2018-08-10] MEDS: MAGNESIUM SULFATE 1GM/100ML 100 ML IV SCH ×3 (11:15→13:20)
--- NOTE | 2018-08-10 15:36 | NUR ---
INFUSION COMPLETED. TOLERATED WELL. VS WNL. OXYGEN AT 2 LPM DURING INFUSION FOR RESPIRATORY COMFORT. AQUINO NEEDLE INSERTED INTO PORT BY FRED LEE. Yesenia Cath Removal BY CASIE LEE. Aquino needle D/C'd after Heparin flush per protocol. See e-MAR for medications given during this visit. Sterile occlusive dressing to site. Patient tolerated procedure well. Site benign post infusion. UP TO VOID X 2 DURING INFUSIONS. MEDICATION ADMINISTRATION MILRINONE GTT AT 0.375 MCG/KG/MIN START AT 1115/STOP AT 1515 6.7 ML/HR MAG RIDER 3 GRAMS OVER 3 HOURS (1121) (1214) (1310) HEPARIN 500 UNITS IVP TO RIGHT CHEST PORT [id number]
[2018-08-10 16:22] LABS: Potassium 4.5 mmol/L (3.5-5.1)
== END | disposition home or self-care (01) ==
LOC: CHF HDHVI 11:12
PROVIDERS: ATTEND Internal Medicine Cardiovascular Disease
DX: I13.0 Hypertensive heart and chronic kidney disease with heart failure and stage 1 through stage 4 chronic kidney disease, or unspecified chronic kidney disease (principal); E11.22 Type 2 diabetes mellitus with diabetic chronic kidney disease; N18.3 Chronic kidney disease, stage 3 (moderate); I50.42 Chronic combined systolic (congestive) and diastolic (congestive) heart failure; R94.4 Abnormal results of kidney function studies; E87.6 Hypokalemia; I25.10 Atherosclerotic heart disease of native coronary artery without angina pectoris; I42.9 Cardiomyopathy, unspecified; F41.9 Anxiety disorder, unspecified; F31.9 Bipolar disorder, unspecified; E78.5 Hyperlipidemia, unspecified; E03.9 Hypothyroidism, unspecified; G89.29 Other chronic pain; I25.2 Old myocardial infarction; E78.00 Pure hypercholesterolemia, unspecified; E11.51 Type 2 diabetes mellitus with diabetic peripheral angiopathy without gangrene; M10.9 Gout, unspecified; I73.9 Peripheral vascular disease, unspecified; I48.91 Unspecified atrial fibrillation; K21.9 Gastro-esophageal reflux disease without esophagitis; I27.21 Secondary pulmonary arterial hypertension; I25.5 Ischemic cardiomyopathy; L93.0 Discoid lupus erythematosus; Z95.5 Presence of coronary angioplasty implant and graft; Z79.01 Long term (current) use of anticoagulants; Z79.899 Other long term (current) drug therapy; Z87.891 Personal history of nicotine dependence; Z95.810 Presence of automatic (implantable) cardiac defibrillator
CPT/HCPCS: 36415; 82565; 83880; 84132; 84520; 96365; 96366; 96368; G0463; J1642; J2260; J3475

== ENCOUNTER → 2018-08-12 | Outpatient (CLI) | payer MEDICARE, OTHER ==
[~2018-08-12] VITALS: Ht 30.5 cm; Wt 61.7 kg
[~2018-08-12] MED LIST changes: +FUROSEMIDE 20 MG/2 ML VIAL IV ONE; +FUROSEMIDE 20 MG/2 ML VIAL ONE; +FUROSEMIDE 40 MG/4 ML VIAL ONE; +MAGNESIUM SULFATE 1GM/100ML 100 ML IV ONE; -MAGNESIUM SULFATE 1GM/100ML 300 ML IV ONE; -MILRINONE 20MG/100ML 100 ML IV ONE; -MILRINONE 20MG/100ML 100 ML IV SCH; +POTASSIUM CHL 10 Meq TABLET PO ONE
[2018-08-12 11:00] VITALS: BP 121/85
[2018-08-12] MEDS: MAGNESIUM SULFATE 1GM/100ML 100 ML IV SCH ×2 (11:00→11:55)
[2018-08-12 11:30] VITALS: BP 124/79
[2018-08-12 12:00] VITALS: BP 125/81
[2018-08-12 13:00] VITALS: BP 124/82
== END | disposition home or self-care (01) ==
LOC: CHF HDHVI 10:35
PROVIDERS: ATTEND Internal Medicine Cardiovascular Disease
DX: D64.9 Anemia, unspecified (principal); E83.40 Disorders of magnesium metabolism, unspecified; I13.0 Hypertensive heart and chronic kidney disease with heart failure and stage 1 through stage 4 chronic kidney disease, or unspecified chronic kidney disease; I50.42 Chronic combined systolic (congestive) and diastolic (congestive) heart failure; E11.22 Type 2 diabetes mellitus with diabetic chronic kidney disease; N18.3 Chronic kidney disease, stage 3 (moderate); J44.9 Chronic obstructive pulmonary disease, unspecified; I73.9 Peripheral vascular disease, unspecified; I48.91 Unspecified atrial fibrillation; I42.9 Cardiomyopathy, unspecified; E78.5 Hyperlipidemia, unspecified; E03.9 Hypothyroidism, unspecified; I25.2 Old myocardial infarction; G89.29 Other chronic pain; M10.9 Gout, unspecified; F31.9 Bipolar disorder, unspecified; Z85.72 Personal history of non-Hodgkin lymphomas; Z79.01 Long term (current) use of anticoagulants; Z79.899 Other long term (current) drug therapy; Z95.5 Presence of coronary angioplasty implant and graft; Z95.1 Presence of aortocoronary bypass graft; Z94.1 Heart transplant status; Z87.01 Personal history of pneumonia (recurrent); Z85.3 Personal history of malignant neoplasm of breast; Z90.12 Acquired absence of left breast and nipple
CPT/HCPCS: 96365; 96366; 96375; G0463; J1642; J1940; J3475

== ENCOUNTER → 2018-08-15 | Outpatient (CLI) | payer MEDICARE, OTHER ==
[2018-08-15] VITALS (7 sets, daily range): BP systolic 115–135; BP diastolic 66–80
[~2018-08-15] VITALS: Ht 30.5 cm; Wt 58.5 kg
[~2018-08-15] MED LIST changes: -FUROSEMIDE 20 MG/2 ML VIAL IV ONE; -FUROSEMIDE 20 MG/2 ML VIAL ONE; +FUROSEMIDE 40 MG/4 ML VIAL IV ONE; -POTASSIUM CHL 10 Meq TABLET PO ONE
[2018-08-15] MEDS: MAGNESIUM SULFATE 1GM/100ML 100 ML IV SCH ×2 (10:30→12:00)
--- NOTE | 2018-08-15 11:50 | NUR ---
CHF MEDICATION ADMINISTRATION MAG RIDER 2 GRAMS IV OVER 2 HOURS (0940) (1030) LASIX 40 MG IVP AT 0940 HEPARIN 500 UNITS IVP AT 1155
--- NOTE | 2018-08-15 12:00 | NUR ---
IN TO CLINIC FOR CHF CAD FOLLOWUP. AWAKE AND ALERT. NOTED TO HAVE FLUID GAIN SINCE LAST TREATMENT. Clinic Provider Clinic Provider into see pt with new orders received and carried out. . Lasix ADMINISTERED PER ORDER. UP TO VOID SEVERAL TIMES. PLAN TO RESUME MILRINONE GTT ON Wednesday08/17/18
== END | disposition home or self-care (01) ==
LOC: CHF HDHVI 09:26
PROVIDERS: ATTEND Internal Medicine Cardiovascular Disease
DX: I13.0 Hypertensive heart and chronic kidney disease with heart failure and stage 1 through stage 4 chronic kidney disease, or unspecified chronic kidney disease (principal); E11.22 Type 2 diabetes mellitus with diabetic chronic kidney disease; N18.3 Chronic kidney disease, stage 3 (moderate); I50.42 Chronic combined systolic (congestive) and diastolic (congestive) heart failure; E83.42 Hypomagnesemia; E11.51 Type 2 diabetes mellitus with diabetic peripheral angiopathy without gangrene; I25.2 Old myocardial infarction; I25.10 Atherosclerotic heart disease of native coronary artery without angina pectoris; J44.9 Chronic obstructive pulmonary disease, unspecified; E03.9 Hypothyroidism, unspecified; E78.5 Hyperlipidemia, unspecified; G89.29 Other chronic pain; K21.9 Gastro-esophageal reflux disease without esophagitis; E78.00 Pure hypercholesterolemia, unspecified; F31.9 Bipolar disorder, unspecified; F41.9 Anxiety disorder, unspecified; Z95.5 Presence of coronary angioplasty implant and graft; Z79.01 Long term (current) use of anticoagulants; Z87.891 Personal history of nicotine dependence
CPT/HCPCS: 96365; 96366; 96375; G0463; J1642; J1940; J3475; 96367; 96374

== ENCOUNTER → 2018-08-17 | Outpatient (CLI) | payer MEDICARE, OTHER ==
[2018-08-17] VITALS (11 sets, daily range): BP systolic 123–140; BP diastolic 65–81
[~2018-08-17] VITALS: Ht 30.5 cm; Wt 0.5 kg
[~2018-08-17] MED LIST changes: -FUROSEMIDE 40 MG/4 ML VIAL IV ONE; -FUROSEMIDE 40 MG/4 ML VIAL ONE; +MILRINONE 20MG/100ML 100 ML IV ONE
--- NOTE | 2018-08-17 10:30 | NUR ---
CHF PT TO CHF CLINIC FOR MD BUTT ORDERED MILRINONE AND MAG RIDER THERAPY FOR CAD, HYPOMAGNESEMIA AND CHF MANAGEMENT.
--- NOTE | 2018-08-17 10:45 | NUR ---
CHF Yeseina Cath Insertion 20 gauge Yesenia Cath inserted using sterile technique in the upper chest with occlusive dressing over irizarry needle. Patient tolerated procedure well. Ordered labs drawn and sent. See e-MAR for medications given during this visit. Clinic Provider Clinic Provider into see pt with new orders received and carried out. MILRINONE gtt started at {0.375}mcg/kg/hr X 4 HR STARTED AT 1045 AND MAG RIDER 3GM/300ML NS AT 100ML/HR per MD order.
[2018-08-17] MEDS: MAGNESIUM SULFATE 1GM/100ML 100 ML IV SCH ×4 (10:50→15:17)
--- NOTE | 2018-08-17 10:50 | NUR ---
CHF MAG RIDER STARTED ORDERED.
[2018-08-17 12:04] LABS: Hematocrit 33.7 % (36.0-46.0); Mean Corpuscular Hgb Conc. 32.7 g/dL (32.0-36.0); Platelet Count (auto) 128 10^3/uL (140-450); Red Blood Cells 3.55 10^6/uL (4.0-5.20); Red Cell Distribution Width 18.1 % (11.8-14.3); White Blood Cell 4.3 10^3/uL (4.4-10.8)
[2018-08-17 12:13] LABS: Band Neutrophils % (manual) 0; Basophils % (manual) 0 (0.0-2.0); Blast Cells 0; Metamyelocytes % 0; Myelocytes % 0; Promyelocytes % 0; Reactive Lymphocytes 0
[2018-08-17 12:20] LABS: Calcium 8.4 mg/dL (8.5-10.1); Magnesium 1.8 mg/dL (1.6-2.6); Potassium 3.4 mmol/L (3.5-5.1)
[2018-08-17 12:31] LABS: BUN/Creatinine Ratio 56.1
[2018-08-17 12:46] LABS: Eosinophils % (manual) 2 (0-7); Lymphocytes % (manual) 11 (10.0-50.0); Monocytes % (manual) 16 (0-12)
[2018-08-17] MEDS: MILRINONE 20MG/100ML 100 ML IV SCH ×2 (14:11→15:16)
--- NOTE | 2018-08-17 15:19 | NUR ---
CHF IV MAG COMPLETE 1345. IV MILRINONE Yesenia Cath Removal Aquino needle D/C'd after Heparin flush per protocol. See e-MAR for medications given during this visit. Sterile occlusive dressing to site. Patient tolerated procedure well. Site benign post infusion.
== END | disposition home or self-care (01) ==
LOC: CHF HDHVI 10:10
PROVIDERS: ATTEND Internal Medicine Cardiovascular Disease
DX: I13.0 Hypertensive heart and chronic kidney disease with heart failure and stage 1 through stage 4 chronic kidney disease, or unspecified chronic kidney disease (principal); E11.22 Type 2 diabetes mellitus with diabetic chronic kidney disease; N18.4 Chronic kidney disease, stage 4 (severe); I50.42 Chronic combined systolic (congestive) and diastolic (congestive) heart failure; I48.91 Unspecified atrial fibrillation; E83.42 Hypomagnesemia; R53.83 Other fatigue; D64.9 Anemia, unspecified; K13.79 Other lesions of oral mucosa; I25.10 Atherosclerotic heart disease of native coronary artery without angina pectoris; E11.40 Type 2 diabetes mellitus with diabetic neuropathy, unspecified; E11.51 Type 2 diabetes mellitus with diabetic peripheral angiopathy without gangrene; F41.9 Anxiety disorder, unspecified; I42.9 Cardiomyopathy, unspecified; J44.9 Chronic obstructive pulmonary disease, unspecified; K21.9 Gastro-esophageal reflux disease without esophagitis; E78.5 Hyperlipidemia, unspecified; E03.9 Hypothyroidism, unspecified; I25.2 Old myocardial infarction; G89.29 Other chronic pain; E78.00 Pure hypercholesterolemia, unspecified; F31.9 Bipolar disorder, unspecified; I27.21 Secondary pulmonary arterial hypertension; M10.9 Gout, unspecified; Z79.899 Other long term (current) drug therapy; Z85.72 Personal history of non-Hodgkin lymphomas; Z79.01 Long term (current) use of anticoagulants; Z87.891 Personal history of nicotine dependence; Z95.810 Presence of automatic (implantable) cardiac defibrillator
CPT/HCPCS: 36415; 80048; 83735; 83880; 85007; 85027; 96365; 96366; 96368; G0463; J1642; J2260; J3475; 96374

== ENCOUNTER → 2018-08-22 | Outpatient (CLI) | payer MEDICARE, OTHER ==
[~2018-08-22] VITALS: Ht 30.5 cm; Wt 58.1 kg
[2018-08-22] VITALS (13 sets, daily range): BP systolic 124–141; BP diastolic 69–87
[~2018-08-22] MED LIST changes: +ALBUTEROL SULF 2.5 MG/0.5ML(0.5%) NEB SOLN ONE; -MAGNESIUM SULFATE 1GM/100ML 100 ML IV ONE; +MAGNESIUM SULFATE 1GM/100ML 100 ML IV SCH; +MAGNESIUM SULFATE 1GM/100ML 300 ML IV ONE; +MILRINONE 20MG/100ML 100 ML IV SCH; +ONDANSETRON HCL 4 MG/2 ML VIAL IV ONE; +ONDANSETRON HCL 4 MG/2 ML VIAL ONE
--- NOTE | 2018-08-22 08:10 | NUR ---
CHF PT TO CHF CLINIC FOR MD BUTT ORDERED MILRINONE AND MAG RIDER DRIP. PT C/O NAUSEA AND VOMITING SINCE YESTERDAY. PORTACTH FOR IV ACCESS.
--- NOTE | 2018-08-22 08:20 | NUR ---
CHF Yesenia Cath Insertion 20 gauge Yesenia Cath inserted using sterile technique in the upper chest with occlusive dressing over irizarry needle. Patient tolerated procedure well. Ordered labs drawn and sent. See e-MAR for medications given during this visit. IVP ZOFRAN 4MG FOR NAUSE. PT TOLERATED WELL.
--- NOTE | 2018-08-22 08:38 | NUR ---
CHF MILRINONE DRIP 0.375MCG/KG/MIN STARTED AT 0837. MAG RIDER 100MLHR STARTED AT 0938.
--- NOTE | 2018-08-22 11:40 | NUR ---
CHF IV MAG COMPLETE.
[2018-08-22 12:10] LABS: Hematocrit 27.9 % (36.0-46.0); Hemoglobin 8.9 g/dL (12.2-16.2); Mean Corpuscular Hemoglobin 30.4 pg (28.0-32.0); Mean Corpuscular Hgb Conc. 31.8 g/dL (32.0-36.0); Mean Corpuscular Volume 95.6 fL (80.0-100.0); Platelet Count (auto) 106 10^3/uL (140-450); Red Blood Cells 2.92 10^6/uL (4.0-5.20); Red Cell Distribution Width 18.2 % (11.8-14.3); White Blood Cell 3.4 10^3/uL (4.4-10.8)
[2018-08-22 12:17] LABS: Basophils % (manual) 0 (0.0-2.0); Blast Cells 0; Eosinophils % (manual) 0 (0-7); Metamyelocytes % 0; Myelocytes % 0; Promyelocytes % 0; Reactive Lymphocytes 0
[2018-08-22 13:07] LABS: BUN/Creatinine Ratio 38.4; Calcium 8.4 mg/dL (8.5-10.1); Potassium 4.3 mmol/L (3.5-5.1)
--- NOTE | 2018-08-22 13:15 | NUR ---
CHF PT COMPLETED IV MILRINONE. PT ALSO HAD ECHO TODAY.
--- NOTE | 2018-08-22 13:30 | NUR ---
CHF Yesenia Cath Removal Aquino needle D/C'd after Heparin flush per protocol. See e-MAR for medications given during this visit. Sterile occlusive dressing to site. Patient tolerated procedure well. Site benign post infusion. Discharge Instructions See e-MAR for any mediations given with this visit. Patient education given on disease process. Patient verbalized understanding. Previous labs reviewed. Patient discharged in stable condition with after care instructions and follow up appointment. FOLLOW UP WED 08/24/18 FOR STAART OF HOME MILRINONE.
[2018-08-22 14:13] LABS: Band Neutrophils % (manual) 1; Lymphocytes % (manual) 9 (10.0-50.0); Monocytes % (manual) 17 (0-12)
== END | disposition home or self-care (01) ==
LOC: CHF HDHVI 08:20
PROVIDERS: ATTEND Internal Medicine Cardiovascular Disease
DX: I13.0 Hypertensive heart and chronic kidney disease with heart failure and stage 1 through stage 4 chronic kidney disease, or unspecified chronic kidney disease (principal); E11.22 Type 2 diabetes mellitus with diabetic chronic kidney disease; I50.23 Acute on chronic systolic (congestive) heart failure; I50.32 Chronic diastolic (congestive) heart failure; N18.4 Chronic kidney disease, stage 4 (severe); D64.9 Anemia, unspecified; E83.40 Disorders of magnesium metabolism, unspecified; R11.2 Nausea with vomiting, unspecified; I27.21 Secondary pulmonary arterial hypertension; E11.51 Type 2 diabetes mellitus with diabetic peripheral angiopathy without gangrene; J44.9 Chronic obstructive pulmonary disease, unspecified; K21.9 Gastro-esophageal reflux disease without esophagitis; M10.9 Gout, unspecified; F31.9 Bipolar disorder, unspecified; E43 Unspecified severe protein-calorie malnutrition; I48.91 Unspecified atrial fibrillation; I08.2 Rheumatic disorders of both aortic and tricuspid valves; E78.5 Hyperlipidemia, unspecified; G89.29 Other chronic pain; E78.00 Pure hypercholesterolemia, unspecified; F41.9 Anxiety disorder, unspecified; I25.2 Old myocardial infarction; Z87.01 Personal history of pneumonia (recurrent); Z85.3 Personal history of malignant neoplasm of breast; Z79.899 Other long term (current) drug therapy; Z87.891 Personal history of nicotine dependence; Z95.810 Presence of automatic (implantable) cardiac defibrillator; Z90.12 Acquired absence of left breast and nipple; Z98.61 Coronary angioplasty status
CPT/HCPCS: 36415; 80048; 83735; 83880; 85007; 85027; 93306; 96365; 96366; 96368; 96375; G0463; J1642; J2260; J2405; J3475

== ENCOUNTER → 2018-08-24 | Outpatient (CLI) | payer MEDICARE, OTHER ==
[2018-08-24] VITALS (10 sets, daily range): BP systolic 107–129; BP diastolic 55–77
[~2018-08-24] MED LIST changes: -ALBUTEROL SULF 2.5 MG/0.5ML(0.5%) NEB SOLN ONE; +MAGNESIUM SULFATE 1GM/100ML 100 ML IV ONE; -MAGNESIUM SULFATE 1GM/100ML 100 ML IV SCH; -MAGNESIUM SULFATE 1GM/100ML 300 ML IV ONE; -ONDANSETRON HCL 4 MG/2 ML VIAL IV ONE; -ONDANSETRON HCL 4 MG/2 ML VIAL ONE
[2018-08-24] MEDS: MAGNESIUM SULFATE 1GM/100ML 100 ML IV SCH ×3 (10:30→12:30)
--- NOTE | 2018-08-24 15:15 | NUR ---
IN TO CLINIC FOR SCHEDULED INFUSION. WITHOUT DISTRESS OR DISCOMFORT. NO OXYGEN IN USE TODAY, DENEIS NEED AND SPO2 98% ON ROOM AIR. FINGERTIPS PINK AND NO DYSPNEA NOTED. Yesenia Cath Insertion 20 gauge Yesenia Cath inserted using sterile technique in the upper chest with occlusive dressing over irizarry needle. Patient tolerated procedure well. See e-MAR for medications given during this visit.
--- NOTE | 2018-08-24 15:15 | NUR ---
TOLERATED INFUSION WELL. SEE FREQUENT VITAL SIGNS. PLAN FOR HOME MILRINONE THERAPY STARTING TOMORROW. SUPPLIES TO BE DELIVERED TODAY ALSO. BEGINNING TEACHING INITIATED WITH DEMONSTRATION BY PATIENT SUCCESSFUL. PLAN FOR RETURN VISIT TOMORROW FOR TEACHING PURPOSES.WEST NEEDLE LEFT INTACT FOR BEGINNING IV ADMINISTRATION OF HOME MILRINONE TOMORROW. TEACHING DONE WITH VERBAL AND DEMONSTRATION METHODS WITH EXCELLENT RETURN DEMONSTRATION. Discharge Instructions See e-MAR for any mediations given with this visit. Patient education given on disease process. Patient verbalized understanding. Previous labs reviewed. Patient discharged in stable condition with after care instructions and follow up appointment FOR 08/25/18. MEDICATION ADMINISTRATION MILRINONE GTT AT 0.375 MCG/KG/MIN START AT 1035/STOP AT 1434 (6.3 ML/HR) MAG RIDER 3 GRAMS OVER 3 HOURS (1035) (1130) (1230) STOP AT 1330 HEPARIN 500 UNITS IVP TI RIGHT CHEST WEST NEEDLE.
== END | disposition home or self-care (01) ==
LOC: CHF HDHVI 11:04
PROVIDERS: ATTEND Internal Medicine Cardiovascular Disease
DX: I13.0 Hypertensive heart and chronic kidney disease with heart failure and stage 1 through stage 4 chronic kidney disease, or unspecified chronic kidney disease (principal); E11.22 Type 2 diabetes mellitus with diabetic chronic kidney disease; I50.42 Chronic combined systolic (congestive) and diastolic (congestive) heart failure; N18.4 Chronic kidney disease, stage 4 (severe); I25.10 Atherosclerotic heart disease of native coronary artery without angina pectoris; D64.9 Anemia, unspecified; N28.9 Disorder of kidney and ureter, unspecified; I48.91 Unspecified atrial fibrillation; K21.9 Gastro-esophageal reflux disease without esophagitis; E11.51 Type 2 diabetes mellitus with diabetic peripheral angiopathy without gangrene; I27.21 Secondary pulmonary arterial hypertension; E43 Unspecified severe protein-calorie malnutrition; I42.9 Cardiomyopathy, unspecified; J44.9 Chronic obstructive pulmonary disease, unspecified; E78.5 Hyperlipidemia, unspecified; E03.9 Hypothyroidism, unspecified; I25.2 Old myocardial infarction; E78.00 Pure hypercholesterolemia, unspecified; F41.9 Anxiety disorder, unspecified; F32.9 Major depressive disorder, single episode, unspecified; G89.29 Other chronic pain; Z79.01 Long term (current) use of anticoagulants; Z85.3 Personal history of malignant neoplasm of breast; Z87.891 Personal history of nicotine dependence; Z95.810 Presence of automatic (implantable) cardiac defibrillator
CPT/HCPCS: 96365; 96366; 96368; G0463; J1642; J2260; J3475

== ENCOUNTER → 2018-08-25 | Outpatient (CLI) | payer MEDICARE, OTHER ==
[~2018-08-25] MED LIST changes: -MAGNESIUM SULFATE 1GM/100ML 100 ML IV ONE; -MILRINONE 20MG/100ML 100 ML IV ONE; -MILRINONE 20MG/100ML 100 ML IV SCH
[2018-08-25 10:00] VITALS: BP 118/79
--- NOTE | 2018-08-25 10:00 | NUR ---
CHF PT TO CHF CLINIC FOR INSTRUCTION ON HOME 12 HR ON 12 HOUR OFF MILRINONE INFUSION VIA PORT A CATH PER MD BUTT ORDER.
[2018-08-25 11:15] VITALS: BP 112/72
--- NOTE | 2018-08-25 11:15 | NUR ---
CHF Discharge Instructions See e-MAR for any mediations given with this visit. Patient education given on disease process. Patient verbalized understanding. Previous labs reviewed. Patient discharged in stable condition with after care instructions and follow up appointment. PT AND DTR PRIMARY CG VERB UNDERSTANDING AND BOTH DID RETURN DEMONSTRATION OF PUMP SET UP PORT FLUSH AND DISCONNECT AND PUMP ALARMS AND FIXES WELL BATTERY CHANGE. WRITTEN MATERIAL OF INSTRUCTIONS GIVEN ALSO.
== END | disposition home or self-care (01) ==
LOC: CHF HDHVI 09:56
PROVIDERS: ATTEND Internal Medicine Cardiovascular Disease
DX: N28.9 Disorder of kidney and ureter, unspecified (principal); I11.0 Hypertensive heart disease with heart failure; I50.9 Heart failure, unspecified
CPT/HCPCS: G0463

== ENCOUNTER → 2018-08-31 | Outpatient (CLI) | payer MEDICARE, OTHER ==
[~2018-08-31] VITALS: Ht 30.5 cm; Wt 60.6 kg
[~2018-08-31] MED LIST changes: +MAGNESIUM SULFATE 1GM/100ML 100 ML IV ONE; +MAGNESIUM SULFATE 1GM/100ML 200 ML IV ONE
[2018-08-31 10:40] VITALS: BP 115/61
[2018-08-31] MEDS: MAGNESIUM SULFATE 1GM/100ML 100 ML IV SCH ×2 (11:50→12:40)
[2018-08-31 13:40] VITALS: BP 115/69
--- NOTE | 2018-08-31 13:40 | NUR ---
IN TO CLINIC FOR FIRST WEEK FOLLOWUP AFTER STARTING HOME MILRINONE INFUSION. RIGHT CHEST PORT INTACT AND PT REPORTS GOOD COMPLIANCE WITH HOME INFUSION AND HOME CARE. DYSPNEIC UPON INITIAL AMBULATION INTO CLINIC WITH OXYGEN APPLIED AT 2 LPM. RESULTING RESPIRATORY EFFORT IMPROVED BUT REMAINED WITH COUGH THROUGH ENTIRE TREATMENT. VS WNL. LABS DRAWN AND SENT. INFUSED IV MAGNESIUM AND VS WNL. RIGHT CHEST PORT WEST REMOVED AND REACCESSED FOR HOME USE. HOME MILRINONE INFUSION STARTED PT BOUGHT HER HOME SUPPLIES IN TO CLINIC FOR NURSING TO ASSIST AND BEGIN INFUSION FOR TODAY. MEDICATION ADMINISTRATION MAG RIDER 3 GRAMS IVPB (1100) (1150) (1245) HEPARIN 500 UNITS IVP TO RIGHT CHEST PORT AT 1335 Clinic Provider Clinic Provider into see pt with new orders received and carried out. CALLED TO DON STACIEITUSSIN AC 1 TSP Q 4HR PRN COUGH FOR 240 ML WITH REFILL X 1 Z-PACK TAKE PRESCRIBED Discharge Instructions See e-MAR for any mediations given with this visit. Patient education given on disease process. Patient verbalized understanding. Previous labs reviewed. Patient discharged in stable condition with after care instructions and follow up appointment FOR 09/07/18.
[2018-08-31 16:27] LABS: Albumin 2.8 g/dL (3.4-5.0); Calcium 8.1 mg/dL (8.5-10.1); Magnesium 1.6 mg/dL (1.6-2.6); Potassium 4.1 mmol/L (3.5-5.1)
[2018-08-31 16:33] LABS: BUN/Creatinine Ratio 30.3; Bilirubin, Total 0.4 mg/dL (0.2-1.0)
[2018-08-31 16:41] LABS: Hematocrit 30.1 % (36.0-46.0); Hemoglobin 9.5 g/dL (12.2-16.2); Mean Corpuscular Hemoglobin 30.5 pg (28.0-32.0); Mean Corpuscular Hgb Conc. 31.6 g/dL (32.0-36.0); Mean Corpuscular Volume 96.5 fL (80.0-100.0); Platelet Count (auto) 165 10^3/uL (140-450); Red Blood Cells 3.12 10^6/uL (4.0-5.20); Red Cell Distribution Width 18.4 % (11.8-14.3); White Blood Cell 2.1 10^3/uL (4.4-10.8)
[2018-08-31 16:56] LABS: Basophils % (manual) 0 (0.0-2.0); Blast Cells 0; Metamyelocytes % 0; Myelocytes % 0; Promyelocytes % 0; Reactive Lymphocytes 0
[2018-08-31 17:33] LABS: Band Neutrophils % (manual) 1; Eosinophils % (manual) 2 (0-7); Lymphocytes % (manual) 13 (10.0-50.0); Monocytes % (manual) 15 (0-12)
[2018-09-02] MEDS: MAGNESIUM SULFATE 1GM/100ML 100 ML IV SCH (10:59)
[2018-09-16 17:30] VITALS: BP 108/73
--- NOTE | 2018-09-16 17:31 | NUR ---
LATE ENTRY FOR 08/31/18 Addendum: 09/16/18 at 1733 by Nani Pulido RN RN Amended: Links added.
--- NOTE | 2018-09-16 17:33 | NUR ---
LATE ENTRY FOR 08/31/18 FOR CASIE LEE MAG RIDER [id number] ADMIN BY CASIE LEE.
== END | disposition home or self-care (01) ==
LOC: CHF HDHVI 10:54
PROVIDERS: ATTEND Internal Medicine Cardiovascular Disease
DX: E83.40 Disorders of magnesium metabolism, unspecified (principal); I48.91 Unspecified atrial fibrillation; D64.9 Anemia, unspecified; I13.0 Hypertensive heart and chronic kidney disease with heart failure and stage 1 through stage 4 chronic kidney disease, or unspecified chronic kidney disease; E11.22 Type 2 diabetes mellitus with diabetic chronic kidney disease; I50.42 Chronic combined systolic (congestive) and diastolic (congestive) heart failure; N18.4 Chronic kidney disease, stage 4 (severe); E11.40 Type 2 diabetes mellitus with diabetic neuropathy, unspecified; E11.51 Type 2 diabetes mellitus with diabetic peripheral angiopathy without gangrene; I25.10 Atherosclerotic heart disease of native coronary artery without angina pectoris; J44.9 Chronic obstructive pulmonary disease, unspecified; K21.9 Gastro-esophageal reflux disease without esophagitis; E03.9 Hypothyroidism, unspecified; E78.00 Pure hypercholesterolemia, unspecified; E78.5 Hyperlipidemia, unspecified; I25.2 Old myocardial infarction; I27.21 Secondary pulmonary arterial hypertension; G89.29 Other chronic pain; I25.5 Ischemic cardiomyopathy; L93.0 Discoid lupus erythematosus; E43 Unspecified severe protein-calorie malnutrition; F41.9 Anxiety disorder, unspecified; F31.9 Bipolar disorder, unspecified; Z94.1 Heart transplant status; Z95.810 Presence of automatic (implantable) cardiac defibrillator; Z79.01 Long term (current) use of anticoagulants; Z79.899 Other long term (current) drug therapy; Z87.891 Personal history of nicotine dependence; Z90.12 Acquired absence of left breast and nipple; Z85.72 Personal history of non-Hodgkin lymphomas; Z95.5 Presence of coronary angioplasty implant and graft; Z95.1 Presence of aortocoronary bypass graft; Z85.3 Personal history of malignant neoplasm of breast
CPT/HCPCS: 36415; 80053; 83735; 83880; 85007; 85027; 96365; 96366; G0463; J1642; J3475

== ENCOUNTER → 2018-09-07 | Outpatient (CLI) | payer MEDICARE, OTHER ==
[~2018-09-07] MED LIST changes: -MAGNESIUM SULFATE 1GM/100ML 100 ML IV ONE; -MAGNESIUM SULFATE 1GM/100ML 200 ML IV ONE; +MAGNESIUM SULFATE 1GM/100ML 300 ML IV ONE; +POTASSIUM CHL 10 Meq TABLET PO ONE; +POTASSIUM CHL 20 Meq TABLET PO ONE
[2018-09-07] MEDS: MAGNESIUM SULFATE 1GM/100ML 100 ML IV SCH ×3 (10:05→12:25)
--- NOTE | 2018-09-07 10:15 | NUR ---
IN TO CLINIC FOR MAINTENANCE OF RIGHT CHEST PORT AND FOLLOWUP ON HOME INFUSIONS. PT DID NOT BRING PUMP TODAY AND REPORTS THAT SHE IS DOING THE INFUSION AT BEDTIME NOW.
[2018-09-07 11:00] VITALS: BP 125/81
[2018-09-07 11:30] VITALS: BP 124/78
[2018-09-07 11:53] LABS: Hematocrit 29.4 % (36.0-46.0); Hemoglobin 9.3 g/dL (12.2-16.2); Mean Corpuscular Hemoglobin 30.1 pg (28.0-32.0); Mean Corpuscular Hgb Conc. 31.5 g/dL (32.0-36.0); Mean Corpuscular Volume 95.4 fL (80.0-100.0); Platelet Count (auto) 188 10^3/uL (140-450); Red Blood Cells 3.08 10^6/uL (4.0-5.20); Red Cell Distribution Width 18.2 % (11.8-14.3); White Blood Cell 2.6 10^3/uL (4.4-10.8)
[2018-09-07 12:01] LABS: Potassium 3.9 mmol/L (3.5-5.1)
[2018-09-07 12:04] LABS: BUN/Creatinine Ratio 38.3; Calcium 8.6 mg/dL (8.5-10.1)
[2018-09-07 12:29] LABS: Basophils % (manual) 0 (0.0-2.0); Blast Cells 0; Metamyelocytes % 0; Myelocytes % 0; Promyelocytes % 0; Reactive Lymphocytes 0
[2018-09-07 13:26] LABS: Band Neutrophils % (manual) 1; Eosinophils % (manual) 2 (0-7); Lymphocytes % (manual) 17 (10.0-50.0); Monocytes % (manual) 7 (0-12)
[2018-09-07 13:47] VITALS: BP 120/80
--- NOTE | 2018-09-07 13:55 | NUR ---
in to clinic for weekly followup with HOME MILRINONE INFUSION. NO IV PUMP IN USE CURRENTLY DUE TO PT SWITCHING INFUSION FOR NIGHTIME. WEST INTACT TO RIGHT SIDE OF CHEST. DRESSING INTACT. LABS DRAWN AND SENT. MAG RIDERS ADMINISTERED AND TOLERATED WELL QUESTIONS REGARDING DRESSING SUPPLIES ANSWERED AND PT REPEATED BACK INSTRUCTIONS. PT TO TAKE METALOZONE 2.5 MG PO TODAY AND 2.5 PO ON WEDNESDAY FOR FLUID OVERLOAD. DISCUSSED TAKING HOME MAGNESIUM IN THE FORM OF TABLETS SINCE PT HAS STARTED PROBIOTICS AT HOME . PT AGREES AND WILL TRY ORAL DOSES OF MAGNESIUM THROUGH THE WEEK. NEXT WEEK WILL EVALUATE IF ABLE TO TOLERATE ORAL MAGNESIUM OR IF ADDITIONAL IV THERAPY OF MAGNESIUM TO BE ORDERED. CLINIC PROVIDER ORDERED IV REPLACEMENT IF UNABLE TO TOLERATE ORAL REPLACEMENT. REPEAT BACK INSTRUCTIONS OBTAINED. WEST NEEDLE REMOVED AND REPLACED ACCORDING TO PROTOCOL. DRESSING INTACT. Discharge Instructions See e-MAR for any mediations given with this visit. Patient education given on disease process. Patient verbalized understanding. Previous labs reviewed. Patient discharged in stable condition with after care instructions and follow up appointment FOR NEXT WEDNESDAY ON 09/14/18. MEDICATION ADMINISTRATION MAG CHOPRAER 1 GRAM IVPB X 3 (1005) (1110) (1225) START AT 1005/STOP AT 1255 POTASSIUM 30 MEQ PO AT 1330 HEPARIN 500 UNITS IVP AT 1255 BEFORE WEST NEEDLE REMOVAL HEPARIN 500 UNITS IVP AT 1300 AFTER NEW WEST NEEDLE INSERTED
== END | disposition home or self-care (01) ==
LOC: CHF HDHVI 10:06
PROVIDERS: ATTEND Internal Medicine Cardiovascular Disease
DX: I13.0 Hypertensive heart and chronic kidney disease with heart failure and stage 1 through stage 4 chronic kidney disease, or unspecified chronic kidney disease (principal); E11.22 Type 2 diabetes mellitus with diabetic chronic kidney disease; I50.23 Acute on chronic systolic (congestive) heart failure; I50.32 Chronic diastolic (congestive) heart failure; N18.4 Chronic kidney disease, stage 4 (severe); D64.9 Anemia, unspecified; E83.42 Hypomagnesemia; J44.9 Chronic obstructive pulmonary disease, unspecified; E78.00 Pure hypercholesterolemia, unspecified; I25.2 Old myocardial infarction; I27.21 Secondary pulmonary arterial hypertension; I48.91 Unspecified atrial fibrillation; J45.909 Unspecified asthma, uncomplicated; G89.29 Other chronic pain; F32.9 Major depressive disorder, single episode, unspecified; M10.9 Gout, unspecified; E03.9 Hypothyroidism, unspecified; E78.5 Hyperlipidemia, unspecified; E11.40 Type 2 diabetes mellitus with diabetic neuropathy, unspecified; Z90.12 Acquired absence of left breast and nipple; Z98.61 Coronary angioplasty status; Z95.810 Presence of automatic (implantable) cardiac defibrillator; Z95.1 Presence of aortocoronary bypass graft; Z79.01 Long term (current) use of anticoagulants; Z79.899 Other long term (current) drug therapy; Z87.891 Personal history of nicotine dependence; Z87.01 Personal history of pneumonia (recurrent); Z85.72 Personal history of non-Hodgkin lymphomas
CPT/HCPCS: 36415; 80048; 83880; 85007; 85027; 96365; 96366; G0463; J1642; J3475

== ENCOUNTER → 2018-09-16 | Outpatient (CLI) | payer MEDICARE, OTHER ==
[~2018-09-16] MED LIST changes: +FUROSEMIDE 100 MG/10ML VIAL IV ONE; +FUROSEMIDE 20 MG/2 ML VIAL ONE; +FUROSEMIDE INJECTION 10 ML ONE; -POTASSIUM CHL 20 Meq TABLET PO ONE; +SODIUM CHLORIDE 0.9% 108 ML IV ONE
[2018-09-16 10:00] VITALS: BP 118/74
[2018-09-16] MEDS: MAGNESIUM SULFATE 1GM/100ML 100 ML IV SCH ×3 (10:07→12:11)
[2018-09-16 10:15] VITALS: BP 117/75
[2018-09-16 11:45] VITALS: BP 127/82
[2018-09-16 12:25] LABS: Potassium 3.4 mmol/L (3.5-5.1)
[2018-09-16 13:15] VITALS: BP 124/77
[2018-09-16 13:20] VITALS: BP 124/77
--- NOTE | 2018-09-16 13:20 | NUR ---
CHF CLINIC Discharge Instructions See e-MAR for any mediations given with this visit. Patient education given on disease process. Patient verbalized understanding. Previous labs reviewed. Patient discharged in stable condition with after care instructions and follow up appointment. NOTE LASIX INFUSION [id number] ADMIN BY DEACON LEE. MAG RIDER [id number] ADMIN BY DEACON RN AND CASIE RN. POTASSIUM PO ADMIN BY DEACON ELE. HEPARIN ADMIN BY CASIE RN.
== END | disposition home or self-care (01) ==
LOC: CHF HDHVI 09:56
PROVIDERS: ATTEND Internal Medicine Cardiovascular Disease
DX: I13.0 Hypertensive heart and chronic kidney disease with heart failure and stage 1 through stage 4 chronic kidney disease, or unspecified chronic kidney disease (principal); I50.42 Chronic combined systolic (congestive) and diastolic (congestive) heart failure; E83.42 Hypomagnesemia; E11.22 Type 2 diabetes mellitus with diabetic chronic kidney disease; N18.4 Chronic kidney disease, stage 4 (severe); E11.51 Type 2 diabetes mellitus with diabetic peripheral angiopathy without gangrene; E11.40 Type 2 diabetes mellitus with diabetic neuropathy, unspecified; I25.10 Atherosclerotic heart disease of native coronary artery without angina pectoris; I25.2 Old myocardial infarction; J44.9 Chronic obstructive pulmonary disease, unspecified; I48.91 Unspecified atrial fibrillation; I27.21 Secondary pulmonary arterial hypertension; K21.9 Gastro-esophageal reflux disease without esophagitis; E78.5 Hyperlipidemia, unspecified; E03.9 Hypothyroidism, unspecified; E78.00 Pure hypercholesterolemia, unspecified; E87.6 Hypokalemia; G89.29 Other chronic pain; M32.10 Systemic lupus erythematosus, organ or system involvement unspecified; D64.9 Anemia, unspecified; E43 Unspecified severe protein-calorie malnutrition; M10.9 Gout, unspecified; R94.4 Abnormal results of kidney function studies; R53.1 Weakness; F31.9 Bipolar disorder, unspecified; F41.9 Anxiety disorder, unspecified; Z85.72 Personal history of non-Hodgkin lymphomas; Z95.1 Presence of aortocoronary bypass graft; Z95.5 Presence of coronary angioplasty implant and graft; Z95.810 Presence of automatic (implantable) cardiac defibrillator; Z79.01 Long term (current) use of anticoagulants; Z79.899 Other long term (current) drug therapy; Z90.12 Acquired absence of left breast and nipple; Z87.891 Personal history of nicotine dependence
CPT/HCPCS: 36415; 82565; 83880; 84132; 84520; 96365; 96366; 96368; G0463; J1642; J1940; J3475

== ENCOUNTER → 2018-09-21 | Outpatient (CLI) | payer MEDICARE, OTHER ==
[~2018-09-21] VITALS: Ht 30.5 cm; Wt 57.2 kg
[~2018-09-21] MED LIST changes: -FUROSEMIDE 100 MG/10ML VIAL IV ONE; -FUROSEMIDE 20 MG/2 ML VIAL ONE; -FUROSEMIDE INJECTION 10 ML ONE; +MAGNESIUM SULFATE 1GM/100ML 100 ML IV ONE; +MAGNESIUM SULFATE 1GM/100ML 200 ML IV ONE; -MAGNESIUM SULFATE 1GM/100ML 300 ML IV ONE; +POTASSIUM CHL 20 Meq TABLET PO ONE; -SODIUM CHLORIDE 0.9% 108 ML IV ONE
[2018-09-21] MEDS: MAGNESIUM SULFATE 1GM/100ML 100 ML IV SCH ×3 (10:24→12:09)
[2018-09-21 10:30] VITALS: BP 104/58
[2018-09-21 11:00] VITALS: BP 108/66
[2018-09-21 11:30] VITALS: BP 114/73
[2018-09-21 12:00] VITALS: BP 103/60
[2018-09-21 12:13] LABS: Hematocrit 29.6 % (36.0-46.0); Hemoglobin 9.6 g/dL (12.2-16.2); Mean Corpuscular Hgb Conc. 32.4 g/dL (32.0-36.0); Mean Corpuscular Volume 92.5 fL (80.0-100.0); Platelet Count (auto) 164 10^3/uL (140-450); Red Cell Distribution Width 17.5 % (11.8-14.3)
[2018-09-21 12:20] LABS: Albumin 2.8 g/dL (3.4-5.0); BUN/Creatinine Ratio 40.1; Calcium 8.1 mg/dL (8.5-10.1); Potassium 3.3 mmol/L (3.5-5.1)
[2018-09-21 12:28] LABS: Bilirubin, Total 0.6 mg/dL (0.2-1.0); CRP High Sensitivity 3.37 mg/dL (< 0.3); Total Protein 8.2 g/dL (6.4-8.2)
[2018-09-21 12:30] VITALS: BP 102/64
[2018-09-21 13:10] LABS: Basophils % (manual) 0 (0.0-2.0); Blast Cells 0; Metamyelocytes % 0; Myelocytes % 0; Promyelocytes % 0; Reactive Lymphocytes 0
[2018-09-21 14:12] VITALS: BP 129/74
--- NOTE | 2018-09-21 14:15 | NUR ---
IN TO CLINIC FOR SCHEDULED INFUSION OF MAGNESIUM AND FOR CHANGE OF IRIZARRY NEEDLE. DAUGHTER IN ATTENDANCE AND PATIENTS AFFECT CHEERFUL. LABS DRAWN AND SENT FROM PORT. IV MAGNESIUM ADMINISTERED AND TOLERATED WELL. VS WNL. ONCE LABS RETURNED POTASSIUM ADMINISTERED. IRIZARRY NEEDLE REMOVED FROM RIGHT CHEST PORT CATH. Yesenia Cath Insertion 20 gauge Yesenia Cath inserted using sterile technique in the [RIGHT) upper chest with occlusive dressing over irizarry needle. Patient tolerated procedure well. Ordered labs drawn and sent. See e-MAR for medications given during this visit. USED PATIENTS HOME KIT FOR DRESSING CHANGE AND HEPARIN FROM HOME FOR PORT. MEDICATION ADMINISTRATION MAG RIDER 3 GRAM IVPB START PC8401/STOP AT 1330 (1024) (1111) (1209) POTASSIUM 40 MEQ PO AT 1340 HEPARIN 500 UNITS IVP AT 1340 FOR IRIZARRY NEEDLE REMOVAL AND AT 1350 AFTER NEW IRIZARRY NEEDLE INSERTION
[2018-09-21 14:30] LABS: Band Neutrophils % (manual) 2; Eosinophils % (manual) 1 (0-7); Lymphocytes % (manual) 20 (10.0-50.0); Monocytes % (manual) 18 (0-12)
== END | disposition home or self-care (01) ==
LOC: CHF HDHVI 10:21
PROVIDERS: ATTEND Internal Medicine Cardiovascular Disease
DX: I13.0 Hypertensive heart and chronic kidney disease with heart failure and stage 1 through stage 4 chronic kidney disease, or unspecified chronic kidney disease (principal); E11.22 Type 2 diabetes mellitus with diabetic chronic kidney disease; I50.42 Chronic combined systolic (congestive) and diastolic (congestive) heart failure; N18.4 Chronic kidney disease, stage 4 (severe); R70.0 Elevated erythrocyte sedimentation rate; D64.9 Anemia, unspecified; N39.0 Urinary tract infection, site not specified; E83.40 Disorders of magnesium metabolism, unspecified; I25.10 Atherosclerotic heart disease of native coronary artery without angina pectoris; I42.9 Cardiomyopathy, unspecified; I25.2 Old myocardial infarction; I27.21 Secondary pulmonary arterial hypertension; I48.91 Unspecified atrial fibrillation; J44.9 Chronic obstructive pulmonary disease, unspecified; M10.9 Gout, unspecified; E11.51 Type 2 diabetes mellitus with diabetic peripheral angiopathy without gangrene; F32.9 Major depressive disorder, single episode, unspecified; E78.5 Hyperlipidemia, unspecified; E43 Unspecified severe protein-calorie malnutrition; E78.00 Pure hypercholesterolemia, unspecified; E03.9 Hypothyroidism, unspecified; F41.9 Anxiety disorder, unspecified; G89.29 Other chronic pain; Z95.810 Presence of automatic (implantable) cardiac defibrillator; Z90.12 Acquired absence of left breast and nipple; Z79.899 Other long term (current) drug therapy; Z95.5 Presence of coronary angioplasty implant and graft; Z87.01 Personal history of pneumonia (recurrent); Z79.01 Long term (current) use of anticoagulants; Z87.891 Personal history of nicotine dependence; Z85.72 Personal history of non-Hodgkin lymphomas
CPT/HCPCS: 36415; 80053; 83880; 85007; 85027; 86141; 96365; 96366; G0463; J1642; J3475

== ENCOUNTER → 2018-10-12 | Outpatient (CLI) | payer MEDICARE, OTHER ==
[~2018-10-12] VITALS: Ht 1 cm; Wt 50.8 kg
[~2018-10-12] MED LIST changes: -MAGNESIUM SULFATE 1GM/100ML 100 ML IV ONE; -MAGNESIUM SULFATE 1GM/100ML 200 ML IV ONE; +MAGNESIUM SULFATE 1GM/100ML 300 ML IV ONE; -POTASSIUM CHL 10 Meq TABLET PO ONE; -POTASSIUM CHL 20 Meq TABLET PO ONE
[2018-10-12] MEDS: MAGNESIUM SULFATE 1GM/100ML 100 ML IV SCH ×3 (11:45→13:29)
[2018-10-12 12:00] VITALS: BP 90/51
[2018-10-12 12:30] VITALS: BP 95/51
[2018-10-12 13:00] VITALS: BP 103/59
[2018-10-12 13:30] VITALS: BP 93/56
[2018-10-12 14:00] VITALS: BP 95/56
[2018-10-12 14:30] VITALS: BP 103/59
--- NOTE | 2018-10-12 14:30 | NUR ---
IN TO CLINIC FOR POST HOSPITALIZATION FOLLOWUP. PT REPORTS THAT SHE IS LISTED ON HEART TRANSPLANT LIST AT [facility]. NOTED TO HAVE SIGNIFICANT WEIGHT LOSS AND HAS MILRINONE INFUSION IN USE WITH CADE PUMP. PTS AFFECT IS CHEERFUL AND ENERGETIC, SMILING. DAUGHTER IN ATTENDANCE. PT IS NOW ON HOME MILRINONE GTT 24 HOURS CONTINUOS AT 0.375 MCG/KG/MIN. PT HAS BEEN MAINTAINING INFUSION AT HOME, BUT HAS BEEN CHANGING INFUSION BAG EVERY 12 HOURS. UPON DISCUSSION AND REVIEW OF PRESCRIPTION, RX NEEDS TO BE CHANGED AND REVIEWED FOR A 24 HOUR BAG TO BE INFUSED. CLINIC PROVIDER CONSULTED AND ORDERS RECIEVED. CALL PLACED TO [facility] BY SIERRA LEE. PRESCRIPTION UPDATED AND CLARIFIED. HOME HEALTH IS ALREADY PLANNING ON APPOINTMENT TOMORROW AND WILL REPROGRAM PUMP PER PHARMACY INSTRUCTION FOR LONGER INFUSION RATE. RIGHT CHEST PORT ALREADY ACCESSED AND USED FOR INFUSIONS WHILE IN CLINIC. WEST NEEDLE FLUSHED AND CHANGED PER PROTOCOL WITH STERILE TECHNIQUE AND TOLERATED WELL. PT REPORTS BACK PAIN AT 8/10 OVER LEFT SCAPULA, EKG DONE AND REVIEWED. SENT HOME WITH DAUGHTER IN ATTENDANCE IN NO DISTRESS OR DISCOMFORT . SEE FREQUENT VITAL SIGNS. MEDICATION ADMINISTRATION CLARIFICATION OF HOME MILRINONE GTT AT 0.375MCG/KG/MIN 24 HOURS CONTINUOUS VIA CADE PUMP FROM [facility] MAG RIDER 3 GRAMS IVPB X 3 BAGS ( 1145) (1235) (1329) HEPARIN 500 UNITS IVP TO RIGHT CHEST PORT AT 1420 CHANGE WEST NEEDLE AND DRESSING EKG FOR LEFT SCAPULAR PAIN
[2018-10-12 16:15] LABS: BUN/Creatinine Ratio 39.8; Calcium 8.4 mg/dL (8.5-10.1); Magnesium 1.7 mg/dL (1.6-2.6); Potassium 3.7 mmol/L (3.5-5.1)
[2018-10-12 16:27] LABS: Basophils # (auto) 0 uL; Basophils % (auto) 1.1 % (0.0-2.0); Eosinophils # (auto) 0 uL; Eosinophils % (auto) 0.2 % (0.0-7.0); Hemoglobin 9.4 g/dL (12.2-16.2); Lymphocytes # (auto) 0.2 uL; Lymphocytes % (auto) 7.6 % (10.0-50.0); Mean Corpuscular Hemoglobin 30.6 pg (28.0-32.0); Mean Corpuscular Hgb Conc. 32.3 g/dL (32.0-36.0); Mean Corpuscular Volume 94.5 fL (80.0-100.0); Monocytes # (auto) 0.4 uL; Monocytes % (auto) 17.2 % (0.0-12.0); Neutrophils # (auto) 1.9 uL; Neutrophils % (auto) 73.9 % (37.0-80.0); Nucleated Red Blood Cells % 0.1 %; Platelet Count (auto) 143 10^3/uL (140-450); Red Blood Cells 3.06 10^6/uL (4.0-5.20); Red Cell Distribution Width 17.4 % (11.8-14.3); White Blood Cell 2.6 10^3/uL (4.4-10.8)
== END | disposition home or self-care (01) ==
LOC: CHF HDHVI 11:03
PROVIDERS: ATTEND Internal Medicine Cardiovascular Disease
DX: I13.0 Hypertensive heart and chronic kidney disease with heart failure and stage 1 through stage 4 chronic kidney disease, or unspecified chronic kidney disease (principal); E11.22 Type 2 diabetes mellitus with diabetic chronic kidney disease; N18.4 Chronic kidney disease, stage 4 (severe); I50.23 Acute on chronic systolic (congestive) heart failure; I50.32 Chronic diastolic (congestive) heart failure; I25.10 Atherosclerotic heart disease of native coronary artery without angina pectoris; E11.51 Type 2 diabetes mellitus with diabetic peripheral angiopathy without gangrene; E83.40 Disorders of magnesium metabolism, unspecified; D64.9 Anemia, unspecified; I25.2 Old myocardial infarction; I48.91 Unspecified atrial fibrillation; K21.9 Gastro-esophageal reflux disease without esophagitis; J44.9 Chronic obstructive pulmonary disease, unspecified; I42.9 Cardiomyopathy, unspecified; E11.40 Type 2 diabetes mellitus with diabetic neuropathy, unspecified; E78.00 Pure hypercholesterolemia, unspecified; E78.5 Hyperlipidemia, unspecified; E03.9 Hypothyroidism, unspecified; F31.9 Bipolar disorder, unspecified; F41.9 Anxiety disorder, unspecified; Z90.12 Acquired absence of left breast and nipple; Z79.899 Other long term (current) drug therapy; Z95.810 Presence of automatic (implantable) cardiac defibrillator; Z95.5 Presence of coronary angioplasty implant and graft; Z87.891 Personal history of nicotine dependence; Z79.01 Long term (current) use of anticoagulants
CPT/HCPCS: 36415; 80048; 83735; 83880; 85025; 93005; 93701; 96365; 96366; G0463; J1642; J3475

== ENCOUNTER → 2018-10-19 | Outpatient (CLI) | payer MEDICARE, OTHER ==
[~2018-10-19] VITALS: Ht 30.5 cm; Wt 50.5 kg
[~2018-10-19] MED LIST changes: +MAGNESIUM SULFATE 1GM/100ML 100 ML IV ONE; +MAGNESIUM SULFATE 1GM/100ML 200 ML IV ONE; -MAGNESIUM SULFATE 1GM/100ML 300 ML IV ONE
--- NOTE | 2018-10-19 11:13 | NUR ---
CHF PT ARRIVED AT THE CHF CLINIC FOR F/U. ALERT ORIENTED 0 DISTRESS
[2018-10-19] MEDS: MAGNESIUM SULFATE 1GM/100ML 100 ML IV SCH ×3 (11:20→12:48)
--- NOTE | 2018-10-19 11:20 | NUR ---
CHF Yesenia Cath Insertion 20 gauge Yesenia Cath inserted using sterile technique in the upper chest with occlusive dressing over irizarry needle. Patient tolerated procedure well. Ordered labs drawn and sent. See e-MAR for medications given during this visit. CHANGED AT THE END OF MAGNESIUM THERAPY PT HAS A CONTINUOS MILRINONE DRIP AT HOME.
--- NOTE | 2018-10-19 16:00 | NUR ---
Discharge Instructions See e-MAR for any mediations given with this visit. Patient education given on disease process. Patient verbalized understanding. Previous labs reviewed. Patient discharged in stable condition with after care instructions and follow up appointment.
[2018-10-19 16:05] LABS: Potassium 3.8 mmol/L (3.5-5.1)
[2018-10-19 16:07] VITALS: BP 113/72
[2018-10-19 16:08] LABS: Basophils # (auto) 0.1 uL; Basophils % (auto) 2.2 % (0.0-2.0); Eosinophils # (auto) 0 uL; Hematocrit 32.5 % (36.0-46.0); Hemoglobin 10.2 g/dL (12.2-16.2); Lymphocytes # (auto) 0.3 uL; Mean Corpuscular Hemoglobin 29.7 pg (28.0-32.0); Mean Corpuscular Hgb Conc. 31.2 g/dL (32.0-36.0); Mean Corpuscular Volume 95.3 fL (80.0-100.0); Monocytes # (auto) 0.5 uL; Neutrophils # (auto) 1.7 uL; Neutrophils % (auto) 65.7 % (37.0-80.0); Nucleated Red Blood Cells % 0.8 %; Platelet Count (auto) 150 10^3/uL (140-450); Red Blood Cells 3.42 10^6/uL (4.0-5.20); Red Cell Distribution Width 17.3 % (11.8-14.3); White Blood Cell 2.6 10^3/uL (4.4-10.8)
[2018-10-19 16:09] LABS: Monocytes % (auto) 18.1 % (0.0-12.0)
[2018-10-19 16:10] LABS: BUN/Creatinine Ratio 30.6; Bilirubin, Total 0.3 mg/dL (0.2-1.0); Phosphorus 3.4 mg/dL (2.5-4.90); Total Protein 8.4 g/dL (6.4-8.2); Uric Acid 7.9 mg/dL (2.6-6.0)
[2018-10-19 16:48] LABS: Urine Bacteria FEW /hpf (None Seen); Urine Blood Negative /uL (Negative); Urine Hyaline Cast MOD /lpf (0 - 2); Urine Specific Gravity 1.014 (1.001-1.035); Urine WBC <1 /hpf (0 - 5)
== END | disposition home or self-care (01) ==
LOC: CHF HDHVI 11:25
PROVIDERS: ATTEND Internal Medicine Cardiovascular Disease
DX: I13.0 Hypertensive heart and chronic kidney disease with heart failure and stage 1 through stage 4 chronic kidney disease, or unspecified chronic kidney disease (principal); E11.22 Type 2 diabetes mellitus with diabetic chronic kidney disease; I50.23 Acute on chronic systolic (congestive) heart failure; N18.4 Chronic kidney disease, stage 4 (severe); I50.32 Chronic diastolic (congestive) heart failure; M10.9 Gout, unspecified; E21.4 Other specified disorders of parathyroid gland; D64.9 Anemia, unspecified; R74.0 Nonspecific elevation of levels of transaminase and lactic acid dehydrogenase [LDH]; K74.1 Hepatic sclerosis; I25.2 Old myocardial infarction; I27.21 Secondary pulmonary arterial hypertension; I48.91 Unspecified atrial fibrillation; G89.29 Other chronic pain; F41.9 Anxiety disorder, unspecified; J44.9 Chronic obstructive pulmonary disease, unspecified; K21.9 Gastro-esophageal reflux disease without esophagitis; E78.5 Hyperlipidemia, unspecified; E03.9 Hypothyroidism, unspecified; E78.00 Pure hypercholesterolemia, unspecified; E11.51 Type 2 diabetes mellitus with diabetic peripheral angiopathy without gangrene; E43 Unspecified severe protein-calorie malnutrition; F31.9 Bipolar disorder, unspecified; Z87.891 Personal history of nicotine dependence; Z87.440 Personal history of urinary (tract) infections; Z87.01 Personal history of pneumonia (recurrent); Z79.01 Long term (current) use of anticoagulants; Z95.810 Presence of automatic (implantable) cardiac defibrillator; Z79.899 Other long term (current) drug therapy; Z95.5 Presence of coronary angioplasty implant and graft; Z85.72 Personal history of non-Hodgkin lymphomas
CPT/HCPCS: 36415; 80053; 80069; 81001; 82306; 82570; 83615; 83970; 84156; 84550; 85025; 96365; 96366; G0463; J3475

== ENCOUNTER → 2018-10-26 | Outpatient (CLI) | payer MEDICARE, OTHER ==
[~2018-10-26] MED LIST changes: -MAGNESIUM SULFATE 1GM/100ML 100 ML IV ONE; -MAGNESIUM SULFATE 1GM/100ML 200 ML IV ONE; +MAGNESIUM SULFATE 1GM/100ML 300 ML IV ONE
[2018-10-26] MEDS: MAGNESIUM SULFATE 1GM/100ML 100 ML IV SCH ×3 (10:25→12:05)
[2018-10-26 14:00] VITALS: BP 118/73
--- NOTE | 2018-10-26 14:00 | NUR ---
MAGNESIUM INFUSION ADMINISTERED PER CLINIC PROVIDER. VS WNL. MILRINONE INFUSION ONGOING FROM HOME 15/03. LABS DRAWN AND SENT. WEST NEEDLE HEPARINIZED AND THEN CHANGED AND STERILE DRESSING APPLIED. PORT SITE BENIGN AND PATIENT TOLERATED WELL. RED SPOTS NOTED X 4 ON RIGHT THIGH. PT REPORTS NO RESPONSE TO HER TREATMENT. APPLIED BACTROBAN WITH INSTRUCTIONS TO CONTINUE APPLICATION X TWICE DAILY AND REEVALUATE NEXT WEEK. VS WNL. WITHOUT DISTRESS. Discharge Instructions See e-MAR for any mediations given with this visit. Patient education given on disease process. Patient verbalized understanding. Previous labs reviewed. Patient discharged in stable condition with after care instructions and follow up appointment IN 1 WEEK.
[2018-10-26 15:40] LABS: Hematocrit 28.7 % (36.0-46.0); Hemoglobin 9.1 g/dL (12.2-16.2); Mean Corpuscular Hemoglobin 29.9 pg (28.0-32.0); Mean Corpuscular Hgb Conc. 31.6 g/dL (32.0-36.0); Mean Corpuscular Volume 94.6 fL (80.0-100.0); Platelet Count (auto) 131 10^3/uL (140-450); Red Blood Cells 3.03 10^6/uL (4.0-5.20); Red Cell Distribution Width 17.7 % (11.8-14.3); White Blood Cell 2.5 10^3/uL (4.4-10.8)
[2018-10-26 15:49] LABS: Band Neutrophils % (manual) 0; Basophils % (manual) 0 (0.0-2.0); Blast Cells 0; Metamyelocytes % 0; Myelocytes % 0; Promyelocytes % 0; Reactive Lymphocytes 0
[2018-10-26 15:52] LABS: Albumin 2.9 g/dL (3.4-5.0); Calcium 8.4 mg/dL (8.5-10.1); Potassium 3.6 mmol/L (3.5-5.1)
[2018-10-26 15:56] LABS: BUN/Creatinine Ratio 36.7; Bilirubin, Total 0.3 mg/dL (0.2-1.0); Total Protein 8.3 g/dL (6.4-8.2)
[2018-10-26 16:25] LABS: Eosinophils % (manual) 1 (0-7); Lymphocytes % (manual) 18 (10.0-50.0); Monocytes % (manual) 13 (0-12)
== END | disposition home or self-care (01) ==
LOC: CHF HDHVI 10:20
PROVIDERS: ATTEND Internal Medicine Cardiovascular Disease
DX: I13.0 Hypertensive heart and chronic kidney disease with heart failure and stage 1 through stage 4 chronic kidney disease, or unspecified chronic kidney disease (principal); E11.22 Type 2 diabetes mellitus with diabetic chronic kidney disease; I50.42 Chronic combined systolic (congestive) and diastolic (congestive) heart failure; N18.4 Chronic kidney disease, stage 4 (severe); D64.9 Anemia, unspecified; I25.2 Old myocardial infarction; M10.9 Gout, unspecified; M32.9 Systemic lupus erythematosus, unspecified; K21.9 Gastro-esophageal reflux disease without esophagitis; I27.21 Secondary pulmonary arterial hypertension; J44.9 Chronic obstructive pulmonary disease, unspecified; G89.29 Other chronic pain; E78.5 Hyperlipidemia, unspecified; E03.9 Hypothyroidism, unspecified; F41.9 Anxiety disorder, unspecified; F31.9 Bipolar disorder, unspecified; E78.00 Pure hypercholesterolemia, unspecified; E11.51 Type 2 diabetes mellitus with diabetic peripheral angiopathy without gangrene; E43 Unspecified severe protein-calorie malnutrition; Z87.891 Personal history of nicotine dependence; Z90.12 Acquired absence of left breast and nipple; Z79.01 Long term (current) use of anticoagulants; Z79.899 Other long term (current) drug therapy; Z95.810 Presence of automatic (implantable) cardiac defibrillator; Z95.5 Presence of coronary angioplasty implant and graft; Z85.72 Personal history of non-Hodgkin lymphomas; Z87.440 Personal history of urinary (tract) infections; Z87.01 Personal history of pneumonia (recurrent)
CPT/HCPCS: 36415; 80053; 83880; 85007; 85027; 96365; 96366; G0463; J1642; J3475

== ENCOUNTER → 2018-11-02 | Outpatient (CLI) | payer MEDICARE, OTHER ==
[~2018-11-02] VITALS: Ht 30.5 cm; Wt 0.5 kg
[~2018-11-02] MED LIST changes: +MAGNESIUM SULFATE 1GM/100ML 100 ML IV ONE; +MAGNESIUM SULFATE 1GM/100ML 200 ML IV ONE; -MAGNESIUM SULFATE 1GM/100ML 300 ML IV ONE; +POTASSIUM CHL 10 Meq TABLET PO ONE
[2018-11-02] MEDS: MAGNESIUM SULFATE 1GM/100ML 100 ML IV SCH ×3 (10:10→12:30)
--- NOTE | 2018-11-02 10:15 | NUR ---
FROM HOME TO CLINIC WITH IV MILRINONE IN PROGRESS, PT TO RECEIVE IV MAGNESIUM IN CLINIC. PT UNABLE TO TOLERATE PO MAGNESIUM, DESPITE TRYING MULTIPLE BRANDS AND ORAL AND SUBLINGUAL ADMINISTRATION. RIGHT CHEST PORT ALREADY ACCESSED WITH PRIMACOR INFUSING.
--- NOTE | 2018-11-02 10:30 | NUR ---
START IV MAGNESIUM AND PRIMACOR STILL INFUSING. VS WNL
[2018-11-02 11:00] VITALS: BP 121/82
[2018-11-02 11:30] VITALS: BP 122/84
[2018-11-02 12:22] LABS: Hematocrit 30.4 % (36.0-46.0); Hemoglobin 9.7 g/dL (12.2-16.2); Mean Corpuscular Hemoglobin 29.9 pg (28.0-32.0); Mean Corpuscular Hgb Conc. 31.7 g/dL (32.0-36.0); Mean Corpuscular Volume 94.3 fL (80.0-100.0); Platelet Count (auto) 134 10^3/uL (140-450); Red Blood Cells 3.22 10^6/uL (4.0-5.20); Red Cell Distribution Width 17.3 % (11.8-14.3); White Blood Cell 2.4 10^3/uL (4.4-10.8)
[2018-11-02 12:30] VITALS: BP 123/83
[2018-11-02 12:34] LABS: BUN/Creatinine Ratio 37.4; Calcium 8.7 mg/dL (8.5-10.1); Magnesium 1.6 mg/dL (1.6-2.6); Potassium 3.4 mmol/L (3.5-5.1)
--- NOTE | 2018-11-02 13:30 | NUR ---
Port Needle Dressing Change Port Needle Dressing Change provided by Kristine LEE. See e-MAR for medications given during this visit. Line Heparinized. Vital signs stable. Pt tolerated procedure well.
[2018-11-02 13:36] LABS: Basophils % (manual) 0 (0.0-2.0); Blast Cells 0; Eosinophils % (manual) 0 (0-7); Metamyelocytes % 0; Myelocytes % 0; Promyelocytes % 0; Reactive Lymphocytes 0
[2018-11-02 13:55] VITALS: BP 110/65
--- NOTE | 2018-11-02 13:55 | NUR ---
CHF CLINIC Discharge Instructions See e-MAR for any mediations given with this visit. Patient education given on disease process. Patient verbalized understanding. Previous labs reviewed. Patient discharged in stable condition with after care instructions and follow up appointment. NOTE MAG RIDER [id number] ADMIN BY CASIE LEE. POTASSIUM PO ADMIN BY CASIE RN. HEPARIN ADMIN BY CASIE RN. PRESCRIPTION FOR NORCO FROM DR BUTT GIVEN TO PATIENT.
[2018-11-02 17:19] LABS: Band Neutrophils % (manual) 4; Lymphocytes % (manual) 18 (10.0-50.0); Monocytes % (manual) 11 (0-12)
== END | disposition home or self-care (01) ==
LOC: CHF HDHVI 10:11
PROVIDERS: ATTEND Internal Medicine Cardiovascular Disease
DX: I13.0 Hypertensive heart and chronic kidney disease with heart failure and stage 1 through stage 4 chronic kidney disease, or unspecified chronic kidney disease (principal); E11.22 Type 2 diabetes mellitus with diabetic chronic kidney disease; I50.23 Acute on chronic systolic (congestive) heart failure; I50.32 Chronic diastolic (congestive) heart failure; N18.4 Chronic kidney disease, stage 4 (severe); D64.9 Anemia, unspecified; E83.40 Disorders of magnesium metabolism, unspecified; M32.9 Systemic lupus erythematosus, unspecified; I25.2 Old myocardial infarction; I48.91 Unspecified atrial fibrillation; I27.21 Secondary pulmonary arterial hypertension; J44.9 Chronic obstructive pulmonary disease, unspecified; F31.9 Bipolar disorder, unspecified; F41.9 Anxiety disorder, unspecified; K21.9 Gastro-esophageal reflux disease without esophagitis; M10.9 Gout, unspecified; E78.5 Hyperlipidemia, unspecified; E03.9 Hypothyroidism, unspecified; G89.29 Other chronic pain; E78.00 Pure hypercholesterolemia, unspecified; E11.51 Type 2 diabetes mellitus with diabetic peripheral angiopathy without gangrene; E43 Unspecified severe protein-calorie malnutrition; Z95.810 Presence of automatic (implantable) cardiac defibrillator; Z87.01 Personal history of pneumonia (recurrent); Z79.899 Other long term (current) drug therapy; Z87.891 Personal history of nicotine dependence; Z85.72 Personal history of non-Hodgkin lymphomas; Z90.12 Acquired absence of left breast and nipple; Z79.01 Long term (current) use of anticoagulants; Z87.440 Personal history of urinary (tract) infections; Z95.5 Presence of coronary angioplasty implant and graft
CPT/HCPCS: 36415; 80048; 83735; 83880; 85007; 85027; 96365; 96366; G0463; J1642; J3475

== ENCOUNTER → 2018-11-09 | Outpatient (CLI) | payer MEDICARE, OTHER ==
[~2018-11-09] MED LIST changes: +CYANOCOBALAMIN (B-12) 1000 MCG/1 ML VIAL IM ONE; +CYANOCOBALAMIN (B-12) 1000 MCG/1 ML VIAL ONE; +KETOROLAC TROMETH 30 MG/ML 1ML VIAL IV ONE; +KETOROLAC TROMETH 60MG/2ML VIAL IM ONE; -MAGNESIUM SULFATE 1GM/100ML 100 ML IV ONE; -MAGNESIUM SULFATE 1GM/100ML 200 ML IV ONE; +MAGNESIUM SULFATE 1GM/100ML 300 ML IV ONE; -POTASSIUM CHL 10 Meq TABLET PO ONE
[2018-11-09] MEDS: MAGNESIUM SULFATE 1GM/100ML 100 ML IV SCH ×3 (11:15→13:18)
[2018-11-09 14:45] VITALS: BP 96/53
--- NOTE | 2018-11-09 14:45 | NUR ---
CHF CLINIC Discharge Instructions See e-MAR for any mediations given with this visit. Patient education given on disease process. Patient verbalized understanding. Previous labs reviewed. Patient discharged in stable condition with after care instructions and follow up appointment. NOTE MAG RIDER [id number] ADMIN BY CASIE LEE, DEACON LEE TORADOL IVP ADMIN BY CASIE LEE B12 IM R DELTOID ADMIN BY MARY MOLINA
[2018-11-09 16:05] LABS: Basophils # (auto) 0 uL; Eosinophils # (auto) 0 uL; Hemoglobin 8.8 g/dL (12.2-16.2); Lymphocytes # (auto) 0.2 uL; Mean Corpuscular Hemoglobin 30.1 pg (28.0-32.0); Neutrophils # (auto) 1.1 uL
[2018-11-09 16:07] LABS: Basophils % (auto) 2.2 % (0.0-2.0); Eosinophils % (auto) 1.3 % (0.0-7.0); Hematocrit 27.6 % (36.0-46.0); Lymphocytes % (auto) 11.5 % (10.0-50.0); Monocytes # (auto) 0.3 uL; Nucleated Red Blood Cells % 0.2 %; Platelet Count (auto) 125 10^3/uL (140-450); Red Blood Cells 2.93 10^6/uL (4.0-5.20); Red Cell Distribution Width 16.9 % (11.8-14.3)
[2018-11-09 16:12] LABS: BUN/Creatinine Ratio 31.3; Calcium 8.5 mg/dL (8.5-10.1); Magnesium 1.6 mg/dL (1.6-2.6); Potassium 3.4 mmol/L (3.5-5.1)
[2018-11-09 16:22] LABS: White Blood Cell 1.7 10^3/uL (4.4-10.8)
== END | disposition home or self-care (01) ==
LOC: CHF HDHVI 10:58
PROVIDERS: ATTEND Internal Medicine Cardiovascular Disease
DX: I13.0 Hypertensive heart and chronic kidney disease with heart failure and stage 1 through stage 4 chronic kidney disease, or unspecified chronic kidney disease (principal); E11.22 Type 2 diabetes mellitus with diabetic chronic kidney disease; I50.23 Acute on chronic systolic (congestive) heart failure; N18.4 Chronic kidney disease, stage 4 (severe); D64.9 Anemia, unspecified; E83.40 Disorders of magnesium metabolism, unspecified; M79.602 Pain in left arm; R53.83 Other fatigue; I27.21 Secondary pulmonary arterial hypertension; I25.2 Old myocardial infarction; E11.51 Type 2 diabetes mellitus with diabetic peripheral angiopathy without gangrene; J44.9 Chronic obstructive pulmonary disease, unspecified; K21.9 Gastro-esophageal reflux disease without esophagitis; M10.9 Gout, unspecified; E78.5 Hyperlipidemia, unspecified; E03.9 Hypothyroidism, unspecified; F32.9 Major depressive disorder, single episode, unspecified; E78.00 Pure hypercholesterolemia, unspecified; E43 Unspecified severe protein-calorie malnutrition; Z90.12 Acquired absence of left breast and nipple; Z87.891 Personal history of nicotine dependence; Z95.810 Presence of automatic (implantable) cardiac defibrillator; Z95.5 Presence of coronary angioplasty implant and graft; Z87.440 Personal history of urinary (tract) infections; Z85.72 Personal history of non-Hodgkin lymphomas; Z79.899 Other long term (current) drug therapy; Z87.01 Personal history of pneumonia (recurrent)
CPT/HCPCS: 36415; 80048; 83735; 83880; 85025; 96365; 96366; 96372; 96375; G0463; J1885; J3420; J3475

== ENCOUNTER → 2018-11-10 | Outpatient (CLI) | payer MEDICARE, OTHER ==
[~2018-11-10] MED LIST changes: -CYANOCOBALAMIN (B-12) 1000 MCG/1 ML VIAL IM ONE; -CYANOCOBALAMIN (B-12) 1000 MCG/1 ML VIAL ONE; -KETOROLAC TROMETH 30 MG/ML 1ML VIAL IV ONE; -KETOROLAC TROMETH 60MG/2ML VIAL IM ONE; -MAGNESIUM SULFATE 1GM/100ML 300 ML IV ONE
--- NOTE | 2018-11-10 11:35 | NUR ---
Yesenia Cath Insertion 20 gauge Yesenia Cath inserted using sterile technique in the upper chest with occlusive dressing over irizarry needle. Patient tolerated procedure well. Ordered labs drawn and sent. See e-MAR for medications given during this visit.
[2018-11-10 12:45] VITALS: BP 102/66
--- NOTE | 2018-11-10 12:45 | NUR ---
Zaid Cath Removal Aquino needle D/C'd after PT CAME TO CLINIC BECAUSE ZAID CATH WAS DRESSING WAS BLOODY TO INCLUDE BIOPATCH. CHANGED DRESSING PER PROTOCOL. PT EDUCATED ON PROPER USE OF HEPARIN. PT STATED SHE HAS BEEN PUSHING HEPARIN EVERY TIME SHE CHNAGES HER DOBUTAIMINE BAG. DISCUSSED PACKING THE LINE WITH HEPARIN IF THE DRIP IS TURNED OF AT AN EXTENDED PERIOD OF TIME. PT VERBALIZED UNDERSTANDING.
== END | disposition home or self-care (01) ==
LOC: CHF HDHVI 14:42
PROVIDERS: ATTEND Internal Medicine Cardiovascular Disease
DX: M32.10 Systemic lupus erythematosus, organ or system involvement unspecified (principal); I11.0 Hypertensive heart disease with heart failure; I50.9 Heart failure, unspecified
CPT/HCPCS: G0463

== ENCOUNTER → 2018-11-16 | Outpatient (CLI) | payer MEDICARE, OTHER ==
[~2018-11-16] MED LIST changes: +MAGNESIUM SULFATE 1GM/100ML 300 ML IV ONE
--- NOTE | 2018-11-16 11:15 | NUR ---
CHF PT ARRIVED AT THE CHF CLINIC 0 DISTRESS. VITAL SIGNS OBTAINED PT IS ALERT AND ORIENTED. EXPLAINED PLAN OF CARE PT VERBALIZED UNDERSTANDING
[2018-11-16] MEDS: MAGNESIUM SULFATE 1GM/100ML 100 ML IV SCH ×3 (11:40→13:30)
--- NOTE | 2018-11-16 15:15 | NUR ---
Yesenia Cath Removal Aquino needle D/C'd after Heparin flush per protocol. See e-MAR for medications given during this visit. Sterile occlusive dressing to site. Patient tolerated procedure well. Site benign post infusion.
[2018-11-16 15:30] VITALS: BP 102/66
--- NOTE | 2018-11-16 15:30 | NUR ---
Discharge Instructions See e-MAR for any mediations given with this visit. Patient education given on disease process. Patient verbalized understanding. Previous labs reviewed. Patient discharged in stable condition with after care instructions and follow up appointment. MEDICATIONS 1140 START TIME MAG RIDER OUT OF 3 BAGS 1500 STOP TIME OF 3RD MAG RIDER 1500 HEPARIN 500 UNITS IVP
[2018-11-17 12:23] LABS: Hematocrit 29.4 % (36.0-46.0); Hemoglobin 9.2 g/dL (12.2-16.2); Mean Corpuscular Hemoglobin 30.1 pg (28.0-32.0); Mean Corpuscular Hgb Conc. 31.3 g/dL (32.0-36.0); Mean Corpuscular Volume 96.3 fL (80.0-100.0); Platelet Count (auto) 147 10^3/uL (140-450); Red Blood Cells 3.05 10^6/uL (4.0-5.20); White Blood Cell 2.7 10^3/uL (4.4-10.8)
[2018-11-17 12:31] LABS: Basophils % (manual) 0 (0.0-2.0); Blast Cells 0; Eosinophils % (manual) 0 (0-7); Metamyelocytes % 0; Myelocytes % 0; Promyelocytes % 0; Reactive Lymphocytes 0
[2018-11-17 12:32] LABS: BUN/Creatinine Ratio 27.7; Calcium 8.9 mg/dL (8.5-10.1)
[2018-11-17 14:51] LABS: Band Neutrophils % (manual) 2; Lymphocytes % (manual) 16 (10.0-50.0); Monocytes % (manual) 16 (0-12)
== END | disposition home or self-care (01) ==
LOC: CHF HDHVI 11:34
PROVIDERS: ATTEND Internal Medicine Cardiovascular Disease
DX: I13.0 Hypertensive heart and chronic kidney disease with heart failure and stage 1 through stage 4 chronic kidney disease, or unspecified chronic kidney disease (principal); E11.22 Type 2 diabetes mellitus with diabetic chronic kidney disease; I50.23 Acute on chronic systolic (congestive) heart failure; I50.32 Chronic diastolic (congestive) heart failure; N18.4 Chronic kidney disease, stage 4 (severe); D64.9 Anemia, unspecified; E83.42 Hypomagnesemia; M25.511 Pain in right shoulder; I48.91 Unspecified atrial fibrillation; I25.2 Old myocardial infarction; I27.21 Secondary pulmonary arterial hypertension; E11.51 Type 2 diabetes mellitus with diabetic peripheral angiopathy without gangrene; K21.9 Gastro-esophageal reflux disease without esophagitis; J44.9 Chronic obstructive pulmonary disease, unspecified; M10.9 Gout, unspecified; E78.5 Hyperlipidemia, unspecified; E03.9 Hypothyroidism, unspecified; F32.9 Major depressive disorder, single episode, unspecified; E78.00 Pure hypercholesterolemia, unspecified; E43 Unspecified severe protein-calorie malnutrition; F41.9 Anxiety disorder, unspecified; Z90.12 Acquired absence of left breast and nipple; Z79.899 Other long term (current) drug therapy; Z87.891 Personal history of nicotine dependence; Z85.72 Personal history of non-Hodgkin lymphomas; Z87.01 Personal history of pneumonia (recurrent); Z87.440 Personal history of urinary (tract) infections; Z95.810 Presence of automatic (implantable) cardiac defibrillator; Z95.5 Presence of coronary angioplasty implant and graft
CPT/HCPCS: 36415; 73030; 80048; 83880; 85007; 85027; 96365; 96366; G0463; J1642; J3475

== ENCOUNTER → 2018-11-30 | Outpatient (CLI) | payer MEDICARE, OTHER ==
[~2018-11-30] VITALS: Ht 165.1 cm; Wt 59.4 kg
[~2018-11-30] MED LIST changes: +BUMETANIDE (0.25MG/ML) 4 ML VIAL IV ONE; +BUMETANIDE (0.25MG/ML) 4 ML VIAL ONE; +ONDANSETRON HCL 4 MG/2 ML VIAL IV ONE; +ONDANSETRON HCL 4 MG/2 ML VIAL ONE; +POTASSIUM CHL 10 Meq TABLET PO ONE
--- NOTE | 2018-11-30 13:00 | NUR ---
CHF PT ARRIVED AT CHF CLINIC 0 DISTRESS. BILATERAL LOWER EXTREMITY +3 EDEMA, V/S OBTAINED MD DAVENPORT
[2018-11-30] MEDS: MAGNESIUM SULFATE 1GM/100ML 100 ML IV SCH ×3 (13:20→14:30)
--- NOTE | 2018-11-30 13:20 | NUR ---
Clinic Provider Clinic Provider into see pt with new orders received and carried out. LABS SENT STAT, MAGNESIUM STARTED
[2018-11-30 14:17] LABS: Calcium 8.7 mg/dL (8.5-10.1); Magnesium 1.6 mg/dL (1.6-2.6); Potassium 3.9 mmol/L (3.5-5.1)
[2018-11-30 14:20] LABS: BUN/Creatinine Ratio 36.2; Bilirubin, Total 0.4 mg/dL (0.2-1.0); Total Protein 8.3 g/dL (6.4-8.2)
[2018-11-30 14:24] LABS: Hematocrit 28.3 % (36.0-46.0); Hemoglobin 9.1 g/dL (12.2-16.2); Mean Corpuscular Hemoglobin 30.1 pg (28.0-32.0); Mean Corpuscular Hgb Conc. 32.1 g/dL (32.0-36.0); Mean Corpuscular Volume 93.5 fL (80.0-100.0); Platelet Count (auto) 115 10^3/uL (140-450); Red Blood Cells 3.02 10^6/uL (4.0-5.20); Red Cell Distribution Width 17.5 % (11.8-14.3); White Blood Cell 2.9 10^3/uL (4.4-10.8)
[2018-11-30 14:29] LABS: Band Neutrophils % (manual) 0; Basophils % (manual) 0 (0.0-2.0); Blast Cells 0; Metamyelocytes % 0; Myelocytes % 0; Promyelocytes % 0; Reactive Lymphocytes 0
--- NOTE | 2018-11-30 15:30 | NUR ---
CHF 1 MG BUMEX IV GIVEN PER MD ORDER
--- NOTE | 2018-11-30 16:56 | NUR ---
SUDDEN ONSET NAUSEA AND VOMITING. MEDICATED PER ORDER. DISCHARGED TO SELF CARE WITH RIDE FROM [facility]. MEDICATION ADMINISTRATION MAG RIDER 1 GRAM IVPB X 3 (1320) (1350) (1430) BUMEX 1 MG IVP AT 1530 POTASSIUM 30 MEQ PO AT 1535 HEPARIN 500 UNITS IVP AT 1535 ZOFRAN 4 MG IVP AT 1656
[2018-11-30 17:00] VITALS: BP 124/75
[2018-11-30 18:00] LABS: Eosinophils % (manual) 1 (0-7); Lymphocytes % (manual) 10 (10.0-50.0); Monocytes % (manual) 9 (0-12)
== END | disposition home or self-care (01) ==
LOC: CHF HDHVI 13:05
PROVIDERS: ATTEND Internal Medicine Cardiovascular Disease
DX: I13.0 Hypertensive heart and chronic kidney disease with heart failure and stage 1 through stage 4 chronic kidney disease, or unspecified chronic kidney disease (principal); I50.42 Chronic combined systolic (congestive) and diastolic (congestive) heart failure; N18.4 Chronic kidney disease, stage 4 (severe); E83.40 Disorders of magnesium metabolism, unspecified; D64.9 Anemia, unspecified; D51.9 Vitamin B12 deficiency anemia, unspecified; F41.9 Anxiety disorder, unspecified; J44.9 Chronic obstructive pulmonary disease, unspecified; K21.9 Gastro-esophageal reflux disease without esophagitis; E03.9 Hypothyroidism, unspecified; I25.2 Old myocardial infarction; E11.22 Type 2 diabetes mellitus with diabetic chronic kidney disease; E11.51 Type 2 diabetes mellitus with diabetic peripheral angiopathy without gangrene; E11.40 Type 2 diabetes mellitus with diabetic neuropathy, unspecified; I25.10 Atherosclerotic heart disease of native coronary artery without angina pectoris; E78.5 Hyperlipidemia, unspecified; F31.9 Bipolar disorder, unspecified; G89.29 Other chronic pain; Z79.01 Long term (current) use of anticoagulants; Z90.12 Acquired absence of left breast and nipple; Z79.899 Other long term (current) drug therapy; Z87.891 Personal history of nicotine dependence; Z95.810 Presence of automatic (implantable) cardiac defibrillator; Z95.5 Presence of coronary angioplasty implant and graft
CPT/HCPCS: 36415; 80053; 82607; 83735; 83880; 85007; 85027; 96365; 96366; 96375; G0463; J1642; J2405; J3475; J3490

== ENCOUNTER → 2018-12-02 | Outpatient (CLI) | payer MEDICARE, OTHER ==
[~2018-12-02] MED LIST changes: -BUMETANIDE (0.25MG/ML) 4 ML VIAL ONE; +BUMETANIDE INJECTION 10 ML ONE; -MAGNESIUM SULFATE 1GM/100ML 300 ML IV ONE; +METOLAZONE 5 MG TAB ONE; +METOLAZONE 5 MG TAB PO ONE; -ONDANSETRON HCL 4 MG/2 ML VIAL IV ONE; -ONDANSETRON HCL 4 MG/2 ML VIAL ONE
[2018-12-02 14:05] VITALS: BP 112/71
--- NOTE | 2018-12-02 14:05 | NUR ---
CHF CLINIC Discharge Instructions See e-MAR for any mediations given with this visit. Patient education given on disease process. Patient verbalized understanding. Previous labs reviewed. Patient discharged in stable condition with after care instructions and follow up appointment. NOTE BUMEX IVP ADMIN BY CASIE LEE METOLAZONE PO ADMIN BY CASIE LEE POTASSIUM PO ADMIN BY CASIE LEE PT UP 13 LBS IN 2 WEEKS, DIURETIC THERAPY ADMIN PER MD INSTRUCTIONS.
== END | disposition home or self-care (01) ==
LOC: CHF HDHVI 13:34
PROVIDERS: ATTEND Internal Medicine Cardiovascular Disease
DX: I13.0 Hypertensive heart and chronic kidney disease with heart failure and stage 1 through stage 4 chronic kidney disease, or unspecified chronic kidney disease (principal); E11.22 Type 2 diabetes mellitus with diabetic chronic kidney disease; I50.42 Chronic combined systolic (congestive) and diastolic (congestive) heart failure; N18.4 Chronic kidney disease, stage 4 (severe); R53.83 Other fatigue; R06.02 Shortness of breath; I25.10 Atherosclerotic heart disease of native coronary artery without angina pectoris; I27.21 Secondary pulmonary arterial hypertension; I25.2 Old myocardial infarction; E11.40 Type 2 diabetes mellitus with diabetic neuropathy, unspecified; E11.51 Type 2 diabetes mellitus with diabetic peripheral angiopathy without gangrene; K21.9 Gastro-esophageal reflux disease without esophagitis; E03.9 Hypothyroidism, unspecified; F41.9 Anxiety disorder, unspecified; M10.9 Gout, unspecified; E78.5 Hyperlipidemia, unspecified; E78.00 Pure hypercholesterolemia, unspecified; F31.9 Bipolar disorder, unspecified; G89.29 Other chronic pain; E43 Unspecified severe protein-calorie malnutrition; Z90.12 Acquired absence of left breast and nipple; Z87.891 Personal history of nicotine dependence; Z87.440 Personal history of urinary (tract) infections; Z79.01 Long term (current) use of anticoagulants; Z87.01 Personal history of pneumonia (recurrent); Z79.899 Other long term (current) drug therapy; Z85.72 Personal history of non-Hodgkin lymphomas; Z95.810 Presence of automatic (implantable) cardiac defibrillator; Z95.5 Presence of coronary angioplasty implant and graft
CPT/HCPCS: 96374; G0463

== ENCOUNTER → 2018-12-07 | Outpatient (CLI) | payer MEDICARE, OTHER ==
[~2018-12-07] MED LIST changes: -BUMETANIDE (0.25MG/ML) 4 ML VIAL IV ONE; -BUMETANIDE INJECTION 10 ML ONE; +MAGNESIUM SULFATE 1GM/100ML 300 ML IV ONE; -METOLAZONE 5 MG TAB ONE; -METOLAZONE 5 MG TAB PO ONE; -POTASSIUM CHL 10 Meq TABLET PO ONE
[2018-12-07] MEDS: MAGNESIUM SULFATE 1GM/100ML 100 ML IV SCH ×3 (11:40→13:50)
--- NOTE | 2018-12-07 12:00 | NUR ---
in to clinic for SCHEDULED INFUSION. AFFECT FLAT AND PT REPORTS FEELING POORLY. REPORTS DIARRHEA AND FATIGUE. RIGHT CHEST PORT ACCESSED ALREADY AND HOME MILRINONE INFUSION ONGOING. CLINIC PROVIDER CONSULTED AND ORDERS RECIEVED. PORT FLUSHED AND LABS DRAWN AND SENT FOR STAT RESULTS.
--- NOTE | 2018-12-07 12:05 | NUR ---
START IV MAGNESIUM PER ORDER. HOME MILRINONE INFUSION ONGOING.
[2018-12-07 12:54] LABS: Hemoglobin 8.6 g/dL (12.2-16.2)
[2018-12-07 12:56] LABS: Hematocrit 26.4 % (36.0-46.0); Mean Corpuscular Hemoglobin 30.1 pg (28.0-32.0); Mean Corpuscular Hgb Conc. 32.6 g/dL (32.0-36.0); Mean Corpuscular Volume 92.3 fL (80.0-100.0); Platelet Count (auto) 116 10^3/uL (140-450); Red Blood Cells 2.86 10^6/uL (4.0-5.20); Red Cell Distribution Width 17.2 % (11.8-14.3)
[2018-12-07 12:59] LABS: Basophils % (manual) 0 (0.0-2.0); Blast Cells 0; Metamyelocytes % 0; Myelocytes % 0; Promyelocytes % 0; Reactive Lymphocytes 0
[2018-12-07 13:13] LABS: Potassium 3.4 mmol/L (3.5-5.1)
[2018-12-07 13:15] LABS: Magnesium 1.5 mg/dL (1.6-2.6)
[2018-12-07 13:19] LABS: BUN/Creatinine Ratio 39.2
[2018-12-07 13:28] LABS: Band Neutrophils % (manual) 1; Eosinophils % (manual) 2 (0-7); Lymphocytes % (manual) 14 (10.0-50.0); Monocytes % (manual) 13 (0-12)
--- NOTE | 2018-12-07 13:45 | NUR ---
LABS BACK FROM STAT DRAW. REVIEWED WITH DR BUTT. NEW ORDERS FOR TRANSFUSION 1 UNIT PRBC AND GI WORKUP.
[2018-12-07 14:38] LABS: White Blood Cell 1.8 10^3/uL (4.4-10.8)
--- NOTE | 2018-12-07 15:14 | NUR ---
CHF MAG INFUSION COMPLETED. OLD WEST NEEDLE REMOVED AND NEW WEST NEEDLE INSERTED. SITE BENIGN POST NEEDLE CHANGE. FLUSHES EASILY. BLOOD RETURN VERIFIED. RESUMED HOME MILRINONE GTT WHICH HAD BEEN PAUSED FOR DRESSING CHANGE. PT SLEPT DURING ENTIRE TREATMENT COURSE. GIVEN ORDERS FOR TYPE AND CROSSMATCH TO BE DONE AT [facility] ON 12/08/18 AND THEN TRANSFUSED ON 12/09/18 FOR 1 UNIT PRBCS.
--- NOTE | 2018-12-07 15:21 | NUR ---
WAITING ON RIDE. DISCHARGED TO SELF CARE WITH NO DISTRESS NOTED. MEDICATION ADMINISTRATION MAG RIDER 1 GRAM IVPB X 3 (1140) (1240) (1350)..OFF AT 1445 WEST NEEDLE CHANGE WITH DRESSING CHANGE AT SITE AND HEPARINIZED WITH PTS OWN HEPARIN 500 UNITS IN 5 ML FROM HOME AT 1500
[2018-12-07 15:38] VITALS: BP 113/74
== END | disposition home or self-care (01) ==
LOC: CHF HDHVI 11:36
PROVIDERS: ATTEND Internal Medicine Cardiovascular Disease
DX: I13.0 Hypertensive heart and chronic kidney disease with heart failure and stage 1 through stage 4 chronic kidney disease, or unspecified chronic kidney disease (principal); E11.22 Type 2 diabetes mellitus with diabetic chronic kidney disease; N18.4 Chronic kidney disease, stage 4 (severe); I50.42 Chronic combined systolic (congestive) and diastolic (congestive) heart failure; I49.9 Cardiac arrhythmia, unspecified; D64.9 Anemia, unspecified; R53.83 Other fatigue; R53.1 Weakness; E83.42 Hypomagnesemia; M32.9 Systemic lupus erythematosus, unspecified; E78.5 Hyperlipidemia, unspecified; E03.9 Hypothyroidism, unspecified; I25.2 Old myocardial infarction; G89.29 Other chronic pain; E78.00 Pure hypercholesterolemia, unspecified; I27.21 Secondary pulmonary arterial hypertension; E11.51 Type 2 diabetes mellitus with diabetic peripheral angiopathy without gangrene; E43 Unspecified severe protein-calorie malnutrition; J44.9 Chronic obstructive pulmonary disease, unspecified; F32.9 Major depressive disorder, single episode, unspecified; F41.9 Anxiety disorder, unspecified; Z79.01 Long term (current) use of anticoagulants; Z87.891 Personal history of nicotine dependence; Z87.440 Personal history of urinary (tract) infections; Z90.12 Acquired absence of left breast and nipple; Z95.810 Presence of automatic (implantable) cardiac defibrillator; Z95.1 Presence of aortocoronary bypass graft; Z87.01 Personal history of pneumonia (recurrent)
CPT/HCPCS: 36415; 80048; 83735; 83880; 85007; 85027; 96365; 96366; G0463; J3475

== ENCOUNTER 2018-12-09 07:17 | Day surgery (SDC) | payer MEDICARE, OTHER ==
[~2018-12-09 07:17] MED LIST changes: -MAGNESIUM SULFATE 1GM/100ML 300 ML IV ONE
[2018-12-09 08:10] VITALS: BP 110/75
--- NOTE | 2018-12-09 08:10 | NUR ---
PT VERBALIZES UNDERSTANDING OF S&S TO REPORT. PT STATES SHE HAS HAD TRANSFUSIONS BEFORE AND AGREES TO CALL RN WITH ANY RXNS.
[2018-12-09 08:24] VITALS: BP 111/80
[2018-12-09 09:00] VITALS: BP 108/75
[2018-12-09 10:00] VITALS: BP 114/79
[2018-12-09 11:00] VITALS: BP 113/78
[2018-12-09 11:33] VITALS: BP 112/80
--- NOTE | 2018-12-09 11:33 | NUR ---
TRANSFUSION COMPLETE. PT DENIES ANY S&S OF REACTION. PT STATES FEELS BETTER. NAD NOTED. PT DENIES DISTRESS
--- NOTE | 2018-12-09 11:38 | NUR ---
PT AND FAMILY VERBALIZE UNDERSTANDING OF AFTERCARE. PT SKIN PINK WARM AND DRY. VSS. PT AMBULATES WITH STEADY GAIT. NAD NOTED. PT DENIES DISTRESS.
--- NOTE | 2018-12-09 11:40 | NUR ---
PT TOLERATING PROCEDURE WELL. PIV DC'D COMPLETE AND INTACT
== END 2018-12-09 11:46 | disposition home or self-care (01) ==
LOC: CATH 07:17
PROVIDERS: ATTEND Internal Medicine Cardiovascular Disease
DX: D64.9 Anemia, unspecified (principal); I50.9 Heart failure, unspecified; J44.9 Chronic obstructive pulmonary disease, unspecified; Z96.89 Presence of other specified functional implants; Z85.3 Personal history of malignant neoplasm of breast; Z88.8 Allergy status to other drugs, medicaments and biological substances; Z98.890 Other specified postprocedural states; Z90.10 Acquired absence of unspecified breast and nipple
CPT/HCPCS: 36430; 86850; 86900; 86901; 86920; J7030; P9016

== ENCOUNTER → 2018-12-12 | Outpatient (CLI) | payer MEDICARE, OTHER ==
[~2018-12-12] MED LIST changes: +CHOLESTYRAMINE 4 GM POWDER GT ONE; +CHOLESTYRAMINE 4 GM POWDER ONE; +MAGNESIUM SULFATE 1GM/100ML 0 ML IV ONE; +ONDANSETRON HCL 4 MG/2 ML VIAL IV ONE; +ONDANSETRON HCL 4 MG/2 ML VIAL ONE
[2018-12-12 12:42] VITALS: BP 120/58
[2018-12-12 14:00] VITALS: BP 118/60
--- NOTE | 2018-12-12 14:00 | NUR ---
PT REPORT FEELING POORLY SINCE AFTER BLOOD TRANSFUSION. REPORTS ORAL BLEEDING FROM MOUTH SORES AND BLEEDING FROM RECTUM ALSO. HOME MILRINONE GTT ONGOING. LABS DRAWN AND SENT. CLINIC PROVIDER CONSULTED AND ORDERS RECIEVED. MEDICATED WITH ZOFRAN PER ORDER. MEDICATION ADMINISTRATION QUESTRAN 4 MG PO AT 1330 ZOFRAN 4 MG IVP AT 1320 Discharge Instructions See e-MAR for any mediations given with this visit. Patient education given on disease process. Patient verbalized understanding. Previous labs reviewed. Patient discharged in stable condition with after care instructions and follow up appointment.
[2018-12-12 16:08] LABS: Hematocrit 32.1 % (36.0-46.0); Hemoglobin 10.8 g/dL (12.2-16.2); Mean Corpuscular Hemoglobin 31.1 pg (28.0-32.0); Mean Corpuscular Hgb Conc. 33.5 g/dL (32.0-36.0); Mean Corpuscular Volume 92.9 fL (80.0-100.0); Platelet Count (auto) 128 10^3/uL (140-450); Red Blood Cells 3.46 10^6/uL (4.0-5.20); Red Cell Distribution Width 17.1 % (11.8-14.3); White Blood Cell 2.8 10^3/uL (4.4-10.8)
[2018-12-12 16:15] LABS: Calcium 8.5 mg/dL (8.5-10.1); Magnesium 1.9 mg/dL (1.6-2.6)
[2018-12-12 16:18] LABS: BUN/Creatinine Ratio 31.5; Potassium 3.7 mmol/L (3.5-5.1)
[2018-12-12 16:41] LABS: Basophils % (manual) 0 (0.0-2.0); Blast Cells 0; Eosinophils % (manual) 0 (0-7); Metamyelocytes % 0; Myelocytes % 0; Promyelocytes % 0; Reactive Lymphocytes 0
[2018-12-12 18:30] LABS: Band Neutrophils % (manual) 1; Lymphocytes % (manual) 10 (10.0-50.0); Monocytes % (manual) 10 (0-12)
== END | disposition home or self-care (01) ==
LOC: CHF HDHVI 12:58
PROVIDERS: ATTEND Internal Medicine Cardiovascular Disease
DX: I13.0 Hypertensive heart and chronic kidney disease with heart failure and stage 1 through stage 4 chronic kidney disease, or unspecified chronic kidney disease (principal); I50.9 Heart failure, unspecified; D64.9 Anemia, unspecified; E83.40 Disorders of magnesium metabolism, unspecified; J44.9 Chronic obstructive pulmonary disease, unspecified; Z85.3 Personal history of malignant neoplasm of breast; Z90.12 Acquired absence of left breast and nipple; E03.9 Hypothyroidism, unspecified; I50.42 Chronic combined systolic (congestive) and diastolic (congestive) heart failure; F41.9 Anxiety disorder, unspecified; E78.5 Hyperlipidemia, unspecified; I25.2 Old myocardial infarction; E78.00 Pure hypercholesterolemia, unspecified; E11.22 Type 2 diabetes mellitus with diabetic chronic kidney disease; E11.51 Type 2 diabetes mellitus with diabetic peripheral angiopathy without gangrene; I25.10 Atherosclerotic heart disease of native coronary artery without angina pectoris; K21.9 Gastro-esophageal reflux disease without esophagitis; F31.9 Bipolar disorder, unspecified; N18.9 Chronic kidney disease, unspecified; Z87.891 Personal history of nicotine dependence; Z95.1 Presence of aortocoronary bypass graft; Z95.810 Presence of automatic (implantable) cardiac defibrillator
CPT/HCPCS: 36415; 80048; 83735; 83880; 85007; 85027; 96374; G0463; J2405

== ENCOUNTER → 2018-12-14 | Outpatient (CLI) | payer MEDICARE, OTHER ==
[~2018-12-14] MED LIST changes: -CHOLESTYRAMINE 4 GM POWDER GT ONE; -CHOLESTYRAMINE 4 GM POWDER ONE; +FLUC100T34 PO; -MAGNESIUM SULFATE 1GM/100ML 0 ML IV ONE; +MAGNESIUM SULFATE 1GM/100ML 300 ML IV ONE; -ONDANSETRON HCL 4 MG/2 ML VIAL IV ONE; -ONDANSETRON HCL 4 MG/2 ML VIAL ONE; +PRE5T PO
--- NOTE | 2018-12-14 08:20 | NUR ---
PATIENT IN CLINIC FOR IV TX, PATIENT ON 24HR MILRINONE INFUSION WITH ACCESS TO PORT ALREADY ESTABLISHED.
[2018-12-14] MEDS: MAGNESIUM SULFATE 1GM/100ML 100 ML IV SCH ×3 (08:34→10:46)
[2018-12-14 09:00] VITALS: BP 102/65
[2018-12-14 09:28] LABS: Hemoglobin 10.3 g/dL (12.2-16.2); Mean Corpuscular Hemoglobin 29.9 pg (28.0-32.0); Mean Corpuscular Hgb Conc. 32.2 g/dL (32.0-36.0); Mean Corpuscular Volume 92.8 fL (80.0-100.0); Platelet Count (auto) 133 10^3/uL (140-450); Red Blood Cells 3.45 10^6/uL (4.0-5.20); Red Cell Distribution Width 16.6 % (11.8-14.3); White Blood Cell 2.7 10^3/uL (4.4-10.8)
[2018-12-14 09:30] VITALS: BP 99/66
[2018-12-14 09:36] LABS: Band Neutrophils % (manual) 0; Basophils % (manual) 0 (0.0-2.0); Blast Cells 0; Eosinophils % (manual) 0 (0-7); Metamyelocytes % 0; Myelocytes % 0; Promyelocytes % 0; Reactive Lymphocytes 0
[2018-12-14 09:40] LABS: BUN/Creatinine Ratio 23.7; Calcium 8.3 mg/dL (8.5-10.1); Magnesium 1.9 mg/dL (1.6-2.6); Potassium 3.5 mmol/L (3.5-5.1)
[2018-12-14 09:59] LABS: Lymphocytes % (manual) 11 (10.0-50.0); Monocytes % (manual) 19 (0-12)
--- NOTE | 2018-12-14 12:15 | NUR ---
Port Needle Dressing Change Port Needle Dressing Change provided. See e-MAR for medications given during this visit. Line Heparinized. Vital signs stable. Pt tolerated procedure well.
[2018-12-14 12:45] VITALS: BP 115/72
--- NOTE | 2018-12-14 12:45 | NUR ---
CHF CLINIC Discharge Instructions See e-MAR for any mediations given with this visit. Patient education given on disease process. Patient verbalized understanding. Previous labs reviewed. Patient discharged in stable condition with after care instructions and follow up appointment. NOTE MAG CHOPRAER [id number] ADMIN BY ROSA LEE.
== END | disposition home or self-care (01) ==
LOC: CHF HDHVI 08:26
PROVIDERS: ATTEND Internal Medicine Cardiovascular Disease
DX: I13.0 Hypertensive heart and chronic kidney disease with heart failure and stage 1 through stage 4 chronic kidney disease, or unspecified chronic kidney disease (principal); N18.4 Chronic kidney disease, stage 4 (severe); I50.23 Acute on chronic systolic (congestive) heart failure; I50.32 Chronic diastolic (congestive) heart failure; E11.22 Type 2 diabetes mellitus with diabetic chronic kidney disease; D64.9 Anemia, unspecified; E83.40 Disorders of magnesium metabolism, unspecified; J44.9 Chronic obstructive pulmonary disease, unspecified; I48.91 Unspecified atrial fibrillation; I11.0 Hypertensive heart disease with heart failure; I25.10 Atherosclerotic heart disease of native coronary artery without angina pectoris; F31.9 Bipolar disorder, unspecified; K21.9 Gastro-esophageal reflux disease without esophagitis; E03.9 Hypothyroidism, unspecified; E78.5 Hyperlipidemia, unspecified; I25.2 Old myocardial infarction; G89.29 Other chronic pain; I27.21 Secondary pulmonary arterial hypertension; E11.40 Type 2 diabetes mellitus with diabetic neuropathy, unspecified; E11.51 Type 2 diabetes mellitus with diabetic peripheral angiopathy without gangrene; Z90.12 Acquired absence of left breast and nipple; Z85.3 Personal history of malignant neoplasm of breast; Z95.810 Presence of automatic (implantable) cardiac defibrillator; Z79.01 Long term (current) use of anticoagulants; Z87.891 Personal history of nicotine dependence; Z79.899 Other long term (current) drug therapy; Z95.1 Presence of aortocoronary bypass graft; Z87.01 Personal history of pneumonia (recurrent); Z85.72 Personal history of non-Hodgkin lymphomas; Z95.5 Presence of coronary angioplasty implant and graft
CPT/HCPCS: 36415; 80048; 83735; 83880; 85007; 85027; 96365; 96366; G0463; J3475

== ENCOUNTER → 2018-12-22 | Outpatient (CLI) | payer MEDICARE, OTHER ==
[~2018-12-22] VITALS: Ht 165.1 cm; Wt 51.7 kg
[~2018-12-22] MED LIST changes: -FLUC100T34 PO; +MAGNESIUM SULFATE 1GM/100ML 100 ML IV SCH; -PRE5T PO; +SODIUM CHLORIDE 0.9% 250 ML IV SCH
[2018-12-22 15:00] VITALS: BP 97/57
[2018-12-22 16:31] VITALS: BP 97/57
--- NOTE | 2018-12-22 16:32 | NUR ---
IN FOR CHF AND SCHEDULED INFUSION OF MAGNESIUM IV. ONGOING WITH HOME MILRINONE CONTINUOUS VIA CADD PUMP. PT MANAGING IT WELL AT HOME. RIGHT CHEST PORT ACCESSED ALREADY AND LAB DRAWN AND SENT. CLINIC PROVIDER CONSULTED AND ORDERS RECIEVED. WITHOUT DISTRESS OR DISCOMFORT. PTS AFFECT CHEERFUL AND PLEASANT TODAY. Discharge Instructions See e-MAR for any mediations given with this visit. Patient education given on disease process. Patient verbalized understanding. Previous labs reviewed. Patient discharged in stable condition with after care instructions and follow up appointment IN 1 WEEK. MEDICATION ADMINISTRATION MAG RIDER 3GRAMS IVPB OVER 3 HOURS (1252) (1357) (1450) STOP AT 1550 0.9 NS 250 ML WIDE OPEN FOR HYPOTENSION START AT 1530/STOP AT 1630 CHANGE DRESSING TO RIGHT CHEST PORT WITH SUPPLIES BROUGHT BY PATIENT.
[2018-12-22 16:49] LABS: Albumin 2.5 g/dL (3.4-5.0); Anion Gap 9 (5-15); Blood Urea Nitrogen 36 mg/dL (7-18); Calcium 8.3 mg/dL (8.5-10.1); Carbon Dioxide 22 mmol/L (21-32); Chloride 103 mmol/L (98-107); Glucose 87 mg/dL (74-106); Magnesium 1.8 mg/dL (1.6-2.6); Potassium 3.9 mmol/L (3.5-5.1); Sodium 134 mmol/L (136-145)
[2018-12-22 16:51] LABS: Aspartate Aminotransferase 17 U/L (15-37); BUN/Creatinine Ratio 18.7; GFR African American 34 mL/min; GFR Non-African American 28 mL/min
[2018-12-22 16:59] LABS: Alanine Aminotransferase 10 U/L (13-56); Alkaline Phosphatase 57 U/L (45-117); Bilirubin, Total 0.5 mg/dL (0.2-1.0); Total Protein 7.2 g/dL (6.4-8.2)
[2018-12-22 17:17] LABS: Basophils # (auto) 0 uL; Basophils % (auto) 0.6 % (0.0-2.0); Eosinophils # (auto) 0 uL; Eosinophils % (auto) 0.3 % (0.0-7.0); Hematocrit 31.6 % (36.0-46.0); Hemoglobin 10.2 g/dL (12.2-16.2); Lymphocytes # (auto) 0.3 uL; Lymphocytes % (auto) 7.4 % (10.0-50.0); Mean Corpuscular Hemoglobin 30.2 pg (28.0-32.0); Mean Corpuscular Hgb Conc. 32.3 g/dL (32.0-36.0); Mean Corpuscular Volume 93.5 fL (80.0-100.0); Monocytes # (auto) 0.7 uL; Monocytes % (auto) 16.7 % (0.0-12.0); Platelet Count (auto) 134 10^3/uL (140-450); Red Blood Cells 3.37 10^6/uL (4.0-5.20); Red Cell Distribution Width 16.9 % (11.8-14.3)
== END | disposition home or self-care (01) ==
LOC: CHF HDHVI 12:53
PROVIDERS: ATTEND Internal Medicine Cardiovascular Disease
DX: I13.2 Hypertensive heart and chronic kidney disease with heart failure and with stage 5 chronic kidney disease, or end stage renal disease (principal); E11.22 Type 2 diabetes mellitus with diabetic chronic kidney disease; I50.23 Acute on chronic systolic (congestive) heart failure; I50.32 Chronic diastolic (congestive) heart failure; N18.4 Chronic kidney disease, stage 4 (severe); D64.9 Anemia, unspecified; E55.9 Vitamin D deficiency, unspecified; E61.2 Magnesium deficiency; E86.0 Dehydration; R53.83 Other fatigue; M32.9 Systemic lupus erythematosus, unspecified; I48.91 Unspecified atrial fibrillation; I25.10 Atherosclerotic heart disease of native coronary artery without angina pectoris; I25.2 Old myocardial infarction; E11.319 Type 2 diabetes mellitus with unspecified diabetic retinopathy without macular edema; E11.40 Type 2 diabetes mellitus with diabetic neuropathy, unspecified; E11.51 Type 2 diabetes mellitus with diabetic peripheral angiopathy without gangrene; K21.9 Gastro-esophageal reflux disease without esophagitis; J44.9 Chronic obstructive pulmonary disease, unspecified; M10.9 Gout, unspecified; E78.5 Hyperlipidemia, unspecified; E03.9 Hypothyroidism, unspecified; F41.9 Anxiety disorder, unspecified; E78.00 Pure hypercholesterolemia, unspecified; F31.9 Bipolar disorder, unspecified; Z87.891 Personal history of nicotine dependence; Z87.01 Personal history of pneumonia (recurrent); Z79.01 Long term (current) use of anticoagulants; Z79.899 Other long term (current) drug therapy; Z95.810 Presence of automatic (implantable) cardiac defibrillator; Z90.12 Acquired absence of left breast and nipple; Z87.440 Personal history of urinary (tract) infections; Z95.1 Presence of aortocoronary bypass graft
CPT/HCPCS: 36415; 80053; 82306; 83735; 83880; 85025; 96361; 96365; 96366; G0463; J3475; J7050

== ENCOUNTER → 2018-12-28 | Outpatient (CLI) | payer MEDICARE, OTHER ==
[~2018-12-28] MED LIST changes: +MAGNESIUM SULFATE 1GM/100ML 200 ML IV ONE; -MAGNESIUM SULFATE 1GM/100ML 300 ML IV ONE; -SODIUM CHLORIDE 0.9% 250 ML IV SCH
[2018-12-28] MEDS: MAGNESIUM SULFATE 1GM/100ML 100 ML IV SCH ×2 (12:12→13:15)
--- NOTE | 2018-12-28 14:20 | NUR ---
Port Needle Dressing Change Port Needle Dressing Change provided by Kristine LEE. See e-MAR for medications given during this visit.
[2018-12-28 14:30] VITALS: BP 104/69
--- NOTE | 2018-12-28 14:30 | NUR ---
CHF CLINIC Discharge Instructions See e-MAR for any mediations given with this visit. Patient education given on disease process. Patient verbalized understanding. Previous labs reviewed. Patient discharged in stable condition with after care instructions and follow up appointment. NOTE CARDIODYNAMICS PERFORMED BY CHRISTINA MOLINA AND REVIEWED WITH PATIENT BY CASIE LEE. MAG JOSHUA [id number] ADMIN BY JOEY LEE LABS DRAWN
[2018-12-28 15:53] LABS: Hemoglobin 9.5 g/dL (12.2-16.2); White Blood Cell 2.3 10^3/uL (4.4-10.8)
[2018-12-28 15:56] LABS: Hematocrit 28.8 % (36.0-46.0); Mean Corpuscular Hemoglobin 30.5 pg (28.0-32.0); Mean Corpuscular Hgb Conc. 32.9 g/dL (32.0-36.0); Mean Corpuscular Volume 92.9 fL (80.0-100.0); Platelet Count (auto) 131 10^3/uL (140-450); Red Cell Distribution Width 16.3 % (11.8-14.3)
[2018-12-28 16:05] LABS: Band Neutrophils % (manual) 0; Basophils % (manual) 0 (0.0-2.0); Blast Cells 0; Eosinophils % (manual) 0 (0-7); Metamyelocytes % 0; Myelocytes % 0; Promyelocytes % 0; Reactive Lymphocytes 0
[2018-12-28 16:08] LABS: Calcium 8.4 mg/dL (8.5-10.1); Potassium 4.9 mmol/L (3.5-5.1)
[2018-12-28 16:09] LABS: Albumin 2.7 g/dL (3.4-5.0); BUN/Creatinine Ratio 27.7; Magnesium 1.6 mg/dL (1.6-2.6)
[2018-12-28 16:13] LABS: Bilirubin, Total 0.3 mg/dL (0.2-1.0); Total Protein 7.8 g/dL (6.4-8.2)
[2018-12-28 16:43] LABS: Lymphocytes % (manual) 12 (10.0-50.0); Monocytes % (manual) 16 (0-12)
== END | disposition home or self-care (01) ==
LOC: CHF HDHVI 11:42
PROVIDERS: ATTEND Internal Medicine Cardiovascular Disease
DX: E83.42 Hypomagnesemia (principal); I13.2 Hypertensive heart and chronic kidney disease with heart failure and with stage 5 chronic kidney disease, or end stage renal disease; I50.42 Chronic combined systolic (congestive) and diastolic (congestive) heart failure; N18.4 Chronic kidney disease, stage 4 (severe); F41.9 Anxiety disorder, unspecified; I25.10 Atherosclerotic heart disease of native coronary artery without angina pectoris; F32.9 Major depressive disorder, single episode, unspecified; K21.9 Gastro-esophageal reflux disease without esophagitis; E78.5 Hyperlipidemia, unspecified; E03.9 Hypothyroidism, unspecified; I25.2 Old myocardial infarction; E78.00 Pure hypercholesterolemia, unspecified; E11.22 Type 2 diabetes mellitus with diabetic chronic kidney disease; E11.51 Type 2 diabetes mellitus with diabetic peripheral angiopathy without gangrene; E11.40 Type 2 diabetes mellitus with diabetic neuropathy, unspecified; Z79.01 Long term (current) use of anticoagulants; Z85.3 Personal history of malignant neoplasm of breast; Z87.891 Personal history of nicotine dependence; Z95.1 Presence of aortocoronary bypass graft; Z95.810 Presence of automatic (implantable) cardiac defibrillator; Z79.899 Other long term (current) drug therapy; Z87.01 Personal history of pneumonia (recurrent); Z90.12 Acquired absence of left breast and nipple
CPT/HCPCS: 36415; 80053; 83735; 83880; 85007; 85027; 93701; 96365; 96366; G0463; J3475

== ENCOUNTER → 2019-01-02 | Outpatient (CLI) | payer MEDICARE, OTHER ==
[~2019-01-02] MED LIST changes: +CYANOCOBALAMIN (B-12) 1000 MCG/1 ML VIAL IM ONE; +CYANOCOBALAMIN (B-12) 1000 MCG/1 ML VIAL ONE; +FLUC100T34 PO; -MAGNESIUM SULFATE 1GM/100ML 100 ML IV SCH; -MAGNESIUM SULFATE 1GM/100ML 200 ML IV ONE; +MAGNESIUM SULFATE 1GM/100ML 300 ML IV ONE; +PRE5T PO
[2019-01-02] MEDS: MAGNESIUM SULFATE 1GM/100ML 100 ML IV SCH ×4 (12:00→16:44)
[2019-01-02 16:18] VITALS: BP 113/77
--- NOTE | 2019-01-02 16:18 | NUR ---
IN TO CLINIC FOR REPORT OF FATIGUE PORTS PAIN TO HEAD , RATED 5/20 MEDICATED PER ORDER. VS WNL. WITHOUT COMPLAINT. WITHOUT DISTRESS. Pre-Op Discharge Summary: See e-MAR for any medications given for this visit. Pre-op orders received and carried out per MD of EKG, LABS and chest xrays. Patient given a copy of EKG with instructions to go to [facility] out patient for further follow up care.
[2019-01-02 16:32] LABS: Hematocrit 30.8 % (36.0-46.0); Hemoglobin 9.9 g/dL (12.2-16.2); Mean Corpuscular Hemoglobin 30.6 pg (28.0-32.0); Mean Corpuscular Hgb Conc. 32.1 g/dL (32.0-36.0); Mean Corpuscular Volume 95.4 fL (80.0-100.0); Platelet Count (auto) 119 10^3/uL (140-450); Red Blood Cells 3.23 10^6/uL (4.0-5.20); Red Cell Distribution Width 17.5 % (11.8-14.3); White Blood Cell 2.3 10^3/uL (4.4-10.8)
[2019-01-02 16:33] LABS: Potassium 4.6 mmol/L (3.5-5.1)
[2019-01-02 16:36] LABS: Magnesium 2.2 mg/dL (1.6-2.6)
[2019-01-02 16:46] LABS: Band Neutrophils % (manual) 0; Basophils % (manual) 0 (0.0-2.0); Blast Cells 0; Metamyelocytes % 0; Myelocytes % 0; Promyelocytes % 0; Reactive Lymphocytes 0
[2019-01-02 18:35] LABS: Eosinophils % (manual) 1 (0-7); Lymphocytes % (manual) 16 (10.0-50.0); Monocytes % (manual) 13 (0-12)
--- NOTE | 2019-02-27 11:30 | NUR ---
LATE ENTRY FOR 01/02/19 MAG JOSHUA [id number] ADMIN BY CASIE LEE
== END | disposition home or self-care (01) ==
LOC: CHF HDHVI 12:12
PROVIDERS: ATTEND Internal Medicine Cardiovascular Disease
DX: I13.0 Hypertensive heart and chronic kidney disease with heart failure and stage 1 through stage 4 chronic kidney disease, or unspecified chronic kidney disease (principal); I50.23 Acute on chronic systolic (congestive) heart failure; N18.6 End stage renal disease; I50.32 Chronic diastolic (congestive) heart failure; E11.22 Type 2 diabetes mellitus with diabetic chronic kidney disease; E87.6 Hypokalemia; R94.4 Abnormal results of kidney function studies; D64.9 Anemia, unspecified; R53.83 Other fatigue; R19.7 Diarrhea, unspecified; J44.9 Chronic obstructive pulmonary disease, unspecified; I48.91 Unspecified atrial fibrillation; F41.9 Anxiety disorder, unspecified; I25.10 Atherosclerotic heart disease of native coronary artery without angina pectoris; K21.9 Gastro-esophageal reflux disease without esophagitis; E78.5 Hyperlipidemia, unspecified; E03.9 Hypothyroidism, unspecified; I25.2 Old myocardial infarction; G89.29 Other chronic pain; E78.00 Pure hypercholesterolemia, unspecified; E11.40 Type 2 diabetes mellitus with diabetic neuropathy, unspecified; E11.319 Type 2 diabetes mellitus with unspecified diabetic retinopathy without macular edema; E11.51 Type 2 diabetes mellitus with diabetic peripheral angiopathy without gangrene; Z87.01 Personal history of pneumonia (recurrent); Z90.12 Acquired absence of left breast and nipple; Z99.2 Dependence on renal dialysis; Z79.52 Long term (current) use of systemic steroids; Z85.3 Personal history of malignant neoplasm of breast; Z95.810 Presence of automatic (implantable) cardiac defibrillator; Z79.01 Long term (current) use of anticoagulants; Z79.899 Other long term (current) drug therapy; Z87.891 Personal history of nicotine dependence; Z95.1 Presence of aortocoronary bypass graft; Z85.72 Personal history of non-Hodgkin lymphomas
CPT/HCPCS: 36415; 71046; 82565; 83735; 83880; 84132; 84520; 85007; 85027; 96365; 96366; 96372; G0463; J3420; J3475

== ENCOUNTER → 2019-01-04 | Outpatient (CLI) | payer MEDICARE, OTHER ==
[~2019-01-04] MED LIST changes: -CYANOCOBALAMIN (B-12) 1000 MCG/1 ML VIAL IM ONE; -CYANOCOBALAMIN (B-12) 1000 MCG/1 ML VIAL ONE; +FUROSEMIDE 20 MG/2 ML VIAL IV ONE; +FUROSEMIDE 20 MG/2 ML VIAL ONE; -MAGNESIUM SULFATE 1GM/100ML 300 ML IV ONE; +ONDANSETRON HCL 4 MG/2 ML VIAL IV ONE; +ONDANSETRON HCL 4 MG/2 ML VIAL ONE
[2019-01-04 11:00] VITALS: BP 96/59
--- NOTE | 2019-01-04 11:00 | NUR ---
IN TO CLINIC WITH DAUGHTER IN ATTENDANCE. ALERT AND WITHOUT DISTRESS.
--- NOTE | 2019-01-04 11:15 | NUR ---
HOME MILRINONE GTT INFUSING TO RIGHT CHEST PORT. PORT FLUSHED AND LABS DRAWN AND SENT.
[2019-01-04 13:09] LABS: Hemoglobin 9.6 g/dL (12.2-16.2); Mean Corpuscular Hemoglobin 30.1 pg (28.0-32.0); Platelet Count (auto) 128 10^3/uL (140-450); Red Blood Cells 3.19 10^6/uL (4.0-5.20); Red Cell Distribution Width 17.1 % (11.8-14.3); White Blood Cell 2.5 10^3/uL (4.4-10.8)
[2019-01-04 13:15] LABS: Basophils % (manual) 0 (0.0-2.0); Blast Cells 0; Metamyelocytes % 0; Myelocytes % 0; Promyelocytes % 0; Reactive Lymphocytes 0
--- NOTE | 2019-01-04 13:28 | NUR ---
awaiting completion of labs. pt in chair.
[2019-01-04 13:34] LABS: BUN/Creatinine Ratio 23.1; Calcium 8.4 mg/dL (8.5-10.1); Magnesium 2.3 mg/dL (1.6-2.6); Potassium 4.2 mmol/L (3.5-5.1)
[2019-01-04 13:41] LABS: Band Neutrophils % (manual) 1; Eosinophils % (manual) 2 (0-7); Lymphocytes % (manual) 9 (10.0-50.0); Monocytes % (manual) 17 (0-12)
[2019-01-04 14:23] VITALS: BP 110/75
--- NOTE | 2019-01-04 14:26 | NUR ---
EDUCATION REGARDING SODIUM INTAKE AND FLUID INTAKE. RECEPTIVE TO EDUCATION AND REPEAT BACK INSTRUCTIONS OBTAINED. ALSO INSTRUCTED ON NEED FOR MEDICATION ADMINISTRATION REGULARITY. DISCHARGED TO CARE OF DAUGHTER. Discharge Instructions See e-MAR for any mediations given with this visit. Patient education given on disease process. Patient verbalized understanding. Previous labs reviewed. Patient discharged in stable condition with after care instructions and follow up appointment.
--- NOTE | 2019-02-27 12:33 | NUR ---
LATE ENTRY FOR 01/04/19 LASIX IVP ADMIN BY CASIE LEE ZOFRAN IVP ADMIN BY CASIE LEE
== END | disposition home or self-care (01) ==
LOC: CHF HDHVI 10:51
PROVIDERS: ATTEND Internal Medicine Cardiovascular Disease
DX: I13.2 Hypertensive heart and chronic kidney disease with heart failure and with stage 5 chronic kidney disease, or end stage renal disease (principal); E11.22 Type 2 diabetes mellitus with diabetic chronic kidney disease; I50.42 Chronic combined systolic (congestive) and diastolic (congestive) heart failure; N18.6 End stage renal disease; D64.9 Anemia, unspecified; E83.40 Disorders of magnesium metabolism, unspecified; M32.9 Systemic lupus erythematosus, unspecified; I25.10 Atherosclerotic heart disease of native coronary artery without angina pectoris; E11.40 Type 2 diabetes mellitus with diabetic neuropathy, unspecified; E11.51 Type 2 diabetes mellitus with diabetic peripheral angiopathy without gangrene; E11.36 Type 2 diabetes mellitus with diabetic cataract; I25.2 Old myocardial infarction; I48.91 Unspecified atrial fibrillation; I27.21 Secondary pulmonary arterial hypertension; J44.9 Chronic obstructive pulmonary disease, unspecified; M10.9 Gout, unspecified; E43 Unspecified severe protein-calorie malnutrition; K21.9 Gastro-esophageal reflux disease without esophagitis; E78.5 Hyperlipidemia, unspecified; E03.9 Hypothyroidism, unspecified; G89.29 Other chronic pain; E78.00 Pure hypercholesterolemia, unspecified; Z90.12 Acquired absence of left breast and nipple; Z79.52 Long term (current) use of systemic steroids; Z85.3 Personal history of malignant neoplasm of breast; Z99.2 Dependence on renal dialysis; Z79.899 Other long term (current) drug therapy; Z87.891 Personal history of nicotine dependence; Z95.1 Presence of aortocoronary bypass graft; Z79.01 Long term (current) use of anticoagulants; Z95.810 Presence of automatic (implantable) cardiac defibrillator; Z68.22 Body mass index [BMI] 22.0-22.9, adult
CPT/HCPCS: 36415; 80048; 83735; 83880; 85007; 85027; 96374; 96375; G0463; J1940; J2405

== ENCOUNTER → 2019-01-11 | Outpatient (CLI) | payer MEDICARE, OTHER ==
[~2019-01-11] VITALS: Ht 30.5 cm; Wt 55.1 kg
[~2019-01-11] MED LIST changes: -FUROSEMIDE 20 MG/2 ML VIAL IV ONE; -FUROSEMIDE 20 MG/2 ML VIAL ONE; +MAGNESIUM SULFATE 1GM/100ML 300 ML IV ONE
--- NOTE | 2019-01-11 10:25 | NUR ---
PATIENT IN CLINIC FOR SCHEDULED INFUSION, PATIENT ON 24HR MILRINONE INFUSION, PORT ACCESS ALREADY ESTABLISHED.
[2019-01-11] MEDS: MAGNESIUM SULFATE 1GM/100ML 100 ML IV SCH ×3 (10:35→12:30)
[2019-01-11 12:18] LABS: Potassium 3.4 mmol/L (3.5-5.1)
[2019-01-11 12:19] LABS: Hematocrit 30.5 % (36.0-46.0); Hemoglobin 10.2 g/dL (12.2-16.2); Mean Corpuscular Hemoglobin 30.9 pg (28.0-32.0); Mean Corpuscular Hgb Conc. 33.4 g/dL (32.0-36.0); Mean Corpuscular Volume 92.5 fL (80.0-100.0); Platelet Count (auto) 127 10^3/uL (140-450); Red Cell Distribution Width 16.9 % (11.8-14.3); White Blood Cell 2.4 10^3/uL (4.4-10.8)
[2019-01-11 12:24] LABS: BUN/Creatinine Ratio 22.8; Magnesium 1.4 mg/dL (1.6-2.6)
[2019-01-11 12:31] LABS: Band Neutrophils % (manual) 0; Basophils % (manual) 0 (0.0-2.0); Blast Cells 0; Metamyelocytes % 0; Myelocytes % 0; Promyelocytes % 0; Reactive Lymphocytes 0
[2019-01-11 12:52] LABS: Eosinophils % (manual) 1 (0-7); Lymphocytes % (manual) 21 (10.0-50.0); Monocytes % (manual) 7 (0-12)
[2019-01-11 14:20] VITALS: BP 105/69
--- NOTE | 2019-01-11 14:20 | NUR ---
[facility] CL[facility]IC Discharge Instructions See e-MAR for any mediations given with this visit. Patient education given on disease process. Patient verbalized understanding. Previous labs reviewed. Patient discharged in stable condition with after care instructions and follow up appointment. NOTE MAG [id number] ADMIN BY NANI LEE. MARKUS DONAHUE ADMIN BY NANI LEE. BRETT RINALDI CHANGED WITH PATIENT'S OWN KIT. Addendum: 02/27/19 at 1637 by Nani Pulido RN RN mag [id number] stop time correction
== END | disposition home or self-care (01) ==
LOC: CHF HDHVI 10:26
PROVIDERS: ATTEND Internal Medicine Cardiovascular Disease
DX: I13.2 Hypertensive heart and chronic kidney disease with heart failure and with stage 5 chronic kidney disease, or end stage renal disease (principal); I50.32 Chronic diastolic (congestive) heart failure; E11.22 Type 2 diabetes mellitus with diabetic chronic kidney disease; I50.23 Acute on chronic systolic (congestive) heart failure; E83.40 Disorders of magnesium metabolism, unspecified; D64.9 Anemia, unspecified; D51.9 Vitamin B12 deficiency anemia, unspecified; R11.0 Nausea; J44.9 Chronic obstructive pulmonary disease, unspecified; N18.6 End stage renal disease; I48.91 Unspecified atrial fibrillation; F41.9 Anxiety disorder, unspecified; I25.10 Atherosclerotic heart disease of native coronary artery without angina pectoris; F31.9 Bipolar disorder, unspecified; K21.9 Gastro-esophageal reflux disease without esophagitis; E03.9 Hypothyroidism, unspecified; E78.5 Hyperlipidemia, unspecified; I25.2 Old myocardial infarction; G89.29 Other chronic pain; E78.00 Pure hypercholesterolemia, unspecified; E11.40 Type 2 diabetes mellitus with diabetic neuropathy, unspecified; E11.51 Type 2 diabetes mellitus with diabetic peripheral angiopathy without gangrene; E11.319 Type 2 diabetes mellitus with unspecified diabetic retinopathy without macular edema; E11.36 Type 2 diabetes mellitus with diabetic cataract; Z85.72 Personal history of non-Hodgkin lymphomas; Z90.12 Acquired absence of left breast and nipple; Z99.2 Dependence on renal dialysis; Z79.52 Long term (current) use of systemic steroids; Z85.3 Personal history of malignant neoplasm of breast; Z79.01 Long term (current) use of anticoagulants; Z79.899 Other long term (current) drug therapy; Z87.891 Personal history of nicotine dependence; Z95.5 Presence of coronary angioplasty implant and graft; Z87.01 Personal history of pneumonia (recurrent); Z95.1 Presence of aortocoronary bypass graft
CPT/HCPCS: 36415; 80048; 82607; 83036; 83735; 83880; 85007; 85027; 96365; 96366; 96375; G0463; J2405; J3475

== ENCOUNTER → 2019-01-18 | Outpatient (CLI) | payer MEDICARE, OTHER ==
[2019-01-18] MEDS: MAGNESIUM SULFATE 1GM/100ML 100 ML IV SCH ×3 (11:30→13:30)
[2019-01-18 12:16] LABS: Hemoglobin 8.6 g/dL (12.2-16.2)
[2019-01-18 12:18] LABS: Hematocrit 25.9 % (36.0-46.0); Mean Corpuscular Hemoglobin 30.9 pg (28.0-32.0); Mean Corpuscular Hgb Conc. 33.4 g/dL (32.0-36.0); Mean Corpuscular Volume 92.7 fL (80.0-100.0); Platelet Count (auto) 131 10^3/uL (140-450); Red Cell Distribution Width 16.6 % (11.8-14.3)
[2019-01-18 12:21] LABS: BUN/Creatinine Ratio 24.5; Calcium 8.1 mg/dL (8.5-10.1); Magnesium 1.4 mg/dL (1.6-2.6); Potassium 3.6 mmol/L (3.5-5.1)
--- NOTE | 2019-01-18 13:04 | NUR ---
LABS PARTIALLY RETURNED. ADDRESS WITH CLINIC PROVIDER.
[2019-01-18 14:36] LABS: Band Neutrophils % (manual) 0; Basophils % (manual) 0 (0.0-2.0); Blast Cells 0; Metamyelocytes % 0; Myelocytes % 0; Promyelocytes % 0; Reactive Lymphocytes 0; White Blood Cell 1.9 10^3/uL (4.4-10.8)
[2019-01-18 14:39] LABS: Eosinophils % (manual) 1 (0-7); Lymphocytes % (manual) 14 (10.0-50.0); Monocytes % (manual) 17 (0-12)
[2019-01-18 15:00] VITALS: BP 105/65
--- NOTE | 2019-01-18 15:00 | NUR ---
Discharge Instructions See e-MAR for any mediations given with this visit. Patient education given on disease process. Patient verbalized understanding. Previous labs reviewed. Patient discharged in stable condition with after care instructions and follow up appointment. MEDICATIONS 1130 START TIME MAGNESIUM 1 GRAM IV STOP TIME 1230 1230 START TIME MAGNESIUM 1 GRAM 1V STOP TIME 1330 1330 START TIME 1 GRAM MAGNESIUM RIDER IV STOP TIME 1430 1120 ZOFRAN 4MG IVP X 1
== END | disposition home or self-care (01) ==
LOC: CHF HDHVI 10:43
PROVIDERS: ATTEND Internal Medicine Cardiovascular Disease
DX: I13.0 Hypertensive heart and chronic kidney disease with heart failure and stage 1 through stage 4 chronic kidney disease, or unspecified chronic kidney disease (principal); E11.22 Type 2 diabetes mellitus with diabetic chronic kidney disease; I50.42 Chronic combined systolic (congestive) and diastolic (congestive) heart failure; N18.4 Chronic kidney disease, stage 4 (severe); D64.9 Anemia, unspecified; E83.40 Disorders of magnesium metabolism, unspecified; R53.83 Other fatigue; I25.10 Atherosclerotic heart disease of native coronary artery without angina pectoris; I48.91 Unspecified atrial fibrillation; I25.2 Old myocardial infarction; J44.9 Chronic obstructive pulmonary disease, unspecified; K21.9 Gastro-esophageal reflux disease without esophagitis; E11.40 Type 2 diabetes mellitus with diabetic neuropathy, unspecified; E11.51 Type 2 diabetes mellitus with diabetic peripheral angiopathy without gangrene; E11.319 Type 2 diabetes mellitus with unspecified diabetic retinopathy without macular edema; E78.5 Hyperlipidemia, unspecified; E03.9 Hypothyroidism, unspecified; F31.9 Bipolar disorder, unspecified; G89.29 Other chronic pain; E78.00 Pure hypercholesterolemia, unspecified; I27.21 Secondary pulmonary arterial hypertension; E43 Unspecified severe protein-calorie malnutrition; M10.9 Gout, unspecified; F41.9 Anxiety disorder, unspecified; Z79.01 Long term (current) use of anticoagulants; Z79.899 Other long term (current) drug therapy; Z95.810 Presence of automatic (implantable) cardiac defibrillator; Z87.891 Personal history of nicotine dependence; Z85.3 Personal history of malignant neoplasm of breast; Z87.01 Personal history of pneumonia (recurrent)
CPT/HCPCS: 36415; 80048; 83735; 83880; 85007; 85027; 96365; 96366; 96375; G0463; J2405; J3475

== ENCOUNTER → 2019-01-23 | Outpatient (CLI) | payer MEDICARE, OTHER ==
[~2019-01-23] MED LIST changes: -MAGNESIUM SULFATE 1GM/100ML 300 ML IV ONE; +SODIUM CHL 3% 500 ML IV ONE; +SODIUM CHL 3% 500 ML ONE
--- NOTE | 2019-01-23 13:00 | NUR ---
IN FOR FOLLOWUP FROM BEING OFF HOME MILRINONE GTT X 3 DAY, TODAY IS 4TH DAY. PT APPEARS PALE AND FATIGUED AND CACHECTIC. AMBULATES SLOWLY WITH ASSISTANCE, REPORTS PAIN ESPECIALLY IN SHOULDERS. LABS FROM WEDNESDAY FROM HOME HEALTH REVIEWED WITH CLINIC PROVIDER AND ORDERS RECIEVED AND CARRIED OUT. VS WNL. NO DYSPNEA OR DISTRESS NOTED. PT MISSED APPOINTMENT AT 1140 BUT WILL BE SCHEDULED IN TO SEE PHYSICIAN THIS AFTERNOON. REPORTS THAT SHE BELIEVES HER MOTH SORES ARE BETTER AND THAT DIARRHEA HAS IMPROVED. PT STATES "IM DONE WITH THAT MILRINONE". WHEN ASKED ABOUT THE POTENTIAL FOR DECREASING HER LIFESPAN DUE TO BEING OFF MILRINONE, IF SHE HAS CONSIDERED THAT, PT APPEARS SURPRISED AND STATES "OH WOW, I DONT KNOW". PT STATES THAT SHE IS NOT OPPOSED TO RESTARTING HER DRIP BUT WITH A DIFFERENT MEDICATION.
--- NOTE | 2019-01-23 14:00 | NUR ---
TO SEE PHYSICIAN. ASSISTED BY WHEELCHAIR
[2019-01-23 14:51] LABS: Hematocrit 28.2 % (36.0-46.0); Hemoglobin 9.3 g/dL (12.2-16.2); Mean Corpuscular Hemoglobin 30.8 pg (28.0-32.0); Mean Corpuscular Hgb Conc. 32.9 g/dL (32.0-36.0); Mean Corpuscular Volume 93.6 fL (80.0-100.0); Platelet Count (auto) 110 10^3/uL (140-450); Red Blood Cells 3.01 10^6/uL (4.0-5.20); Red Cell Distribution Width 16.3 % (11.8-14.3); White Blood Cell 2.7 10^3/uL (4.4-10.8)
[2019-01-23 14:59] LABS: Band Neutrophils % (manual) 0; Basophils % (manual) 0 (0.0-2.0); Blast Cells 0; Eosinophils % (manual) 0 (0-7); Metamyelocytes % 0; Myelocytes % 0; Promyelocytes % 0; Reactive Lymphocytes 0
[2019-01-23 15:00] LABS: BUN/Creatinine Ratio 22.8; Calcium 8.6 mg/dL (8.5-10.1); Magnesium 2.2 mg/dL (1.6-2.6); Potassium 4.3 mmol/L (3.5-5.1)
--- NOTE | 2019-01-23 15:00 | NUR ---
RETURNED FROM SEEING PHYSICIAN. NEW ORDERS RECIEVED. PLAN TO CHANGE TO HOME DOBUTAMINE GTT. NEW ORDERS FAXED TO [facility].
[2019-01-23 16:00] VITALS: BP 115/71
--- NOTE | 2019-01-23 16:00 | NUR ---
COMPLETED INFUSION. TOLERATED WELL. MEDICATED FOR SUDDEN ONSET NAUSEA WITH GOOD RELIEF. DECLINED NEED FOR ANY ADDITIONAL INTERVENTION. MEDICATION ADMINISTRATION 3 % SALINE AT 50 ML/HR START AT 1300/STOP AT 1600(OFF X 1 HOUR WHEN SEEING MD) ZOFRAN 4MG IVP AT 1555 HEPARIN 500 UNITS IVP TO RIGHT CHEST PORT
[2019-01-23 18:56] LABS: Lymphocytes % (manual) 9 (10.0-50.0); Monocytes % (manual) 8 (0-12)
== END | disposition home or self-care (01) ==
LOC: CHF HDHVI 13:08
PROVIDERS: ATTEND Internal Medicine Cardiovascular Disease
DX: E87.1 Hypo-osmolality and hyponatremia (principal); R11.0 Nausea; I13.2 Hypertensive heart and chronic kidney disease with heart failure and with stage 5 chronic kidney disease, or end stage renal disease; E11.22 Type 2 diabetes mellitus with diabetic chronic kidney disease; N18.6 End stage renal disease; I50.42 Chronic combined systolic (congestive) and diastolic (congestive) heart failure; D64.9 Anemia, unspecified; E83.40 Disorders of magnesium metabolism, unspecified; R53.83 Other fatigue; I25.10 Atherosclerotic heart disease of native coronary artery without angina pectoris; I48.91 Unspecified atrial fibrillation; I25.2 Old myocardial infarction; J44.9 Chronic obstructive pulmonary disease, unspecified; I27.21 Secondary pulmonary arterial hypertension; K21.9 Gastro-esophageal reflux disease without esophagitis; M32.9 Systemic lupus erythematosus, unspecified; E11.40 Type 2 diabetes mellitus with diabetic neuropathy, unspecified; F41.9 Anxiety disorder, unspecified; E78.5 Hyperlipidemia, unspecified; E03.9 Hypothyroidism, unspecified; E78.00 Pure hypercholesterolemia, unspecified; E11.51 Type 2 diabetes mellitus with diabetic peripheral angiopathy without gangrene; F31.9 Bipolar disorder, unspecified; E11.319 Type 2 diabetes mellitus with unspecified diabetic retinopathy without macular edema; G89.29 Other chronic pain; Z95.1 Presence of aortocoronary bypass graft; Z79.899 Other long term (current) drug therapy; Z79.01 Long term (current) use of anticoagulants; Z95.810 Presence of automatic (implantable) cardiac defibrillator; Z90.12 Acquired absence of left breast and nipple; Z87.891 Personal history of nicotine dependence; Z99.2 Dependence on renal dialysis
CPT/HCPCS: 36415; 80048; 83735; 83880; 85007; 85027; 96365; 96366; 96375; G0463; J1642; J2405

== ENCOUNTER → 2019-01-30 | Outpatient (CLI) | payer MEDICARE, OTHER ==
[~2019-01-30] MED LIST changes: -ONDANSETRON HCL 4 MG/2 ML VIAL IV ONE; -ONDANSETRON HCL 4 MG/2 ML VIAL ONE; -SODIUM CHL 3% 500 ML IV ONE; -SODIUM CHL 3% 500 ML ONE
--- NOTE | 2019-01-30 12:30 | NUR ---
PATIENT INTO CLINIC FOR WEST NEEDLE CHANGE AND MAG INFUSION. PATIENT UNSTABLE ON FEET AND PLACED IN WHEELCHAIR, PATIENT BECAME UNRESPONSIVE TO VERBAL COMMANDS. PATIENT VITAL SIGNS TAKEN AND PLACED ON NASAL CANULA 6LPM. DR BUTT INFORMED, AMBULANCE CALLED. PATIENT O2 SATS STILL IN THE LOW 80'S PATIENT BECOMING RESPONSIVE TO VERBAL COMMANDS, PATIENT PLACED ON 10L NON-REBREATHER O2 SAT BROUGHT UP TO 92%.
[2019-01-30 12:41] VITALS: BP 86/48
--- NOTE | 2019-01-30 12:45 | NUR ---
PATIENT DISCHARGED TO EMS CARE, FAMILY DIRECTED TO [facility].
== END | disposition home or self-care (01) ==
LOC: CHF HDHVI 13:04
PROVIDERS: ATTEND Internal Medicine Cardiovascular Disease
DX: I48.91 Unspecified atrial fibrillation (principal); D64.9 Anemia, unspecified; R06.02 Shortness of breath; L65.9 Nonscarring hair loss, unspecified; I11.0 Hypertensive heart disease with heart failure; I50.9 Heart failure, unspecified
CPT/HCPCS: G0463